=== PATIENT | male | born 1960 | race Hispanic/Latino ===

== ENCOUNTER 2016-09-04 13:17 | Inpatient (IN) | payer MEDICARE ==
--- NOTE | 2016-09-04 14:03 | Emergency Department Report ---
Entered by BHARGAVI CHIU, acting as scribe for KATIE JOY NP. Chief Complaint: Chest Pain Stated Complaint: CHEST PAIN Time Seen by Provider: 09/04/16 13:53 - HPI History of Present Illness: 56 year old male who is non-toxic, non ill appearing, in no acute distress presents with c/o right sided chest pain today. He describes pain aching with radiation to his back. He also reports SOB and swelling to right hand. Patient states he was given heparin by dialysis center. Denies N/V, abdominal pain, denies trauma to right hand. - ROS Review of Systems: Reports right anterior chest pain, radiated pain to back, shortness of breath, swelling to right hand. Denies abdominal pain, N/V, trauma to right hand. - Exam Vital Signs: Vital Signs 09/04/16 13:21 Temperature 98 F Pulse Rate 77 Respiratory 18 Rate Blood Pressure 123/69 O2 Sat by Pulse 100 Oximetry Physical Exam: Constitutional: Non toxic appearing, NAD. Cardiovascular: Normal rate and rhythm. Murmur present. Palpation of sternum and right anterior chest wall reproduces symptoms. 2+ pitting edema to right hand. Respiratory: No respiratory distress. Lung sounds clear to auscultation bilaterally. MSE screening note: Focused history and physical exam performed. Due to findings the following was ordered: CBC, CMP, BNP, CCK, Troponin, EKG, Chest X-ray No ASA ordered due to reported heparin administration by dialysis center prior to arrival. ED Disposition for MSE Condition: Stable This documentation as recorded by the scribe,BHARGAVI CHIU,accurately reflects the service I personally performed and the decisions made by ,KATIE JOY, JOELLEN.
--- NOTE | 2016-09-04 14:29 | XRay Report ---
CHEST 2 VIEWS INDICATION: Right-sided chest pain. Right arm swelling. COMPARISON: 08/15/2016 FINDINGS: PA and lateral chest radiographs demonstrate grossly stable cardiomediastinal silhouette/mild cardiomegaly, though partly obscured due to new right lower lung opacity/effusion with obscured right hemidiaphragm. Mild left basilar opacity/effusion persists, though lesser since the prior exam. No CHF. Mild aortic knob calcifications. Stable left axillary stent and mild spinal degenerative spurring. CONCLUSION: 1. Interval radiographic variation with new right basilar opacity/effusion while improved at the left lung base, as described. 2. Few other stable findings, including mild cardiomegaly. Thank you for the opportunity to participate in this patient's care.
[2016-09-04 16:12] LABS: Basophils % (Auto) 0.9 % (0.0-1.8); Eosinophils % (Auto) 7.8 % (0.0-4.3); Hematocrit 35.9 % (35.5-45.6); Hemoglobin 11.3 gm/dl (11.8-15.2); Mean Corpuscular HGB Conc 31 % (32-34); Mean Corpuscular Hemoglobin 28 pg (28-32); Mean Corpuscular Volume 90 fl (84-94); Platelet Count 252 K/mm3 (140-440); Red Blood Count 3.97 M/mm3 (3.65-5.03); White Blood Count 13.6 K/mm3 (4.5-11.0)
[2016-09-04 16:37] LABS: Creatine Kinase MB 4.1 ng/mL (0.0-4.0)
[2016-09-04 16:38] LABS: Albumin 3.3 g/dL (3.9-5); Albumin/Globulin Ratio 1.2 %; Alkaline Phosphatase 97 units/L (35-129); Anion Gap 16 mmol/L; BUN/Creatinine Ratio 5.22; Blood Urea Nitrogen 23 mg/dL (9-20); Calcium 8.9 mg/dL (8.4-10.2); Carbon Dioxide 28 mmol/L (22-30); Chloride 100.6 mmol/L (98-107); Creatine Kinase 54 units/L (55-170); Glucose 85 mg/dL (75-100); Potassium 3.8 mmol/L (3.6-5.0); Sodium 141 mmol/L (137-145); Total Protein 6.1 g/dL (6.3-8.2)
[2016-09-04 16:41] LABS: Alanine Aminotransferase < 5 units/L (7-56)
[2016-09-04 17:34] LABS: Cholesterol 130 mg/dL (50-199); HDL Cholesterol 32 mg/dL (40-59); LDL Cholesterol,Direct 77 mg/dL (50-130); Triglycerides 105 mg/dL (2-149)
--- NOTE | 2016-09-04 19:25 | Admit Criteria Form ---
Admission Criteria Documentation: TELEMETRY CARE Telemetry Admission Guidelines (Place 'X' for any and all applicable criteria): Admission to telemetry [A] may be indicated for ANY ONE of the following(1)(2)(3 )(4)(5): [ X]I. Cardiac disease, including ANY ONE of the following (9)(10)(11)(12)( 13): [ ]a) Postacute NE [ ]b) Low-risk patients with ST-segment elevation NE who have undergone successful percutaneous coronary intervention [X ]c) Unstable angina [ ]d) Suspected NE (until it is ruled out) [ ]e) Post cardiac surgery (first 48 to 72 hours unless complications occur) [ ]f) Acute arrhythmias (including significant tachycardia or bradycardia) [B] [ ]g) Firing of an implantable cardioverter defibrillator [C] [ ]h) Suspected pacemaker or implantable cardioverter defibrillator malfunction (10) [ ]i) New administration or adjustment of an antiarrhythmic drug [D ] [ ]j) Child admitted for acute congestive heart failure [ ]j) Long QT syndrome [ ]k) Advanced heart block (eg, second-degree Mobitz type II, third- degree heart block) [ ]l) Acute myocarditis or pericarditis [ ]m) Short-term (ambulatory or inpatient) monitoring after a cardiac procedure as indicated by ANY ONE of the following [E]: [ ]i) Electrophysiologic studies [ ]ii) Percutaneous coronary intervention with stent placement [ ]iii) Pacemaker placement with cardiac conduction defect [ ]iv) Implantable cardiac defibrillator placement [ ]II. Drug overdose or poisoning with substance that causes arrhythmias or QT prolongation (eg, phenothiazines, sympathomimetic agents, cyclic antidepressants, digitalis, antiarrhythmic drugs)(15) [ ]III. Short-term (ambulatory or inpatient) monitoring after therapeutic or diagnostic procedure requiring conscious sedation or anesthesia (eg, endoscopy, elective cardioversion) [ ]IV. Acute cerebrovascular even[F](18) [ ]V. Massive blood transfusion (eg, at least 10 units of packed red blood cells in 24 hours) [ ]. Variceal bleeding after endoscopy, sclerotherapy, or IV vasopressin [ ]VII. Uncorrected electrolyte abnormalities associated with an increased risk of dangerous arrhythmia [G]; examples include [ ]a) Hyperkalemia with attributable ECG changes [ ]b) Potassium greater than 6.5 mmol/L (mEq/L) in a patient without history of chronic renal disease [ ]c) Prolonged QT attributed to hypokalemia, hypomagnesemia, or hypocalcemia [ ]VIII.Unexplained syncope or other neurologic event suspected of being due to arrhythmia due to a finding that increases risk; examples include(19)(20)(21): [ ]a) High-risk ECG findings (eg, bifascicular block, bradycardia, abnormal QT interval, ventricular pre- excitation) [ ]b) History of previous syncope due to arrhythmia [ ]c) Abnormal ventricular function (eg, reduced ejection fraction ) [ ]d) Exertional or supine syncope [ ]e) Concerning syncope characteristics (eg, sudden loss of consciousness without prodrome) [ ]f) Family history of sudden [ ]g) Use of arrhythmogenic medication [ ]h) Suspected cardiac ischemia [ ]i) Known channelopathy (eg, long QT syndrome, Brugada syndrome, or catecholaminergic paroxysmal ventricular tachycardia) [ ]j) Known structural heart disease (eg, hypertrophic cardiomyopathy , severe valvular disease) [ ]k) Palpitations preceding syncope The original [employer] content created by [employer] has been revised. The portions of the content which have been revised are identified through the use of italic text or in bold, and [facility] has neither reviewed nor approved the modified material. All other unmodified content is copyright [employer]. Please see references footnoted in the original [employer] edition 2016 Admission Criteria Met: Yes
--- NOTE | 2016-09-04 19:55 | Emergency Department Report ---
HPI - General Chief Complaint: Chest Pain Time Seen by Provider: 09/04/16 18:38 - HPI HPI: This is a 56-year-old location male presents to the emergency department by EMS from hemodialysis with complaint of midsternal and right-sided chest pain, a painful lump/bump to the right nipple and some shortness of breath. Patient did not take anything and was not given anything for symptoms prior to presentation. He gets dialysis on Saturday//Saturday. 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 Symptoms beginning grossly worse over the past 2-3 days. No recent travel or sick contacts at home. He also has a history of hypertension, previous brain tumors , Von Hippel syndrome. The patient was recently admitted to [facility] in late July and had a cardiac catheterization that showed only mild occlusive disease and did not require any cardiac stents. ED Past Medical Hx - Past Medical History Hx Hypertension: Yes Hx CVA: No Hx Congestive Heart Failure: No Hx Diabetes: No Hx Renal Disease: Yes (HD) Hx Seizures: No Hx Asthma: No Hx COPD: No Hx Tuberculosis: No Hx HIV: No Additional medical history: VAN-HIPPEL SYNDROME (AUTOIMMUNE), PANCREATIC CYSTS, BRAIN TUMORS - Surgical History Hx Pacemaker: No Hx Cholecystectomy: Yes Hx Appendectomy: Yes Additional Surgical History: 3 BRAIN SURGERIES, NEPHRECTOMY B/L, SPLENECTOMY, - Social History Smoking Status: Unknown if ever smoked Substance Use Type: None - Medications Home Medications: Home Medications Medication Instructions Recorded Confirmed Last Taken Type Atorvastatin [Lipitor] 40 mg PO QHS 08/24/15 08/15/16 08/14/16 History Folic Acid/Vit B Comp W-C [Renal 1 cap PO QDAY #30 capsule 04/27/16 08/15/16 Rx Caps] Gabapentin [Neurontin] 300 mg PO BID #60 capsule 04/27/16 08/15/16 08/15/16 Rx NIFEdipine XL [Procardia Xl] 60 mg PO Q12HR #60 tablet 04/27/16 08/15/16 Rx Pantoprazole [Protonix TAB] 40 mg PO QDAY #30 tablet 04/27/16 08/15/16 08/15/16 Rx hydrALAZINE [Apresoline TAB] 100 mg PO TID #90 tab 04/27/16 08/15/16 08/15/16 Rx Carvedilol [Coreg] 25 mg PO BID 08/15/16 08/15/16 08/15/16 History Ergocalciferol (Vitamin D2) 1 tab PO 1XW 08/15/16 08/15/16 Unknown History [Vitamin D2] Ferrous Sulfate [Feosol 325 MG tab] 325 mg PO QDAY 08/15/16 08/15/16 08/15/16 History Vit B Cplx #11/FA/C/Biot/Zn Ox 1 each PO DAILY 08/15/16 08/15/16 08/15/16 History [Dialyvite with Zinc Tablet] traMADol [Ultram 50 MG tab] 50 mg PO Q6HR PRN 08/15/16 08/15/16 08/15/16 History Levofloxacin [Levaquin TAB] 500 mg PO Q48H #5 tablet 08/20/16 Unknown Rx ED Review of Systems ROS: Stated complaint: CHEST PAIN Other details as noted in HPI Comment: All other systems reviewed and negative Constitutional: denies: chills, fever Eyes: denies: eye pain, eye discharge, vision change ENT: denies: ear pain, throat pain Respiratory: shortness of breath. denies: cough Cardiovascular: chest pain. denies: palpitations Gastrointestinal: denies: abdominal pain, nausea, diarrhea Genitourinary: denies: urgency, dysuria Musculoskeletal: back pain. denies: arthralgia Skin: denies: rash, lesions Neurological: denies: headache, weakness, paresthesias Physical Exam - Physical Exam Vital Signs: Vital Signs 09/04/16 13:21 Temperature 98 F Pulse Rate 77 Respiratory 18 Rate Blood Pressure 123/69 O2 Sat by Pulse 100 Oximetry Physical Exam: GENERAL: The patient is well-developed well-nourished. HEENT: Normocephalic. Atraumatic. Extraocular motions are intact. Patient has moist mucous membranes. NECK: Supple. Trachea is midline. CHEST/LUNGS: Coarse breath sounds at the chest. There is some rhonchi to the bases. Mild tachypnea but no accessory muscle use. There is no respiratory distress noted. HEART/CARDIOVASCULAR: Regular. There is no tachycardia. There is no gallop rub or murmur. ABDOMEN: Abdomen is soft, nontender. Patient has normal bowel sounds. There is no abdominal distention. SKIN: Skin is warm and dry. There is a tender but mobile small nodule to the lateral side of the right nipple around the 9 o'clock position. NEURO: The patient is awake, alert, and oriented. The patient is cooperative. The patient has no focal neurologic deficits. The patient has normal speech. MUSCULOSKELETAL: There is no tenderness or deformity. There is no limitation range of motion. There is no evidence of acute injury. ED Course Vital Signs 09/04/16 13:21 Temperature 98 F Pulse Rate 77 Respiratory 18 Rate Blood Pressure 123/69 O2 Sat by Pulse 100 Oximetry ED Medical Decision Making - Lab Data Result diagrams: 09/04/16 16:01 09/04/16 16:01 - EKG Data -: EKG Interpreted by Me EKG shows normal: sinus rhythm, axis, intervals, QRS complexes, ST-T waves Rate: normal - EKG Data When compared to previous EKG there are: previous EKG unavailable Interpretation: normal EKG - Radiology Data Radiology results: image reviewed interpreted by me: Chest x-ray shows interval radiograph variation with new right basilar opacity/ effusion while improved at the left lung base. - Medical Decision Making 56-year-old male presents the emergency department with some chest pain, shortness of breath. EKG does not show any signs of a ST elevation CO. Chest x -ray shows concern for a right lower lobe opacity versus effusion. He has a leukocytosis. There is some renal insufficiency with the patient is end-stage renal disease. He has elevated troponin and BNP levels but once again he is end -stage renal disease and therefore this may not be accurate. The cultures were sent and the patient was started on Levaquin for possible right lower lobe pneumonia. He will be admitted to hospital for further evaluation and treatment is been accepted for admission by the hospitalist, Dr. Rodriguez. - Differential Diagnosis pneumonia, CO, CHF, bronchitis Critical Care Time: No Critical care attestation.: If time is entered above; I have spent that time in minutes in the direct care of this critically ill patient, excluding procedure time. ED Disposition Clinical Impression: ESRD (end stage renal disease), Elevated troponin Anemia, chronic renal failure Qualifiers: Chronic kidney disease stage: stage 5 Qualified Code(s): N18.5 - Chronic kidney disease, stage 5; D63.1 - Anemia in chronic kidney disease Pneumonia Qualifiers: Pneumonia type: due to unspecified organism Laterality: right Lung location: lower lobe of lung Qualified Code(s): J18.1 - Lobar pneumonia, unspecified organism Disposition: OP ADMITTED IP TO THIS HOSP Is pt being admited?: Yes Condition: Stable Instructions: Bacterial Pneumonia (ED) Referrals: PRIMARY CARE, [Primary Care Provider] - 3-5 Days Time of Disposition: 23:27
[2016-09-04] MEDS ORDERED: MORPHINE IV ONE (20:54)
[2016-09-04] MEDS ORDERED: LEVAQUIN 750MG/150ML 750 MG/150 ML BAG IV ONE (21:05)
[2016-09-04] MEDS ORDERED: LEVAQUIN IV ONE (21:46)
[2016-09-04] MEDS ORDERED: PERCOCET 5/325 ONE (22:19)
[2016-09-04] MEDS ORDERED: ZOFRAN IV PRN (22:43)
[2016-09-04] MEDS ORDERED: MILK OF MAGNESIA PO PRN (22:43)
[2016-09-04] MEDS ORDERED: D50W (25GM) IV PRN (22:43)
[2016-09-04] MEDS ORDERED: DULCOLAX PR PRN (22:43)
[2016-09-04] MEDS ORDERED: TYLENOL PO PRN (22:43)
[2016-09-04] MEDS ORDERED: PERCOCET 5/325 PO ONE (22:55)
--- NOTE | 2016-09-04 23:03 | History and Physical Report ---
History of Present Illness Date of examination: 09/04/16 History of present illness: 56-year-old man with a history of hypertension, diabetes, hyperlipidemia, coronary artery disease, Von Hippel disease, end-stage renal disease comes emergency room with complaints of chest pain. Pain is in the epigastric area which she describes as sharp pain, intermittent in nature, intensity 6/10, no radiation, worse with breathing. Admits to shortness of breath, no nausea vomiting, diaphoresis or palpitation. He had a stress test 3 months ago which was negative, also had recent cath Patient denies cough, abdominal pain, hematochezia, dysuria, frequency, focal weakness, dysarthria, fever chills, polydipsia polyuria, hot or cold intolerance , easy bruisability, or rash or bleeding from mucosal membrane, rhinorrhea, epistaxis, earache, tinnitus, blurry vision, eye discharge, anxiety, depression. Other review of systems negative PAST SURGICAL HISTORY: Splenectomy, cataract extraction, AV fistula SOCIAL HISTORY: Denies alcohol, tobacco, drug FAMILY HISTORY: hypertension Medications and Allergies Allergies Allergy/AdvReac Type Severity Reaction Status Date / Time clonidine Allergy Swelling Verified 06/11/13 19:33 codeine Allergy Itching Verified 08/25/15 05:22 hydrocodone Allergy Itching Verified 06/11/13 19:33 aspirin AdvReac Severe Brain Verified 08/20/16 08:46 Bleeding Home Medications Medication Instructions Recorded Confirmed Last Taken Type Atorvastatin [Lipitor] 40 mg PO QHS 08/24/15 08/15/16 08/14/16 History Folic Acid/Vit B Comp W-C [Renal 1 cap PO QDAY #30 capsule 04/27/16 08/15/16 Rx Caps] Gabapentin [Neurontin] 300 mg PO BID #60 capsule 04/27/16 08/15/16 08/15/16 Rx NIFEdipine XL [Procardia Xl] 60 mg PO Q12HR #60 tablet 04/27/16 08/15/16 Rx Pantoprazole [Protonix TAB] 40 mg PO QDAY #30 tablet 04/27/16 08/15/16 08/15/16 Rx hydrALAZINE [Apresoline TAB] 100 mg PO TID #90 tab 04/27/16 08/15/16 08/15/16 Rx Carvedilol [Coreg] 25 mg PO BID 08/15/16 08/15/16 08/15/16 History Ergocalciferol (Vitamin D2) 1 tab PO 1XW 08/15/16 08/15/16 Unknown History [Vitamin D2] Ferrous Sulfate [Feosol 325 MG tab] 325 mg PO QDAY 08/15/16 08/15/16 08/15/16 History Vit B Cplx #11/FA/C/Biot/Zn Ox 1 each PO DAILY 08/15/16 08/15/16 08/15/16 History [Dialyvite with Zinc Tablet] traMADol [Ultram 50 MG tab] 50 mg PO Q6HR PRN 08/15/16 08/15/16 08/15/16 History Levofloxacin [Levaquin TAB] 500 mg PO Q48H #5 tablet 08/20/16 Unknown Rx Active Meds: Active Medications Acetaminophen (Tylenol) 650 mg PO Q4H PRN PRN Reason: Pain MILD(1-3)/Fever >100.5/GAXIOLA Bisacodyl (Dulcolax) 10 mg [place] QDAY PRN PRN Reason: Constipation unrelieved by MOM Dextrose (D50w (25gm)) 50 ml IV PRN PRN PRN Reason: Hypoglycemia Enoxaparin Sodium (Lovenox) 30 mg SUB-Q QDAY LOUISE Insulin Aspart (Novolog) 0 units SUB-Q ACHS LOUISE PRN Reason: Protocol Magnesium Hydroxide (Milk Of Magnesia) 30 ml PO Q4H PRN PRN Reason: Constipation Morphine Sulfate (Morphine) 2 mg IV Q4H PRN PRN Reason: Pain, Moderate (4-6) Ondansetron HCl (Zofran) 4 mg IV Q8H PRN PRN Reason: N/V unrelieved by Reglan Exam - Physical Exam Narrative exam: Gen. appearance: Patient lying in bed, no apparent distress HEENT: Normocephalic, atraumatic, pupils equally round and reactive to light, extraocular movement intact, and no sclericterus,. No JVD or thyromegaly or nodule,neck supple, no carotid bruit ,mucous membranes moist, no exudate or erythema Heart: S1, S2, regular rate and rhythm Lungs: Clear to auscultation bilaterally, breathing comfortable Abdomen: Positive bowel sounds, nontender, nondistended, no organomegaly Extremity: No edema, cyanosis, clubbing Skin: No rash, nodules, warm, dry Neuro: Oriented 3, cranial nerves II-12 intact, speech is fluent, motor and sensory intact - Constitutional Vitals: Temp Pulse Resp BP Pulse Ox 98.7 F 84 16 152/74 95 09/04/16 21:06 09/04/16 21:06 09/04/16 21:06 09/04/16 21:06 09/04/16 21:06 Results - Labs CBC & Chem 7: 09/05/16 04:35 09/05/16 04:35 Labs: Abnormal lab results 09/04/16 09/04/16 Range/Units 16:01 16:01 WBC 13.6 H (4.5-11.0) K/mm3 Hgb 11.3 L (11.8-15.2) gm/dl MCHC 31 L (32-34) % RDW 21.0 H (13.2-15.2) % Lymph % (Auto) 7.3 L (13.4-35.0) % [place] % (Auto) 8.2 H (0.0-7.3) % Eos % (Auto) 7.8 H (0.0-4.3) % Lymph # 1.0 L (1.2-5.4) K/mm3 [place] # 1.1 H (0.0-0.8) K/mm3 Eos # 1.1 H (0.0-0.4) K/mm3 Seg Neutrophils % 75.8 H (40.0-70.0) % Seg Neutrophils # 10.3 H (1.8-7.7) K/mm3 BUN 23 H (9-20) mg/dL Creatinine 4.4 H (0.8-1.5) mg/dL ALT < 5 L (7-56) units/L Total Creatine Kinase 54 L (55-170) units/L CK-MB (CK-2) 4.1 H (0.0-4.0) ng/mL CK-MB (CK-2) Rel Index 7.5 H (0-4) Troponin T 0.573 H* (0.00-0.029) ng/mL NT-Pro-B Natriuret Pep 46251 H (0-900) pg/mL Total Protein 6.1 L (6.3-8.2) g/dL Albumin 3.3 L (3.9-5) g/dL HDL Cholesterol 32 L (40-59) mg/dL - Imaging and Cardiology EKG: image reviewed Chest x-ray: image reviewed Assessment and Plan Unstable angina Coronary artery disease Hypertension Diabetes Hyperlipidemia End-stage renal disease Admit to medicine Check cardiac enzymes, consult cardiology Check fingersticks initiate insulin sliding scale Continue outpatient medication, start IV morphine, DVT prophylaxis
[2016-09-05] MEDS: MORPHINE IV PRN ×4 (01:03→22:00)
[2016-09-05 05:02] LABS: Basophils % (Auto) 0.8 % (0.0-1.8); Eosinophils % (Auto) 12.9 % (0.0-4.3); Hematocrit 34.8 % (35.5-45.6); Hemoglobin 10.8 gm/dl (11.8-15.2); Mean Corpuscular HGB Conc 31 % (32-34); Mean Corpuscular Hemoglobin 28 pg (28-32); Mean Corpuscular Volume 91 fl (84-94); Platelet Count 255 K/mm3 (140-440); Red Blood Count 3.85 M/mm3 (3.65-5.03); Red Cell Distribution Width 20.9 % (13.2-15.2); White Blood Count 10.6 K/mm3 (4.5-11.0)
[2016-09-05 05:27] LABS: BUN/Creatinine Ratio 5.57; Calcium 8.9 mg/dL (8.4-10.2); Chloride 95.9 mmol/L (98-107); Potassium 4.1 mmol/L (3.6-5.0)
[2016-09-05 05:28] LABS: Creatine Kinase MB 3.4 ng/mL (0.0-4.0)
[2016-09-05] MEDS ORDERED: APRESOLINE IV ONE (06:31)
[2016-09-05] MEDS: NOVOLOG SUB-Q SCH ×4 (08:28→21:47)
[2016-09-05] MEDS: LOVENOX SUB-Q SCH (10:01)
[2016-09-05 11:06] LABS: Creatine Kinase MB 3.5 ng/mL (0.0-4.0)
--- NOTE | 2016-09-05 11:46 | Consultation ---
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 He also has a history of non-obstructive single vessel coronary artery disease recommended for medical therapy by cardiac cath 2 weeks ago. Ejection fraction 65%. He sent from dialysis with complaints of chest pain. Patient reports he fell a week ago after his legs gave away and since then he has been having right sided chest pain. Chest pain reproducible with palpation and deep breathing. He denies loss of consciousness. His ECG shows a sinus rhythm, no acute ischemic changes. Cardiac consultation requested. Past History Past Medical History: CAD, ESRD, hypertension Medications and Allergies Allergies Allergy/AdvReac Type Severity Reaction Status Date / Time clonidine Allergy Swelling Verified 06/11/13 19:33 codeine Allergy Itching Verified 08/25/15 05:22 hydrocodone Allergy Itching Verified 06/11/13 19:33 aspirin AdvReac Severe Brain Verified 08/20/16 08:46 Bleeding Home Medications Medication Instructions Recorded Confirmed Last Taken Type Folic Acid/Vit B Comp W-C [Renal 1 cap PO QDAY #30 capsule 04/27/16 09/05/1601/13 Rx Caps] Gabapentin [Neurontin] 300 mg PO BID #60 capsule 04/27/16 09/05/16 09/04/16 Rx NIFEdipine XL [Procardia Xl] 60 mg PO Q12HR #60 tablet 04/27/16 09/05/16 Rx Pantoprazole [Protonix TAB] 40 mg PO QDAY #30 tablet 04/27/16 09/05/16 09/04/16 Rx hydrALAZINE [Apresoline TAB] 100 mg PO TID #90 tab 04/27/16 09/05/16 09/04/16 Rx Carvedilol [Coreg] 25 mg PO BID 08/15/16 09/05/16 09/04/16 History Ergocalciferol (Vitamin D2) 1 tab PO 1XW 08/15/16 09/05/16 Unknown History [Vitamin D2] Ferrous Sulfate [Feosol 325 MG tab] 325 mg PO QDAY 08/15/16 09/05/16 09/04/16 History Vit B Cplx #11/FA/C/Biot/Zn Ox 1 each PO DAILY 08/15/16 09/05/16 09/04/16 History [Dialyvite with Zinc Tablet] traMADol [Ultram 50 MG tab] 50 mg PO Q6HR PRN 08/15/16 09/05/16 08/15/16 History Levofloxacin [Levaquin TAB] 500 mg PO Q48H #5 tablet 08/20/16 09/05/16 Unknown Rx Doxazosin Mesylate [Cardura] 2 mg PO HS 09/05/16 09/05/16 Unknown History Lanthanum Carbonate [Fosrenol] 750 mg PO WMHS 09/05/16 09/05/16 Unknown History Active Meds: Active Medications Acetaminophen (Tylenol) 650 mg PO Q4H PRN PRN Reason: Pain MILD(1-3)/Fever >100.5/GAXIOLA Bisacodyl (Dulcolax) 10 mg [place] QDAY PRN PRN Reason: Constipation unrelieved by MOM Carvedilol (Coreg) 25 mg PO BID [facility] Dextrose (D50w (25gm)) 50 ml IV PRN PRN PRN Reason: Hypoglycemia Enoxaparin Sodium (Lovenox) 30 mg SUB-Q QDAY [facility] Last Admin: 09/05/16 10:01 Dose: 30 mg Ergocalciferol (Vitamin D2) unit PO 1XW LOUISE Ferrous Sulfate (Feosol) 325 mg PO QDAY LOUISE Gabapentin (Neurontin) 300 mg PO BID LOUISE Hydralazine HCl (Apresoline) 100 mg PO TID LOUISE Insulin Aspart (Novolog) 0 units SUB-Q ACHS LOUISE PRN Reason: Protocol Last Admin: 09/05/16 08:28 Dose: Not Given Magnesium Hydroxide (Milk Of Magnesia) 30 ml PO Q4H PRN PRN Reason: Constipation Miscellaneous Medication (Doxazosin Mesylate [Cardura]) 2 mg PO HS [facility] Miscellaneous Medication (Lanthanum Carbonate [Fosrenol]) 750 mg PO WMHS [facility] Miscellaneous Medication (Vit B Cplx #11/Fa/C/Biot/Zn Ox [Dialyvite With Zinc Tablet]) 1 each PO DAILY [facility] Morphine Sulfate (Morphine) 2 mg IV Q4H PRN PRN Reason: Pain, Moderate (4-6) Last Admin: 09/05/16 05:48 Dose: 2 mg Multivit/Ca Carb/B Cmplx/FA/Prenat (Renal Caps) 1 cap PO QDAY LOUISE Nifedipine (Procardia Xl) 60 mg PO Q12HR LOUISE Ondansetron HCl (Zofran) 4 mg IV Q8H PRN PRN Reason: N/V unrelieved by Reglan Pantoprazole Sodium (Protonix) 40 mg PO QDAY LOUISE Tramadol HCl (Ultram) 50 mg PO Q6HR PRN PRN Reason: Pain Physical Examination Vital Signs Temp Pulse Resp BP Pulse Ox 98 F 77 18 123/69 100 09/04/16 13:21 09/04/16 13:21 09/04/16 13:21 09/04/16 13:21 09/04/16 13:21 General appearance: no acute distress HEENT: Positive: PERRL Neck: Positive: trachea midline Cardiac: Positive: Reg Rate and Rhythm Lungs: Positive: Decreased Breath Sounds Results 09/05/16 04:35 09/05/16 04:35 Cardiac Enzymes 09/05/16 09/05/16 Range/Units 04:35 07:02 CK-MB (CK-2) 3.4 3.5 (0.0-4.0) ng/mL CBC 09/05/16 Range/Units 04:35 WBC 10.6 (4.5-11.0) K/mm3 RBC 3.85 (3.65-5.03) M/mm3 Hgb 10.8 L (11.8-15.2) gm/dl Hct 34.8 L (35.5-45.6) % Plt Count 255 (140-440) K/mm3 Lymph # 1.0 L (1.2-5.4) K/mm3 [place] # 1.1 H (0.0-0.8) K/mm3 Eos # 1.4 H (0.0-0.4) K/mm3 Baso # 0.1 (0.0-0.1) K/mm3 Comprehensive Metabolic Panel 09/05/16 Range/Units 04:35 Sodium 137 (137-145) mmol/L Potassium 4.1 (3.6-5.0) mmol/L Chloride 95.9 L (98-107) mmol/L Carbon Dioxide 27 (22-30) mmol/L BUN 29 H (9-20) mg/dL Creatinine 5.2 H (0.8-1.5) mg/dL Glucose 78 (75-100) mg/dL Calcium 8.9 (8.4-10.2) mg/dL Assessment and Plan Chest pain, musculskeletal Chronic elevated troponin ESRD on HD Von-Hippel Lindau syndrome Hypertension [facility] 08/20/16 reports non-obstructive single vessel coronary artery disease, ejection fraction 65%. Medical therapy recommended. Recommendations: PE workup in progress by primary team. Continue medical therapy for non-obstructive coronary disease. Otherwise, no further cardiac workup for musculoskeletal chest pain.
[2016-09-05] MEDS ORDERED: LANTHANUM CARBONATE 750 MG PO SCH (12:00)
[2016-09-05] MEDS ORDERED: ULTRAM PO PRN (12:00)
--- NOTE | 2016-09-05 14:11 | Progress Note ---
Assessment and Plan - Patient Problems (1) ACS (acute coronary syndrome) Current Visit: Yes Status: Acute Plan to address problem: Serial cardiac enzymes, ekg, telemetry, supportive care. cardiology consulted (2) ESRD (end stage renal disease) Current Visit: Yes Status: Chronic Plan to address problem: Nephrology consulted: dialysis as per nephrology team. (3) Diabetes Current Visit: Yes Status: Acute Qualifiers: Diabetes mellitus type: D Diabetes mellitus complication status: D Diabetes mellitus complication detail: D Diabetic retinopathy severity: D Proliferative retinopathy type: P Diabetes mellitus macular edema: D Diabetes mellitus longterm insulin use: D Laterality: L Chronic kidney disease stage: C Plan to address problem: ADA diet, insulin, accu check (4) Hyperlipidemia Current Visit: No Status: Chronic Qualifiers: Hyperlipidemia type: H Plan to address problem: continue statin therapy (5) Hypertension Current Visit: No Status: Chronic Qualifiers: Hypertension type: secondary to other renal disorders Qualified Code(s): I15.1 - Hypertension secondary to other renal disorders Plan to address problem: Monitor bp q shift, resume home medications (6) DVT prophylaxis Current Visit: No Status: Acute History Interval history: Pt resting in bed, Pt complains of shortness of breath with deep breathing, and swelling in his neck. Pt denies fever, chills, CP, Palpitations. Hospitalist Physical - Constitutional Vitals: Temp Pulse Resp BP Pulse Ox 99.5 F 91 H 18 168/78 95 09/05/16 14:05 09/05/16 14:05 09/05/16 14:05 09/05/16 14:05 09/05/16 14:05 General appearance: Present: no acute distress - EENT Eyes: Present: PERRL, EOM intact ENT: hearing intact - Neck Neck: Present: supple - Respiratory Respiratory effort: normal Respiratory: bilateral: diminished - Cardiovascular Rhythm: regular Heart Sounds: Present: S1 & S2 - Extremities Extremities: no ischemia Peripheral Pulses: within normal limits - Abdominal General gastrointestinal: soft, non-tender, non-distended - Integumentary Integumentary: Present: clear, dry - Psychiatric Psychiatric: appropriate mood/affect, cooperative - Neurologic Neurologic: CNII-XII intact Results - Labs CBC & Chem 7: 09/05/16 04:35 09/05/16 04:35 Labs: Laboratory Last Values WBC 10.6 K/mm3 (4.5-11.0) 09/05/16 04:35 RBC 3.85 M/mm3 (3.65-5.03) 09/05/16 04:35 Hgb 10.8 gm/dl (11.8-15.2) L 09/05/16 04:35 Hct 34.8 % (35.5-45.6) L 09/05/16 04:35 MCV 91 fl (84-94) 09/05/16 04:35 MCH 28 pg (28-32) 09/05/16 04:35 MCHC 31 % (32-34) L 09/05/16 04:35 RDW 20.9 % (13.2-15.2) H 09/05/16 04:35 Plt Count 255 K/mm3 (140-440) 09/05/16 04:35 Lymph % (Auto) 9.3 % (13.4-35.0) L 09/05/16 04:35 Whitman % (Auto) 10.9 % (0.0-7.3) H 09/05/16 04:35 Eos % (Auto) 12.9 % (0.0-4.3) H 09/05/16 04:35 Baso % (Auto) 0.8 % (0.0-1.8) 09/05/16 04:35 Lymph # 1.0 K/mm3 (1.2-5.4) L 09/05/16 04:35 Whitman # 1.1 K/mm3 (0.0-0.8) H 09/05/16 04:35 Eos # 1.4 K/mm3 (0.0-0.4) H 09/05/16 04:35 Baso # 0.1 K/mm3 (0.0-0.1) 09/05/16 04:35 Seg Neutrophils % 66.1 % (40.0-70.0) 09/05/16 04:35 Seg Neutrophils # 7.0 K/mm3 (1.8-7.7) 09/05/16 04:35 D-Dimer 1675.26 ng/mlDDU (0-234) H 09/05/16 05:35 Sodium 137 mmol/L (137-145) 09/05/16 04:35 Potassium 4.1 mmol/L (3.6-5.0) 09/05/16 04:35 Chloride 95.9 mmol/L (98-107) L 09/05/16 04:35 Carbon Dioxide 27 mmol/L (22-30) 09/05/16 04:35 Anion Gap 18 mmol/L 09/05/16 04:35 BUN 29 mg/dL (9-20) H 09/05/16 04:35 Creatinine 5.2 mg/dL (0.8-1.5) H 09/05/16 04:35 Estimated GFR 11 ml/min 09/05/16 04:35 BUN/Creatinine Ratio 5.57 % 09/05/16 04:35 Glucose 78 mg/dL (75-100) 09/05/16 04:35 Calcium 8.9 mg/dL (8.4-10.2) 09/05/16 04:35 Total Bilirubin 0.40 mg/dL (0.1-1.2) 09/04/16 16:01 AST 15 units/L (5-40) 09/04/16 16:01 ALT < 5 units/L (7-56) L 09/04/16 16:01 Alkaline Phosphatase 97 units/L (35-129) 09/04/16 16:01 Total Creatine Kinase 31 units/L (55-170) L 09/05/16 07:02 CK-MB (CK-2) 3.5 ng/mL (0.0-4.0) 09/05/16 07:02 CK-MB (CK-2) Rel Index 11.2 (0-4) H 09/05/16 07:02 Troponin T 0.640 ng/mL (0.00-0.029) H* 09/05/16 07:02 NT-Pro-B Natriuret Pep 38363 pg/mL (0-900) H 09/04/16 16:01 Total Protein 6.1 g/dL (6.3-8.2) L 09/04/16 16:01 Albumin 3.3 g/dL (3.9-5) L 09/04/16 16:01 Albumin/Globulin Ratio 1.2 % 09/04/16 16:01 Triglycerides 105 mg/dL (2-149) 09/04/16 16:01 Cholesterol 130 mg/dL (50-199) 09/04/16 16:01 LDL Cholesterol Direct 77 mg/dL (50-130) 09/04/16 16:01 HDL Cholesterol 32 mg/dL (40-59) L 09/04/16 16:01 Cholesterol/HDL Ratio 4.06 % 09/04/16 16:01
[2016-09-05] MEDS ORDERED: NACL ONE (14:29)
--- NOTE | 2016-09-05 16:27 | Cat Scan Report ---
CT angiography of the chest with 3-D reconstructed images. History: Dyspnea. Findings: There is no evidence of pulmonary emboli. There is a moderate right pleural effusion and a small left pleural effusion is present. There is subsegmental atelectasis in the right lower and middle lobes. Mild atelectasis is seen in the left lower lobe as well. There is a moderate size pericardial effusion. Images which include a portion of the upper abdomen demonstrate pneumobilia with partial imaging of the liver and upper abdomen. Impression: 1. No evidence of pulmonary emboli. 2. Bilateral pleural effusions with bibasilar atelectasis, greater on the right. 3. Moderate pericardial effusion.
--- NOTE | 2016-09-05 16:33 | Cat Scan Report ---
CT of the neck with IV contrast. History: Neck pain and swelling. Findings: There is a round subcutaneous mass lesion in the left facial area measuring 1.6 cm in diameter. This is superficial to the left masseter muscle but does not involve the muscle. The CT numbers indicate soft tissue density although streak artifact from dental amalgams makes the calculation suboptimal. No additional neck masses are seen. The parotid and submandibular glands appear normal. There is no cervical adenopathy. Small nodes are seen in the posterior triangle bilaterally. There are no glottic or subglottic abnormalities. The thyroid is normal. A small polyp is noted in the anterior right sphenoid sinus. Impression. 1.6 cm in diameter left facial subcutaneous mass. This is a nonspecific finding and could be easily biopsied/aspirated using image guidance if clinically appropriate.
[2016-09-05] MEDS: FOSRENOL PO SCH ×3 (16:59→21:50)
[2016-09-05] MEDS: APRESOLINE PO SCH ×2 (17:32→20:10)
[2016-09-05] MEDS ORDERED: PROCRIT IV PRN (17:37)
[2016-09-05] MEDS ORDERED: NACL 0.9% 100 ML IV PRN (17:37)
[2016-09-05] MEDS ORDERED: HEPARIN 10,000 UNITS/10 ML IV PRN (17:37)
--- NOTE | 2016-09-05 17:39 | Consultation ---
History of Present Illness - Reason for Consult Consult date: 09/05/16 end stage renal disease - History of Present Illness Mr. Hernandes is a 56yo with ESRD on HD TTS who presented to the ED yesterday with chest pain. He reports that 2 hours into his dialysis treatment, he began having sharp, right, anterior chest pain. Dialysis treatment was terminated and he was sent to the ED for evaluation. He reports pain is exacerbated with deep inspiration. He denies cough, SOB, fever, hemoptysis. Past History Past Medical History: CAD, ESRD, hypertension Past Surgical History: Other (nephrectomy, left AVG placement) Social history: no significant social history Family history: no significant family history Medications and Allergies Allergies Allergy/AdvReac Type Severity Reaction Status Date / Time clonidine Allergy Swelling Verified 06/11/13 19:33 codeine Allergy Itching Verified 08/25/15 05:22 hydrocodone Allergy Itching Verified 06/11/13 19:33 aspirin AdvReac Severe Brain Verified 08/20/16 08:46 Bleeding Home Medications Medication Instructions Recorded Confirmed Last Taken Type Folic Acid/Vit B Comp W-C [Renal 1 cap PO QDAY #30 capsule 04/27/16 09/05/1601/13 Rx Caps] Gabapentin [Neurontin] 300 mg PO BID #60 capsule 04/27/16 09/05/16 09/04/16 Rx NIFEdipine XL [Procardia Xl] 60 mg PO Q12HR #60 tablet 04/27/16 09/05/16 Rx Pantoprazole [Protonix TAB] 40 mg PO QDAY #30 tablet 04/27/16 09/05/16 09/04/16 Rx hydrALAZINE [Apresoline TAB] 100 mg PO TID #90 tab 04/27/16 09/05/16 09/04/16 Rx Carvedilol [Coreg] 25 mg PO BID 08/15/16 09/05/16 09/04/16 History Ergocalciferol (Vitamin D2) 1 tab PO 1XW 08/15/16 09/05/16 Unknown History [Vitamin D2] Ferrous Sulfate [Feosol 325 MG tab] 325 mg PO QDAY 08/15/16 09/05/16 09/04/16 History Vit B Cplx #11/FA/C/Biot/Zn Ox 1 each PO DAILY 08/15/16 09/05/1617 History [Dialyvite with Zinc Tablet] traMADol [Ultram 50 MG tab] 50 mg PO Q6HR PRN 08/15/16 09/05/16 08/15/16 History Levofloxacin [Levaquin TAB] 500 mg PO Q48H #5 tablet 08/20/16 09/05/16 Unknown Rx Doxazosin Mesylate [Cardura] 2 mg PO HS 09/05/16 09/05/16 Unknown History Lanthanum Carbonate [Fosrenol] 750 mg PO [facility] 09/05/16 09/05/16 Unknown History Active Meds: Active Medications Acetaminophen (Tylenol) 650 mg PO Q4H PRN PRN Reason: Pain MILD(1-3)/Fever >100.5/[place] Bisacodyl (Dulcolax) 10 mg [place] QDAY PRN PRN Reason: Constipation unrelieved by MOM Carvedilol (Coreg) 25 mg PO BID [facility] Dextrose (D50w (25gm)) 50 ml IV PRN PRN PRN Reason: Hypoglycemia Doxazosin Mesylate (Cardura) 2 mg PO HS [facility] Enoxaparin Sodium (Lovenox) 30 mg SUB-Q QDAY [facility] Last Admin: 09/05/16 10:01 Dose: 30 mg Ergocalciferol (Vitamin D2) 50,000 unit PO We LOUISE Ferrous Sulfate (Feosol) 325 mg PO QDAY [facility] Gabapentin (Neurontin) 300 mg PO BID [place] Hydralazine HCl (Apresoline) 100 mg PO TID [facility] Insulin Aspart (Novolog) 0 units SUB-Q [facility] PRN Reason: Protocol Last Admin: 09/05/16 12:47 Dose: Not Given Lanthanum Carbonate (Fosrenol) 750 mg PO [facility] Last Admin: 09/05/16 16:59 Dose: 750 mg Magnesium Hydroxide (Milk Of Magnesia) 30 ml PO Q4H PRN PRN Reason: Constipation Morphine Sulfate (Morphine) 2 mg IV Q4H PRN PRN Reason: Pain, Moderate (4-6) Last Admin: 09/05/16 17:01 Dose: 2 mg Multivit/Ca Carb/B Cmplx/FA/Prenat (Renal Caps) 1 cap PO QDAY [facility] Nifedipine (Procardia Xl) 60 mg PO Q12HR [place] Ondansetron HCl (Zofran) 4 mg IV Q8H PRN PRN Reason: N/V unrelieved by Reglan Pantoprazole Sodium (Protonix) 40 mg PO QDAY [place] Tramadol HCl (Ultram) 50 mg PO Q6HR PRN PRN Reason: Pain Review of Systems Constitutional: no fever, no chills, no sweats Cardiovascular: chest pain, no rapid/irregular heart beat, no edema, no shortness of breath, no dyspnea on exertion Respiratory: pain on inspiration, no cough, no shortness of breath, no dyspnea on exertion Gastrointestinal: no abdominal pain, no nausea, no vomiting, no diarrhea, no constipation, no BRBPR, no melena Integumentary: no rash Neurological: no weakness Exam - Vital Signs Vital signs: Vital Signs Temp Pulse Resp BP Pulse Ox 98 F 77 18 123/69 100 09/04/16 13:21 09/04/16 13:21 09/04/16 13:21 09/04/16 13:21 09/04/16 13:21 - General Appearance General appearance: well-developed, well-nourished EENT: ATNC Respiratory: Clear to Ascultation Heart: regular, S1S2 Gastrointestinal: Present: normal Integumentary: no rash Neurologic: alert and oriented x3 Psychiatric: mood/affect appropriate Results - Lab Results 09/05/16 04:35 09/05/16 04:35 Most recent lab results Calcium 8.9 mg/dL (8.4-10.2) 09/05/16 04:35 Assessment and Plan Impression: * End stage renal disease on HD TTSs * Chest pain * Hypertension * Anemia secondary to ESRD * Secondary hyperparathyoridism Plan: * Hemodialysis tomorrow; UF as tolerated * Cardiology recommendations noted * Continue antiHTN medications * Epogen with dialysis * Renal diet
[2016-09-05] MEDS: NEURONTIN PO SCH (21:45)
[2016-09-05] MEDS: COREG PO SCH (21:45)
[2016-09-05] MEDS: CARDURA PO SCH (21:46)
[2016-09-05] MEDS: PROCARDIA XL PO SCH (21:46)
[2016-09-05] MEDS ORDERED: NON-FORMULARY (Doxazosin Mesylate [Cardura] 2 MG) PO SCH (22:00)
[2016-09-06] MEDS: MORPHINE IV PRN (03:47)
[2016-09-06] MEDS: APRESOLINE PO SCH ×4 (09:03→22:52)
[2016-09-06] MEDS: NOVOLOG SUB-Q SCH ×4 (09:04→17:09)
[2016-09-06] MEDS: COREG PO SCH ×2 (09:04→22:49)
[2016-09-06] MEDS: PROCARDIA XL PO SCH ×2 (09:05→22:49)
[2016-09-06] MEDS: NEURONTIN PO SCH ×2 (09:27→22:49)
[2016-09-06] MEDS: LOVENOX SUB-Q SCH (09:28)
[2016-09-06] MEDS: FEOSOL PO SCH (09:29)
[2016-09-06] MEDS: FOSRENOL PO SCH ×4 (09:30→23:05)
[2016-09-06] MEDS ORDERED: NON-FORMULARY (Vit B Cplx #11/Fa/C/Biot/Zn Ox [Dialyvite With Zinc Tablet] 1 EACH) PO SCH (10:00)
[2016-09-06] MEDS ORDERED: NACL 0.9 (PRIMING MACHINE ONLY DIALYSIS) MC ONE (10:19)
--- NOTE | 2016-09-06 10:23 | Progress Note ---
Assessment and Plan Assessment and plan: Chest pain, musculskeletal. Pain control and supportive care. Cardiology following. Continue medical therapy for nonobstructive coronary disease. CT of the chest negative for PE Chronic elevated troponin. ESRD on HD. Continue hemodialysis per nephrology. Von-Hippel Lindau syndrome Hypertension Bilateral pleural effusions. Consider Pulmonary consultation. Etiology likely secondary to volume overload from hemodialysis. Moderate Pericardial effusion. Echocardiogram in July 2016 revealed trivial pericardial effusion but thickened pericardium. Discuss with cardiology. History Interval history: This is a 56yr old man with a history of Hypertension, Von-Hippel Lindau syndrome and ESRD on HD who presents with complaints of chest pain. He also has a history of non-obstructive single vessel coronary artery disease recommended for medical therapy by cardiac cath 2 weeks ago. Ejection fraction 65%. Chest pain is reproducible with palpation and deep breathing. Patient denies any chest pain currently. No new issues overnight. Hospitalist Physical - Constitutional Vitals: Temp Pulse Resp BP Pulse Ox 98.2 F 88 18 128/68 92 09/06/16 09:28 09/06/16 09:28 09/06/16 09:28 09/06/16 09:28 09/06/16 09:28 General appearance: Present: no acute distress - EENT Eyes: Present: PERRL, EOM intact ENT: hearing intact, clear oral mucosa, dentition normal - Neck Neck: Present: supple, normal ROM - Respiratory Respiratory effort: normal Respiratory: bilateral: diminished, rales - Cardiovascular Rhythm: regular Heart Sounds: Present: S1 & S2. Absent: gallop, rub - Extremities Extremities: no ischemia, No edema, Full ROM - Abdominal General gastrointestinal: soft, non-tender, non-distended, normal bowel sounds - Integumentary Integumentary: Present: clear, warm, dry - Neurologic Neurologic: CNII-XII intact, moves all extremities Results - Labs CBC & Chem 7: 09/05/16 04:35 09/05/16 04:35 Labs: Laboratory Last Values WBC 10.6 K/mm3 (4.5-11.0) 09/05/16 04:35 RBC 3.85 M/mm3 (3.65-5.03) 09/05/16 04:35 Hgb 10.8 gm/dl (11.8-15.2) L 09/05/16 04:35 Hct 34.8 % (35.5-45.6) L 09/05/16 04:35 MCV 91 fl (84-94) 09/05/16 04:35 MCH 28 pg (28-32) 09/05/16 04:35 MCHC 31 % (32-34) L 09/05/16 04:35 RDW 20.9 % (13.2-15.2) H 09/05/16 04:35 Plt Count 255 K/mm3 (140-440) 09/05/16 04:35 Lymph % (Auto) 9.3 % (13.4-35.0) L 09/05/16 04:35 Story % (Auto) 10.9 % (0.0-7.3) H 09/05/16 04:35 Eos % (Auto) 12.9 % (0.0-4.3) H 09/05/16 04:35 Baso % (Auto) 0.8 % (0.0-1.8) 09/05/16 04:35 Lymph # 1.0 K/mm3 (1.2-5.4) L 09/05/16 04:35 Story # 1.1 K/mm3 (0.0-0.8) H 09/05/16 04:35 Eos # 1.4 K/mm3 (0.0-0.4) H 09/05/16 04:35 Baso # 0.1 K/mm3 (0.0-0.1) 09/05/16 04:35 Seg Neutrophils % 66.1 % (40.0-70.0) 09/05/16 04:35 Seg Neutrophils # 7.0 K/mm3 (1.8-7.7) 09/05/16 04:35 D-Dimer 1675.26 ng/mlDDU (0-234) H 09/05/16 05:35 Sodium 137 mmol/L (137-145) 09/05/16 04:35 Potassium 4.1 mmol/L (3.6-5.0) 09/05/16 04:35 Chloride 95.9 mmol/L (98-107) L 09/05/16 04:35 Carbon Dioxide 27 mmol/L (22-30) 09/05/16 04:35 Anion Gap 18 mmol/L 09/05/16 04:35 BUN 29 mg/dL (9-20) H 09/05/16 04:35 Creatinine 5.2 mg/dL (0.8-1.5) H 09/05/16 04:35 Estimated GFR 11 ml/min 09/05/16 04:35 BUN/Creatinine Ratio 5.57 % 09/05/16 04:35 Glucose 78 mg/dL (75-100) 09/05/16 04:35 POC Glucose 87 (70-105) 09/05/16 20:39 Calcium 8.9 mg/dL (8.4-10.2) 09/05/16 04:35 Total Bilirubin 0.40 mg/dL (0.1-1.2) 09/04/16 16:01 AST 15 units/L (5-40) 09/04/16 16:01 ALT < 5 units/L (7-56) L 09/04/16 16:01 Alkaline Phosphatase 97 units/L (35-129) 09/04/16 16:01 Total Creatine Kinase 31 units/L (55-170) L 09/05/16 07:02 CK-MB (CK-2) 3.5 ng/mL (0.0-4.0) 09/05/16 07:02 CK-MB (CK-2) Rel Index 11.2 (0-4) H 09/05/16 07:02 Troponin T 0.640 ng/mL (0.00-0.029) H* 09/05/16 07:02 NT-Pro-B Natriuret Pep 74121 pg/mL (0-900) H 09/04/16 16:01 Total Protein 6.1 g/dL (6.3-8.2) L 09/04/16 16:01 Albumin 3.3 g/dL (3.9-5) L 09/04/16 16:01 Albumin/Globulin Ratio 1.2 % 09/04/16 16:01 Triglycerides 105 mg/dL (2-149) 09/04/16 16:01 Cholesterol 130 mg/dL (50-199) 09/04/16 16:01 LDL Cholesterol Direct 77 mg/dL (50-130) 09/04/16 16:01 HDL Cholesterol 32 mg/dL (40-59) L 09/04/16 16:01 Cholesterol/HDL Ratio 4.06 % 09/04/16 16:01
--- NOTE | 2016-09-06 11:13 | Progress Note ---
Assessment and Plan Chest pain, musculskeletal no evidence of PE on chest CTA Chronic elevated troponin ESRD on HD Von-Hippel Lindau syndrome Hypertension [facility] 08/20/16 reports non-obstructive single vessel coronary artery disease, ejection fraction 65%. Medical therapy recommended. Recommendations: Medical therapy for non-obstructive coronary disease. Otherwise, no further cardiac workup for musculoskeletal chest pain. Subjective Date of service: 09/06/16 Interval history: Patient seen in dialysis. No new issues. Objective Vital Signs Temp Pulse Pulse Resp Resp BP BP 09/06/16 11:00 75 151/64 09/06/16 10:45 75 163/72 09/06/16 10:30 75 149/66 09/06/16 10:15 77 165/71 09/06/16 10:00 77 164/70 09/06/16 09:45 98.2 F 76 18 161/69 09/06/16 09:28 98.2 F 88 18 128/68 09/06/16 04:17 20 09/06/16 03:47 20 09/06/16 00:00 98.9 F 80 20 154/85 09/05/16 22:47 09/05/16 22:30 20 09/05/16 22:00 85 20 09/05/16 21:46 87 172/88 09/05/16 21:45 87 172/88 09/05/16 20:56 20 09/05/16 20:05 90 09/05/16 20:00 99.2 F 87 20 172/88 09/05/16 18:16 97.6 F 92 H 18 194/106 09/05/16 17:01 18 09/05/16 14:38 09/05/16 14:05 99.5 F 91 H 18 168/78 09/05/16 12:00 93 H Pulse Ox 09/06/16 11:00 09/06/16 10:45 09/06/16 10:30 09/06/16 10:15 09/06/16 10:00 09/06/16 09:45 09/06/16 09:28 92 09/06/16 04:17 09/06/16 03:47 09/06/16 00:00 97 09/05/16 22:47 97 09/05/16 22:30 09/05/16 22:00 97 09/05/16 21:46 09/05/16 21:45 09/05/16 20:56 09/05/16 20:05 09/05/16 20:00 98 09/05/16 18:16 97 09/05/16 17:01 09/05/16 14:38 97 09/05/16 14:05 95 09/05/16 12:00 - Physical Examination General: No Apparent Distress HEENT: Positive: PERRL Neck: Positive: trachea midline Cardiac: Positive: Reg Rate and Rhythm - Imaging and Cardiology EKG: image reviewed
[2016-09-06] MEDS: Renal Caps PO SCH (14:46)
[2016-09-06] MEDS: PROTONIX PO SCH (14:46)
--- NOTE | 2016-09-06 21:46 | Progress Note ---
Assessment and Plan Impression: * End stage renal disease on HD TTSs * Chest pain, atypical * Hypertension * Anemia secondary to ESRD * Secondary hyperparathyoridism Plan: * Hemodialysis TTS; UF as tolerated * Continue antiHTN medications * Epogen with dialysis * Renal diet Subjective Date of service: 09/06/16 Interval history: Patient continues to c/o chest pain - reproducible with palpation Objective - Vital Signs Vital signs: Vital Signs - 12hr 09/06/16 09/06/16 09/06/16 10:00 10:15 10:30 Temperature Pulse Rate 77 77 75 Pulse Rate [ Left] Respiratory Rate Blood Pressure 164/70 165/71 149/66 Blood Pressure [Left Arm] O2 Sat by Pulse Oximetry 09/06/16 09/06/16 09/06/16 10:45 11:00 11:15 Temperature Pulse Rate 75 75 75 Pulse Rate [ Left] Respiratory Rate Blood Pressure 163/72 151/64 137/62 Blood Pressure [Left Arm] O2 Sat by Pulse Oximetry 09/06/16 09/06/16 09/06/16 11:30 11:45 12:00 Temperature Pulse Rate 76 74 72 Pulse Rate [ Left] Respiratory Rate Blood Pressure 144/63 133/63 141/61 Blood Pressure [Left Arm] O2 Sat by Pulse Oximetry 09/06/16 09/06/16 09/06/16 12:15 12:30 12:45 Temperature Pulse Rate 73 74 80 Pulse Rate [ Left] Respiratory Rate Blood Pressure 134/63 116/55 135/63 Blood Pressure [Left Arm] O2 Sat by Pulse Oximetry 09/06/16 09/06/16 09/06/16 13:00 13:15 13:30 Temperature 98.2 F Pulse Rate 74 76 75 Pulse Rate [ Left] Respiratory 20 Rate Blood Pressure 143/62 117/64 140/64 Blood Pressure [Left Arm] O2 Sat by Pulse Oximetry 09/06/16 09/06/16 09/06/16 14:06 17:59 20:00 Temperature 97.6 F 99.8 F H Pulse Rate Pulse Rate [ 80 84 Left] Respiratory 18 18 Rate Blood Pressure Blood Pressure 132/65 134/67 [Left Arm] O2 Sat by Pulse 95 91 97 Oximetry - General Appearance General appearance: well-developed, well-nourished EENT: ATNC Respiratory: Present: Clear to Ascultation Cardiology: regular, S1S2 Gastrointestinal: normal, no tenderness, no distended Integumentary: no rash Musculoskeletal: other (trace edema) Psychiatric: cooperative - Lab 09/05/16 04:35 09/05/16 04:35 Most recent lab results Calcium 8.9 mg/dL (8.4-10.2) 09/05/16 04:35
[2016-09-06] MEDS: CARDURA PO SCH (22:48)
[2016-09-07] MEDS: NOVOLOG SUB-Q SCH ×2 (01:33→08:55)
--- NOTE | 2016-09-07 08:49 | Progress Note ---
Assessment and Plan Impression: * End stage renal disease on HD TTSs * Chest pain, atypical * Hypertension * Anemia secondary to ESRD * Secondary hyperparathyoridism Plan: * Hemodialysis TTS; UF as tolerated * Continue antiHTN medications * Epogen with dialysis * Renal diet Subjective Date of service: 09/07/16 Interval history: Patient continues to c/o chest pain - behind right breast. Objective - Vital Signs Vital signs: Vital Signs - 12hr 09/06/16 09/06/16 09/06/16 22:00 22:48 22:49 Temperature Pulse Rate 84 84 Pulse Rate [ 85 Left] Respiratory 20 Rate Respiratory 20 Rate [chest pain] Blood Pressure 134/67 134/67 Blood Pressure [Left Arm] O2 Sat by Pulse 98 Oximetry 09/07/16 09/07/16 09/07/16 00:00 03:29 04:00 Temperature 99.1 F 98.7 F Pulse Rate 80 Pulse Rate [ 88 82 Left] Respiratory 18 18 Rate Respiratory Rate [chest pain] Blood Pressure Blood Pressure 152/75 149/76 [Left Arm] O2 Sat by Pulse 97 97 Oximetry - General Appearance General appearance: well-developed, well-nourished EENT: ATNC Respiratory: Present: Clear to Ascultation Cardiology: regular, S1S2 Gastrointestinal: normal, no tenderness, no distended Integumentary: no rash Musculoskeletal: other (no edema) Psychiatric: cooperative - Lab 09/05/16 04:35 09/05/16 04:35 Most recent lab results Calcium 8.9 mg/dL (8.4-10.2) 09/05/16 04:35
[2016-09-07] MEDS: APRESOLINE PO SCH (08:56)
[2016-09-07] MEDS: FOSRENOL PO SCH (08:56)
[2016-09-07] MEDS: LOVENOX SUB-Q SCH (09:05)
[2016-09-07] MEDS: PROTONIX PO SCH (09:05)
[2016-09-07] MEDS: Renal Caps PO SCH (09:05)
[2016-09-07] MEDS: FEOSOL PO SCH (09:05)
[2016-09-07] MEDS: NEURONTIN PO SCH (09:06)
--- NOTE | 2016-09-07 09:35 | Progress Note ---
Assessment and Plan Chest pain, musculskeletal no evidence of PE on chest CTA Chronic elevated troponin ESRD on HD Von-Hippel Lindau syndrome Hypertension [facility] 08/20/16 reports non-obstructive single vessel coronary artery disease, ejection fraction 65%. Medical therapy recommended. Recommendations: Medical therapy for non-obstructive coronary disease. Primary team for management of his noncardiac chest pain. Subjective Date of service: 09/07/16 Interval history: Patient still has complaints of musculoskeletal chest pain. Objective Vital Signs Temp Pulse Pulse Resp Resp BP BP 09/07/16 04:00 98.7 F 82 18 149/76 09/07/16 03:29 80 09/07/16 00:00 99.1 F 88 18 152/75 09/06/16 22:49 84 134/67 09/06/16 22:48 84 134/67 09/06/16 22:00 85 20 20 09/06/16 20:00 99.8 F H 84 18 134/67 09/06/16 17:59 97.6 F 80 18 132/65 09/06/16 14:06 09/06/16 13:30 98.2 F 75 20 140/64 09/06/16 13:15 76 117/64 09/06/16 13:00 74 143/62 09/06/16 12:45 80 135/63 09/06/16 12:30 74 116/55 09/06/16 12:15 73 134/63 09/06/16 12:00 72 141/61 09/06/16 11:45 74 133/63 09/06/16 11:30 76 144/63 09/06/16 11:15 75 137/62 09/06/16 11:00 75 151/64 09/06/16 10:45 75 163/72 09/06/16 10:30 75 149/66 09/06/16 10:15 77 165/71 09/06/16 10:00 77 164/70 09/06/16 09:45 98.2 F 76 18 161/69 Pulse Ox 09/07/16 04:00 97 09/07/16 03:29 09/07/16 00:00 97 09/06/16 22:49 09/06/16 22:48 09/06/16 22:00 98 09/06/16 20:00 97 05/11/17 17:59 91 09/06/16 14:06 95 09/06/16 13:30 09/06/16 13:15 09/06/16 13:00 09/06/16 12:45 09/06/16 12:30 09/06/16 12:15 09/06/16 12:00 09/06/16 11:45 09/06/16 11:30 09/06/16 11:15 09/06/16 11:00 09/06/16 10:45 09/06/16 10:30 09/06/16 10:15 09/06/16 10:00 09/06/16 09:45 - Physical Examination General: No Apparent Distress HEENT: Positive: PERRL Neck: Positive: trachea midline Cardiac: Positive: Reg Rate and Rhythm Lungs: Positive: Decreased Breath Sounds - Imaging and Cardiology EKG: image reviewed
--- NOTE | 2016-09-07 09:43 | Discharge Summary ---
Providers - Providers Date of Admission: 09/04/16 23:11 Date of discharge: 09/07/16 Attending physician: JOHNATHON VELA 09/05/16 13:52 Consult to Physician [CONS] Routine Consulting Provider: LIAM GAXIOLA Reason For Exam: esrd Place consult to:: Dr. 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 He also has a history of non-obstructive single vessel coronary artery disease recommended for medical therapy by cardiac cath 2 weeks ago. Ejection fraction 65%. He was sent from dialysis with complaints of chest pain. Patient reports he fell a week ago after his legs gave away and since then he has been having right sided chest pain. Chest pain reproducible with palpation and deep breathing. He denies loss of consciousness. His ECG shows a sinus rhythm, no acute ischemic changes. Cardiology saw the patient in consultation. Recommendations were for medical therapy for nonobstructive coronary disease and etiology of the pain was felt to be musculoskeletal. Patient had no evidence of PE on chest CTA. Dedicated discharge time 31 minutes. Disposition: DISCHARGED TO HOME OR SELFCARE Time spent for discharge: 31 - Discharge Diagnoses (1) Costochondritis, acute Status: Acute (2) Diabetes Status: Acute Qualifiers: Diabetes mellitus type: D Diabetes mellitus complication status: D Diabetes mellitus complication detail: D Diabetic retinopathy severity: D Proliferative retinopathy type: P Diabetes mellitus macular edema: D Diabetes mellitus [facility] insulin use: D Laterality: L Chronic kidney disease stage: C (3) Anemia, chronic renal failure Status: Chronic Qualifiers: Chronic kidney disease stage: stage 5 Qualified Code(s): N18.5 - Chronic kidney disease, stage 5; D63.1 - Anemia in chronic kidney disease (4) ESRD (end stage renal disease) Status: Chronic Core Measure Documentation - Palliative Care Palliative Care/ Comfort Measures: Not Applicable - Core Measures Any of the following diagnoses?: none Exam - Constitutional Vitals: Temp Pulse Resp BP Pulse Ox 98.7 F 82 18 149/76 97 09/07/16 04:00 09/07/16 04:00 09/07/16 04:00 09/07/16 04:00 09/07/16 04:00 General appearance: Present: no acute distress, well-nourished - EENT Eyes: Present: PERRL ENT: hearing intact, clear oral mucosa - Neck Neck: Present: supple, normal ROM - Respiratory Respiratory effort: normal Respiratory: bilateral: CTA - Cardiovascular Heart Sounds: Present: S1 & S2. Absent: rub, click - Extremities Extremities: pulses symmetrical, No edema Peripheral Pulses: within normal limits - Abdominal General gastrointestinal: Present: soft, non-tender, non-distended, normal bowel sounds Male genitourinary: Present: normal - Integumentary Integumentary: Present: clear, warm, dry - Musculoskeletal Musculoskeletal: gait normal, strength equal bilaterally - Psychiatric Psychiatric: appropriate mood/affect, intact judgment & insight - Neurologic Neurologic: CNII-XII intact, moves all extremities Plan Activity: no restrictions Weight Bearing Status: Full Weight Bearing Diet: renal Follow up with: PRIMARY MD HOMA [Primary Care Provider] - 3-5 Days CARROLL DE LA TORRE MD [Staff Physician] - 7 Days Prescriptions: Carvedilol [Coreg] 25 mg PO BID #60 tablet Doxazosin Mesylate [Cardura] 2 mg PO HS #30 tablet Ferrous Sulfate [Feosol 325 MG tab] 325 mg PO QDAY #30 tablet Folic Acid/Vit B Comp W-C [Renal Caps] 1 cap PO QDAY #30 capsule Gabapentin [Neurontin] 300 mg PO BID #60 capsule hydrALAZINE [Apresoline TAB] 100 mg PO TID #90 tab NIFEdipine XL [Procardia Xl] 60 mg PO Q12HR #60 tablet Pantoprazole [Protonix TAB] 40 mg PO QDAY #30 tablet traMADol [Ultram 50 MG tab] 50 mg PO Q6HR PRN #20 tablet PRN Reason: Pain
[2016-09-07] MEDS: PROCARDIA XL PO SCH (10:45)
[2016-09-07] MEDS: COREG PO SCH (10:45)
[2016-09-07 10:46] VITALS: BP 137/72
[2016-09-12] MEDS ORDERED: VITAMIN D2 PO SCH (10:00)
== END 2016-09-07 12:00 | disposition home or self-care (01) | DRG 205 ==
LOC: ED 13:17 → 4A 23:11
PROVIDERS: ADMIT Internal Medicine; ATTEND Hospitalist
PROC: 5A1D60Z (ICD-10-PCS; principal; 2016-09-06)
DX: M94.0 Chondrocostal junction syndrome [Tietze] (principal); N18.6 End stage renal disease; J18.9 Pneumonia, unspecified organism; J90 Pleural effusion, not elsewhere classified; I12.0 Hypertensive chronic kidney disease with stage 5 chronic kidney disease or end stage renal disease; Q85.8 Other phakomatoses, not elsewhere classified; D63.1 Anemia in chronic kidney disease; I25.10 Atherosclerotic heart disease of native coronary artery without angina pectoris; E78.5 Hyperlipidemia, unspecified; E11.22 Type 2 diabetes mellitus with diabetic chronic kidney disease; Z99.2 Dependence on renal dialysis; Z90.49 Acquired absence of other specified parts of digestive tract; Z98.49 Cataract extraction status, unspecified eye; Z82.49 Family history of ischemic heart disease and other diseases of the circulatory system; Z88.5 Allergy status to narcotic agent; Z88.6 Allergy status to analgesic agent; Z88.8 Allergy status to other drugs, medicaments and biological substances
CPT/HCPCS: 36415; 70491; 71020; 71275; 80048; 80053; 80061; 82550; 82553; 82962; 83880; 84484; 85025; 85379; 87040; 93005; 93010; 94760; 96374; 96375; J0360; J0885; J1644; J1650; J1956; J2270; J7030; Q9967

== ENCOUNTER 2018-05-08 15:15 | Emergency (ER) | payer MEDICARE | END 2018-05-08 16:06 | disposition left against medical advice (07) | LOC: ED 15:15 ==

== ENCOUNTER 2021-01-18 21:38 | Inpatient (IN) | payer OTHER ==
[2021-01-18] MEDS ORDERED: methylPREDNISolone Sod Succinate 125 MG/2 ML INJ IV ONE (22:07)
--- NOTE | 2021-01-18 22:23 | Emergency Department Report ---
ED Allergic Reaction HPI - General Chief complaint: Allergic Reaction Stated complaint: allergic reaction Time Seen by Provider: 01/18/21 22:02 Source: patient Mode of arrival: Wheelchair Limitations: Other - History of Present Illness Initial Comments: Patient is a 60-year-old male who presents emergency with difficulty breathing, tongue swelling and lip swelling and facial swelling after being stung by a yellow jacket in his mouth. Patient states he is not allergic to bees. Patient states the bee came out of his mouth and it was yellow and black and after, his mouth he felt instant pain and swelling in his oropharynx. Patient denies fever and chills. Patient denies chest pain. Patient denies nausea vomiting. Patient states his symptoms are worsening. Patient states he took Benadryl and amoxicillin. Patient states he took amoxicillin because he was trying anything to make the swelling go away. Patient states he took 25 mg of Benadryl. Patient states he is vaccinated against COVID-19. Patient denies recent travel. Patient denies recent international travel. Patient denies exposure to the novel coronavirus. Patient denies sick contacts. Patient denies fever and chills. Patient denies cough. Patient denies diarrhea. Patient denies coming in contact with anybody with symptoms of the novel coronavirus. MD Complaint: allergic reaction, facial swelling -: Sudden Symptoms: itching, difficulty swallowing, difficulty breathing, orolingual swell ing, hoarseness Severity: severe Treatment Prior to Arrival: benadryl Previous Allergy History: none - Related Data Home Medications Medication Instructions Recorded Confirmed Last Taken B Complex 11/Folic/C/Biot/Zinc 1 each PO DAILY 08/15/16 09/05/16 09/04/16 [Dialyvite with Zinc Tablet] Ergocalciferol (Vitamin D2) 1 tab PO 1XW 08/15/16 09/05/16 Unknown [Vitamin D2] Lanthanum Carbonate [Fosrenol] 750 mg PO WMHS 09/05/16 09/05/16 Unknown Previous Rx's Medication Instructions Recorded Last Taken Type levoFLOXacin [Levaquin TAB] 500 mg PO Q48H #5 tablet 08/20/16 Unknown Rx Doxazosin Mesylate [Cardura] 2 mg PO HS #30 tablet 09/07/16 Unknown Rx Ferrous Sulfate [Feosol 325 MG tab] 325 mg PO QDAY #30 tablet 05/12/17 Unknown Rx Folic Acid/Vit B Comp W-C [Renal 1 cap PO QDAY #30 capsule 09/07/16 Unknown Rx Caps] Gabapentin 300 mg PO BID #60 capsule 09/07/16 Unknown Rx NIFEdipine XL [Procardia Xl] 60 mg PO Q12HR #60 tablet 09/07/16 Unknown Rx Pantoprazole [Protonix TAB] 40 mg PO QDAY #30 tablet 09/07/16 Unknown Rx carvediloL [Coreg] 25 mg PO BID #60 tablet 09/07/16 Unknown Rx hydrALAZINE [Apresoline TAB] 100 mg PO TID #90 tab 09/07/16 Unknown Rx traMADoL [Ultram 50 MG tab] 50 mg PO Q6HR PRN #20 tablet 09/07/16 Unknown Rx Allergies Allergy/AdvReac Type Severity Reaction Status Date / Time clonidine Allergy Swelling Verified 01/18/21 22:04 codeine Allergy Itching Verified 01/18/21 22:04 hydrocodone Allergy Itching Verified 01/18/21 22:04 aspirin AdvReac Severe Brain Verified 01/18/21 22:04 Bleeding ED Review of Systems ROS: Stated complaint: allergic reaction Other details as noted in HPI Constitutional: see HPI. denies: chills, fever Eyes: denies: eye pain, eye discharge, vision change ENT: as per HPI. denies: ear pain, throat pain Respiratory: see HPI, shortness of breath. denies: cough, wheezing Cardiovascular: denies: chest pain, palpitations Endocrine: no symptoms reported Gastrointestinal: denies: abdominal pain, nausea, diarrhea Genitourinary: denies: urgency, dysuria Musculoskeletal: denies: back pain, joint swelling, arthralgia Skin: denies: rash, lesions Neurological: denies: headache, weakness, paresthesias Psychiatric: denies: anxiety, depression Hematological/Lymphatic: denies: easy bleeding, easy bruising ED Past Medical Hx - Past Medical History Previous Medical History?: Yes Hx Hypertension: Yes Hx CVA: No Hx Congestive Heart Failure: No Hx Diabetes: No Hx Renal Disease: Yes (HD) Hx Seizures: No Hx Asthma: No Hx COPD: No Hx Tuberculosis: No Hx HIV: No Additional medical history: VAN-HIPPEL SYNDROME (AUTOIMMUNE), PANCREATIC CYSTS, BRAIN TUMORS - Surgical History Past Surgical History?: Yes Hx Pacemaker: No Hx Cholecystectomy: Yes Hx Appendectomy: Yes Additional Surgical History: 3 BRAIN SURGERIES, NEPHRECTOMY B/L, SPLENECTOMY, - Family History Family history: no significant - Social History Smoking Status: Never Smoker Substance Use Type: None - Medications Home Medications: Home Medications Medication Instructions Recorded Confirmed Last Taken Type B Complex 11/Folic/C/Biot/Zinc 1 each PO DAILY 08/15/16 09/05/16 09/04/16 History [Dialyvite with Zinc Tablet] Ergocalciferol (Vitamin D2) 1 tab PO 1XW 08/15/16 09/05/16 Unknown History [Vitamin D2] levoFLOXacin [Levaquin TAB] 500 mg PO Q48H #5 tablet 08/20/16 09/05/16 Unknown Rx Lanthanum Carbonate [Fosrenol] 750 mg PO WMHS 09/05/16 09/05/16 Unknown History Doxazosin Mesylate [Cardura] 2 mg PO HS #30 tablet 09/07/16 Unknown Rx Ferrous Sulfate [Feosol 325 MG tab] 325 mg PO QDAY #30 tablet 09/07/16 Unknown Rx Folic Acid/Vit B Comp W-C [Renal 1 cap PO QDAY #30 capsule 09/07/16 Unknown Rx Caps] Gabapentin 300 mg PO BID #60 capsule 09/07/16 Unknown Rx NIFEdipine XL [Procardia Xl] 60 mg PO Q12HR #60 tablet 09/07/16 Unknown Rx Pantoprazole [Protonix TAB] 40 mg PO QDAY #30 tablet 09/07/16 Unknown Rx carvediloL [Coreg] 25 mg PO BID #60 tablet 09/07/16 Unknown Rx hydrALAZINE [Apresoline TAB] 100 mg PO TID #90 tab 09/07/16 Unknown Rx traMADoL [Ultram 50 MG tab] 50 mg PO Q6HR PRN #20 tablet 09/07/16 Unknown Rx ED Physical Exam - General Limitations: No Limitations, Other General appearance: alert, in no apparent distress - Head Head exam: Present: atraumatic, normocephalic - Eye Eye exam: Present: normal appearance - ENT ENT exam: Present: mucous membranes moist, other (Uvula swelling. Tongue swelling noted. Lip swelling noted.) - Neck Neck exam: Present: normal inspection - Respiratory Respiratory exam: Present: normal lung sounds bilaterally. Absent: respiratory distress, wheezes, rales - Cardiovascular Cardiovascular Exam: Present: regular rate, normal rhythm. Absent: systolic murmur, diastolic murmur, rubs, gallop - GI/Abdominal GI/Abdominal exam: Present: soft, normal bowel sounds - Rectal Rectal exam: Present: deferred - Extremities Exam Extremities exam: Present: normal inspection - Back Exam Back exam: Present: normal inspection - Neurological Exam Neurological exam: Present: alert, oriented X3 - Psychiatric Psychiatric exam: Present: normal affect, normal mood - Skin Skin exam: Present: warm, dry, intact, normal color. Absent: rash ED Course Vital Signs 01/18/21 01/18/21 01/18/21 22:03 22:15 22:30 Pulse Rate 68 68 Respiratory 12 11 L 11 L Rate Blood Pressure 190/89 190/89 O2 Sat by Pulse 95 95 Oximetry 01/18/21 01/18/21 01/18/21 22:45 22:57 23:01 Pulse Rate 67 70 69 Respiratory 15 13 12 Rate Blood Pressure 189/89 190/89 190/89 O2 Sat by Pulse 95 96 97 Oximetry 01/18/21 01/18/21 01/18/21 23:15 23:31 23:45 Pulse Rate 69 70 70 Respiratory 14 11 L 14 Rate Blood Pressure 207/96 210/97 205/93 O2 Sat by Pulse 93 97 99 Oximetry 01/19/21 01/19/21 00:01 00:15 Pulse Rate 70 71 Respiratory 13 10 L Rate Blood Pressure 205/93 205/93 O2 Sat by Pulse 97 96 Oximetry - Reevaluation(s) Reevaluation #1: Patient has received steroids. Patient states he feels like his throat is con tinued to swell. 01/18/21 22:43 Reevaluation #2: Patient states he feels little better but still feels like it is swollen. Patient states that shortness of breath and difficulty breathing have improved. Patient still having significant swelling of the oropharynx. 01/18/21 23:53 Reevaluation #3: Patient states he still feels a swelling in his throat. Patient denies pain. Patient denies nausea vomiting. Patient is uvula and oropharynx is still swollen but has shown some improvement. I discussed all results with patient. I discussed plan of care with patient. Patient agrees with plan of care and admission. Patient to be admitted to the hospitalist service. 01/19/21 00:39 - Consultations Consultation #1: Hospitalist consulted for admission. Hospitalist to admit patient. 01/19/21 00:40 ED Medical Decision Making - Lab Data Result diagrams: 01/18/21 23:48 01/18/21 23:48 - Medical Decision Making Patient is a 60-year-old male who presents emergency room with plaints of allergic reaction after being stung in his mouth by a yellow jacket. Patient complained of shortness of breath and oropharynx swelling. Patient given Solu- Medrol his swelling continued. Patient given Pepcid and Benadryl and epinephrine. Patient swelling has started to improve but is still significantly notable. Patient had labs done which were essentially unremarkable but consistent with end-stage renal disease. Patient is currently on dialysis. Patient is due for dialysis tomorrow. Patient admitted to the hospital service for further evaluation treatment. Patient was admitted for observation since the patient still has significant oropharynx swelling. Critical care time documented due to the multiple reassessments, prolonged time at the bedside, interpretation of diagnostics and labs. - Differential Diagnosis Anaphylaxis, allergic reaction, oropharynx swelling, throat swelling Critical Care Time: Yes Critical care time in (mins) excluding proc time.: 35 Critical care attestation.: If time is entered above; I have spent that time in minutes in the direct care of this critically ill patient, excluding procedure time. Critical Care Time: 35 minutes ED Disposition Clinical Impression: ESRD on dialysis, Shortness of breath Anaphylaxis Qualifiers: Encounter type: initial encounter Qualified Code(s): T78.2XXA - Anaphylactic shock, unspecified, initial encounter Allergic reaction Qualifiers: Encounter type: initial encounter Qualified Code(s): T78.40XA - Allergy, unspecified, initial encounter Disposition: ADMITTED INPATIENT Is pt being admited?: Yes Does the pt Need Aspirin: No Condition: Critical Time of Disposition: 00:42
[2021-01-18] MEDS ORDERED: EPINEPHrine/PF 1 MG/1 ML INJ SUB-Q ONE (22:44)
[2021-01-18] MEDS: FAMOTIDINE 20 MG/2 ML INJ IV ONE ×2 (22:51→22:52)
[2021-01-18] MEDS ORDERED: diphenhydrAMINE 50 MG/ML VIAL IV ONE (23:38)
[2021-01-19 00:18] LABS: Hemoglobin 11.7 gm/dl (11.8-15.2); Mean Corpuscular HGB Conc 33 % (32-34); Mean Corpuscular Volume 99 fl (84-94); Platelet Count 175 K/mm3 (140-440); Red Blood Count 3.54 M/mm3 (3.65-5.03); Red Cell Distribution Width 16.7 % (13.2-15.2)
[2021-01-19 00:23] LABS: Albumin 4.1 g/dL (3.9-5); Calcium 9.4 mg/dL (8.4-10.2)
--- NOTE | 2021-01-19 04:13 | History and Physical Report ---
History of Present Illness Date of examination: 01/19/21 Date of admission: 01/19/21 00:42 Chief complaint: Allergic reaction History of present illness: 60-year-old male with history of end-stage renal disease on hemodialysis was brought to the emergency room because of difficulty breathing, tongue swelling and lip swelling and facial swelling after being stung by a yellow jacket in his mouth. Patient states he is not allergic to bees. Patient states the bee came out of his mouth and it was yellow and black and after, his mouth he felt instant pain and swelling in his oropharynx. Patient denies fever and chills. Patient denies chest pain. Patient denies nausea vomiting. patient states he took Benadryl and amoxicillin. Patient states he took amoxicillin because he was trying anything to make the swelling go away. Patient states he took 25 mg of Benadryl. Patient states he is vaccinated against COVID-19. In the emergency room patient is found to have allergic reaction to the bees . Right now patient does not complain of shortness of breath. In the emergency room patient already get Pepcid Benadryl and epinephrine. We are going to admit the patient to telemetry. We put the patient on Pepcid, Solu-Medrol 80 mg IV every 8 hours and Benadryl 25 mg IV every 6 hours as needed. And neb treatment We will continue the home medication Past History Past Medical History: ESRD Medications and Allergies Allergies Allergy/AdvReac Type Severity Reaction Status Date / Time clonidine Allergy Swelling Verified 01/18/21 22:04 codeine Allergy Itching Verified 01/18/21 22:04 hydrocodone Allergy Itching Verified 01/18/21 22:04 aspirin AdvReac Severe Brain Verified 01/18/21 22:04 Bleeding Home Medications Medication Instructions Recorded Confirmed Last Taken Type B Complex 11/Folic/C/Biot/Zinc 1 each PO DAILY 08/15/16 09/05/16 09/04/16 History [Dialyvite with Zinc Tablet] Ergocalciferol (Vitamin D2) 1 tab PO 1XW 08/15/16 09/05/16 Unknown History [Vitamin D2] levoFLOXacin [Levaquin TAB] 500 mg PO Q48H #5 tablet 08/20/16 09/05/16 Unknown Rx Lanthanum Carbonate [Fosrenol] 750 mg PO WMHS 09/05/16 09/05/16 Unknown History Doxazosin Mesylate [Cardura] 2 mg PO HS #30 tablet 09/07/16 Unknown Rx Ferrous Sulfate [Feosol 325 MG tab] 325 mg PO QDAY #30 tablet 09/07/16 Unknown Rx Folic Acid/Vit B Comp W-C [Renal 1 cap PO QDAY #30 capsule 09/07/16 Unknown Rx Caps] Gabapentin 300 mg PO BID #60 capsule 09/07/16 Unknown Rx NIFEdipine XL [Procardia Xl] 60 mg PO Q12HR #60 tablet 09/07/16 Unknown Rx Pantoprazole [Protonix TAB] 40 mg PO QDAY #30 tablet 09/07/16 Unknown Rx carvediloL [Coreg] 25 mg PO BID #60 tablet 09/07/16 Unknown Rx hydrALAZINE [Apresoline TAB] 100 mg PO TID #90 tab 09/07/16 Unknown Rx traMADoL [Ultram 50 MG tab] 50 mg PO Q6HR PRN #20 tablet 09/07/16 Unknown Rx Active Meds: Active Medications Acetaminophen (Acetaminophen 325 Mg Tab) 650 mg PO Q4H PRN PRN Reason: Pain MILD(1-3)/Fever >100.5/GAXIOLA Albuterol (Albuterol 2.5 Mg/3 Ml Nebu) 2.5 mg IH Q4HRT PRN PRN Reason: Shortness Of Breath Albuterol/Ipratropium (Ipratropium/Albuterol Sulfate 3 Ml Ampul.Neb) 1 ampul IH Q6HRT LOUISE Famotidine (Famotidine 20 Mg/2 Ml Inj) 20 mg IV BID LOUISE Ondansetron HCl (Ondansetron 4 Mg/2 Ml Inj) 4 mg IV Q8H PRN PRN Reason: Nausea And Vomiting Oxycodone/Acetaminophen (Oxycodone /Acetaminophen 5-325mg Tab) 1 tab PO Q6H PRN PRN Reason: Pain, Moderate (4-6) Sodium Chloride (Sodium Chloride 0.9% 10 Ml Flush Syringe) 10 ml IV BID LOUISE Sodium Chloride (Sodium Chloride 0.9% 10 Ml Flush Syringe) 10 ml IV PRN PRN PRN Reason: LINE FLUSH Review of Systems All systems: negative Constitutional: other (Allergic reaction facial swelling, lip swelling tongue swelling swelling of the oropharynx) Cardiovascular: shortness of breath, dyspnea on exertion Respiratory: shortness of breath, dyspnea on exertion Exam - Constitutional Vitals: Temp Pulse Resp BP Pulse Ox 69 10 L 192/88 98 01/19/21 03:01 01/19/21 03:01 01/19/21 03:01 01/19/21 03:01 General appearance: Present: no acute distress, well-nourished - EENT Eyes: Present: PERRL ENT: hearing intact, clear oral mucosa, other (Swelling of the lips and oropharynx and tongue) - Neck Neck: Present: supple, normal ROM - Respiratory Respiratory effort: normal Respiratory: bilateral: diminished - Cardiovascular Heart Sounds: Present: S1 & S2. Absent: rub, click - Extremities Extremities: pulses symmetrical, No edema Peripheral Pulses: within normal limits - Abdominal General gastrointestinal: Present: soft, non-tender, non-distended, normal bowel sounds Male genitourinary: Present: normal - Integumentary Integumentary: Present: clear, warm, dry - Musculoskeletal Musculoskeletal: gait normal, strength equal bilaterally - Psychiatric Psychiatric: appropriate mood/affect, intact judgment & insight - Neurologic Neurologic: CNII-XII intact, moves all extremities Results - Labs CBC & Chem 7: 01/18/21 23:48 01/18/21 23:48 Labs: Laboratory Last Values WBC 9.4 K/mm3 (4.5-11.0) 01/18/21 23:48 RBC 3.54 M/mm3 (3.65-5.03) L 01/18/21 23:48 Hgb 11.7 gm/dl (11.8-15.2) L 01/18/21 23:48 Hct 35.0 % (35.5-45.6) L 01/18/21 23:48 MCV 99 fl (84-94) H 01/18/21 23:48 MCH 33 pg (28-32) H 01/18/21 23:48 MCHC 33 % (32-34) 01/18/21 23:48 RDW 16.7 % (13.2-15.2) H 01/18/21 23:48 Plt Count 175 K/mm3 (140-440) 01/18/21 23:48 Sodium 140 mmol/L (137-145) 01/18/21 23:48 Potassium 4.8 mmol/L (3.6-5.0) 01/18/21 23:48 Chloride 100.3 mmol/L (98-107) 01/18/21 23:48 Carbon Dioxide 27 mmol/L (22-30) 01/18/21 23:48 Anion Gap 18 mmol/L 01/18/21 23:48 BUN 33 mg/dL (9-20) H 01/18/21 23:48 Creatinine 6.6 mg/dL (0.8-1.3) H 01/18/21 23:48 Estimated GFR 9 ml/min 01/18/21 23:48 BUN/Creatinine Ratio 5 % 01/18/21 23:48 Glucose 111 mg/dL (75-100) H 01/18/21 23:48 Calcium 9.4 mg/dL (8.4-10.2) 01/18/21 23:48 Total Bilirubin 0.30 mg/dL (0.1-1.2) 01/18/21 23:48 AST 19 units/L (5-40) 01/18/21 23:48 ALT 8 units/L (7-56) 01/18/21 23:48 Alkaline Phosphatase 192 units/L (35-129) H 01/18/21 23:48 Total Protein 7.1 g/dL (6.3-8.2) 01/18/21 23:48 Albumin 4.1 g/dL (3.9-5) 01/18/21 23:48 Albumin/Globulin Ratio 1.4 % 01/18/21 23:48 Assessment and Plan VTE prophylaxis?: Chemical Plan of care discussed with patient/family: Yes - Patient Problems (1) Allergic reaction Current Visit: Yes Status: Acute Qualifiers: Encounter type: initial encounter Qualified Code(s): T78.40XA - Allergy, unspecified, initial encounter Plan to address problem: Admit the patient to the medical telemetry. Oxygen via nasal cannula 3 to per minute. DuoNeb by nebulizer every 4 hours. Albuterol via nebulizer every 4 hours as needed. Pepcid 20 mg IV every 12 hours. Benadryl 25 mg IV every 6 hours as needed. Solu-Medrol 80 mg IV every 8 hours. Patient already get Pepcid epinephrine and Benadryl in the emergency room as well as Solu-Medrol. We will monitor the patient closely. We will put the patient on continuous pulse oximetry (2) Anaphylaxis Current Visit: Yes Status: Acute Qualifiers: Encounter type: initial encounter Qualified Code(s): T78.2XXA - Anap hylactic shock, unspecified, initial encounter Plan to address problem: Oxygen via nasal cannula 3 to per minute. DuoNeb by nebulizer every 4 hours. Albuterol via nebulizer every 4 hours as needed. Pepcid 20 mg IV every 12 hours. Benadryl 25 mg IV every 6 hours as needed. Solu-Medrol 80 mg IV every 8 hours. Patient already get Pepcid epinephrine and Benadryl in the emergency room as well as Solu-Medrol. We will monitor the patient closely. We will put the patient on continuous pulse oximetry (3) Shortness of breath Current Visit: Yes Status: Acute Plan to address problem: Oxygen via nasal cannula 3 to per minute. DuoNeb by nebulizer every 4 hours. Albuterol via nebulizer every 4 hours as needed. (4) ESRD on dialysis Current Visit: Yes Status: Chronic Plan to address problem: Avoid nephrotoxic drug. Will consult nephrology for hemodialysis in the morning. We will continue home medication. Recheck BMP in the morning (5) DVT prophylaxis Current Visit: No Status: Acute Plan to address problem: Heparin 5000 units subcu every 8 hours for DVT prophylaxis. Pepcid 20 mg IV every 12 hours for GI prophylaxis. Patient is a full code
[2021-01-19] MEDS ORDERED: diphenhydrAMINE 50 MG/ML VIAL IV PRN (05:00)
[2021-01-19] MEDS ORDERED: HYDROmorphone 1 MG/1 ML INJ IV PRN (05:00)
[2021-01-19] MEDS ORDERED: levoFLOXacin 500 MG TAB PO SCH (05:00)
[2021-01-19] MEDS ORDERED: ALBUTEROL 2.5 MG/3 ML NEBU IH PRN (05:00)
[2021-01-19] MEDS ORDERED: ACETAMINOPHEN 325 MG TAB PO PRN (05:00)
[2021-01-19] MEDS ORDERED: ONDANSETRON 4 MG/2 ML INJ IV PRN (05:00)
[2021-01-19] MEDS ORDERED: oxyCODONE /ACETAMINOPHEN 5-325MG TAB PO PRN (06:00)
[2021-01-19] MEDS: methylPREDNISolone Sod Succinate 125 MG/2 ML INJ IV SCH ×3 (06:11→21:32)
[2021-01-19] MEDS: LANTHANUM CARBONATE 500 MG TAB PO SCH ×4 (07:10→21:31)
[2021-01-19] MEDS ORDERED: LANTHANUM CARBONATE 750 MG PO SCH (08:00)
[2021-01-19] MEDS: IPRATROPIUM/ALBUTEROL SULFATE 3 ML AMPUL.NEB IH SCH ×3 (09:22→22:36)
[2021-01-19] MEDS ORDERED: FAMOTIDINE 20 MG/2 ML INJ IV SCH (10:00)
--- NOTE | 2021-01-19 10:37 | Progress Note ---
Assessment and Plan Assessment and plan: -- Allergic reaction/bee sting Current Visit: Yes Status: Acute Symptoms significantly improved per patient Denies shortness of breath, no allergic rash No stridor, saturating well on room air oxygen Mild difficulty swallowing regular food, able to tolerate liquid diet Continue nebulizers as needed, IV Solu-Medrol, IV Benadryl, IV Pepcid -- Anaphylaxis Current Visit: Yes Status: Acute Oxygen via nasal cannula as needed to titrate O2 sats to more than 90% Neb treatments as needed, steroid, antihistamine, Pepcid, supportive care --Shortness of breath Current Visit: Yes Status: Acute Resolved, oxygen as needed and the above treatment --Hypertension; moderate control Current Visit: Yes Status: Chronic Continue current antihypertensives As needed hydralazine, closely monitor --ESRD on dialysis Current Visit: Yes Status: Chronic Nephrology consulted, patient is due for HD today Hemodialysis per schedule --DVT prophylaxis Current Visit: No Status: Acute Heparin renal dose Is closely monitor the patient and adjust management as needed Plan of care reviewed with the patient and her nurse History Interval history: I seen and examined the patient at the bedside Patient's chart and medications reviewed Patient was admitted with allergic reaction to bee sting on the soft palate of his oral cavity Patient has mild difficulty swallowing swelling significantly improved according to him Tolerating liquid diet, on Solu-Medrol and Benadryl This morning patient feels slightly better Not in acute distress Denies shortness of breath Hospitalist Physical - Constitutional Vitals: Temp Pulse Resp BP Pulse Ox 97.5 F L 65 18 181/87 93 01/19/21 08:52 01/19/21 08:52 01/19/21 08:52 01/19/21 08:52 01/19/21 08:52 General appearance: Present: no acute distress, well-nourished - EENT Eyes: Present: PERRL, EOM intact - Neck Neck: Present: supple, normal ROM - Respiratory Respiratory effort: normal Respiratory: bilateral: diminished, negative: rales, rhonchi, wheezing - Cardiovascular Rhythm: regular Heart Sounds: Present: S1 & S2 - Extremities Extremities: no ischemia, No edema - Abdominal General gastrointestinal: soft, non-tender, non-distended, normal bowel sounds - Integumentary Integumentary: Present: clear, warm - Psychiatric Psychiatric: appropriate mood/affect, cooperative - Neurologic Neurologic: CNII-XII intact, moves all extremities Results - Labs CBC & Chem 7: 01/18/21 23:48 01/18/21 23:48 Labs: Laboratory Last Values WBC 9.4 K/mm3 (4.5-11.0) 01/18/21 23:48 RBC 3.54 M/mm3 (3.65-5.03) L 01/18/21 23:48 Hgb 11.7 gm/dl (11.8-15.2) L 01/18/21 23:48 Hct 35.0 % (35.5-45.6) L 01/18/21 23:48 MCV 99 fl (84-94) H 01/18/21 23:48 MCH 33 pg (28-32) H 01/18/21 23:48 MCHC 33 % (32-34) 01/18/21 23:48 RDW 16.7 % (13.2-15.2) H 01/18/21 23:48 Plt Count 175 K/mm3 (140-440) 01/18/21 23:48 Sodium 140 mmol/L (137-145) 01/18/21 23:48 Potassium 4.8 mmol/L (3.6-5.0) 01/18/21 23:48 Chloride 100.3 mmol/L (98-107) 01/18/21 23:48 Carbon Dioxide 27 mmol/L (22-30) 01/18/21 23:48 Anion Gap 18 mmol/L 01/18/21 23:48 BUN 33 mg/dL (9-20) H 01/18/21 23:48 Creatinine 6.6 mg/dL (0.8-1.3) H 01/18/21 23:48 Estimated GFR 9 ml/min 01/18/21 23:48 BUN/Creatinine Ratio 5 % 01/18/21 23:48 Glucose 111 mg/dL (75-100) H 01/18/21 23:48 Calcium 9.4 mg/dL (8.4-10.2) 01/18/21 23:48 Total Bilirubin 0.30 mg/dL (0.1-1.2) 01/18/21 23:48 AST 19 units/L (5-40) 01/18/21 23:48 ALT 8 units/L (7-56) 01/18/21 23:48 Alkaline Phosphatase 192 units/L (35-129) H 01/18/21 23:48 Total Protein 7.1 g/dL (6.3-8.2) 01/18/21 23:48 Albumin 4.1 g/dL (3.9-5) 01/18/21 23:48 Albumin/Globulin Ratio 1.4 % 01/18/21 23:48 Active Medications - Current Medications Current Medications: Generic Name Dose Route Start Last Admin Trade Name Freq PRN Reason Stop Dose Admin Acetaminophen 650 mg 01/19/21 05:00 Acetaminophen 325 Mg Tab PO Q4H PRN Pain MILD(1-3)/Fever >100.5/GAXIOLA Albuterol 2.5 mg 01/19/21 05:00 Albuterol 2.5 Mg/3 Ml Nebu IH Q4HRT PRN Shortness Of Breath Albuterol/Ipratropium 1 ampul 01/19/21 08:00 01/19/21 09:22 Ipratropium/Albuterol Sulfate 3 Ml Ampul.Neb IH 1 ampul Q6HRT LOU[facility] Administration Carvedilol 25 mg 01/19/21 10:00 Carvedilol 25 Mg Tab PO BID L[facility] Diphenhydramine HCl 25 mg 01/19/21 05:00 Diphenhydramine 50 Mg/Ml Vial IV Q6H PRN Itching/SWELLING/ALLERGIC RXN Doxazosin Mesylate 2 mg 01/19/21 22:00 Doxazosin 4 Mg Tab PO HS LOUISE Ergocalciferol 50,000 unit 01/22/21 10:00 Ergocalciferol (Vit D2) 50,000 Unit Cap PO Maldonado LOUISE Famotidine 10 mg 01/19/21 10:00 Famotidine 20 Mg/2 Ml Inj IV BID LOUISE Ferrous Sulfate 325 mg 01/19/21 10:00 Ferrous Sulfate 325 Mg Tab PO QDAY L[facility] Heparin Sodium (Porcine) 5,000 unit 01/19/21 10:00 Heparin 5,000 Unit/1 Ml Vial SUB-Q Q12HR L[facility] Hydralazine HCl 100 mg 01/19/21 08:00 Hydralazine 100 Mg Tab PO TID LOUISE Hydromorphone HCl 0.5 mg 01/19/21 05:00 Hydromorphone 1 Mg/1 Ml Inj IV Q3H PRN Pain , Severe (7-10) Lanthanum Carbonate 750 mg 01/19/21 08:00 Lanthanum Carbonate 500 Mg Tab PO [facility] Methylprednisolone Sodium Succinate 80 mg 01/19/21 06:00 01/19/21 06:11 Methylprednisolone Sod Succinate 125 Mg/2 Ml Inj IV 80 mg Q8HR [facility] Administration Multivit/Ca Carb/B Cmplx/FA/Prenat 1 cap 01/19/21 10:00 Folic Acid/Vit B Comp W-C 1 Mg (Renal Caps) PO QDAY [facility] Nifedipine 60 mg 01/19/21 10:00 Nifedipine Xl 60 Mg Tab PO Q12HR [facility] Ondansetron HCl 4 mg 01/19/21 05:00 Ondansetron 4 Mg/2 Ml Inj IV Q8H PRN Nausea And Vomiting Oxycodone/Acetaminophen 1 tab 01/19/21 06:00 Oxycodone /Acetaminophen 5-325mg Tab PO Q6H PRN Pain, Moderate (4-6) Sodium Chloride 10 ml 01/19/21 10:00 Sodium Chloride 0.9% 10 Ml Flush Syringe IV BID [facility] Sodium Chloride 10 ml 01/19/21 05:00 Sodium Chloride 0.9% 10 Ml Flush Syringe IV PRN PRN LINE FLUSH
[2021-01-19] MEDS: carvediloL 25 MG TAB PO SCH ×2 (11:40→21:31)
[2021-01-19] MEDS: NIFEdipine XL 60 MG TAB PO SCH ×2 (11:59→21:32)
[2021-01-19] MEDS: FERROUS SULFATE 325 MG TAB PO SCH (11:59)
[2021-01-19] MEDS: FAMOTIDINE 20 MG/2 ML INJ IV SCH ×2 (12:00→21:33)
[2021-01-19] MEDS: FOLIC ACID/VIT B COMP W-C 1 MG (RENAL CAPS) PO SCH (12:01)
[2021-01-19] MEDS: HEPARIN 5,000 UNIT/1 ML VIAL SUB-Q SCH ×3 (12:01→21:47)
--- NOTE | 2021-01-19 12:01 | Consultation ---
History of Present Illness - Reason for Consult Consult date: 01/19/21 end stage renal disease - History of Present Illness 60-year-old male with history of end-stage renal disease on hemodialysis was brought to the emergency room because of difficulty breathing, tongue swelling and lip swelling and facial swelling after being stung by a yellow jacket in his mouth. renal consult was requested for HD management while inpatient Past History Past Medical History: ESRD Medications and Allergies Allergies Allergy/AdvReac Type Severity Reaction Status Date / Time clonidine Allergy Swelling Verified 01/18/21 22:04 codeine Allergy Itching Verified 01/18/21 22:04 hydrocodone Allergy Itching Verified 01/18/21 22:04 aspirin AdvReac Severe Brain Verified 01/18/21 22:04 Bleeding Home Medications Medication Instructions Recorded Confirmed Last Taken Type B Complex 11/Folic/C/Biot/Zinc 1 each PO DAILY 08/15/16 09/05/16 09/04/16 History [Dialyvite with Zinc Tablet] Ergocalciferol (Vitamin D2) 1 tab PO 1XW 08/15/16 01/19/21 Unknown History [Vitamin D2] levoFLOXacin [Levaquin TAB] 500 mg PO Q48H #5 tablet 08/20/16 09/05/16 Unknown Rx Lanthanum Carbonate [Fosrenol] 750 mg PO [facility] 09/05/16 01/19/21 Unknown History Doxazosin Mesylate [Cardura] 2 mg PO HS #30 tablet 09/07/16 Unknown Rx Ferrous Sulfate [Feosol 325 MG tab] 325 mg PO QDAY #30 tablet 09/07/16 Unknown Rx Folic Acid/Vit B Comp W-C [Renal 1 cap PO QDAY #30 capsule 09/07/16 Unknown Rx Caps] Gabapentin 300 mg PO BID #60 capsule 09/07/16 01/19/21 Unknown Rx NIFEdipine XL [Procardia Xl] 60 mg PO Q12HR #60 tablet 09/07/16 01/19/21 Unknown Rx Pantoprazole [Protonix TAB] 40 mg PO QDAY #30 tablet 09/07/16 01/19/21 Unknown Rx carvediloL [Coreg] 25 mg PO BID #60 tablet 09/07/16 01/19/21 Unknown Rx hydrALAZINE [Apresoline TAB] 100 mg PO TID #90 tab 09/07/16 01/19/21 Unknown Rx traMADoL [Ultram 50 MG tab] 50 mg PO Q6HR PRN #20 tablet 09/07/16 01/19/21 Unknown Rx Active Meds: Active Medications Acetaminophen (Acetaminophen 325 Mg Tab) 650 mg PO Q4H PRN PRN Reason: Pain MILD(1-3)/Fever >100.5/[place]XIOL[place] Albuterol (Albuterol 2.5 Mg/3 Ml Nebu) 2.5 mg IH Q4HRT PRN PRN Reason: Shortness Of Breath Albuterol/Ipratropium (Ipratropium/Albuterol Sulfate 3 Ml Ampul.Neb) 1 ampul IH Q6HRT [facility] Last Admin: 01/19/21 09:22 Dose: 1 ampul Documented by: Carvedilol (Carvedilol 25 Mg Tab) 25 mg PO BID L[facility] Diphenhydramine HCl (Diphenhydramine 50 Mg/Ml Vial) 25 mg IV Q6H PRN PRN Reason: Itching/SWELLING/ALLERGIC RXN Doxazosin Mesylate (Doxazosin 4 Mg Tab) 2 mg PO HS LOUISE Ergocalciferol (Ergocalciferol (Vit D2) 50,000 Unit Cap) 50,000 unit PO Maldonado LOUISE Famotidine (Famotidine 20 Mg/2 Ml Inj) 10 mg IV BID LOU[facility] Ferrous Sulfate (Ferrous Sulfate 325 Mg Tab) 325 mg PO QDAY [facility] Heparin Sodium (Porcine) (Heparin 5,000 Unit/1 Ml Vial) 5,000 unit SUB-Q Q12HR [facility] Hydralazine HCl (Hydralazine 100 Mg Tab) 100 mg PO TID LOU[facility] Hydromorphone HCl (Hydromorphone 1 Mg/1 Ml Inj) 0.5 mg IV Q3H PRN PRN Reason: Pain , Severe (7-10) Lanthanum Carbonate (Lanthanum Carbonate 500 Mg Tab) 750 mg PO [facility] Methylprednisolone Sodium Succinate (Methylprednisolone Sod Succinate 125 Mg/2 Ml Inj) 80 mg IV Q8HR [facility] Last Admin: 01/19/21 06:11 Dose: 80 mg Documented by: Multivit/Ca Carb/B Cmplx/FA/Prenat (Folic Acid/Vit B Comp W-C 1 Mg (Renal Caps)) 1 cap PO QDAY [facility] Nifedipine (Nifedipine Xl 60 Mg Tab) 60 mg PO Q12HR [facility] Ondansetron HCl (Ondansetron 4 Mg/2 Ml Inj) 4 mg IV Q8H PRN PRN Reason: Nausea And Vomiting Oxycodone/Acetaminophen (Oxycodone /Acetaminophen 5-325mg Tab) 1 tab PO Q6H PRN PRN Reason: Pain, Moderate (4-6) Sodium Chloride (Sodium Chloride 0.9% 10 Ml Flush Syringe) 10 ml IV BID L[facility] Sodium Chloride (Sodium Chloride 0.9% 10 Ml Flush Syringe) 10 ml IV PRN PRN PRN Reason: LINE FLUSH Review of Systems All systems: negative (facial swelling) Exam - Vital Signs Vital signs: Vital Signs Resp 12 01/18/21 22:03 - General Appearance General appearance: well-developed, well-nourished, appears stated age EENT: ATNC, PERRL, mucous membranes moist Neck: Present: neck supple Respiratory: Clear to Ascultation Heart: regular, S1S2 Gastrointestinal: Present: normoactive bowel sounds. Absent: tenderness, distended, masses Integumentary: no rash, warm and dry Neurologic: no focal deficit, no asterixis, alert and oriented x3 Musculoskeletal: Present: other (trace pitting edema in BLE) Psychiatric: mood/affect appropriate, cooperative Results - Lab Results 01/18/21 23:48 01/18/21 23:48 Most recent lab results Calcium 9.4 mg/dL (8.4-10.2) 01/18/21 23:48 Assessment and Plan (1) Allergic reaction (2) Anaphylaxis (3) Shortness of breath (4) ESRD on dialysis Patient was consented to do HD while inpatient HD today for clearance and volume removal will assess HD needs daily Strict I&O daily weight
[2021-01-19] MEDS: hydrALAZINE 100 MG TAB PO SCH ×3 (14:00→19:35)
[2021-01-19 15:13] LABS: Hepatitis C Virus Antibody Non-Reactive (NonReactive)
[2021-01-19 15:52] LABS: Hepatitis B Surface Antigen Nonreactive (Negative)
[2021-01-19] MEDS ORDERED: DOXAZOSIN 4 MG TAB PO SCH (22:00)
[2021-01-19] MEDS ORDERED: NON-FORMULARY EACH (Doxazosin Mesylate [Cardura] 2 MG Tablet) PO SCH (22:00)
[2021-01-20 06:30] LABS: Hematocrit 35.4 % (35.5-45.6); Hemoglobin 11.6 gm/dl (11.8-15.2); Mean Corpuscular HGB Conc 33 % (32-34); Mean Corpuscular Volume 99 fl (84-94); Platelet Count 176 K/mm3 (140-440); Red Blood Count 3.57 M/mm3 (3.65-5.03); Red Cell Distribution Width 16.2 % (13.2-15.2)
[2021-01-20] MEDS: methylPREDNISolone Sod Succinate 125 MG/2 ML INJ IV SCH ×2 (06:31→15:29)
[2021-01-20 06:39] LABS: Calcium 9.1 mg/dL (8.4-10.2)
[2021-01-20] MEDS: hydrALAZINE 100 MG TAB PO SCH ×2 (09:59→15:29)
[2021-01-20] MEDS: LANTHANUM CARBONATE 500 MG TAB PO SCH ×2 (09:59→12:21)
[2021-01-20] MEDS: FERROUS SULFATE 325 MG TAB PO SCH (09:59)
[2021-01-20] MEDS: FOLIC ACID/VIT B COMP W-C 1 MG (RENAL CAPS) PO SCH (09:59)
[2021-01-20] MEDS: NIFEdipine XL 60 MG TAB PO SCH (10:03)
[2021-01-20] MEDS: FAMOTIDINE 20 MG/2 ML INJ IV SCH (10:03)
[2021-01-20] MEDS: carvediloL 25 MG TAB PO SCH (10:03)
[2021-01-20] MEDS: HEPARIN 5,000 UNIT/1 ML VIAL SUB-Q SCH (10:04)
--- NOTE | 2021-01-20 11:13 | Progress Note ---
Assessment and Plan (1) Allergic reaction (2) Anaphylaxis (3) Shortness of breath (4) ESRD on dialysis Patient was consented to do HD while inpatient No indication for HD today can be discharged from renal standpoint will assess HD needs daily Strict I&O daily weight Subjective Date of service: 01/20/21 Principal diagnosis: ESRD Interval history: Tolerated HD yesterday Objective - Vital Signs Vital signs: Vital Signs - 12hr 01/20/21 01/20/21 01/20/21 03:03 07:00 07:49 Temperature 97.5 F L 97.2 F L Pulse Rate 62 Respiratory 18 18 Rate Respiratory 16 Rate [Upper Medial Back] Respiratory 18 Rate [chest pain] Blood Pressure 169/74 133/66 O2 Sat by Pulse 97 Oximetry 01/20/21 01/20/21 09:57 10:03 Temperature Pulse Rate Respiratory Rate Respiratory Rate [Upper Medial Back] Respiratory Rate [chest pain] Blood Pressure 133/66 O2 Sat by Pulse 91 Oximetry - Lab 01/20/21 04:35 01/20/21 04:35 Most recent lab results Calcium 9.1 mg/dL (8.4-10.2) 01/20/21 04:35 Medications & Allergies - Medications Allergies/Adverse Reactions: Allergies clonidine Allergy (Verified 01/18/21 22:04) Swelling codeine Allergy (Verified 01/18/21 22:04) Itching hydrocodone Allergy (Verified 01/18/21 22:04) Itching aspirin Adverse Reaction (Severe, Verified 01/18/21 22:04) Brain Bleeding Home Medications: Home Medications Medication Instructions Recorded Confirmed Last Taken Type B Complex 11/Folic/C/Biot/Zinc 1 each PO DAILY 08/15/16 09/05/16 09/04/16 History [Dialyvite with Zinc Tablet] Ergocalciferol (Vitamin D2) 1 tab PO 1XW 08/15/16 01/19/21 Unknown History [Vitamin D2] levoFLOXacin [Levaquin TAB] 500 mg PO Q48H #5 tablet 08/20/16 09/05/16 Unknown Rx Lanthanum Carbonate [Fosrenol] 750 mg PO [facility] 09/05/16 01/19/21 Unknown History Doxazosin Mesylate [Cardura] 2 mg PO HS #30 tablet 09/07/16 Unknown Rx Ferrous Sulfate [Feosol 325 MG tab] 325 mg PO QDAY #30 tablet 09/07/16 Unknown Rx Folic Acid/Vit B Comp W-C [Renal 1 cap PO QDAY #30 capsule 09/07/16 Unknown Rx Caps] Gabapentin 300 mg PO BID #60 capsule 09/07/16 01/19/21 Unknown Rx NIFEdipine XL [Procardia Xl] 60 mg PO Q12HR #60 tablet 09/07/16 01/19/21 Unknown Rx Pantoprazole [Protonix TAB] 40 mg PO QDAY #30 tablet 09/07/16 01/19/21 Unknown Rx carvediloL [Coreg] 25 mg PO BID #60 tablet 09/07/16 01/19/21 Unknown Rx hydrALAZINE [Apresoline TAB] 100 mg PO TID #90 tab 09/07/16 01/19/21 Unknown Rx traMADoL [Ultram 50 MG tab] 50 mg PO Q6HR PRN #20 tablet 09/07/16 01/19/21 Unknown Rx Active Medications: Generic Name Dose Route Start Last Admin Trade Name Freq PRN Reason Stop Dose Admin Acetaminophen 650 mg 01/19/21 05:00 Acetaminophen 325 Mg Tab PO Q4H PRN Pain MILD(1-3)/Fever >100.5/GAXIOLA Albuterol 2.5 mg 01/19/21 05:00 Albuterol 2.5 Mg/3 Ml Nebu IH Q4HRT PRN Shortness Of Breath Carvedilol 25 mg 01/19/21 10:00 01/20/21 10:03 Carvedilol 25 Mg Tab PO 25 mg BID LOUISE Administration Diphenhydramine HCl 25 mg 01/19/21 05:00 01/19/21 21:32 Diphenhydramine 50 Mg/Ml Vial IV 25 mg Q6H PRN Administration Itching/SWELLING/ALLERGIC RXN Doxazosin Mesylate 2 mg 01/19/21 22:00 01/19/21 21:32 Doxazosin 4 Mg Tab PO 2 mg HS LOUISE Administration Ergocalciferol 50,000 unit 01/22/21 10:00 Ergocalciferol (Vit D2) 50,000 Unit Cap PO Maldonado LOUISE Famotidine 10 mg 01/19/21 10:00 01/20/21 10:03 Famotidine 20 Mg/2 Ml Inj IV 10 mg BID LOUISE Administration Ferrous Sulfate 325 mg 01/19/21 10:00 01/20/21 09:59 Ferrous Sulfate 325 Mg Tab PO 325 mg QDAY LOUISE Administration Heparin Sodium (Porcine) 5,000 unit 01/19/21 10:00 01/20/21 10:04 Heparin 5,000 Unit/1 Ml Vial SUB-Q 5,000 unit Q12HR LOUISE Administration Hydralazine HCl 100 mg 01/19/21 08:00 01/20/21 09:59 Hydralazine 100 Mg Tab PO 100 mg TID LOUISE Administration Hydromorphone HCl 0.5 mg 01/19/21 05:00 Hydromorphone 1 Mg/1 Ml Inj IV Q3H PRN Pain , Severe (7-10) Lanthanum Carbonate 750 mg 01/19/21 08:00 01/20/21 09:59 Lanthanum Carbonate 500 Mg Tab PO 750 mg [facility] Administration Methylprednisolone Sodium Succinate 80 mg 01/19/21 06:00 01/20/21 06:31 Methylprednisolone Sod Succinate 125 Mg/2 Ml Inj IV 80 mg Q8HR L[facility] Administration Multivit/Ca Carb/B Cmplx/FA/Prenat 1 cap 01/19/21 10:00 01/20/21 09:59 Folic Acid/Vit B Comp W-C 1 Mg (Renal Caps) PO 1 cap QDAY LOU[facility] Administration Nifedipine 60 mg 01/19/21 10:00 01/20/21 10:03 Nifedipine Xl 60 Mg Tab PO 60 mg Q12HR [facility] Administration Ondansetron HCl 4 mg 01/19/21 05:00 Ondansetron 4 Mg/2 Ml Inj IV Q8H PRN Nausea And Vomiting Oxycodone/Acetaminophen 1 tab 01/19/21 06:00 Oxycodone /Acetaminophen 5-325mg Tab PO Q6H PRN Pain, Moderate (4-6) Sodium Chloride 10 ml 01/19/21 10:00 01/20/21 10:02 Sodium Chloride 0.9% 10 Ml Flush Syringe IV 10 ml BID LOUISE Administration Sodium Chloride 10 ml 01/19/21 05:00 Sodium Chloride 0.9% 10 Ml Flush Syringe IV PRN PRN LINE FLUSH
--- NOTE | 2021-01-20 11:55 | Discharge Summary ---
Providers - Providers Date of Admission: 01/19/21 16:10 Date of discharge: 01/20/21 Attending physician: DEBRA MIXON 01/19/21 04:00 Consult to Physician [CONS] Routine Comment: Consulting Provider: CARLITA MCGEE Physician Instructions: Reason For Exam: End-stage renal disease Primary care physician: [employer] Hospitalization Condition: Stable Hospital course: -- Allergic reaction/bee sting Current Visit: Yes Status: Acute Symptoms significantly improved per patient Denies shortness of breath, no allergic rash No stridor, saturating well on room air oxygen Mild difficulty swallowing regular food, able to tolerate liquid diet Continue nebulizers as needed, IV Solu-Medrol, IV Benadryl, IV Pepcid -- Anaphylaxis Current Visit: Yes Status: Acute Oxygen via nasal cannula as needed to titrate O2 sats to more than 90% Neb treatments as needed, steroid, antihistamine, Pepcid, supportive care --Shortness of breath Current Visit: Yes Status: Acute Resolved, oxygen as needed and the above treatment --Hypertension; moderate control Current Visit: Yes Status: Chronic Continue current antihypertensives As needed hydralazine, closely monitor --ESRD on dialysis Current Visit: Yes Status: Chronic Nephrology consulted, patient is due for HD today Hemodialysis per schedule Disposition: 01 HOME / SELF CARE / HOMELESS Final Discharge Diagnosis (Prints w/discharge instructions): Bee sting/allergic reaction. Anaphylaxis/resolved. Respiratory distress resolved/. Hypertension. Shortness of breath resolved. ESRD on hemodialysis Time spent for discharge: 35 min Core Measure Documentation - Palliative Care Palliative Care/ Comfort Measures: Not Applicable - Core Measures Any of the following diagnoses?: none Exam - Constitutional Vitals: Temp Pulse Resp BP Pulse Ox 97.2 F L 62 18 133/66 91 01/20/21 07:49 01/20/21 07:49 01/20/21 07:49 01/20/21 10:03 01/20/21 09:57 Plan Activity: no restrictions Diet: other (cardiac diet) Additional Instructions: Diet as tolerated. If you have worsening symptoms contact MD or go to the nearest emergency room. Follow renal/hemodialysis per schedule Follow up with: GENARO LUTHER MD [Primary Care Provider] - 3-5 Days ZENY WAGNER MD [Staff Physician] - 7 Days Prescriptions: diphenhydrAMINE [Benadryl CAP] 25 mg PO Q8HR PRN #15 capsule PRN Reason: Allergy Symptoms Prednisone [predniSONE 10 mg (6-Day Pack, 21 Tabs)] 10 mg PO .TAPER #1 tab.ds.pk
[2021-01-20 17:06] VITALS: BP 162/73
[2021-01-20 20:46] LABS: Band Neutrophils # (Manual) 0.1 K/mm3; Platelet Estimate Consistent w Auto; Total Cells Counted 100
[2021-01-22] MEDS ORDERED: ERGOCALCIFEROL (VIT D2) 50,000 UNIT CAP PO SCH (10:00)
== END 2021-01-20 18:00 | disposition home or self-care (01) | DRG 917 ==
LOC: ED 21:38 → 4A 01-19 00:42 → OBSVTOIN 01-19 16:10
PROVIDERS: ADMIT Hospitalist; ATTEND Internal Medicine
PROC: 5A1D70Z Performance of Urinary Filtration, Intermittent, Less than 6 Hours Per Day (ICD-10-PCS; principal; 2021-01-19)
DX: T63.441A Toxic effect of venom of bees, accidental (unintentional), initial encounter (principal); N18.6 End stage renal disease; T78.2XXA Anaphylactic shock, unspecified, initial encounter; I12.0 Hypertensive chronic kidney disease with stage 5 chronic kidney disease or end stage renal disease; Z88.6 Allergy status to analgesic agent; Z88.8 Allergy status to other drugs, medicaments and biological substances; Z90.49 Acquired absence of other specified parts of digestive tract; Z90.5 Acquired absence of kidney; Y92.89 Other specified places as the place of occurrence of the external cause
CPT/HCPCS: 36415; 80048; 80053; 80074; 85007; 85025; 85027; 94640; 94760; G0378; J0171; J1200; J1644; J2930

== ENCOUNTER 2021-11-03 13:56 | Inpatient (IN) | payer OTHER ==
--- NOTE | 2021-11-03 15:56 | XRay Report ---
CHEST 1 VIEW 11/03/2021 3:40 PM INDICATION / CLINICAL INFORMATION: Syncope. COMPARISON: 09/04/2016. FINDINGS: SUPPORT DEVICES: None. HEART / MEDIASTINUM: Moderate cardiomegaly. LUNGS / PLEURA: Mild opacity right mid/lower zone and at the left chest laterally. No pneumothorax. ADDITIONAL FINDINGS: No significant additional findings. IMPRESSION: Suspected bilateral pneumonia. Signer Name: Brendan Izaguirre MD Signed: 11/03/2021 3:52 PM Workstation Name: [id number]
[2021-11-03] MEDS ORDERED: cefTRIAXone/NS 1 GM/50 ML 1 GM/50 ML BAG IV ONE (16:08)
[2021-11-03 16:41] LABS: Basophils # (Auto) 0.2 K/mm3 (0.0-0.1); Basophils % (Auto) 1.5 % (0.0-1.8); Eosinophils # (Auto) 1.4 K/mm3 (0.0-0.4); Eosinophils % (Auto) 12.8 % (0.0-4.3); Hematocrit 36.4 % (35.5-45.6); Hemoglobin 11.5 gm/dl (11.8-15.2); Lymphocytes # (Auto) 0.7 K/mm3 (1.2-5.4); Lymphocytes % (Auto) 6.5 % (13.4-35.0); Mean Corpuscular HGB Conc 32 % (32-34); Mean Corpuscular Volume 101 fl (84-94); Monocytes # (Auto) 1.4 K/mm3 (0.0-0.8); Monocytes % (Auto) 12.1 % (0.0-7.3); Platelet Count 155 K/mm3 (140-440); Red Cell Distribution Width 15.5 % (13.2-15.2)
[2021-11-03 16:45] LABS: INR 1.02 (0.87-1.13)
[2021-11-03 16:47] LABS: Creatine Kinase MB 6.4 ng/mL (0.0-4.0)
[2021-11-03 16:50] LABS: Albumin 3.9 g/dL (3.9-5); Calcium 8.8 mg/dL (8.4-10.2)
--- NOTE | 2021-11-03 17:12 | Cat Scan Report ---
CT head/brain wo con INDICATION / CLINICAL INFORMATION: 61 years Male; Syncope. TECHNIQUE: Routine CT head without contrast. All CT scans at this location are performed using CT dos e reduction for ALARA by means of automated exposure control. COMPARISON: None. FINDINGS: BRAIN / INTRACRANIAL CONTENTS: The patient is status post suboccipital craniotomy with encephalomalac ia involving posterior cerebellar hemispheres bilaterally. There appears to be prominent decreased at tenuation within the right cerebellar hemisphere extending medially and superiorly and component of m ild edema may give this appearance. Additionally, there is suggestion of cystic lesion along the infe rior midline cerebellum with mass effect upon the cervical medullary junction. Correlation with any p revious imaging would be beneficial. There is no clear CT evidence of acute intracranial hemorrhage. There is mild prominence of the lateral and third ventricles relative to the fourth ventricle and cor relation be needed regarding concern for mild hydrocephalus on this single exam given the findings wi thin the posterior fossa. There is also moderate cerebral white matter disease which may reflect micr ovascular angiopathy. There is no clear CT evidence of acute intracranial hemorrhage. ORBITS: No significant abnormality of visualized orbits. SINUSES / MASTOIDS: No significant abnormality in the visualized paranasal sinuses or mastoid air crow ls. CRANIOCERVICAL JUNCTION: No significant abnormality. ADDITIONAL FINDINGS: None. IMPRESSION: 1. There are extensive a postsurgical changes involving the cerebellum as detailed above with finding s indicative of cystic lesion along the inferior cerebellum with mass effect upon the cervicomedullar y junction. Additionally, there is mild relative prominence of the lateral and third ventricles on th is single exam and correlation be needed regarding any previous outside imaging and concerning for de veloping mild hydrocephalus. 2. There is otherwise moderate microvascular angiopathy without clear CT evidence of acute intracrani al hemorrhage. Signer Name: Matteo Conteh MD Signed: 11/03/2021 5:07 PM Workstation Name: [id number]
[2021-11-03 17:16] LABS: Chol/HDL Ratio 4.16 %
--- NOTE | 2021-11-03 17:52 | Emergency Department Report ---
ED Syncope HPI - General Chief Complaint: Syncope Stated Complaint: SYNCOPE Time Seen by Provider: 11/03/21 15:15 Source: patient, family Exam Limitations: no limitations - History of Present Illness Initial Comments: passed out during dialysis , has been feeling weak , no fever some SOB but no chest pain pt was recently diagnosed with oespahgeal leak . Timing/Prior Episodes: no prior history, single episode today Precipitating Factors: Positive: nausea Loss of Consciousness: no loss of consciousness Current Symptoms: back to normal - Related Data Allergies/Adverse Reactions: Allergies clonidine Allergy (Verified 11/03/21 14:04) Swelling codeine Allergy (Verified 11/03/21 14:04) Itching hydrocodone Allergy (Verified 11/03/21 14:04) Itching aspirin Adverse Reaction (Severe, Verified 11/03/21 14:04) Brain Bleeding Home Medications: Ambulatory Orders B Complex 11/Folic/C/Biot/Zinc [Dialyvite with Zinc Tablet] 1 each PO DAILY 08/15/16 Ergocalciferol (Vitamin D2) [Vitamin D2] 1 tab PO 1XW 08/15/16 levoFLOXacin [Levaquin TAB] 500 mg PO Q48H #5 tablet 08/20/16 Lanthanum Carbonate [Fosrenol] 750 mg PO [facility] 09/05/16 Doxazosin Mesylate [Cardura] 2 mg PO HS #30 tablet 09/07/16 Ferrous Sulfate [Feosol 325 MG tab] 325 mg PO QDAY #30 tablet 09/07/16 Folic Acid/Vit B Comp W-C [Renal Caps] 1 cap PO QDAY #30 capsule 09/07/16 Gabapentin 300 mg PO BID #60 capsule 09/07/16 NIFEdipine XL [Procardia Xl] 60 mg PO Q12HR #60 tablet 09/07/16 Pantoprazole [Protonix TAB] 40 mg PO QDAY #30 tablet 09/07/16 carvediloL [Coreg] 25 mg PO BID #60 tablet 09/07/16 hydrALAZINE [Apresoline TAB] 100 mg PO TID #90 tab 09/07/16 traMADoL [Ultram 50 MG tab] 50 mg PO Q6HR PRN #20 tablet 09/07/16 Prednisone [predniSONE 10 mg (6-Day Pack, 21 Tabs)] 10 mg PO .TAPER #1 tab.ds.pk 01/20/21 diphenhydrAMINE [Benadryl CAP] 25 mg PO Q8HR PRN #15 capsule 01/20/21 ED Review of Systems ROS: Stated complaint: SYNCOPE Other details as noted in HPI Constitutional: denies: chills, fever Eyes: denies: eye pain, eye discharge, vision change ENT: denies: ear pain, throat pain Respiratory: denies: cough, shortness of breath, wheezing Cardiovascular: denies: chest pain, palpitations Endocrine: no symptoms reported Gastrointestinal: denies: abdominal pain, nausea, diarrhea Genitourinary: denies: urgency, dysuria Musculoskeletal: denies: back pain, joint swelling, arthralgia Skin: denies: rash, lesions Neurological: denies: headache, weakness, paresthesias Psychiatric: denies: anxiety, depression Hematological/Lymphatic: denies: easy bleeding, easy bruising ED Past Medical Hx - Past Medical History Hx Hypertension: Yes Hx CVA: No Hx Congestive Heart Failure: No Hx Diabetes: No Hx Renal Disease: Yes (HD) Hx Seizures: No Hx Asthma: No Hx COPD: No Hx Tuberculosis: No Hx HIV: No Additional medical history: VAN-HIPPEL SYNDROME (AUTOIMMUNE), PANCREATIC CYSTS, BRAIN TUMORS - Surgical History Hx Pacemaker: No Hx Cholecystectomy: Yes Hx Appendectomy: Yes Additional Surgical History: 3 BRAIN SURGERIES, NEPHRECTOMY B/L, SPLENECTOMY, - Social History Smoking Status: Never Smoker - Medications Home Medications: Home Medications Medication Instructions Recorded Confirmed Last Taken Type B Complex 11/Folic/C/Biot/Zinc 1 each PO DAILY 08/15/16 01/20/21 09/04/16 History [Dialyvite with Zinc Tablet] Ergocalciferol (Vitamin D2) 1 tab PO 1XW 08/15/16 01/19/21 Unknown History [Vitamin D2] levoFLOXacin [Levaquin TAB] 500 mg PO Q48H #5 tablet 08/20/16 01/20/21 Unknown Rx Lanthanum Carbonate [Fosrenol] 750 mg PO [facility] 09/05/16 01/19/21 Unknown History Doxazosin Mesylate [Cardura] 2 mg PO HS #30 tablet 09/07/16 01/20/21 Unknown Rx Ferrous Sulfate [Feosol 325 MG tab] 325 mg PO QDAY #30 tablet 09/07/16 01/20/21 Unknown Rx Folic Acid/Vit B Comp W-C [Renal 1 cap PO QDAY #30 capsule 09/07/16 01/20/21 Unknown Rx Caps] Gabapentin 300 mg PO BID #60 capsule 09/07/16 01/19/21 Unknown Rx NIFEdipine XL [Procardia Xl] 60 mg PO Q12HR #60 tablet 09/07/16 01/19/21 Unknown Rx Pantoprazole [Protonix TAB] 40 mg PO QDAY #30 tablet 09/07/16 01/19/21 Unknown Rx carvediloL [Coreg] 25 mg PO BID #60 tablet 09/07/16 01/19/21 Unknown Rx hydrALAZINE [Apresoline TAB] 100 mg PO TID #90 tab 09/07/16 01/19/21 Unknown Rx traMADoL [Ultram 50 MG tab] 50 mg PO Q6HR PRN #20 tablet 09/07/16 01/19/21 Unknown Rx Prednisone [predniSONE 10 mg 10 mg PO .TAPER #1 tab.ds.pk 01/20/21 Unknown Rx (6-Day Pack, 21 Tabs)] diphenhydrAMINE [Benadryl CAP] 25 mg PO Q8HR PRN #15 capsule 01/20/21 Unknown Rx ED Physical Exam - General Limitations: No Limitations General appearance: alert, other (weak) - Head Head exam: Present: atraumatic, normocephalic - Eye Eye exam: Present: normal appearance - ENT ENT exam: Present: mucous membranes moist - Neck Neck exam: Present: normal inspection - Respiratory Respiratory exam: Present: normal lung sounds bilaterally, rales. Absent: respiratory distress - Cardiovascular Cardiovascular Exam: Present: regular rate, normal rhythm. Absent: systolic murmur, diastolic murmur, rubs, gallop - GI/Abdominal GI/Abdominal exam: Present: soft, normal bowel sounds - Rectal Rectal exam: Present: deferred - Extremities Exam Extremities exam: Present: normal inspection - Back Exam Back exam: Present: normal inspection - Neurological Exam Neurological exam: Present: alert, oriented X3 - Psychiatric Psychiatric exam: Present: normal affect, normal mood - Skin Skin exam: Present: warm, dry, intact, normal color. Absent: rash ED Course Vital Signs 11/03/21 11/03/21 14:02 16:52 Temperature 98.4 F Pulse Rate 78 69 Respiratory 16 15 Rate Blood Pressure 207/93 Blood Pressure 209/113 [Right] O2 Sat by Pulse 97 100 Oximetry ED Medical Decision Making - Lab Data Result diagrams: 11/03/21 15:33 11/03/21 15:33 - Radiology Data Radiology results: report reviewed, image reviewed - Medical Decision Making work up shwoed elevated trop , and elevated wbc , x ray showed pneumonia abx started after cultures, BP was managed by labetalol Critical care attestation.: If time is entered above; I have spent that time in minutes in the direct care of this critically ill patient, excluding procedure time. ED Disposition Clinical Impression: Syncope, ESRD on dialysis, Leukocytosis, Hypertension, Shortness of breath, Pneumonia, Elevated troponin Disposition: ADMITTED INPATIENT Is pt being admited?: Yes Does the pt Need Aspirin: No Condition: Stable Instructions: Syncope (ED), Hypertension (ED), Bacterial Pneumonia (ED)
--- NOTE | 2021-11-03 18:33 | History and Physical Report ---
History of Present Illness Chief complaint: I felt weak and then I passed out History of present illness: 61 YO Male with ESRD on HD, HTN, GERD, VHL Syndrome, Peripheral Neuropathy, Chronic Respiratory Failure on 2L Home oxygen presents to ED for evaluation. Patient reports "I get weak and then I passed out". Patient reports feeling weak over the past 1 day. Patient presented to his dialysis center for routine scheduled dialysis. Patient experienced loss of consciousness during dialysis. EMS notified and on arrival the patient was found to be in distress and subsequent transported to [facility] for further care and evaluation of the aforementioned symptoms. The patient was seen and evaluated in the emergency de partment. All lab imaging studies reviewed. Patient found to have a pulse oximetry of 88% on supplemental oxygen which is consistent with Acute on chronic hypoxemic respiratory failure. The patient was found to have a blood pressure of 229/100 mmHg which is consistent with hypertensive emergency, end-stage renal disease, pneumonia. Patient admitted to IMCU and initiated on IV antihypertensive therapy. Patient also initiated on pneumonia protocol. Nephrology team consulted in ED. No reports of fever, chills, chest pain, palpitation, productive cough, skin rash or recent contact, known exposure to COVID-19. Prior admission on 12/30/2020 reviewed. All medication listed at time of admission as reconciled. Advanced care planning conducted in ED. Past History Past Medical History: diabetes, ESRD, GERD, hypertension, other (see hpi) Past Surgical History: appendectomy, cholecystectomy, Other (3 BRAIN SURGERIES, NEPHRECTOMY B/L, SPLENECTOMY,) Social history: Family history: diabetes, hypertension Medications and Allergies Allergies Allergy/AdvReac Type Severity Reaction Status Date / Time clonidine Allergy Swelling Verified 11/03/21 14:04 codeine Allergy Itching Verified 11/03/21 14:04 hydrocodone Allergy Itching Verified 11/03/21 14:04 aspirin AdvReac Severe Brain Verified 11/03/21 14:04 Bleeding Home Medications Medication Instructions Recorded Confirmed Last Taken Type B Complex 11/Folic/C/Biot/Zinc 1 each PO DAILY 08/15/16 01/20/21 09/04/16 Hist ory [Dialyvite with Zinc Tablet] Ergocalciferol (Vitamin D2) 1 tab PO 1XW 08/15/16 01/19/21 Unknown History [Vitamin D2] levoFLOXacin [Levaquin TAB] 500 mg PO Q48H #5 tablet 08/20/16 01/20/21 Unknown Rx Lanthanum Carbonate [Fosrenol] 750 mg PO [facility] 09/05/16 01/19/21 Unknown History Doxazosin Mesylate [Cardura] 2 mg PO HS #30 tablet 09/07/16 01/20/21 Unknown Rx Ferrous Sulfate [Feosol 325 MG tab] 325 mg PO QDAY #30 tablet 09/07/16 01/20/21 Unknown Rx Folic Acid/Vit B Comp W-C [Renal 1 cap PO QDAY #30 capsule 09/07/16 01/20/21 Unknown Rx Caps] Gabapentin 300 mg PO BID #60 capsule 09/07/16 01/19/21 Unknown Rx NIFEdipine XL [Procardia Xl] 60 mg PO Q12HR #60 tablet 09/07/16 01/19/21 Unknown Rx Pantoprazole [Protonix TAB] 40 mg PO QDAY #30 tablet 09/07/16 01/19/21 Unknown Rx carvediloL [Coreg] 25 mg PO BID #60 tablet 09/07/16 01/19/21 Unknown Rx hydrALAZINE [Apresoline TAB] 100 mg PO TID #90 tab 09/07/16 01/19/21 Unknown Rx traMADoL [Ultram 50 MG tab] 50 mg PO Q6HR PRN #20 tablet 09/07/16 01/19/21 Unknown Rx Prednisone [predniSONE 10 mg 10 mg PO .TAPER #1 tab.ds.pk 01/20/21 Unknown Rx (6-Day Pack, 21 Tabs)] diphenhydrAMINE [Benadryl CAP] 25 mg PO Q8HR PRN #15 capsule 01/20/21 Unknown Rx Review of Systems Constitutional: no weight loss, no weight gain, no fever, no chills Ears, nose, mouth and throat: no ear pain, no tinnitis, no nose pain, no nasal congestion Cardiovascular: no chest pain, no rapid/irregular heart beat, no syncope, no lightheadedness Respiratory: no cough, no excessive sputum, no shortness of breath Gastrointestinal: no abdominal pain, no constipation, no change in bowel habits Genitourinary Male: no hematuria, no flank pain, no discharge, no urinary frequency, no urinary hesitancy Rectal: no pain, no incontinence, no bleeding Musculoskeletal: no neck stiffness, no neck pain, no shooting leg pain Integumentary: no rash, no pruritis, no sores, no jaundice Neurological: no paralysis, no weakness, no seizures, no ataxia Psychiatric: no anxiety, no change in sleep habits, no change in appetite, no disorientation Endocrine: no cold intolerance, no polyphagia, no polyuria Hematologic/Lymphatic: no easy bruising, no easy bleeding Allergic/Immunologic: no urticaria, no allergic rhinitis, no wheezing Exam - Constitutional Vitals: Temp Pulse Resp BP Pulse Ox 98.4 F 67 9 L 229/100 100 11/03/21 14:02 11/03/21 18:13 11/03/21 18:13 11/03/21 18:13 11/03/21 18:13 General appearance: Present: mild distress - EENT Eyes: Present: PERRL ENT: hearing intact, clear oral mucosa - Neck Neck: Present: supple, normal ROM - Respiratory Respiratory effort: normal Respiratory: bilateral: CTA - Cardiovascular Heart Sounds: Present: S1 & S2. Absent: rub, click - Extremities Extremities: pulses symmetrical, No edema Peripheral Pulses: within normal limits - Abdominal General gastrointestinal: Present: soft, non-tender, non-distended, normal bowel sounds Male genitourinary: Present: normal - Integumentary Integumentary: Present: clear, warm, dry - Musculoskeletal Musculoskeletal: gait normal, strength equal bilaterally - Psychiatric Psychiatric: appropriate mood/affect, intact judgment & insight - Neurologic Neurologic: CNII-XII intact, moves all extremities HEART Score - HEART Score Troponin: Troponin T 0.271 ng/mL (0.00-0.029) H* 11/03/21 15:33 Results - Labs CBC & Chem 7: 11/03/21 15:33 11/03/21 15:33 Labs: Abnormal lab results 11/03/21 11/03/21 Range/Units 15:33 15:33 WBC 11.3 H (4.5-11.0) K/mm3 RBC 3.60 L (3.65-5.03) M/mm3 Hgb 11.5 L (11.8-15.2) gm/dl MCV 101 H (84-94) fl RDW 15.5 H (13.2-15.2) % Lymph % (Auto) 6.5 L (13.4-35.0) % [place] % (Auto) 12.1 H (0.0-7.3) % Eos % (Auto) 12.8 H (0.0-4.3) % Lymph # (Auto) 0.7 L (1.2-5.4) K/mm3 [place] # (Auto) 1.4 H (0.0-0.8) K/mm3 Eos # (Auto) 1.4 H (0.0-0.4) K/mm3 Baso # (Auto) 0.2 H (0.0-0.1) K/mm3 Chloride 95.8 L (98-107) mmol/L BUN 26 H (9-20) mg/dL Creatinine 5.5 H (0.8-1.3) mg/dL Glucose 148 H (75-100) mg/dL CK-MB (CK-2) 6.4 H (0.0-4.0) ng/mL CK-MB (CK-2) Rel Index 4.9 H (0-4) Troponin T 0.271 H* (0.00-0.029) ng/mL Triglycerides 206 H (2-149) mg/dL HDL Cholesterol 37 L (40-59) mg/dL Assessment and Plan - Patient Problems (1) Hypertensive emergency Current Visit: Yes Status: Acute Plan to address problem: Patient mated to ICU and initiated on Cardene drip, monitor blood pressure every shift, monitor blood pressure per nursing care protocol, supportive care. (2) Pneumonia Current Visit: Yes Status: Acute Plan to address problem: Pneumonia protocol: Chest x-ray, CBC, CMP, supplemental oxygen, pulse oximetry, nebulizer therapy, pulmonary toilet. (3) ESRD (end stage renal disease) Current Visit: Yes Status: Acute Plan to address problem: Nephrology team consulted in ED, dialysis as per renal team, strict I's/O, elias tor fluid balance, avoid nephrotoxic agents. (4) Respiratory failure Current Visit: Yes Status: Acute Qualifiers: Chronicity: acute on chronic Plan to address problem: Supplemental oxygen increased requirement from 2 L nasal cannula to 4 L nasal cannula, supportive care, chest x-ray, nebulized therapy. (5) GERD (gastroesophageal reflux disease) Current Visit: Yes Status: Acute Qualifiers: Esophagitis presence: without esophagitis Qualified Code(s): K21.9 - Gastro-esophageal reflux disease without esophagitis Plan to address problem: PPI therapy, supportive care. (6) Von Hippel-Lindau syndrome Current Visit: Yes Status: Acute Plan to address problem: Chronic, supportive care. Outpatient neurology follow-up. (7) DVT prophylaxis Current Visit: Yes Status: Acute Plan to address problem: SCD to bilateral lower extremities while in bed (8) Advance care planning Current Visit: Yes Status: Acute Plan to address problem: Disease education done, care plan discussed, diagnosis discussed, prognosis discussed, patient is full code. +30 minutes. (9) Preventative health care Current Visit: Yes Status: Acute Plan to address problem: Patient counseled regarding home safety, fall precautions, outpatient follow-up with primary care physician for age and risk factor appropriate screening test. +30 minutes.
[2021-11-03] MEDS ORDERED: ALBUTEROL 2.5 MG/3 ML NEBU IH PRN (18:39)
[2021-11-03] MEDS ORDERED: ACETAMINOPHEN 325 MG TAB PO PRN (18:39)
[2021-11-03] MEDS ORDERED: oxyCODONE /ACETAMINOPHEN 5-325MG TAB PO PRN (18:39)
[2021-11-03] MEDS ORDERED: HYDROmorphone 0.5 MG/0.5 ML INJ IV PRN (18:39)
[2021-11-03] MEDS ORDERED: hydrALAZINE 20 MG/1 ML INJ IV ONE (19:06)
[2021-11-03] MEDS: niCARdipine 50 MG in SODIUM CHLORIDE 0.9% 250ML 230 ML IV SCH (20:14)
[2021-11-04] MEDS: niCARdipine 50 MG in SODIUM CHLORIDE 0.9% 250ML 230 ML IV SCH ×2 (03:51→08:30)
[2021-11-04 05:00] LABS: Calcium 9.1 mg/dL (8.4-10.2)
[2021-11-04 05:01] LABS: Hematocrit 35.3 % (35.5-45.6); Hemoglobin 11.4 gm/dl (11.8-15.2); Mean Corpuscular HGB Conc 32 % (32-34); Mean Corpuscular Volume 100 fl (84-94); Platelet Count 167 K/mm3 (140-440); Red Blood Count 3.54 M/mm3 (3.65-5.03); Red Cell Distribution Width 15.8 % (13.2-15.2)
[2021-11-04 08:30] LABS: Basophils % (Manual) 0 % (0.0-1.8); Myelocytes # (Manual) 0.1 K/mm3; Total Cells Counted 100
[2021-11-04 08:31] LABS: Large Platelets Few; Macrocytosis Few; Platelet Estimate Consistent w Auto
[2021-11-04] MEDS ORDERED: cefTRIAXone/NS 2 GM/100 ML 2 GM/100 ML BAG IV SCH (09:00)
[2021-11-04] MEDS: NIFEdipine XL 60 MG TAB PO SCH ×2 (10:25→21:07)
[2021-11-04] MEDS: GABAPENTIN 300 MG CAP PO SCH ×2 (10:25→21:12)
[2021-11-04] MEDS: PANTOPRAZOLE 40 MG TAB PO SCH (10:25)
[2021-11-04] MEDS: carvediloL 6.25 MG TAB PO SCH ×2 (10:26→21:07)
[2021-11-04] MEDS: cefTRIAXone/NS 2 GM/100 ML 2 GM/100 ML BAG IV SCH (10:27)
[2021-11-04] MEDS: AZITHROMYCIN/NS 500 MG/250 ML 500 MG/250 ML BAG IV SCH (10:28)
--- NOTE | 2021-11-04 10:52 | Consultation ---
History of Present Illness - Reason for Consult Consult date: 11/04/21 end stage renal disease - History of Present Illness RFC: ESRD on HD HPI: 61 year old M admitted with syncope during HD. Hd No reports of fever, chills, chest pain, palpitation, productive cough, skin rash or recent contact, known exposure to COVID-19. He is HD outpatient. ROS: As in HPI otherwise 12 point review of systems -ve Past History Past Medical History: diabetes, ESRD, GERD, hypertension, other (see hpi) Past Surgical History: appendectomy, cholecystectomy, Other (3 BRAIN SURGERIES, NEPHRECTOMY B/L, SPLENECTOMY,) Social history: Family history: diabetes, hypertension Medications and Allergies Allergies Allergy/AdvReac Type Severity Reaction Status Date / Time clonidine Allergy Swelling Verified 11/03/21 14:04 codeine Allergy Itching Verified 11/03/21 14:04 hydrocodone Allergy Itching Verified 11/03/21 14:04 aspirin AdvReac Severe Brain Verified 11/03/21 14:04 Bleeding Home Medications Medication Instructions Recorded Confirmed Last Taken Type B Complex 11/Folic/C/Biot/Zinc 1 each PO DAILY 08/15/16 11/04/21 11/03/21 History [Dialyvite with Zinc Tablet] Ergocalciferol (Vitamin D2) 1 tab PO 1XW 08/15/16 11/04/21 11/03/21 History [Vitamin D2] Lanthanum Carbonate [Fosrenol] 750 mg PO QDAC 09/05/16 11/04/21 11/03/21 History Doxazosin Mesylate [Cardura] 2 mg PO HS #30 tablet 09/07/16 11/04/21 11/03/21 Rx Folic Acid/Vit B Comp W-C [Renal 1 cap PO QDAY #30 capsule 09/07/16 11/04/21 11/03/21 Rx Caps] Gabapentin 300 mg PO BID #60 capsule 09/07/16 11/04/21 11/03/21 Rx NIFEdipine XL [Procardia Xl] 60 mg PO Q12HR #60 tablet 09/07/16 11/04/2112/18 Rx Pantoprazole [Protonix TAB] 40 mg PO QDAY #30 tablet 09/07/16 11/04/21 11/03/21 Rx carvediloL [Coreg] 25 mg PO BID #60 tablet 09/07/16 11/04/21 11/03/21 Rx hydrALAZINE [Apresoline TAB] 100 mg PO TID #90 tab 09/07/16 11/04/21 11/03/21 Rx traMADoL [Ultram 50 MG tab] 50 mg PO Q6HR PRN #20 tablet 09/07/16 11/04/21 11/04/21 Rx Active Meds: Active Medications Acetaminophen (Acetaminophen 325 Mg Tab) 650 mg PO Q6H PRN PRN Reason: Pain MILD(1-3)/Fever >100.5/GAXIOLA Albuterol (Albuterol 2.5 Mg/3 Ml Nebu) 2.5 mg IH Q3HRT PRN PRN Reason: Shortness Of Breath Carvedilol (Carvedilol 6.25 Mg Tab) 6.25 mg PO BID [facility] Last Admin: 11/04/21 10:26 Dose: 6.25 mg Gabapentin (Gabapentin 300 Mg Cap) 300 mg PO BID [facility] Last Admin: 11/04/21 10:25 Dose: 300 mg Hydralazine HCl (Hydralazine 100 Mg Tab) 50 mg PO TID [facility] Hydromorphone HCl (Hydromorphone 0.5 Mg/0.5 Ml Inj) 0.5 mg IV Q23H PRN PRN Reason: Pain , Severe (7-10) Nicardipine HCl 50 mg/ Sodium (Chloride) 250 mls @ 25 mls/hr IV TITR [facility]; Protocol Last Admin: 11/04/21 08:30 Dose: 10 mg/hr, 50 mls/hr Azithromycin (Zithromax/Ns) 500 mg in 250 mls @ 250 mls/hr IV Q24H [facility] Last Admin: 11/04/21 10:28 Dose: 250 mls/hr Ceftriaxone Sodium (Rocephin/Ns 2 Gm/100 Ml) 2 gm in 100 mls @ 200 mls/hr IV Q24H [facility]; Protocol Last Admin: 11/04/21 10:27 Dose: 200 mls/hr Nifedipine (Nifedipine Xl 60 Mg Tab) 60 mg PO Q12HR [facility] Last Admin: 11/04/21 10:25 Dose: 60 mg Oxycodone/Acetaminophen (Oxycodone /Acetaminophen 5-325mg Tab) 1 tab PO Q6H PRN PRN Reason: Pain, Moderate (4-6) Pantoprazole Sodium (Pantoprazole 40 Mg Tab) 40 mg PO QDAY [facility] Last Admin: 11/04/21 10:25 Dose: 40 mg Sodium Chloride (Sodium Chloride 0.9% 10 Ml Flush Syringe) 10 ml IV BID [facility] Last Admin: 11/04/21 10:28 Dose: 10 ml Sodium Chloride (Sodium Chloride 0.9% 10 Ml Flush Syringe) 10 ml IV PRN PRN PRN Reason: LINE FLUSH Exam - Vital Signs Vital signs: Vital Signs Temp Pulse Resp BP Pulse Ox 98.4 F 78 16 209/113 97 11/03/21 14:02 11/03/21 14:02 11/03/21 14:02 11/03/21 14:02 11/03/21 14:02 - Physical Exam Narrative exam: General appearance: Present: mild distress - EENT Eyes: Present: PERRL ENT: hearing intact, clear oral mucosa - Neck Neck: Present: supple, normal ROM - Respiratory Respiratory effort: normal Respiratory: bilateral: CTA - Cardiovascular Heart Sounds: Present: S1 & S2. Absent: rub, click - Extremities Extremities: pulses symmetrical, No edema Peripheral Pulses: within normal limits - Abdominal General gastrointestinal: Present: soft, non-tender, non-distended, normal bowel sounds Male genitourinary: Present: normal - Integumentary Integumentary: Present: clear, warm, dry - Musculoskeletal Musculoskeletal: gait normal, strength equal bilaterally - Psychiatric Psychiatric: appropriate mood/affect, intact judgment & insight - Neurologic Neurologic: CNII-XII intact, moves all extremities Results - Lab Results 11/04/21 04:25 11/04/21 04:25 Most recent lab results Calcium 9.1 mg/dL (8.4-10.2) 11/04/21 04:25 Magnesium 2.00 mg/dL (1.7-2.3) 11/03/21 15:33 Assessment and Plan (1) Hypertensive emergency (2) Pneumonia (3) ESRD (end stage renal disease) (4) Respiratory failure (5) GERD (gastroesophageal reflux disease) (6) Von Hippel-Lindau syndrome -HD today -CXR congested -Pt consents to and agrees for dialysis inpatient -Eval for HD need daily -Renally dose all meds Pedrito Qureshi MD [phone]
[2021-11-04] MEDS ORDERED: SODIUM CHLORIDE 0.9% 100 ML IV PRN (10:54)
--- NOTE | 2021-11-04 12:13 | Progress Note ---
Assessment and Plan Assessment and plan: This is a 61-year-old male with known past medical history of craniotomy, ESRD on HD, HTN, GERD, VHL Syndrome, Peripheral Neuropathy, ADDY and Chronic Respiratory Failure on Cpap and 3L oxygen dependent at home admitted s/p syncopal episode in dialysis. Found to in emergency emergency and bilateral PNA. Hospital Course to Date: 11/04: Remains hypertensive in cardene gtt this am. Home meds resumed, plan to wean off cardene gtt for SBP less than 160. COVID PCR came back positive, patient is stable on home O2 at 3L. IV Abx swithed to Azithro and Rocephin, IV decadron, and ID consulted. Cardiology is also following, appreciate recommendations. CT scan noted, result discussed with patient at the bedside. Per patient, mild hydrocephalus noted on CT scan is not new. It was noted since after his last craniotomy 4years ago and [facility] PCP [facility] has been monitoring it. Record requested from [facility] and the [facility]. Assessment and Plan #Hypertensive Emergency #Syncopal Episode - Presented to the Ed s/p syncopal episode during HD - Initial BP was 229/100 - Cardene gtt initiated - Remains hypertensive this am. Home meds resumed - Continue blood pressure monitor per protocol - Plan to wean cardene gtt for SBP less than 160 - Orthi BP Qshift - Cardiology consulted #Acute on Chronic Respiratory Failure #Bilateral Pneumonia #COVID 19 Pneumonia - O2 dependent at home, on 3L NC - CXR with suspected bilateral pneumonia - COVID PCR positive - patient is stable on home O2 at 3L NC - Empiric IV Abx and IV decadron initiated - Continue O2 supplementation and Nebs treatment as needed - Continue SPO2 monitoring for SPO2 goal above 92% - Aspiration precaution HOB above 30 - CCM is following #End Stage Renal Disease(ESRD) on HD - Nephrology on consult, appreciated recommendation - Continue HD per Nephro - Strict intake and output - Avoid nephrotoxic medications; Renally dose medications - Monitor and replace electrolytes as needed #GERD (Gastroesophageal Reflux Disease) - Supportive care - Home Protonix resumed #Mild Hydrocephalus #H/o Von Hippel-Lindau Syndrome #S/p Multiple Craniotomy - Chronic. Continue supportive measures - CT scan result revealed mild hydrocephalus - Per patient, mild hydrocephalus noted on CT scan is not new. It was noted since after his last craniotomy 4years ago - his PCP [facility] the [facility] has been monitoring it. - Record [facility] #Anemia of Chronic Disease - most likely due to ESRD - H&H stable - Continue epogen with HD per Nephro - Trenc CBC #GI/DVT prophylaxis - PPI- Protonix - Heparin SubQ - SCD to bilateral lower extremities while in bed #Advance Care Planning - Disease education data, care plan, diagnoses, and prognosis were discussed with patient at the bedise. All questions and concerns were addressed at this tome. Patient is a FULL code. Patient acknowledged understanding and agreement with current care plan. The high probability of a clinically significant, sudden or life threatening deterioration of the [multiple] system(s) required my full and direct attention, intervention and personal management. The aggregate critical care time was [60] minutes. This time is in addition to time spent performing reported procedures but includes the following: [x] Data Review and interpretation [x] Patient assessment and monitoring of vital signs [x] Documentation [x] Medication orders and management Disposition Plan: ICU Total Time Spent with Patient (Minutes): 60 History Interval history: Patient seen and examined at the bedside. Fully AAO, on home O2 at 3L NC, denied any pain nor any discomfort at this time. Remains on cardene gtt, BP still elevated this morning. SR to SB noted on the monitor Hospitalist Physical - Constitutional Vitals: Temp Pulse Resp BP Pulse Ox 98.2 F 61 17 153/65 98 11/04/21 08:00 11/04/21 11:11 11/04/21 11:11 11/04/21 11:11 11/04/21 11:11 General appearance: Present: no acute distress, well-nourished, obese - EENT Eyes: Present: PERRL, EOM intact ENT: hearing intact - Neck Neck: Present: normal ROM - Respiratory Respiratory effort: normal Respiratory: bilateral: rhonchi, wheezing - Cardiovascular Rhythm: regular Heart Sounds: Present: S1 & S2 - Extremities Extremities: no ischemia, pulses intact, pulses symmetrical Extremity abnormal: edema - Peripheral Assessment Generalized Edema Type: Non-pitting Edema Degree: 1+ Capillary Refill: < 3 seconds Skin Temperature: Warm Peripheral Pulses: within normal limits - Abdominal General gastrointestinal: soft, non-distended, normal bowel sounds - Integumentary Integumentary: Present: warm, dry - Psychiatric Psychiatric: appropriate mood/affect, cooperative - Neurologic Neurologic: CNII-XII intact, moves all extremities - Allied Health Allied health notes reviewed: nursing, case management HEART Score - HEART Score Troponin: Troponin T 0.271 ng/mL (0.00-0.029) H* 11/03/21 15:33 Results - Labs CBC & Chem 7: 11/04/21 04:25 11/04/21 04:25 Labs: Laboratory Last Values WBC 10.8 K/mm3 (4.5-11.0) 11/04/21 04:25 RBC 3.54 M/mm3 (3.65-5.03) L 11/04/21 04:25 Hgb 11.4 gm/dl (11.8-15.2) L 11/04/21 04:25 Hct 35.3 % (35.5-45.6) L 11/04/21 04:25 MCV 100 fl (84-94) H 11/04/21 04:25 MCH 32 pg (28-32) 11/04/21 04:25 MCHC 32 % (32-34) 11/04/21 04:25 RDW 15.8 % (13.2-15.2) H 11/04/21 04:25 Plt Count 167 K/mm3 (140-440) 11/04/21 04:25 Lymph % (Auto) 6.5 % (13.4-35.0) L 11/03/21 15:33 Cavalier % (Auto) 12.1 % (0.0-7.3) H 11/03/21 15:33 Eos % (Auto) Captain/Check Airman 11/04/21 04:25 Baso % (Auto) 1.5 % (0.0-1.8) 11/03/21 15:33 Lymph # (Auto) 0.7 K/mm3 (1.2-5.4) L 11/03/21 15:33 Cavalier # (Auto) 1.4 K/mm3 (0.0-0.8) H 11/03/21 15:33 Eos # (Auto) 1.4 K/mm3 (0.0-0.4) H 11/03/21 15:33 Baso # (Auto) 0.2 K/mm3 (0.0-0.1) H 11/03/21 15:33 Add Manual Diff Complete 11/04/21 04:25 Total Counted 100 11/04/21 04:25 Seg Neutrophils % 67.1 % (40.0-70.0) 11/03/21 15:33 Seg Neuts % (Manual) 71.0 % (40.0-70.0) H 11/04/21 04:25 Band Neutrophils % 0 % 11/04/21 04:25 Lymphocytes % (Manual) 7.0 % (13.4-35.0) L 11/04/21 04:25 Reactive Lymphs % (Man) 0 % 11/04/21 04:25 Monocytes % (Manual) 3.0 % (0.0-7.3) 11/04/21 04:25 Eosinophils % (Manual) 16.0 % (0.0-4.3) H 11/04/21 04:25 Basophils % (Manual) 0 % (0.0-1.8) 11/04/21 04:25 Metamyelocytes % 2.0 % 11/04/21 04:25 Myelocytes % 1.0 % 11/04/21 04:25 Promyelocytes % 0 % 11/04/21 04:25 Blast Cells % 0 % 11/04/21 04:25 Nucleated RBC % 1.0 % (0.0-0.9) H 11/04/21 04:25 Seg Neutrophils # 7.6 K/mm3 (1.8-7.7) 11/03/21 15:33 Seg Neutrophils # Man 7.7 K/mm3 (1.8-7.7) 11/04/21 04:25 Band Neutrophils # 0.0 K/mm3 11/04/21 04:25 Lymphocytes # (Manual) 0.8 K/mm3 (1.2-5.4) L 11/04/21 04:25 Abs React Lymphs (Man) 0.0 K/mm3 11/04/21 04:25 Monocytes # (Manual) 0.3 K/mm3 (0.0-0.8) 11/04/21 04:25 Eosinophils # (Manual) 1.7 K/mm3 (0.0-0.4) H 11/04/21 04:25 Basophils # (Manual) 0.0 K/mm3 (0.0-0.1) 11/04/21 04:25 Metamyelocytes # 0.2 K/mm3 11/04/21 04:25 Myelocytes # 0.1 K/mm3 11/04/21 04:25 Promyelocytes # 0.0 K/mm3 11/04/21 04:25 Blast Cells # 0.0 K/mm3 11/04/21 04:25 WBC Morphology Not Reportable 11/04/21 04:25 Hypersegmented Neuts Not Reportable 11/04/21 04:25 Hyposegmented Neuts Not Reportable 11/04/21 04:25 Hypogranular Neuts Not Reportable 11/04/21 04:25 Smudge Cells Not Reportable 11/04/21 04:25 Toxic Granulation Not Reportable 11/04/21 04:25 Toxic Vacuolation Not Reportable 11/04/21 04:25 Dohle Bodies Not Reportable 11/04/21 04:25 Pelger-Huet Anomaly Not Reportable 11/04/21 04:25 Marialuisa Rods Not Reportable 11/04/21 04:25 Platelet Estimate Consistent w auto 11/04/21 04:25 Clumped Platelets Not Reportable 11/04/21 04:25 Plt Clumps, EDTA Not Reportable 11/04/21 04:25 Large Platelets Few 11/04/21 04:25 Giant Platelets Not Reportable 11/04/21 04:25 Platelet Satelliting Not Reportable 11/04/21 04:25 Plt Morphology Comment Not Reportable 11/04/21 04:25 RBC Morphology Not Reportable 11/04/21 04:25 Dimorphic RBCs Not Reportable 11/04/21 04:25 Polychromasia Not Reportable 11/04/21 04:25 Hypochromasia Not Reportable 11/04/21 04:25 Poikilocytosis Not Reportable 11/04/21 04:25 Anisocytosis Not Reportable 11/04/21 04:25 Microcytosis Not Reportable 11/04/21 04:25 Macrocytosis Few 11/04/21 04:25 Spherocytes Not Reportable 11/04/21 04:25 Pappenheimer Bodies Not Reportable 11/04/21 04:25 Sickle Cells Not Reportable 11/04/21 04:25 Target Cells Not Reportable 11/04/21 04:25 Tear Drop Cells Not Reportable 11/04/21 04:25 Ovalocytes Not Reportable 11/04/21 04:25 Helmet Cells Not Reportable 11/04/21 04:25 Wong-Roots Bodies Not Reportable 11/04/21 04:25 Aldrich Rings Not Reportable 11/04/21 04:25 [place] Cells Not Reportable 11/04/21 04:25 Bite Cells Not Reportable 11/04/21 04:25 Crenated Cell Not Reportable 11/04/21 04:25 Elliptocytes Not Reportable 11/04/21 04:25 Acanthocytes (Spur) Not Reportable 11/04/21 04:25 Rouleaux Not Reportable 11/04/21 04:25 Hemoglobin C Crystals Not Reportable 11/04/21 04:25 Schistocytes Not Reportable 11/04/21 04:25 Malaria parasites Not Reportable 11/04/21 04:25 Damir Bodies Not Reportable 11/04/21 04:25 Hem Pathologist Commnt No 11/04/21 04:25 PT 14.5 Sec. (12.2-14.9) 11/03/21 15:33 INR 1.02 (0.87-1.13) 11/03/21 15:33 Sodium 142 mmol/L (137-145) 11/04/21 04:25 Potassium 4.2 mmol/L (3.6-5.0) 11/04/21 04:25 Chloride 97.7 mmol/L (98-107) L 11/04/21 04:25 Carbon Dioxide 33 mmol/L (22-30) H 11/04/21 04:25 Anion Gap 16 mmol/L 11/04/21 04:25 BUN 30 mg/dL (9-20) H 11/04/21 04:25 Creatinine 6.5 mg/dL (0.8-1.3) H 11/04/21 04:25 Estimated GFR 9 ml/min 11/04/21 04:25 BUN/Creatinine Ratio 5 % 11/04/21 04:25 Glucose 105 mg/dL (75-100) H 11/04/21 04:25 Calcium 9.1 mg/dL (8.4-10.2) 11/04/21 04:25 Magnesium 2.00 mg/dL (1.7-2.3) 11/03/21 15:33 Total Bilirubin 0.40 mg/dL (0.1-1.2) 11/03/21 15:33 AST 24 units/L (5-40) 11/03/21 15:33 ALT 10 units/L (7-56) 11/03/21 15:33 Alkaline Phosphatase 121 units/L (35-129) 11/03/21 15:33 Total Creatine Kinase 129 units/L (55-170) 11/03/21 15:33 CK-MB (CK-2) 6.4 ng/mL (0.0-4.0) H 11/03/21 15:33 CK-MB (CK-2) Rel Index 4.9 (0-4) H 11/03/21 15:33 Troponin T 0.271 ng/mL (0.00-0.029) H* 11/03/21 15:33 Total Protein 7.3 g/dL (6.3-8.2) 11/03/21 15:33 Albumin 3.9 g/dL (3.9-5) 11/03/21 15:33 Albumin/Globulin Ratio 1.1 % 11/03/21 15:33 Triglycerides 206 mg/dL (2-149) H 11/03/21 15:33 Cholesterol 154 mg/dL (50-199) 11/03/21 15:33 LDL Cholesterol Direct 90 mg/dL (50-130) 11/03/21 15:33 HDL Cholesterol 37 mg/dL (40-59) L 11/03/21 15:33 Cholesterol/HDL Ratio 4.16 % 11/03/21 15:33 Coronavirus (PCR) Positive (Negative) A 11/04/21 10:15 Microbiology: Microbiology 11/03/21 16:11 Peripheral/Venous Blood Culture - Preliminary Culture in Progress 11/03/21 16:11 Peripheral/Venous Blood Culture - Preliminary Culture in Progress Active Medications - Current Medications Current Medications: Generic Name Dose Route Start Last Admin Trade Name Freq PRN Reason Stop Dose Admin Acetaminophen 650 mg 11/03/21 18:39 Acetaminophen 325 Mg Tab PO Q6H PRN Pain MILD(1-3)/Fever >100.5/GAXIOLA Albuterol 2.5 mg 11/03/21 18:39 Albuterol 2.5 Mg/3 Ml Nebu IH Q3HRT PRN Shortness Of Breath Carvedilol 6.25 mg 11/04/21 10:00 11/04/21 10:26 Carvedilol 6.25 Mg Tab PO 6.25 mg BID LOUISE Administration Dexamethasone 10 mg 11/04/21 13:00 Dexamethasone 4 Mg/Ml Vial IV 11/04/21 13:01 QDAY LOUISE Gabapentin 300 mg 11/04/21 10:00 11/04/21 10:25 Gabapentin 300 Mg Cap PO 300 mg BID LOUISE Administration Hydralazine HCl 50 mg 11/04/21 14:00 Hydralazine 100 Mg Tab PO TID LOUISE Hydromorphone HCl 0.5 mg 11/03/21 18:39 Hydromorphone 0.5 Mg/0.5 Ml Inj IV Q23H PRN Pain , Severe (7-10) Nicardipine HCl 50 mg/ Sodium 250 mls @ 25 mls/hr 11/03/21 19:00 11/04/21 08:30 Chloride IV 10 mg/hr TITR LOUISE 50 mls/hr Administration Protocol 5 MG/HR Azithromycin 500 mg in 250 mls @ 250 mls/hr 11/04/21 09:00 11/04/21 10:28 Zithromax/Ns IV 250 mls/hr Q24H LOUISE Administration Ceftriaxone Sodium 2 gm in 100 mls @ 200 mls/hr 11/04/21 11:00 11/04/21 10:27 Rocephin/Ns 2 Gm/100 Ml IV 200 mls/hr Q24H LOUISE Administration Protocol Sodium Chloride 100 mls @ 999 mls/hr 11/04/21 10:54 Nacl 0.9% IV MILIND PRN Hypotension Nifedipine 60 mg 11/04/21 10:00 11/04/21 10:25 Nifedipine Xl 60 Mg Tab PO 60 mg Q12HR LOUISE Administration Oxycodone/Acetaminophen 1 tab 11/03/21 18:39 Oxycodone /Acetaminophen 5-325mg Tab PO Q6H PRN Pain, Moderate (4-6) Pantoprazole Sodium 40 mg 11/04/21 10:00 11/04/21 10:25 Pantoprazole 40 Mg Tab PO 40 mg QDAY LOUISE Administration Sodium Chloride 10 ml 11/03/21 22:00 11/04/21 10:28 Sodium Chloride 0.9% 10 Ml Flush Syringe IV 10 ml BID LOUISE Administration Sodium Chloride 10 ml 11/03/21 18:39 Sodium Chloride 0.9% 10 Ml Flush Syringe IV PRN PRN LINE FLUSH
[2021-11-04] MEDS ORDERED: dexAMETHasone 4 MG/ML VIAL IV SCH (13:00)
--- NOTE | 2021-11-04 13:22 | Consultation ---
History of Present Illness Consult date: 11/04/21 Consult reason: hypertension, syncope History of present illness: 61-year-old male with past medical history of ESRD on HD, hypertension, von Hip pel-Lindau syndrome, and chronic respiratory failure on 2 L home oxygen is admitted from dialysis center with reported weakness and episode of fainting. Patient was noted by EMS to be in respiratory distress with oxygen saturation of 88%. COVID-19 is positive. Patient also noted to be markedly hypertensive on presentation and has been started on Cardene infusion. BP control is currently improved. He denies any prior chest pain, shortness of breath or palpitations. He does report multiple prior brain surgeries due to history of von Hippel- Lindau's. No complaints of headache although he reports feeling of "euphoria" over the last month. Work-up notable for flat troponin elevation 0.271, 0.292; EKG is unavailable. Otherwise, labs notable for elevated creatinine consistent with ESRD, elevated ferritin, elevated D-dimer, and positive COVID-19 PCR. He has previously had echocardiogram in July 2016 showing normal LVEF with evidence of diastolic dysfunction and severe LA enlargement. He also underwent cardiac catheterization 07/2016 which showed nonobstructive CAD with 50% mid LAD stenosis. Past History Past Medical History: diabetes, ESRD, GERD, hypertension, other (see hpi) Past Surgical History: appendectomy, cholecystectomy, Other (3 BRAIN SURGERIES, NEPHRECTOMY B/L, SPLENECTOMY,) Social history: Family history: diabetes, hypertension Medications and Allergies Allergies Allergy/AdvReac Type Severity Reaction Status Date / Time clonidine Allergy Swelling Verified 11/03/21 14:04 codeine Allergy Itching Verified 11/03/21 14:04 hydrocodone Allergy Itching Verified 11/03/21 14:04 aspirin AdvReac Severe Brain Verified 11/03/21 14:04 Bleeding Home Medications Medication Instructions Recorded Confirmed Last Taken Type B Complex 11/Folic/C/Biot/Zinc 1 each PO DAILY 08/15/16 11/04/21 11/03/21 History [Dialyvite with Zinc Tablet] Ergocalciferol (Vitamin D2) 1 tab PO 1XW 08/15/16 11/04/21 11/03/21 History [Vitamin D2] Lanthanum Carbonate [Fosrenol] 750 mg PO QDAC 09/05/16 11/04/21 11/03/21 History Doxazosin Mesylate [Cardura] 2 mg PO HS #30 tablet 09/07/16 11/04/21 11/03/21 Rx Folic Acid/Vit B Comp W-C [Renal 1 cap PO QDAY #30 capsule 09/07/16 11/04/21 11/03/21 Rx Caps] Gabapentin 300 mg PO BID #60 capsule 09/07/16 11/04/21 11/03/21 Rx NIFEdipine XL [Procardia Xl] 60 mg PO Q12HR #60 tablet 09/07/16 11/04/21 0 11/03/21 Rx Pantoprazole [Protonix TAB] 40 mg PO QDAY #30 tablet 09/07/16 11/04/21 11/03/21 Rx carvediloL [Coreg] 25 mg PO BID #60 tablet 09/07/16 11/04/21 11/03/21 Rx hydrALAZINE [Apresoline TAB] 100 mg PO TID #90 tab 09/07/16 11/04/21 11/03/21 Rx traMADoL [Ultram 50 MG tab] 50 mg PO Q6HR PRN #20 tablet 09/07/16 11/04/21 11/04/21 Rx Active Meds: Active Medications Acetaminophen (Acetaminophen 325 Mg Tab) 650 mg PO Q6H PRN PRN Reason: Pain MILD(1-3)/Fever >100.5/GAXIOLA Albuterol (Albuterol 2.5 Mg/3 Ml Nebu) 2.5 mg IH Q3HRT PRN PRN Reason: Shortness Of Breath Carvedilol (Carvedilol 6.25 Mg Tab) 6.25 mg PO BID [facility] Last Admin: 11/04/21 10:26 Dose: 6.25 mg Gabapentin (Gabapentin 300 Mg Cap) 300 mg PO BID [facility] Last Admin: 11/04/21 10:25 Dose: 300 mg Hydralazine HCl (Hydralazine 100 Mg Tab) 50 mg PO TID [facility] Hydromorphone HCl (Hydromorphone 0.5 Mg/0.5 Ml Inj) 0.5 mg IV Q23H PRN PRN Reason: Pain , Severe (7-10) Nicardipine HCl 50 mg/ Sodium (Chloride) 250 mls @ 25 mls/hr IV TITR [facility]; Protocol Last Titration: 11/04/21 12:00 Dose: 7.5 mg/hr, 37.5 mls/hr Azithromycin (Zithromax/Ns) 500 mg in 250 mls @ 250 mls/hr IV Q24H [facility] Last Admin: 11/04/21 10:28 Dose: 250 mls/hr Ceftriaxone Sodium (Rocephin/Ns 2 Gm/100 Ml) 2 gm in 100 mls @ 200 mls/hr IV Q24H [facility]; Protocol Last Admin: 11/04/21 10:27 Dose: 200 mls/hr Sodium Chloride (Nacl 0.9%) 100 mls @ 999 mls/hr IV MILIND PRN PRN Reason: Hypotension Nifedipine (Nifedipine Xl 60 Mg Tab) 60 mg PO Q12HR [facility] Last Admin: 11/04/21 10:25 Dose: 60 mg Oxycodone/Acetaminophen (Oxycodone /Acetaminophen 5-325mg Tab) 1 tab PO Q6H PRN PRN Reason: Pain, Moderate (4-6) Pantoprazole Sodium (Pantoprazole 40 Mg Tab) 40 mg PO QDAY [facility] Last Admin: 11/04/21 10:25 Dose: 40 mg Sodium Chloride (Sodium Chloride 0.9% 10 Ml Flush Syringe) 10 ml IV BID [facility] Last Admin: 11/04/21 10:28 Dose: 10 ml Sodium Chloride (Sodium Chloride 0.9% 10 Ml Flush Syringe) 10 ml IV PRN PRN PRN Reason: LINE FLUSH Physical Examination Vital Signs Temp Pulse Resp BP Pulse Ox 98.4 F 78 16 209/113 97 11/03/21 14:02 11/03/21 14:02 11/03/21 14:02 11/03/21 14:02 11/03/21 14:02 General appearance: no acute distress HEENT: Positive: PERRL Cardiac: Positive: Reg Rate and Rhythm Lungs: Positive: Normal Exam, clear to auscultation Neuro: Positive: Grossly Intact Abdomen: Positive: Soft Male genitourinary: Positive: deferred Skin: Positive: Clear Results 11/04/21 04:25 11/04/21 04:25 Cardiac Enzymes 11/03/21 Range/Units 15:33 AST 24 (5-40) units/L CK-MB (CK-2) 6.4 H (0.0-4.0) ng/mL Coagulation 11/03/21 Range/Units 15:33 PT 14.5 (12.2-14.9) Sec. INR 1.02 (0.87-1.13) Lipids 11/03/21 Range/Units 15:33 Triglycerides 206 H (2-149) mg/dL Cholesterol 154 (50-199) mg/dL HDL Cholesterol 37 L (40-59) mg/dL Cholesterol/HDL Ratio 4.16 % CBC 11/03/21 11/04/21 Range/Units 15:33 04:25 WBC 11.3 H 10.8 (4.5-11.0) K/mm3 RBC 3.60 L 3.54 L (3.65-5.03) M/mm3 Hgb 11.5 L 11.4 L (11.8-15.2) gm/dl Hct 36.4 35.3 L (35.5-45.6) % Plt Count 155 167 (140-440) K/mm3 Lymph # (Auto) 0.7 L (1.2-5.4) K/mm3 Mccreary # (Auto) 1.4 H (0.0-0.8) K/mm3 Eos # (Auto) 1.4 H (0.0-0.4) K/mm3 Baso # (Auto) 0.2 H (0.0-0.1) K/mm3 Comprehensive Metabolic Panel 11/03/21 11/04/21 Range/Units 15:33 04:25 Sodium 140 142 (137-145) mmol/L Potassium 3.8 4.2 (3.6-5.0) mmol/L Chloride 95.8 L 97.7 L (98-107) mmol/L Carbon Dioxide 29 33 H (22-30) mmol/L BUN 26 H 30 H (9-20) mg/dL Creatinine 5.5 H 6.5 H (0.8-1.3) mg/dL Glucose 148 H 105 H (75-100) mg/dL Calcium 8.8 9.1 (8.4-10.2) mg/dL AST 24 (5-40) units/L ALT 10 (7-56) units/L Alkaline Phosphatase 121 (35-129) units/L Total Protein 7.3 (6.3-8.2) g/dL Albumin 3.9 (3.9-5) g/dL Tele - SR Assessment and Plan #Hypertensive emergency #Syncope, in setting of respiratory distress and COVID-19 #COVID-19 pneumonia #Elevated D dimer - possibly secondary to COVID-19 #ESRD on HD #Von Hippel-Lindau syndrome #Non-obstructive CAD per [facility] 07/2016 Check EKG. Wean Cardene drip and uptitrate oral regimen of carvedilol, hydralazine, and nifedipine as able. Will check echocardiogram. D dimer elevated, possibly due to COVID-19. Consider CTA to evaluate for PE; will defer to primary team. Continue inpatient telemetry monitoring. We will consider possible ischemic evaluation with stress test as clinical status improves. He may also benefit from outpatient event monitor for further evaluation of syncope. Continue supportive care.
[2021-11-04] MEDS ORDERED: hydrALAZINE 100 MG TAB PO SCH (14:00)
[2021-11-04 15:31] LABS: Hepatitis B Surface Antigen Non-Reactive (Negative); Hepatitis C Virus Antibody Non-Reactive (NonReactive)
--- NOTE | 2021-11-04 16:59 | Consultation ---
History of Present Illness Consult date: 11/04/21 Requesting physician: ALFONSO WELCH Reason for consult: other (Acute on chornic resp failure; Sleep apnea on CPAP; h/o COPD, Pneumonia) History of present illness: 61 YO Male with ESRD on HD, HTN, GERD, VHL Syndrome, Peripheral Neuropathy, Chronic Respiratory Failure on 2L Home oxygen presents to ED for evaluation. P sophia reports "I get weak and then I passed out". Patient reports feeling weak over the past 1 day. Patient presented to his dialysis center for routine scheduled dialysis. Patient experienced loss of consciousness during dialysis. EMS notified and on arrival the patient was found to be in distress and subsequent transported to [facility] for further care and evaluation of the aforementioned symptoms. The patient was seen and evaluated in the emergency department. All lab imaging studies reviewed. Patient found to have a pulse oximetry of 88% on supplemental oxygen which is consistent with Acute on chronic hypoxemic respiratory failure. The patient was found to have a blood pressure of 229/100 mmHg which is consistent with hypertensive emergency, end-stage renal disease, pneumonia. Patient admitted to [facility] and initiated on IV antihypertensive therapy. A critical care consult was placed. COVID PCR came back positive Patient is on home oxygen at 3L/min, states it was started a few years ago after hospitalization and has remained on it ever since. Patient seen and examined. Remains on Cardene infusion, awaiting HD Discussed with respiratory and nursing care staff. Patient does complain of some shortness of breath. Currently on CPAP. Past History Past Medical History: diabetes, ESRD, GERD, hypertension, other (see hpi) Past Surgical History: appendectomy, cholecystectomy, Other (3 BRAIN SURGERIES, NEPHRECTOMY B/L, SPLENECTOMY,) Social history: Family history: diabetes, hypertension Medications and Allergies Allergies Allergy/AdvReac Type Severity Reaction Status Date / Time clonidine Allergy Swelling Verified 11/03/21 14:04 codeine Allergy Itching Verified 11/03/21 14:04 hydrocodone Allergy Itching Verified 11/03/21 14:04 aspirin AdvReac Severe Brain Verified 11/03/21 14:04 Bleeding Home Medications Medication Instructions Recorded Confirmed Last Taken Type B Complex 11/Folic/C/Biot/Zinc 1 each PO DAILY 08/15/16 11/04/21 11/03/21 History [Dialyvite with Zinc Tablet] Ergocalciferol (Vitamin D2) 1 tab PO 1XW 08/15/16 11/04/21 11/03/21 History [Vitamin D2] Lanthanum Carbonate [Fosrenol] 750 mg PO QDAC 09/05/16 11/04/21 11/03/21 History Doxazosin Mesylate [Cardura] 2 mg PO HS #30 tablet 09/07/16 11/04/21 11/03/21 Rx Folic Acid/Vit B Comp W-C [Renal 1 cap PO QDAY #30 capsule 09/07/16 11/04/21 11/03/21 Rx Caps] Gabapentin 300 mg PO BID #60 capsule 09/07/16 11/04/21 11/03/21 Rx NIFEdipine XL [Procardia Xl] 60 mg PO Q12HR #60 tablet 09/07/16 11/04/21 11/03/21 Rx Pantoprazole [Protonix TAB] 40 mg PO QDAY #30 tablet 09/07/16 11/04/21 11/03/21 Rx carvediloL [Coreg] 25 mg PO BID #60 tablet 09/07/16 11/04/21 11/03/21 Rx hydrALAZINE [Apresoline TAB] 100 mg PO TID #90 tab 09/07/16 11/04/21 11/03/21 Rx traMADoL [Ultram 50 MG tab] 50 mg PO Q6HR PRN #20 tablet 09/07/16 11/04/21 11/04/21 Rx Active Meds: Active Medications Acetaminophen (Acetaminophen 325 Mg Tab) 650 mg PO Q6H PRN PRN Reason: Pain MILD(1-3)/Fever >100.5/GAXIOLA Albuterol (Albuterol 2.5 Mg/3 Ml Nebu) 2.5 mg IH Q3HRT PRN PRN Reason: Shortness Of Breath Carvedilol (Carvedilol 6.25 Mg Tab) 6.25 mg PO BID REPLACED BY [facility] Last Admin: 11/04/21 10:26 Dose: 6.25 mg Gabapentin (Gabapentin 300 Mg Cap) 300 mg PO BID REPLACED BY [facility] Last Admin: 11/04/21 10:25 Dose: 300 mg Hydralazine HCl (Hydralazine 100 Mg Tab) 50 mg PO TID REPLACED BY [facility] Last Admin: 11/04/21 13:57 Dose: 50 mg Hydromorphone HCl (Hydromorphone 0.5 Mg/0.5 Ml Inj) 0.5 mg IV Q23H PRN PRN Reason: Pain , Severe (7-10) Nicardipine HCl 50 mg/ Sodium (Chloride) 250 mls @ 25 mls/hr IV TITR REPLACED BY [facility]; Protocol Last Titration: 11/04/21 12:00 Dose: 7.5 mg/hr, 37.5 mls/hr Azithromycin (Zithromax/Ns) 500 mg in 250 mls @ 250 mls/hr IV Q24H REPLACED BY [facility] Last Admin: 11/04/21 10:28 Dose: 250 mls/hr Ceftriaxone Sodium (Rocephin/Ns 2 Gm/100 Ml) 2 gm in 100 mls @ 200 mls/hr IV Q24H REPLACED BY [facility]; Protocol Last Admin: 11/04/21 10:27 Dose: 200 mls/hr Sodium Chloride (Nacl 0.9%) 100 mls @ 999 mls/hr IV MILIND PRN PRN Reason: Hypotension Miscellaneous Medication (Lanthanum Carbonate [Fosrenol]) 750 mg PO WMHS REPLACED BY [facility] Nifedipine (Nifedipine Xl 60 Mg Tab) 60 mg PO Q12HR REPLACED BY [facility] Last Admin: 11/04/21 10:25 Dose: 60 mg Oxycodone/Acetaminophen (Oxycodone /Acetaminophen 5-325mg Tab) 1 tab PO Q6H PRN PRN Reason: Pain, Moderate (4-6) Pantoprazole Sodium (Pantoprazole 40 Mg Tab) 40 mg PO QDAY REPLACED BY [facility] Last Admin: 11/04/21 10:25 Dose: 40 mg Sodium Chloride (Sodium Chloride 0.9% 10 Ml Flush Syringe) 10 ml IV BID REPLACED BY [facility] Last Admin: 11/04/21 10:28 Dose: 10 ml Sodium Chloride (Sodium Chloride 0.9% 10 Ml Flush Syringe) 10 ml IV PRN PRN PRN Reason: LINE FLUSH Physical Examination Vital signs: Vital Signs Temp Pulse Resp BP Pulse Ox 98.4 F 78 16 209/113 97 11/03/21 14:02 11/03/21 14:02 11/03/21 14:02 11/03/21 14:02 11/03/21 14:02 Vitals reviewed. General appearance: Present: mild distress, on CPAP via nasal mask - EENT Eyes: Present: PERRL ENT: hearing intact - Neck Neck: Present: supple, normal ROM - Respiratory Respiratory effort: normal Respiratory: bilateral: CTA - Cardiovascular Heart Sounds: Present: S1 & S2. Absent: rub, click - Extremities Extremities: pulses symmetrical, No edema Peripheral Pulses: within normal limits - Abdominal General gastrointestinal: Present: soft, non-tender, non-distended, normal bowel sounds Male genitourinary: Present: normal - Integumentary Integumentary: Present: clear, warm, dry - Musculoskeletal Musculoskeletal: gait normal, strength equal bilaterally - Psychiatric Psychiatric: appropriate mood/affect, intact judgment & insight - Neurologic Neurologic: CNII-XII intact, moves all extremities Results - Laboratory Findings CBC and BMP: 11/05/21 09:43 11/05/21 09:43 PT/INR, D-dimer PT 14.5 Sec. (12.2-14.9) 11/03/21 15:33 INR 1.02 (0.87-1.13) 11/03/21 15:33 D-Dimer 360.67 ng/mlDDU (0-234) H 11/04/21 11:05 Abnormal lab findings: Abnormal Labs 11/03/21 11/03/21 11/04/21 15:33 15:33 04:25 WBC 11.3 H RBC 3.60 L 3.54 L Hgb 11.5 L 11.4 L Hct 35.3 L MCV 101 H 100 H RDW 15.5 H 15.8 H Lymph % (Auto) 6.5 L Steele % (Auto) 12.1 H Eos % (Auto) 12.8 H Lymph # (Auto) 0.7 L Steele # (Auto) 1.4 H Eos # (Auto) 1.4 H Baso # (Auto) 0.2 H Seg Neuts % (Manual) 71.0 H Lymphocytes % (Manual) 7.0 L Eosinophils % (Manual) 16.0 H Nucleated RBC % 1.0 H Lymphocytes # (Manual) 0.8 L Eosinophils # (Manual) 1.7 H D-Dimer Chloride 95.8 L Carbon Dioxide BUN 26 H Creatinine 5.5 H Glucose 148 H Ferritin CK-MB (CK-2) 6.4 H CK-MB (CK-2) Rel Index 4.9 H Troponin T 0.271 H* Triglycerides 206 H HDL Cholesterol 37 L Coronavirus (PCR) 11/04/21 11/04/21 11/04/21 04:25 10:15 11:05 WBC RBC Hgb Hct MCV RDW Lymph % (Auto) Steele % (Auto) Eos % (Auto) Lymph # (Auto) Steele # (Auto) Eos # (Auto) Baso # (Auto) Seg Neuts % (Manual) Lymphocytes % (Manual) Eosinophils % (Manual) Nucleated RBC % Lymphocytes # (Manual) Eosinophils # (Manual) D-Dimer Chloride 97.7 L Carbon Dioxide 33 H BUN 30 H Creatinine 6.5 H Glucose 105 H Ferritin CK-MB (CK-2) CK-MB (CK-2) Rel Index Troponin T 0.292 H* Triglycerides HDL Cholesterol Coronavirus (PCR) Positive A 11/04/21 11/04/21 11:05 11:05 WBC RBC Hgb Hct MCV RDW Lymph % (Auto) Steele % (Auto) Eos % (Auto) Lymph # (Auto) Steele # (Auto) Eos # (Auto) Baso # (Auto) Seg Neuts % (Manual) Lymphocytes % (Manual) Eosinophils % (Manual) Nucleated RBC % Lymphocytes # (Manual) Eosinophils # (Manual) D-Dimer 360.67 H Chloride Carbon Dioxide BUN Creatinine Glucose Ferritin 1721.0 H CK-MB (CK-2) CK-MB (CK-2) Rel Index Troponin T Triglycerides HDL Cholesterol Coronavirus (PCR) - Diagnostic Findings Chest x-ray: image reviewed Assessment and Plan Acute on Chronic Respiratory Failure Hypertensive Emergency Syncopal Episode Bilateral Pneumonia-COVID 19 Pneumonia End Stage Renal Disease(ESRD) on HD GERD (Gastroesophageal Reflux Disease) Mild Hydrocephalus H/o Von Hippel-Lindau Syndrome S/p Multiple Craniotomy Anemia of Chronic Disease -Titrate supplemental oxygen to keep SpO2 89-92% -continue with Cardene infusion titrate to keep SBP<150, resume home oral anti- hypertensives - HD today to optimize UF - CXR with suspected bilateral pneumonia- oral antibiotics - COVID PCR positive- IV decadron initiated - Aspiration precautions - Continue with CPAP qhs and prn - Avoid nephrotoxins, adjust all medications for GFR and CrCL - VTE prophylaxis - [facility] - Supportive transfusions to keep HgB >7g/dL, continue Epogen - On going evaluation re syncope -Get transthoracic echocardiogram to evaluate for structural cardiac abnormalities -Continue with telemetry monitoring to evaluate for any arrhythmias -Isolation precautions for COVID per facility protocol -CXR, ABG as clinically indicated -Continue with chronic home medications as clinically indicated -PT/OT to evaluate and treat -Maintain sleep-wake cycle, avoid delirium Discussed care plan with respiratory and nursing care staff Discussed with primary service The high probability of a clinically significant, sudden or life threatening deterioration of the [multiple] system(s) required my full and direct attention, intervention and personal management. The aggregate critical care time was [35] minutes. This time is in addition to time spent performing reported procedures but includes the following: [x] Data Review and interpretation [x] Patient assessment and monitoring of vital signs [x] Documentation [x] Medication orders and management
[2021-11-04 19:53] LABS: C-Reactive Protein 0.5 mg/dL (0.00-1.30)
[2021-11-04] MEDS: LANTHANUM CARBONATE 750 MG PO SCH (21:08)
[2021-11-04] MEDS: hydrALAZINE 100 MG TAB PO SCH (21:09)
[2021-11-04] MEDS ORDERED: LANTHANUM CARBONATE 750 MG PO SCH (22:00)
[2021-11-04] MEDS: LANTHANUM CARBONATE 500 MG TAB PO SCH (23:34)
[2021-11-05] MEDS: hydrALAZINE 20 MG/1 ML INJ IV PRN ×3 (00:17→18:15)
--- NOTE | 2021-11-05 04:32 | XRay Report ---
CHEST 1 VIEW 11/05/2021 2:15 AM INDICATION / CLINICAL INFORMATION: Follow up Acute Resp. failure. COMPARISON: 11/03/2021. FINDINGS: SUPPORT DEVICES: None. HEART / MEDIASTINUM: Stable. Hilar prominence remains. LUNGS / PLEURA: Overall mild improvement in previously seen opacity right chest. Left lung is now trixie ar. No new infiltrate. No pneumothorax. ADDITIONAL FINDINGS: No significant additional findings. IMPRESSION: Interval improvement. Signer Name: Brendan Izaguirre MD Signed: 11/05/2021 4:27 AM Workstation Name: [id number]
[2021-11-05] MEDS: niCARdipine 50 MG in SODIUM CHLORIDE 0.9% 250ML 230 ML IV SCH (06:13)
[2021-11-05] MEDS: hydrALAZINE 100 MG TAB PO SCH ×3 (08:45→20:33)
[2021-11-05] MEDS: LANTHANUM CARBONATE 500 MG TAB PO SCH ×4 (08:46→21:52)
[2021-11-05] MEDS: LANTHANUM CARBONATE 750 MG PO SCH ×4 (08:46→21:55)
[2021-11-05] MEDS: NIFEdipine XL 90 MG TAB PO SCH ×2 (09:30→21:52)
[2021-11-05] MEDS: carvediloL 25 MG TAB PO SCH ×2 (09:30→21:52)
[2021-11-05 10:23] LABS: Hematocrit 37.9 % (35.5-45.6); Hemoglobin 11.8 gm/dl (11.8-15.2); Mean Corpuscular HGB Conc 31 % (32-34); Mean Corpuscular Volume 102 fl (84-94); Platelet Count 198 K/mm3 (140-440); Red Blood Count 3.72 M/mm3 (3.65-5.03); Red Cell Distribution Width 15.7 % (13.2-15.2)
[2021-11-05 10:35] LABS: Calcium 10.2 mg/dL (8.4-10.2)
[2021-11-05] MEDS: AZITHROMYCIN/NS 500 MG/250 ML 500 MG/250 ML BAG IV SCH (10:41)
[2021-11-05] MEDS: HEPARIN 5,000 UNIT/1 ML VIAL SUB-Q SCH ×2 (10:43→21:55)
[2021-11-05] MEDS: GABAPENTIN 300 MG CAP PO SCH ×3 (10:43→22:05)
[2021-11-05] MEDS: PANTOPRAZOLE 40 MG TAB PO SCH (10:45)
--- NOTE | 2021-11-05 11:16 | Progress Note ---
Assessment and Plan #Hypertensive emergency - improved #Syncope, in setting of respiratory distress and COVID-19 #COVID-19 pneumonia #Elevated D dimer - possibly secondary to COVID-19 #ESRD on HD #Von Hippel-Lindau syndrome #Non-obstructive CAD per [facility] 07/2016 BP improved, now s/p nicardipine infusion. Continue to maximize regimen of carvedilol, hydralazine, and nifedipine as able. Await echocardiogram. Continue inpatient telemetry monitoring. EKG this admission without acute ischemic changes and prior [facility] 07/2016 with non- obstructive CAD. Suspect troponin elevation secondary to elevated BP and respiratory distress from COVID-19. Will consider stress test once recovered from COVID-19 and clinical status improves. He may also benefit from outpatient event monitor for further evaluation of syncope. Continue supportive care. Subjective Date of service: 11/05/21 Interval history: No complaints. BP improving; Nicardipine infusion weaned this AM. Tele - SR Objective Vital Signs Temp Pulse Resp BP Pulse Ox Pulse Ox 11/05/21 10:31 71 174/77 97 11/05/21 10:00 72 10 L 174/77 94 11/05/21 09:31 73 12 97 11/05/21 09:30 185/79 11/05/21 09:00 74 16 167/78 96 11/05/21 08:56 96 11/05/21 08:30 67 8 L 173/78 96 11/05/21 08:00 67 10 L 164/69 94 11/05/21 07:30 65 10 L 164/77 95 11/05/21 07:15 98.3 F 11/05/21 07:00 66 10 L 165/80 95 11/05/21 06:30 70 9 L 184/81 93 11/05/21 06:00 66 15 181/80 96 11/05/21 05:30 69 13 181/88 96 11/05/21 05:27 69 182/78 11/05/21 05:00 67 9 L 182/78 96 11/05/21 04:30 64 9 L 176/80 97 11/05/21 04:13 66 11/05/21 04:00 97 F L 65 9 L 178/81 96 11/05/21 03:30 63 10 L 163/77 97 11/05/21 03:00 65 11 L 148/64 95 11/05/21 02:30 65 10 L 155/71 97 11/05/21 02:00 64 12 153/66 97 11/05/21 01:30 66 11 L 154/72 96 11/05/21 01:00 66 11 L 167/75 97 11/05/21 00:31 66 14 160/72 96 11/05/21 00:17 66 172/80 11/05/21 00:00 68 15 183/82 98 11/04/21 23:33 69 13 169/79 98 11/04/21 23:31 98.3 F 71 15 169/79 95 11/04/21 23:00 70 12 178/80 97 11/04/21 22:30 72 12 178/85 96 11/04/21 22:16 99 11/04/21 22:00 70 12 174/79 95 11/04/21 21:07 68 176/87 11/04/21 21:04 97.8 F 11/04/21 21:00 71 17 176/87 95 11/04/21 20:50 69 18 174/83 94 11/04/21 20:41 74 12 165/71 97 11/04/21 20:30 72 16 178/92 94 11/04/21 20:20 71 13 182/80 91 11/04/21 20:10 70 14 177/76 98 11/04/21 20:00 75 15 172/69 98 11/04/21 19:50 72 12 184/84 97 11/04/21 19:40 72 11 L 161/71 96 11/04/21 19:30 68 18 164/71 97 11/04/21 19:20 67 19 161/69 96 11/04/21 19:10 66 13 155/68 97 11/04/21 19:00 68 13 161/62 95 11/04/21 18:50 65 12 157/62 96 11/04/21 18:40 69 15 149/66 93 11/04/21 18:30 64 11 L 153/62 96 11/04/21 18:20 65 14 150/65 96 11/04/21 18:10 98.4 F 64 12 140/65 96 99 11/04/21 18:00 63 17 125/60 100 11/04/21 17:50 61 12 134/63 98 11/04/21 17:45 61 131/57 07/09/22 17:40 62 15 131/57 96 11/04/21 17:30 62 14 129/60 97 11/04/21 17:20 60 13 130/59 95 11/04/21 17:15 61 130/59 11/04/21 17:10 61 13 132/59 95 11/04/21 17:00 61 12 137/61 96 11/04/21 16:50 62 12 133/62 96 11/04/21 16:45 63 140/63 11/04/21 16:40 62 11 L 140/63 95 11/04/21 16:30 62 12 141/63 95 11/04/21 16:20 60 13 133/58 96 11/04/21 16:15 61 16 134/59 96 11/04/21 16:10 60 10 L 139/58 94 11/04/21 16:00 98.2 F 62 12 130/63 95 11/04/21 15:51 60 11 L 130/63 92 11/04/21 15:45 61 126/60 11/04/21 15:40 59 L 11 L 126/60 92 11/04/21 15:30 63 10 L 143/71 95 11/04/21 15:20 60 11 L 154/72 97 11/04/21 15:15 60 154/72 11/04/21 15:11 63 15 164/75 92 11/04/21 15:00 61 10 L 164/75 97 11/04/21 14:51 60 10 L 158/72 96 11/04/21 14:50 98.4 F 59 L 12 158/72 98 11/04/21 14:41 61 13 151/71 97 11/04/21 14:30 58 L 8 L 151/71 95 11/04/21 14:21 61 8 L 169/77 97 11/04/21 14:11 66 15 167/76 97 11/04/21 14:00 59 L 9 L 167/76 94 11/04/21 13:51 60 10 L 173/75 98 11/04/21 13:41 60 11 L 160/68 97 11/04/21 13:30 62 12 160/68 94 11/04/21 13:21 61 10 L 173/79 98 11/04/21 13:11 61 11 L 169/74 97 11/04/21 13:00 61 10 L 169/74 95 11/04/21 12:51 65 9 L 161/76 94 11/04/21 12:41 67 10 L 152/78 95 11/04/21 12:30 66 15 152/78 94 11/04/21 12:21 65 11 L 152/76 95 11/04/21 12:11 66 12 152/76 94 11/04/21 12:05 12 100 11/04/21 12:00 98 F 65 152/76 96 11/04/21 11:51 68 15 150/80 96 11/04/21 11:41 66 13 151/70 97 11/04/21 11:30 59 L 12 151/70 97 11/04/21 11:21 59 L 12 153/65 96 - Physical Examination HEENT: Positive: PERRL Cardiac: Positive: Reg Rate and Rhythm Lungs: Positive: clear to auscultation Neuro: Positive: Grossly Intact Abdomen: Positive: Soft Skin: Positive: Clear Extremities: Absent: edema - Labs and Meds Cardiac Enzymes 11/04/21 Range/Units 11:05 Lactate Dehydrogenase 230 H (91-180) units/L CBC 11/05/21 Range/Units 09:43 WBC 8.6 (4.5-11.0) K/mm3 RBC 3.72 (3.65-5.03) M/mm3 Hgb 11.8 (11.8-15.2) gm/dl Hct 37.9 (35.5-45.6) % Plt Count 198 (140-440) K/mm3 Comprehensive Metabolic Panel 11/05/21 Range/Units 09:43 Sodium 136 L (137-145) mmol/L Potassium 4.6 (3.6-5.0) mmol/L Chloride 96.0 L (98-107) mmol/L Carbon Dioxide 28 (22-30) mmol/L BUN 25 H (9-20) mg/dL Creatinine 5.5 H (0.8-1.3) mg/dL Glucose 114 H (75-100) mg/dL Calcium 10.2 (8.4-10.2) mg/dL 11/04/21 EKG - SR with LVH.
[2021-11-05] MEDS: cefTRIAXone/NS 2 GM/100 ML 2 GM/100 ML BAG IV SCH (11:17)
--- NOTE | 2021-11-05 12:59 | Progress Note ---
Assessment and Plan (1) Hypertensive emergency (2) Covid Pneumonia (3) ESRD (end stage renal disease) (4) Respiratory failure (5) GERD (gastroesophageal reflux disease) (6) Von Hippel-Lindau syndrome -s/p HD yesterday, no HD today -CXR shows Covid changes -Pt consents to and agrees for dialysis inpatient -Eval for HD need daily -Renally dose all meds Pedrito Qureshi MD [phone] Subjective Date of service: 11/05/21 Interval history: In IMCU. s/p HD yesterday, has covid. Objective - Exam Narrative Exam: General appearance: Present: mild distress - EENT Eyes: Present: PERRL ENT: hearing intact, clear oral mucosa - Neck Neck: Present: supple, normal ROM - Respiratory Respiratory effort: normal Respiratory: bilateral: CTA - Cardiovascular Heart Sounds: Present: S1 & S2. Absent: rub, click - Extremities Extremities: pulses symmetrical, No edema Peripheral Pulses: within normal limits - Abdominal General gastrointestinal: Present: soft, non-tender, non-distended, normal bowel sounds Male genitourinary: Present: normal - Integumentary Integumentary: Present: clear, warm, dry - Musculoskeletal Musculoskeletal: gait normal, strength equal bilaterally - Psychiatric Psychiatric: appropriate mood/affect, intact judgment & insight - Neurologic Neurologic: CNII-XII intact, moves all extremities - Vital Signs Vital signs: Vital Signs - 12hr 11/05/21 11/05/21 11/05/21 01:00 01:30 02:00 Temperature Pulse Rate 66 66 64 Respiratory 11 L 11 L 12 Rate Blood Pressure 167/75 154/72 153/66 O2 Sat by Pulse 97 96 97 Oximetry 11/05/21 11/05/21 11/05/21 02:30 03:00 03:30 Temperature Pulse Rate 65 65 63 Respiratory 10 L 11 L 10 L Rate Blood Pressure 155/71 148/64 163/77 O2 Sat by Pulse 97 95 97 Oximetry 11/05/21 11/05/21 11/05/21 04:00 04:13 04:30 Temperature 97 F L Pulse Rate 65 66 64 Respiratory 9 L 9 L Rate Blood Pressure 178/81 176/80 O2 Sat by Pulse 96 97 Oximetry 11/05/21 11/05/21 11/05/21 05:00 05:27 05:30 Temperature Pulse Rate 67 69 69 Respiratory 9 L 13 Rate Blood Pressure 182/78 182/78 181/88 O2 Sat by Pulse 96 96 Oximetry 11/05/21 11/05/21 11/05/21 06:00 06:30 07:00 Temperature Pulse Rate 66 70 66 Respiratory 15 9 L 10 L Rate Blood Pressure 181/80 184/81 165/80 O2 Sat by Pulse 96 93 95 Oximetry 11/05/21 11/05/21 11/05/21 07:15 07:30 08:00 Temperature 98.3 F Pulse Rate 65 67 Respiratory 10 L 10 L Rate Blood Pressure 164/77 164/69 O2 Sat by Pulse 95 94 Oximetry 11/05/21 11/05/21 11/05/21 08:30 08:56 09:00 Temperature Pulse Rate 67 74 Respiratory 8 L 16 Rate Blood Pressure 173/78 167/78 O2 Sat by Pulse 96 96 96 Oximetry 11/05/21 11/05/21 11/05/21 09:30 09:31 10:00 Temperature Pulse Rate 73 72 Respiratory 12 10 L Rate Blood Pressure 185/79 174/77 O2 Sat by Pulse 97 94 Oximetry 11/05/21 11/05/21 10:31 12:28 Temperature 97.9 F Pulse Rate 71 Respiratory Rate Blood Pressure 174/77 O2 Sat by Pulse 97 Oximetry - Lab 11/05/21 09:43 11/05/21 09:43 Most recent lab results Calcium 10.2 mg/dL (8.4-10.2) 11/05/21 09:43 Magnesium 2.00 mg/dL (1.7-2.3) 11/03/21 15:33 Medications & Allergies - Medications Allergies/Adverse Reactions: Allergies clonidine Allergy (Verified 11/03/21 14:04) Swelling codeine Allergy (Verified 11/03/21 14:04) Itching hydrocodone Allergy (Verified 11/03/21 14:04) Itching aspirin Adverse Reaction (Severe, Verified 11/03/21 14:04) Brain Bleeding Home Medications: Home Medications Medication Instructions Recorded Confirmed Last Taken Type B Complex 11/Folic/C/Biot/Zinc 1 each PO DAILY 08/15/16 11/04/21 11/03/21 History [Dialyvite with Zinc Tablet] Ergocalciferol (Vitamin D2) 1 tab PO 1XW 08/15/16 11/04/2122 History [Vitamin D2] Lanthanum Carbonate [Fosrenol] 750 mg PO QDAC 09/05/16 11/04/21 11/03/21 History Doxazosin Mesylate [Cardura] 2 mg PO HS #30 tablet 09/07/16 11/04/21 11/03/21 Rx Folic Acid/Vit B Comp W-C [Renal 1 cap PO QDAY #30 capsule 09/07/16 11/04/21 11/03/21 Rx Caps] Gabapentin 300 mg PO BID #60 capsule 09/07/16 11/04/21 11/03/21 Rx NIFEdipine XL [Procardia Xl] 60 mg PO Q12HR #60 tablet 09/07/16 11/04/21 11/03/21 Rx Pantoprazole [Protonix TAB] 40 mg PO QDAY #30 tablet 09/07/16 11/04/21 11/03/21 Rx carvediloL [Coreg] 25 mg PO BID #60 tablet 09/07/16 11/04/21 11/03/21 Rx hydrALAZINE [Apresoline TAB] 100 mg PO TID #90 tab 09/07/16 11/04/21 11/03/21 Rx traMADoL [Ultram 50 MG tab] 50 mg PO Q6HR PRN #20 tablet 09/07/16 11/04/21 11/04/21 Rx Active Medications: Generic Name Dose Route Start Last Admin Trade Name Freq PRN Reason Stop Dose Admin Acetaminophen 650 mg 11/03/21 18:39 Acetaminophen 325 Mg Tab PO Q6H PRN Pain MILD(1-3)/Fever >100.5/GAXIOLA Albuterol 2.5 mg 11/03/21 18:39 Albuterol 2.5 Mg/3 Ml Nebu IH Q3HRT PRN Shortness Of Breath Carvedilol 25 mg 11/05/21 10:00 11/05/21 09:30 Carvedilol 25 Mg Tab PO 25 mg BID LOUISE Administration Gabapentin 300 mg 11/04/21 10:00 11/05/21 10:43 Gabapentin 300 Mg Cap PO Not Given BID LOUISE Heparin Sodium (Porcine) 5,000 unit 11/05/21 10:00 11/05/21 10:43 Heparin 5,000 Unit/1 Ml Vial SUB-Q 5,000 unit Q12HR LOUISE Administration Hydralazine HCl 10 mg 11/04/21 19:07 11/05/21 05:27 Hydralazine 20 Mg/1 Ml Inj IV 10 mg Q4HR PRN Administration Hypertension Hydralazine HCl 100 mg 11/04/21 19:09 11/05/21 08:45 Hydralazine 100 Mg Tab PO 100 mg TID LOUISE Administration Hydromorphone HCl 0.5 mg 11/03/21 18:39 Hydromorphone 0.5 Mg/0.5 Ml Inj IV Q23H PRN Pain , Severe (7-10) Nicardipine HCl 50 mg/ Sodium 250 mls @ 25 mls/hr 11/03/21 19:00 11/05/21 09:31 Chloride IV 0 mg/hr TITR LOUISE 0 mls/hr Titration Protocol 5 MG/HR Azithromycin 500 mg in 250 mls @ 250 mls/hr 11/04/21 09:00 11/05/21 10:41 Zithromax/Ns IV 250 mls/hr Q24H LOUISE Administration Ceftriaxone Sodium 2 gm in 100 mls @ 200 mls/hr 11/04/21 11:00 11/05/21 11:17 Rocephin/Ns 2 Gm/100 Ml IV 200 mls/hr Q24H LOUISE Administration Protocol Sodium Chloride 100 mls @ 999 mls/hr 11/04/21 10:54 Nacl 0.9% IV MILIND PRN Hypotension Lanthanum Carbonate 750 mg 11/04/21 22:00 11/05/21 08:46 Lanthanum Carbonate 500 Mg Tab PO 750 mg WMHS LOUISE Administration Miscellaneous Medication 750 mg 11/04/21 22:00 11/05/21 08:46 Lanthanum Carbonate Chew 750mg PO Not Given WMHS LOUISE Nifedipine 90 mg 11/05/21 08:57 11/05/21 09:30 Nifedipine Xl 90 Mg Tab PO 90 mg Q12HR LOUISE Administration Oxycodone/Acetaminophen 1 tab 11/03/21 18:39 11/05/21 04:09 Oxycodone /Acetaminophen 5-325mg Tab PO 1 tab Q6H PRN Administration Pain, Moderate (4-6) Pantoprazole Sodium 40 mg 11/04/21 10:00 11/05/21 10:45 Pantoprazole 40 Mg Tab PO 40 mg QDAY LOUISE Administration Sodium Chloride 10 ml 11/03/21 22:00 11/05/21 10:45 Sodium Chloride 0.9% 10 Ml Flush Syringe IV 10 ml BID LOUISE Administration Sodium Chloride 10 ml 11/03/21 18:39 Sodium Chloride 0.9% 10 Ml Flush Syringe IV PRN PRN LINE FLUSH
--- NOTE | 2021-11-05 13:23 | Progress Note ---
Assessment and Plan Assessment and Plan #Hypertensive Emergency --Off Cardene drip #Syncopal Episode - Presented to the Ed s/p syncopal episode during HD - Initial BP was 229/100 - Cardene gtt initiated - Remains hypertensive this am. Home meds resumed - Continue blood pressure monitor per protocol - Plan to wean cardene gtt for SBP less than 160 - Orthi BP Qshift - Cardiology consulted #Acute on Chronic Respiratory Failure #Bilateral Pneumonia #COVID 19 Pneumonia - O2 dependent at home, on 3L NC - CXR with suspected bilateral pneumonia - COVID PCR positive - patient is stable on home O2 at 3L NC - Empiric IV Abx and IV decadron initiated - Continue O2 supplementation and Nebs treatment as needed - Continue SPO2 monitoring for SPO2 goal above 92% - Aspiration precaution HOB above 30 - CCM is following #End Stage Renal Disease(ESRD) on HD - Nephrology on consult, appreciated recommendation - Continue HD per Nephro - Strict intake and output - Avoid nephrotoxic medications; Renally dose medications - Monitor and replace electrolytes as needed #GERD (Gastroesophageal Reflux Disease) - Supportive care - Home Protonix resumed #Mild Hydrocephalus #H/o Von Hippel-Lindau Syndrome #S/p Multiple Craniotomy - Chronic. Continue supportive measures - CT scan result revealed mild hydrocephalus - Per patient, mild hydrocephalus noted on CT scan is not new. It was noted since after his last craniotomy 4years ago - [facility] has been monitoring it. - [facility] #Anemia of Chronic Disease - most likely due to ESRD - H&H stable - Continue epogen with HD per Nephro - Trenc CBC #GI/DVT prophylaxis - PPI- Protonix - Heparin SubQ - SCD to bilateral lower extremities while in bed #Advance Care Planning - Disease education data, care plan, diagnoses, and prognosis were discussed with patient at the bedise. All questions and concerns were addressed at this tome. Patient is a FULL code. Patient acknowledged understanding and agreement with current care plan. The high probability of a clinically significant, sudden or life threatening deterioration of the [multiple] system(s) required my full and direct attention, intervention and personal management. The aggregate critical care time was [60] minutes. This time is in addition to time spent performing reported procedures but includes the following: [x] Data Review and interpretation [x] Patient assessment and monitoring of vital signs [x] Documentation [x] Medication orders and management Disposition Plan: ICU Total Time Spent with Patient (Minutes): 35 Subjective Date of service: 11/05/21 Interval history: This is a 61-year-old male with known past medical history of craniotomy, ESRD on HD, HTN, GERD, VHL Syndrome, Peripheral Neuropathy, ADDY and Chronic Respiratory Failure on Cpap and 3L oxygen dependent at home admitted s/p syn copal episode in dialysis. Found to in emergency emergency and bilateral PNA. Hospital Course to Date: 11/04: Remains hypertensive in cardene gtt this am. Home meds resumed, plan to wean off cardene gtt for SBP less than 160. COVID PCR came back positive, patient is stable on home O2 at 3L. IV Abx swithed to Azithro and Rocephin, IV decadron, and ID consulted. Cardiology is also following, appreciate recommendations. CT scan noted, result discussed with patient at the bedside. Per patient, mild hydrocephalus noted on CT scan is not new. It was noted since after his last craniotomy 4years ago and his PCP [facility] the [facility] has been monitoring it. [facility] History Interval history: Patient seen and examined at the bedside. Fully AAO, on home O2 at 3L NC, denied any pain nor any discomfort at this time. Remains on cardene gtt, BP still elevated this morning. SR to SB noted on the monitor Objective - Constitutional Vitals: Vital Signs - 12hr 11/05/21 11/05/21 11/05/21 01:30 02:00 02:30 Temperature Pulse Rate 66 64 65 Respiratory 11 L 12 10 L Rate Blood Pressure 154/72 153/66 155/71 O2 Sat by Pulse 96 97 97 Oximetry 11/05/21 11/05/21 11/05/21 03:00 03:30 04:00 Temperature 97 F L Pulse Rate 65 63 65 Respiratory 11 L 10 L 9 L Rate Blood Pressure 148/64 163/77 178/81 O2 Sat by Pulse 95 97 96 Oximetry 11/05/21 11/05/21 11/05/21 04:13 04:30 05:00 Temperature Pulse Rate 66 64 67 Respiratory 9 L 9 L Rate Blood Pressure 176/80 182/78 O2 Sat by Pulse 97 96 Oximetry 11/05/21 11/05/21 11/05/21 05:27 05:30 06:00 Temperature Pulse Rate 69 69 66 Respiratory 13 15 Rate Blood Pressure 182/78 181/88 181/80 O2 Sat by Pulse 96 96 Oximetry 11/05/21 11/05/21 11/05/21 06:30 07:00 07:15 Temperature 98.3 F Pulse Rate 70 66 Respiratory 9 L 10 L Rate Blood Pressure 184/81 165/80 O2 Sat by Pulse 93 95 Oximetry 11/05/21 11/05/21 11/05/21 07:30 08:00 08:30 Temperature Pulse Rate 65 67 67 Respiratory 10 L 10 L 8 L Rate Blood Pressure 164/77 164/69 173/78 O2 Sat by Pulse 95 94 96 Oximetry 11/05/21 11/05/21 11/05/21 08:56 09:00 09:30 Temperature Pulse Rate 74 Respiratory 16 Rate Blood Pressure 167/78 185/79 O2 Sat by Pulse 96 96 Oximetry 11/05/21 11/05/21 11/05/21 09:31 10:00 10:31 Temperature Pulse Rate 73 72 71 Respiratory 12 10 L Rate Blood Pressure 174/77 174/77 O2 Sat by Pulse 97 94 97 Oximetry 11/05/21 11/05/21 11/05/21 11:00 11:31 12:00 Temperature Pulse Rate 69 65 62 Respiratory 10 L 9 L 8 L Rate Blood Pressure 125/65 126/62 131/56 O2 Sat by Pulse 95 91 95 Oximetry 11/05/21 11/05/21 11/05/21 12:28 12:31 13:00 Temperature 97.9 F Pulse Rate 65 61 Respiratory 11 L 16 Rate Blood Pressure 131/56 134/62 O2 Sat by Pulse 96 94 Oximetry - Labs CBC & Chem 7: 11/05/21 09:43 11/05/21 09:43 Labs: Abnormal lab results 11/04/21 11/04/21 11/05/21 Range/Units 10:15 11:05 09:43 MCV 102 H (84-94) fl MCHC 31 L (32-34) % RDW 15.7 H (13.2-15.2) % Sodium (137-145) mmol/L Chloride (98-107) mmol/L BUN (9-20) mg/dL Creatinine (0.8-1.3) mg/dL Glucose (75-100) mg/dL Lactate Dehydrogenase 230 H (91-180) units/L SARS-CoV-2 (PCR) Positive A (Negative) 11/05/21 Range/Units 09:43 MCV (84-94) fl MCHC (32-34) % RDW (13.2-15.2) % Sodium 136 L (137-145) mmol/L Chloride 96.0 L (98-107) mmol/L BUN 25 H (9-20) mg/dL Creatinine 5.5 H (0.8-1.3) mg/dL Glucose 114 H (75-100) mg/dL Lactate Dehydrogenase (91-180) units/L SARS-CoV-2 (PCR) (Negative) HEART Score - HEART Score Troponin: Troponin T 0.292 ng/mL (0.00-0.029) H* 11/04/21 11:05
--- NOTE | 2021-11-05 15:13 | Progress Note ---
Assessment and Plan 61 YO Male with ESRD on HD, HTN, GERD, VHL Syndrome ( VAN HIPPLE, LANDU Syndrome), Peripheral Neuropathy, Chronic Respiratory Failure on 2L Home oxygen presents to ED for evaluation. Patient reported "I got weak and then I passed out". Patient reports feeling weak over the past 1 day. Patient presented to his dialysis center for routine scheduled dialysis. Patient experienced loss of consciousness during dialysis. EMS notified and on arrival the patient was found to be in distress and subsequent transported to [facility] for further care and evaluation of the aforementioned symptoms. The patient was seen and evaluated in the emergency department. Patient found to have a pulse oximetry of 88% on supplemental oxygen which is consistent with Acute on chronic hypoxemic respiratory failure. The patient was found to have a blood pressure of 229/100 mmHg which is consistent with hypertensive emergency, end-stage renal disease, pneumonia. Patient admitted to [facility] and initiated on IV antihypertensive therapy. Patient also initiated on pneumonia protocol. Nephrology team consulted in ED. No reports of fever, chills, chest pain, palpitation, productive cough, skin rash or recent contact, known exposure to COVID-19. Patient SARS [place] virus 2 PCR positive here. Patients surgical histories 3 Brain surgeries, Bilateral Nephrectomy on dialysis., Splenectomy. Cholecystectomy and appendectomy. Patient has no history of smoking, alcohol or drug abuse. 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 Allergic to multiple medications Conidine, Codeine, Hydrocodone,Aspirin. Patient awake and resting on CPAP. Patient says uses CPAP at home. Patient using Own CPAP as he is using at home. Patients O2 saturation running 95% on CPAP. Patients sleep apnea history not known at this time Patient afebrile. No leukocytosis. Blood pressure 166/75, Pulse 59, Respirations 18. Patients chest xray done 11/05/21 reported Overall mild improvement in previously seen opacity right chest. Left lung is now clear. No new infiltrate. No pneumothorax. Patient is on Zithromax, Ceftraxone, Albuterol inhaler, S/C Heparin, Protonix. I spent critical care time of 48 minutes, obtaining history, review the chart, examine the patient , review chest xray, lab work, talking to the respiratory therapist and nursing staff and work out plan of treatment in this critically ill patient. - Patient Problems (1) Pneumonia Current Visit: Yes Status: Acute (2) ESRD (end stage renal disease) Current Visit: Yes Status: Acute Plan to address problem: Patient is on Zithromax and Ceftriaxone. (3) GERD (gastroesophageal reflux disease) Current Visit: Yes Status: Acute Qualifiers: Esophagitis presence: without esophagitis Qualified Code(s): K21.9 - Gastro-esophageal reflux disease without esophagitis Plan to address problem: Patient is on Protonix. (4) Hypertensive emergency Current Visit: Yes Status: Acute Plan to address problem: Patients blood sugur 166/75. Patient is on Nicarpedine, Nifedipine, Hydralagine, Coreg. (5) Respiratory failure Current Visit: Yes Status: Acute Qualifiers: Chronicity: acute on chronic Plan to address problem: Patient is On CPAP as he is using at home. (6) Von Hippel-Lindau syndrome Current Visit: Yes Status: Acute Plan to address problem: Recommend to consult oncology to follow. Management as per primary care and Oncology. Subjective Date of service: 11/05/21 Interval history: 61 YO Male with ESRD on HD, HTN, GERD, VHL Syndrome ( VAN HIPPLE, LANDU Syn drome), Peripheral Neuropathy, Chronic Respiratory Failure on 2L Home oxygen presents to ED for evaluation. Patient reported "I got weak and then I passed out". Patient reports feeling weak over the past 1 day. Patient presented to his dialysis center for routine scheduled dialysis. Patient experienced loss of consciousness during dialysis. EMS notified and on arrival the patient was found to be in distress and subsequent transported to [facility] for further care and evaluation of the aforementioned symptoms. The patient was seen and evaluated in the emergency department. Patient found to have a pulse oximetry of 88% on supplemental oxygen which is consistent with Acute on chronic hypoxemic respiratory failure. The patient was found to have a blood pressure of 229/100 mmHg which is consistent with hypertensive emergency, end-stage renal disease, pneumonia. Patient admitted to IMCU and initiated on IV antihypertensive therapy. Patient also initiated on pneumonia protocol. Nephrology team consulted in ED. No reports of fever, chills, chest pain, palpitation, productive cough, skin rash or recent contact, known exposure to COVID-19. Patient SARS [place] virus 2 PCR positive here. Patients surgical histories 3 Brain surgeries, Bilateral Nephrectomy on dialysis., Splenectomy. Ch olecystectomy and appendectomy. Patient has no history of smoking, alcohol or drug abuse. 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 Allergic to multiple medications Conidine, Codeine, Hydrocodone,Aspirin. Patient awake and resting on CPAP. Patient says uses CPAP at home. Patient using Own CPAP as he is using at home. Patients O2 saturation running 95% on CPAP. Patients sleep apnea history not known at this time Patient afebrile. No leukocytosis. Blood pressure 166/75, Pulse 59, Respirations 18. Patients chest xray done 11/05/21 reported Overall mild improvement in previously seen opacity right chest. Left lung is now clear. No new infiltrate. No pneumothorax. Patient is on Zithromax, Ceftraxone, Albuterol inhaler, S/C Heparin, Protonix. Objective Vital Signs - 12hr 11/05/21 11/05/21 11/05/21 03:30 04:00 04:13 Temperature 97 F L Pulse Rate 63 65 66 Respiratory 10 L 9 L Rate Blood Pressure 163/77 178/81 O2 Sat by Pulse 97 96 Oximetry 11/05/21 11/05/21 11/05/21 04:30 05:00 05:27 Temperature Pulse Rate 64 67 69 Respiratory 9 L 9 L Rate Blood Pressure 176/80 182/78 182/78 O2 Sat by Pulse 97 96 Oximetry 11/05/21 11/05/21 11/05/21 05:30 06:00 06:30 Temperature Pulse Rate 69 66 70 Respiratory 13 15 9 L Rate Blood Pressure 181/88 181/80 184/81 O2 Sat by Pulse 96 96 93 Oximetry 11/05/21 11/05/21 11/05/21 07:00 07:15 07:30 Temperature 98.3 F Pulse Rate 66 65 Respiratory 10 L 10 L Rate Blood Pressure 165/80 164/77 O2 Sat by Pulse 95 95 Oximetry 11/05/21 11/05/21 11/05/21 08:00 08:30 08:56 Temperature Pulse Rate 67 67 Respiratory 10 L 8 L Rate Blood Pressure 164/69 173/78 O2 Sat by Pulse 94 96 96 Oximetry 11/05/21 11/05/21 11/05/21 09:00 09:30 09:31 Temperature Pulse Rate 74 73 Respiratory 16 12 Rate Blood Pressure 167/78 185/79 O2 Sat by Pulse 96 97 Oximetry 11/05/21 11/05/21 11/05/21 10:00 10:31 11:00 Temperature Pulse Rate 72 71 69 Respiratory 10 L 10 L Rate Blood Pressure 174/77 174/77 125/65 O2 Sat by Pulse 94 97 95 Oximetry 11/05/21 11/05/21 11/05/21 11:31 12:00 12:28 Temperature 97.9 F Pulse Rate 65 62 Respiratory 9 L 8 L Rate Blood Pressure 126/62 131/56 O2 Sat by Pulse 91 95 Oximetry 11/05/21 11/05/21 12:31 13:00 Temperature Pulse Rate 65 61 Respiratory 11 L 16 Rate Blood Pressure 131/56 134/62 O2 Sat by Pulse 96 94 Oximetry Constitutional: no acute distress, alert, other (Resting on CPAP) Eyes: non-icteric ENT: oropharynx moist Neck: supple, no lymphadenopathy Effort: mildly labored Ascultation: Bilateral: rhonchi (Few rhonchi) Cardiovascular: regular rate and rhythm Gastrointestinal: normoactive bowel sounds Integumentary: normal, rash Extremities: no cyanosis, no edema Neurologic: normal mental status, non-focal exam, pupils equal and round Psychiatric: mood appropriate, affect normal CBC and BMP: 11/05/21 09:43 11/05/21 09:43 ABG, PT/INR, D-dimer: PT/INR, D-dimer PT 14.5 Sec. (12.2-14.9) 11/03/21 15:33 INR 1.02 (0.87-1.13) 11/03/21 15:33 D-Dimer 360.67 ng/mlDDU (0-234) H 11/04/21 11:05 Abnormal lab findings: Abnormal Labs 11/03/21 11/03/21 11/04/21 15:33 15:33 04:25 WBC 11.3 H RBC 3.60 L 3.54 L Hgb 11.5 L 11.4 L Hct 35.3 L MCV 101 H 100 H MCHC RDW 15.5 H 15.8 H Lymph % (Auto) 6.5 L [place] % (Auto) 12.1 H Eos % (Auto) 12.8 H Lymph # (Auto) 0.7 L [place] # (Auto) 1.4 H Eos # (Auto) 1.4 H Baso # (Auto) 0.2 H Seg Neuts % (Manual) 71.0 H Lymphocytes % (Manual) 7.0 L Eosinophils % (Manual) 16.0 H Nucleated RBC % 1.0 H Lymphocytes # (Manual) 0.8 L Eosinophils # (Manual) 1.7 H D-Dimer Sodium Chloride 95.8 L Carbon Dioxide BUN 26 H Creatinine 5.5 H Glucose 148 H Ferritin Lactate Dehydrogenase CK-MB (CK-2) 6.4 H CK-MB (CK-2) Rel Index 4.9 H Troponin T 0.271 H* Triglycerides 206 H HDL Cholesterol 37 L SARS-CoV-2 (PCR) 11/04/21 11/04/21 11/04/21 04:25 10:15 11:05 WBC RBC Hgb Hct MCV MCHC RDW Lymph % (Auto) [place] % (Auto) Eos % (Auto) Lymph # (Auto) [place] # (Auto) Eos # (Auto) Baso # (Auto) Seg Neuts % (Manual) Lymphocytes % (Manual) Eosinophils % (Manual) Nucleated RBC % Lymphocytes # (Manual) Eosinophils # (Manual) D-Dimer Sodium Chloride 97.7 L Carbon Dioxide 33 H BUN 30 H Creatinine 6.5 H Glucose 105 H Ferritin Lactate Dehydrogenase CK-MB (CK-2) CK-MB (CK-2) Rel Index Troponin T 0.292 H* Triglycerides HDL Cholesterol SARS-CoV-2 (PCR) Positive A 11/04/21 11/04/21 11/04/21 11:05 11:05 11:05 WBC RBC Hgb Hct MCV MCHC RDW Lymph % (Auto) [place] % (Auto) Eos % (Auto) Lymph # (Auto) [place] # (Auto) Eos # (Auto) Baso # (Auto) Seg Neuts % (Manual) Lymphocytes % (Manual) Eosinophils % (Manual) Nucleated RBC % Lymphocytes # (Manual) Eosinophils # (Manual) D-Dimer 360.67 H Sodium Chloride Carbon Dioxide BUN Creatinine Glucose Ferritin 1721.0 H Lactate Dehydrogenase 230 H CK-MB (CK-2) CK-MB (CK-2) Rel Index Troponin T Triglycerides HDL Cholesterol SARS-CoV-2 (PCR) 11/05/21 11/05/21 09:43 09:43 WBC RBC Hgb Hct MCV 102 H MCHC 31 L RDW 15.7 H Lymph % (Auto) [place] % (Auto) Eos % (Auto) Lymph # (Auto) [place] # (Auto) Eos # (Auto) Baso # (Auto) Seg Neuts % (Manual) Lymphocytes % (Manual) Eosinophils % (Manual) Nucleated RBC % Lymphocytes # (Manual) Eosinophils # (Manual) D-Dimer Sodium 136 L Chloride 96.0 L Carbon Dioxide BUN 25 H Creatinine 5.5 H Glucose 114 H Ferritin Lactate Dehydrogenase CK-MB (CK-2) CK-MB (CK-2) Rel Index Troponin T Triglycerides HDL Cholesterol SARS-CoV-2 (PCR) Chest x-ray: report reviewed, image reviewed Additional Studies: CHEST 1 VIEW 11/05/2021 2:15 AM INDICATION / CLINICAL INFORMATION: Follow up Acute Resp. failure. COMPARISON: 11/03/2021. FINDINGS: SUPPORT DEVICES: None. HEART / MEDIASTINUM: Stable. Hilar prominence remains. LUNGS / PLEURA: Overall mild improvement in previously seen opacity right chest. Left lung is now clear. No new infiltrate. No pneumothorax. ADDITIONAL FINDINGS: No significant additional findings. IMPRESSION: Interval improvement.
--- NOTE | 2021-11-05 19:48 | Electrocardiograph Report ---
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
[2021-11-05] MEDS ORDERED: ONDANSETRON 4 MG/2 ML INJ IV PRN (20:15)
[2021-11-06 04:23] LABS: Hematocrit 35.4 % (35.5-45.6); Hemoglobin 11.4 gm/dl (11.8-15.2); Mean Corpuscular HGB Conc 32 % (32-34); Mean Corpuscular Volume 101 fl (84-94); Platelet Count 193 K/mm3 (140-440); Red Cell Distribution Width 15.8 % (13.2-15.2)
[2021-11-06 04:46] LABS: Calcium 9.7 mg/dL (8.4-10.2)
--- NOTE | 2021-11-06 08:39 | Progress Note ---
Assessment and Plan Assessment: Hypertensive emergency Covid Pneumonia ESRD (end stage renal disease) Respiratory failure GERD (gastroesophageal reflux disease) Von Hippel-Lindau syndrome Plan: -Hemodialysis today for UF and clearance -Fluid restriction of 1 liter per day -Renally dose medications -Assess dialysis needs daily -Obtain daily weights -Monitor I/O's daily -Plan of care reviewed by Dr. Nelson Subjective Date of service: 11/06/21 Principal diagnosis: ESRD Interval history: Patient with active covid-19 infection, labs reviewed, chart reviewed Objective - Vital Signs Vital signs: Vital Signs - 12hr 11/05/21 11/05/21 11/05/21 21:00 21:31 21:52 Temperature Pulse Rate 66 65 66 Pulse Rate [ From Monitor] Respiratory 8 L 16 Rate Respiratory Rate [Head] Respiratory Rate [Upper Medial Back] Respiratory Rate [chest pain] Blood Pressure 171/67 171/67 162/71 O2 Sat by Pulse 95 96 Oximetry 11/05/21 11/05/21 11/05/21 22:00 22:31 23:00 Temperature Pulse Rate 66 66 63 Pulse Rate [ From Monitor] Respiratory 12 16 12 Rate Respiratory 20 Rate [Head] Respiratory 20 Rate [Upper Medial Back] Respiratory 20 Rate [chest pain] Blood Pressure 161/70 162/71 157/70 O2 Sat by Pulse 94 92 96 Oximetry 11/05/21 11/05/21 11/05/21 23:01 23:31 23:50 Temperature Pulse Rate 63 61 61 Pulse Rate [ From Monitor] Respiratory 10 L 9 L Rate Respiratory Rate [Head] Respiratory Rate [Upper Medial Back] Respiratory Rate [chest pain] Blood Pressure 157/70 157/70 O2 Sat by Pulse 97 98 Oximetry 11/06/21 11/06/21 11/06/21 00:00 00:31 01:01 Temperature 98.8 F Pulse Rate 64 62 66 Pulse Rate [ 64 From Monitor] Respiratory 12 9 L 17 Rate Respiratory Rate [Head] Respiratory Rate [Upper Medial Back] Respiratory Rate [chest pain] Blood Pressure 174/78 174/78 156/62 O2 Sat by Pulse 99 98 95 Oximetry 11/06/21 11/06/21 11/06/21 01:31 02:00 02:31 Temperature Pulse Rate 60 Pulse Rate [ From Monitor] Respiratory 13 10 L Rate Respiratory Rate [Head] Respiratory Rate [Upper Medial Back] Respiratory Rate [chest pain] Blood Pressure 156/62 157/62 156/62 O2 Sat by Pulse 97 97 98 Oximetry 11/06/21 11/06/21 11/06/21 03:00 03:31 04:00 Temperature Pulse Rate 57 L 57 L 55 L Pulse Rate [ 55 L From Monitor] Respiratory 11 L 14 17 Rate Respiratory Rate [Head] Respiratory Rate [Upper Medial Back] Respiratory Rate [chest pain] Blood Pressure 136/64 136/64 141/65 O2 Sat by Pulse 99 98 97 Oximetry 11/06/21 11/06/21 11/06/21 04:31 05:00 05:30 Temperature Pulse Rate 55 L 55 L 54 L Pulse Rate [ From Monitor] Respiratory 14 12 11 L Rate Respiratory Rate [Head] Respiratory Rate [Upper Medial Back] Respiratory Rate [chest pain] Blood Pressure 141/65 158/74 158/74 O2 Sat by Pulse 97 98 99 Oximetry 11/06/21 11/06/21 11/06/21 06:00 06:31 07:00 Temperature 97.7 F Pulse Rate 55 L 60 58 L Pulse Rate [ From Monitor] Respiratory 12 13 13 Rate Respiratory Rate [Head] Respiratory Rate [Upper Medial Back] Respiratory Rate [chest pain] Blood Pressure 161/68 151/71 143/62 O2 Sat by Pulse 96 98 97 Oximetry 11/06/21 11/06/21 11/06/21 07:20 07:31 08:00 Temperature 97.6 F Pulse Rate 59 L 60 Pulse Rate [ 57 L From Monitor] Respiratory 15 10 L 11 L Rate Respiratory Rate [Head] Respiratory Rate [Upper Medial Back] Respiratory Rate [chest pain] Blood Pressure 143/62 145/73 O2 Sat by Pulse 97 99 93 Oximetry 11/06/21 08:16 Temperature Pulse Rate Pulse Rate [ From Monitor] Respiratory Rate Respiratory Rate [Head] Respiratory Rate [Upper Medial Back] Respiratory Rate [chest pain] Blood Pressure O2 Sat by Pulse 96 Oximetry - Lab 11/06/21 03:59 11/06/21 03:59 Most recent lab results Calcium 9.7 mg/dL (8.4-10.2) 11/06/21 03:59 Magnesium 2.00 mg/dL (1.7-2.3) 11/03/21 15:33 Medications & Allergies - Medications Allergies/Adverse Reactions: Allergies clonidine Allergy (Verified 11/03/21 14:04) Swelling codeine Allergy (Verified 11/03/21 14:04) Itching hydrocodone Allergy (Verified 11/03/21 14:04) Itching aspirin Adverse Reaction (Severe, Verified 11/03/21 14:04) Brain Bleeding Home Medications: Home Medications Medication Instructions Recorded Confirmed Last Taken Type B Complex 11/Folic/C/Biot/Zinc 1 each PO DAILY 08/15/16 11/04/21 11/03/21 History [Dialyvite with Zinc Tablet] Ergocalciferol (Vitamin D2) 1 tab PO 1XW 08/15/16 11/04/21 11/03/21 History [Vitamin D2] Lanthanum Carbonate [Fosrenol] 750 mg PO QDAC 09/05/16 11/04/21 11/03/21 History Doxazosin Mesylate [Cardura] 2 mg PO HS #30 tablet 09/07/16 11/04/21 11/03/21 Rx Folic Acid/Vit B Comp W-C [Renal 1 cap PO QDAY #30 capsule 09/07/16 11/04/21 11/03/21 Rx Caps] NIFEdipine XL [Procardia Xl] 60 mg PO Q12HR #60 tablet 09/07/16 11/04/21 11/03/21 Rx Pantoprazole [Protonix TAB] 40 mg PO QDAY #30 tablet 09/07/16 11/04/21 11/03/21 Rx carvediloL [Coreg] 25 mg PO BID #60 tablet 09/07/16 11/04/21 11/03/21 Rx hydrALAZINE [Apresoline TAB] 100 mg PO TID #90 tab 09/07/16 11/04/21 11/03/21 Rx traMADoL [Ultram 50 MG tab] 50 mg PO Q6HR PRN #20 tablet 09/07/16 11/04/21 11/04/21 Rx Gabapentin 300 mg PO 3XW 11/05/21 11/05/21 Unknown History Active Medications: Generic Name Dose Route Start Last Admin Trade Name Freq PRN Reason Stop Dose Admin Acetaminophen 650 mg 11/03/21 18:39 Acetaminophen 325 Mg Tab PO Q6H PRN Pain MILD(1-3)/Fever >100.5/GAXIOLA Albuterol 2.5 mg 11/03/21 18:39 Albuterol 2.5 Mg/3 Ml Nebu IH Q3HRT PRN Shortness Of Breath Carvedilol 25 mg 11/05/21 10:00 11/05/21 21:52 Carvedilol 25 Mg Tab PO 25 mg BID LOUISE Administration Gabapentin 300 mg 11/04/21 10:00 11/05/21 22:05 Gabapentin 300 Mg Cap PO Not Given BID LOUISE Heparin Sodium (Porcine) 5,000 unit 11/05/21 10:00 11/05/21 21:55 Heparin 5,000 Unit/1 Ml Vial SUB-Q 5,000 unit Q12HR LOUISE Administration Hydralazine HCl 10 mg 11/04/21 19:07 11/05/21 18:15 Hydralazine 20 Mg/1 Ml Inj IV 10 mg Q4HR PRN Administration Hypertension Hydralazine HCl 100 mg 11/04/21 19:09 11/05/21 20:33 Hydralazine 100 Mg Tab PO 100 mg TID LOUISE Administration Hydromorphone HCl 0.5 mg 11/03/21 18:39 Hydromorphone 0.5 Mg/0.5 Ml Inj IV Q23H PRN Pain , Severe (7-10) Nicardipine HCl 50 mg/ Sodium 250 mls @ 25 mls/hr 11/03/21 19:00 11/05/21 09:31 Chloride IV 0 mg/hr TITR LOUISE 0 mls/hr Titration Protocol 5 MG/HR Azithromycin 500 mg in 250 mls @ 250 mls/hr 11/04/21 09:00 11/05/21 10:41 Zithromax/Ns IV 250 mls/hr Q24H LOUISE Administration Ceftriaxone Sodium 2 gm in 100 mls @ 200 mls/hr 11/04/21 11:00 11/05/21 11:17 Rocephin/Ns 2 Gm/100 Ml IV 200 mls/hr Q24H LOUISE Administration Protocol Sodium Chloride 100 mls @ 999 mls/hr 11/04/21 10:54 Nacl 0.9% IV MILIND PRN Hypotension Lanthanum Carbonate 750 mg 11/04/21 22:00 11/05/21 21:52 Lanthanum Carbonate 500 Mg Tab PO 750 mg WMHS LOUISE Administration Miscellaneous Medication 750 mg 11/04/21 22:00 11/05/21 21:55 Lanthanum Carbonate Chew 750mg PO Not Given WMHS LOUISE Nifedipine 90 mg 11/05/21 08:57 11/05/21 21:52 Nifedipine Xl 90 Mg Tab PO 90 mg Q12HR LOUISE Administration Ondansetron HCl 4 mg 11/05/21 20:15 11/05/21 20:32 Ondansetron 4 Mg/2 Ml Inj IV 4 mg Q8H PRN Administration Nausea And Vomiting Oxycodone/Acetaminophen 1 tab 11/03/21 18:39 11/05/21 04:09 Oxycodone /Acetaminophen 5-325mg Tab PO 1 tab Q6H PRN Administration Pain, Moderate (4-6) Pantoprazole Sodium 40 mg 11/04/21 10:00 11/05/21 10:45 Pantoprazole 40 Mg Tab PO 40 mg QDAY LOUISE Administration Sodium Chloride 10 ml 11/03/21 22:00 11/05/21 21:53 Sodium Chloride 0.9% 10 Ml Flush Syringe IV 10 ml BID LOUISE Administration Sodium Chloride 10 ml 11/03/21 18:39 Sodium Chloride 0.9% 10 Ml Flush Syringe IV PRN PRN LINE FLUSH
[2021-11-06] MEDS: AZITHROMYCIN/NS 500 MG/250 ML 500 MG/250 ML BAG IV SCH (08:47)
[2021-11-06] MEDS: hydrALAZINE 100 MG TAB PO SCH ×3 (08:47→20:14)
[2021-11-06] MEDS: LANTHANUM CARBONATE 500 MG TAB PO SCH ×4 (08:49→21:07)
[2021-11-06] MEDS: NIFEdipine XL 90 MG TAB PO SCH ×3 (09:55→21:08)
[2021-11-06] MEDS: PANTOPRAZOLE 40 MG TAB PO SCH (09:56)
[2021-11-06] MEDS: GABAPENTIN 300 MG CAP PO SCH ×2 (09:56→21:08)
[2021-11-06] MEDS: HEPARIN 5,000 UNIT/1 ML VIAL SUB-Q SCH ×2 (09:56→21:08)
[2021-11-06] MEDS: carvediloL 25 MG TAB PO SCH ×3 (09:56→21:08)
[2021-11-06] MEDS: cefTRIAXone/NS 2 GM/100 ML 2 GM/100 ML BAG IV SCH (11:38)
--- NOTE | 2021-11-06 12:51 | Progress Note ---
Assessment and Plan - Patient Problems (1) Mitral stenosis Current Visit: Yes Status: Acute Plan to address problem: Mild to moderate mitral stenosis, currently asymptomatic, recommend outpatient cardiology follow-up. Otherwise, no cardiac interventions are indicated at the current time, defer to internal medicine and pulmonary for management of presenting acute COVID infection. We will follow intermittently. Subjective Date of service: 11/06/21 Principal diagnosis: ESRD Interval history: 61-year-old man with end-stage renal disease on hemodialysis, admitted with acute COVID infection. No cardiac complaints. Extensive cardiac history in the past including a cardiac catheterization in 2017 demonstrated mild nonobstructive disease of the LAD. Normal left ventricular systolic function with ejection fraction 55 to 65% on serial assessments over the years. His major cardiac pathology is thickening and calcification of the mitral valve with mild to moderate mitral stenosis. On the current echocardiogram his mean mitral valve gradient is 4.1. As a result of the mitral valve pathology, he has a severely dilated left atrium, but remains in stable sinus rhythm is at the current time. Objective Vital Signs Temp Pulse Pulse Resp Resp Resp Resp 11/06/21 12:07 98.5 F 11/06/21 12:01 57 L 11 L 11/06/21 12:00 53 L 18 11/06/21 11:31 58 L 11 L 11/06/21 11:00 58 L 12 11/06/21 10:30 60 10 L 11/06/21 10:03 60 11/06/21 10:01 61 11 L 11/06/21 09:31 61 13 11/06/21 09:00 58 L 12 11/06/21 08:31 58 L 10 L 11/06/21 08:16 11/06/21 08:00 60 11 L 11/06/21 07:31 59 L 10 L 11/06/21 07:20 97.6 F 57 L 15 11/06/21 07:00 58 L 13 11/06/21 06:31 60 13 11/06/21 06:00 97.7 F 55 L 12 11/06/21 05:30 54 L 11 L 11/06/21 05:00 55 L 12 11/06/21 04:31 55 L 14 11/06/21 04:00 55 L 55 L 17 11/06/21 03:31 57 L 14 11/06/21 03:00 57 L 11 L 11/06/21 02:31 60 10 L 11/06/21 02:00 11/06/21 01:31 13 11/06/21 01:01 66 17 11/06/21 00:31 62 9 L 11/06/21 00:00 98.8 F 64 64 12 11/05/21 23:50 61 11/05/21 23:31 61 9 L 11/05/21 23:01 63 10 L 11/05/21 23:00 63 12 20 20 20 11/05/21 22:31 66 16 11/05/21 22:00 66 12 11/05/21 21:52 66 11/05/21 21:31 65 16 11/05/21 21:00 66 8 L 11/05/21 20:31 65 15 11/05/21 20:30 66 11/05/21 20:00 98.8 F 66 66 14 11/05/21 19:31 66 11 L 11/05/21 19:00 66 12 11/05/21 18:31 65 12 11/05/21 18:15 11/05/21 18:00 63 12 11/05/21 17:31 63 11 L 11/05/21 17:00 61 26 H 11/05/21 16:31 59 L 18 11/05/21 16:00 62 18 11/05/21 15:31 62 15 11/05/21 15:00 61 14 11/05/21 14:31 59 L 25 H 11/05/21 14:00 59 L 14 11/05/21 13:31 59 L 10 L 11/05/21 13:00 61 16 BP Pulse Ox 11/06/21 12:07 11/06/21 12:01 149/63 95 11/06/21 12:00 97 11/06/21 11:31 123/66 95 11/06/21 11:00 114/57 93 11/06/21 10:30 120/63 94 11/06/21 10:03 124/54 11/06/21 10:01 124/54 96 11/06/21 09:31 139/64 95 11/06/21 09:00 139/64 93 11/06/21 08:31 145/73 96 11/06/21 08:16 96 11/06/21 08:00 145/73 93 11/06/21 07:31 143/62 99 11/06/21 07:20 97 11/06/21 07:00 143/62 97 11/06/21 06:31 151/71 98 11/06/21 06:00 161/68 96 11/06/21 05:30 158/74 99 11/06/21 05:00 158/74 98 11/06/21 04:31 141/65 97 11/06/21 04:00 141/65 97 11/06/21 03:31 136/64 98 11/06/21 03:00 136/64 99 11/06/21 02:31 156/62 98 11/06/21 02:00 157/62 97 11/06/21 01:31 156/62 97 11/06/21 01:01 156/62 95 11/06/21 00:31 174/78 98 11/06/21 00:00 174/78 99 11/05/21 23:50 11/05/21 23:31 157/70 98 11/05/21 23:01 157/70 97 11/05/21 23:00 157/70 96 11/05/21 22:31 162/71 92 11/05/21 22:00 161/70 94 11/05/21 21:52 162/71 11/05/21 21:31 171/67 96 11/05/21 21:00 171/67 95 11/05/21 20:31 165/69 95 11/05/21 20:30 11/05/21 20:00 165/69 95 11/05/21 19:31 173/73 95 11/05/21 19:00 173/73 94 11/05/21 18:31 189/80 97 11/05/21 18:15 189/80 11/05/21 18:00 189/80 89 11/05/21 17:31 168/91 95 11/05/21 17:00 168/91 94 11/05/21 16:31 166/75 96 11/05/21 16:00 166/75 98 11/05/21 15:31 153/64 96 11/05/21 15:00 153/64 96 11/05/21 14:31 152/65 96 11/05/21 14:00 152/65 95 11/05/21 13:31 134/62 98 11/05/21 13:00 134/62 94 - Physical Examination General: No Apparent Distress HEENT: Positive: PERRL Neck: Positive: neck supple Cardiac: Positive: Reg Rate and Rhythm, Diastolic Murmur Lungs: Positive: Decreased Breath Sounds Neuro: Positive: Grossly Intact Abdomen: Positive: Soft Skin: Positive: Clear Extremities: Absent: edema - Labs and Meds CBC 11/06/21 Range/Units 03:59 WBC 9.7 (4.5-11.0) K/mm3 RBC 3.50 L (3.65-5.03) M/mm3 Hgb 11.4 L (11.8-15.2) gm/dl Hct 35.4 L (35.5-45.6) % Plt Count 193 (140-440) K/mm3 Comprehensive Metabolic Panel 11/06/21 Range/Units 03:59 Sodium 137 (137-145) mmol/L Potassium 4.2 (3.6-5.0) mmol/L Chloride 97.4 L (98-107) mmol/L Carbon Dioxide 27 (22-30) mmol/L BUN 36 H (9-20) mg/dL Creatinine 6.6 H (0.8-1.3) mg/dL Glucose 80 (75-100) mg/dL Calcium 9.7 (8.4-10.2) mg/dL
--- NOTE | 2021-11-06 13:03 | Consultation ---
History of Present Illness - Reason for Consult Consult date: 11/06/21 COVID PNA Requesting physician: TAZ KAY - History of Present Illness The patient is a 61-year-old male with ESRD on HD, diabetes, hypertension, prior cholecystectomy, appendectomy, nephrectomy, splenectomy, chronic respiratory failure on home oxygen was admitted with weakness, then passed out. Was found to be hypoxic, sent to the hospital, noted to have hypertensive emergency. A febrile. Tested positive for COVID-19. Infectious diseases was consulted for additional evaluation. Review of Systems: reviewed in the chart, unable to obtain, minimize risk of transmission Past History Past Medical History: diabetes, ESRD, GERD, hypertension, other (see hpi) Past Surgical History: appendectomy, cholecystectomy, Other (3 BRAIN SURGERIES, NEPHRECTOMY B/L, SPLENECTOMY,) Social history: Family history: diabetes, hypertension Medications and Allergies Allergies Allergy/AdvReac Type Severity Reaction Status Date / Time clonidine Allergy Swelling Verified 11/03/21 14:04 codeine Allergy Itching Verified 11/03/21 14:04 hydrocodone Allergy Itching Verified 11/03/21 14:04 aspirin AdvReac Severe Brain Verified 11/03/21 14:04 Bleeding Home Medications Medication Instructions Recorded Confirmed Last Taken Type B Complex 11/Folic/C/Biot/Zinc 1 each PO DAILY 08/15/16 11/04/21 11/03/21 History [Dialyvite with Zinc Tablet] Ergocalciferol (Vitamin D2) 1 tab PO 1XW 08/15/16 11/04/21 11/03/21 History [Vitamin D2] Lanthanum Carbonate [Fosrenol] 750 mg PO QDAC 09/05/16 11/04/21 11/03/21 History Doxazosin Mesylate [Cardura] 2 mg PO HS #30 tablet 09/07/16 11/04/21 11/03/21 Rx Folic Acid/Vit B Comp W-C [Renal 1 cap PO QDAY #30 capsule 09/07/16 11/04/21 11/03/21 Rx Caps] NIFEdipine XL [Procardia Xl] 60 mg PO Q12HR #60 tablet 09/07/16 11/04/21 11/03/21 Rx Pantoprazole [Protonix TAB] 40 mg PO QDAY #30 tablet 09/07/16 11/04/21 11/03/21 Rx carvediloL [Coreg] 25 mg PO BID #60 tablet 09/07/16 11/04/21 11/03/21 Rx hydrALAZINE [Apresoline TAB] 100 mg PO TID #90 tab 09/07/16 11/04/21 11/03/21 Rx traMADoL [Ultram 50 MG tab] 50 mg PO Q6HR PRN #20 tablet 09/07/16 11/04/21 11/04/21 Rx Gabapentin 300 mg PO 3XW 11/05/21 11/05/21 Unknown History Active Meds: Active Medications Acetaminophen (Acetaminophen 325 Mg Tab) 650 mg PO Q6H PRN PRN Reason: Pain MILD(1-3)/Fever >100.5/GAXIOLA Albuterol (Albuterol 2.5 Mg/3 Ml Nebu) 2.5 mg IH Q3HRT PRN PRN Reason: Shortness Of Breath Azithromycin (Azithromycin 250 Mg Tab) 500 mg PO QDAY [facility]; Protocol Carvedilol (Carvedilol 25 Mg Tab) 25 mg PO BID [facility] Last Admin: 11/06/21 10:03 Dose: Not Given Gabapentin (Gabapentin 300 Mg Cap) 300 mg PO BID [facility] Last Admin: 11/06/21 09:56 Dose: 300 mg Heparin Sodium (Porcine) (Heparin 5,000 Unit/1 Ml Vial) 5,000 unit SUB-Q Q12HR [facility] Last Admin: 11/06/21 09:56 Dose: 5,000 unit Hydralazine HCl (Hydralazine 20 Mg/1 Ml Inj) 10 mg IV Q4HR PRN PRN Reason: Hypertension Last Admin: 11/05/21 18:15 Dose: 10 mg Hydralazine HCl (Hydralazine 100 Mg Tab) 100 mg PO TID [facility] Last Admin: 11/06/21 08:47 Dose: 100 mg Hydromorphone HCl (Hydromorphone 0.5 Mg/0.5 Ml Inj) 0.5 mg IV Q23H PRN PRN Reason: Pain , Severe (7-10) Ceftriaxone Sodium (Rocephin/Ns 2 Gm/100 Ml) 2 gm in 100 mls @ 200 mls/hr IV Q24H [facility]; Protocol Last Infusion: 11/06/21 12:08 Dose: Infused Sodium Chloride (Nacl 0.9%) 100 mls @ 999 mls/hr IV MILIND PRN PRN Reason: Hypotension Lanthanum Carbonate (Lanthanum Carbonate 500 Mg Tab) 750 mg PO WMHS [facility] Last Admin: 11/06/21 12:25 Dose: 750 mg Nifedipine (Nifedipine Xl 90 Mg Tab) 90 mg PO Q12HR [facility] Last Admin: 11/06/21 10:08 Dose: Not Given Ondansetron HCl (Ondansetron 4 Mg/2 Ml Inj) 4 mg IV Q8H PRN PRN Reason: Nausea And Vomiting Last Admin: 11/05/21 20:32 Dose: 4 mg Oxycodone/Acetaminophen (Oxycodone /Acetaminophen 5-325mg Tab) 1 tab PO Q6H PRN PRN Reason: Pain, Moderate (4-6) Last Admin: 11/05/21 04:09 Dose: 1 tab Pantoprazole Sodium (Pantoprazole 40 Mg Tab) 40 mg PO QDAY [facility] Last Admin: 11/06/21 09:56 Dose: 40 mg Sodium Chloride (Sodium Chloride 0.9% 10 Ml Flush Syringe) 10 ml IV BID [facility] Last Admin: 11/06/21 09:56 Dose: 10 ml Sodium Chloride (Sodium Chloride 0.9% 10 Ml Flush Syringe) 10 ml IV PRN PRN PRN Reason: LINE FLUSH Physical Examination - Physical Exam Narrative exam: Physical Exam (reviewed in chart to minimize risk of transmission) Constitutional: deferred Head, Ears, Nose: deferred Eyes: deferred Neck: deferred Oral: deferred Cardiovascular: deferred Respiratory: deferred GI: deferred Musculoskeletal: deferred Skin: deferred Hem/Lymphatic: deferred Psych: deferred Neurological: deferred - Constitutional Vitals: Vital Signs Temp Pulse Resp BP Pulse Ox 98.5 F 57 L 11 L 149/63 95 11/06/21 12:07 11/06/21 12:01 11/06/21 12:01 11/06/21 12:01 11/06/21 12:01 Temperature -Last 24 Hours Temperature 98.5 F Temperature 97.6 F Temperature 97.7 F Temperature 98.8 F Temperature 98.8 F Results - Labs CBC & Chem 7: 11/06/21 03:59 11/06/21 03:59 Labs: Abnormal lab results 11/06/21 11/06/21 Range/Units 03:59 03:59 RBC 3.50 L (3.65-5.03) M/mm3 Hgb 11.4 L (11.8-15.2) gm/dl Hct 35.4 L (35.5-45.6) % MCV 101 H (84-94) fl MCH 33 H (28-32) pg RDW 15.8 H (13.2-15.2) % Chloride 97.4 L (98-107) mmol/L BUN 36 H (9-20) mg/dL Creatinine 6.6 H (0.8-1.3) mg/dL - Imaging and Cardiology Chest x-ray: report reviewed, image reviewed (improved opacities) Assessment and Plan Cultures: SARS CoV2 PCR: Positive 11/03/2021 blood culture: No growth A/P: 61-year-old male with ESRD on HD, diabetes, hypertension, prior cholecystectomy, appendectomy, nephrectomy, splenectomy, chronic respiratory failure on home oxygen was admitted with weakness, then passed out. Was found to be hypoxic, sent to the hospital, noted to have hypertensive emergency, elevated troponin: #COVID-19: Initial chest x-ray showed bilateral pneumonia, repeat chest x-ray showed improvement. D-dimer 360, CRP 0.5. #Chronic hypoxic respiratory failure: On oxygen by nasal cannula. #Elevated troponin: Cardiology following #Hypertensive emergency #ESRD on HD Recs: -Respiratory status seems to be at baseline, CRP 0.5, hold off on additional steroids at this time, d/w pharmacy -Not a candidate for remdesivir due to renal failure -antibiotics discontinued Cortney Malik MD, FACP, [facility] O: [phone] F: [phone] C: [phone]
[2021-11-06] MEDS: hydrALAZINE 20 MG/1 ML INJ IV PRN (16:36)
--- NOTE | 2021-11-06 16:52 | Progress Note ---
Assessment and Plan Assessment and Plan #Acute on Chronic Respiratory Failure On 3 L nasal cannula oxygen Patient undergoing dialysis #Hypertensive Emergency --Off Cardene drip Blood pressure still high 173/70 #Syncopal Episode Syncope work-up completed Hypertensive emergency may be the cause Patient to follow-up with cardiology as outpatient for event monitor #Bilateral Pneumonia DC IV antibiotics #COVID 19 Pneumonia - O2 dependent at home, on 3L NC - CXR with suspected bilateral pneumonia - COVID PCR positive - patient is stable on home O2 at 3L NC - Empiric IV Abx discontinued -Patient has home oxygen and concentrator - Continue O2 supplementation and Nebs treatment as needed - Continue SPO2 monitoring for SPO2 goal above 92% - Aspiration precaution HOB above 30 - [facility] is following -Patient to be discharged tomorrow with home health -Patient is debilitated and needs improvement in his lower body muscle strength so that he can walk longer distances. At present he can walk only up to the- restroom with help #End Stage Renal Disease(ESRD) on HD - Nephrology on consult, appreciated recommendation - Continue HD per Nephro - Strict intake and output - Avoid nephrotoxic medications; Renally dose medications - Monitor and replace electrolytes as needed #GERD (Gastroesophageal Reflux Disease) - Supportive care - Home Protonix resumed #Mild Hydrocephalus #H/o Von Hippel-Lindau Syndrome #S/p Multiple Craniotomy - Chronic. Continue supportive measures - CT scan result revealed mild hydrocephalus - Per patient, mild hydrocephalus noted on CT scan is not new. It was noted since after his last craniotomy 4years ago - [facility] - Record [facility] #Anemia of Chronic Disease - most likely due to ESRD - H&H stable - Continue epogen with HD per Nephro - Trenc CBC #GI/DVT prophylaxis - PPI- Protonix - Heparin SubQ - SCD to bilateral lower extremities while in bed #Advance Care Planning - Disease education data, care plan, diagnoses, and prognosis were discussed with patient at the bedise. All questions and concerns were addressed at this tome. Patient is a FULL code. Patient acknowledged understanding and agreement with current care plan. The high probability of a clinically significant, sudden or life threatening deterioration of the [multiple] system(s) required my full and direct attention, intervention and personal management. The aggregate critical care time was [40] minutes. This time is in addition to time spent performing reported procedures but includes the following: [x] Data Review and interpretation [x] Patient assessment and monitoring of vital signs [x] Documentation [x] Medication orders and management Disposition Plan: ICU Total Time Spent with Patient (Minutes): 40 Discharge in a.m. with home health Subjective Date of service: 11/06/21 Principal diagnosis: ESRD Interval history: This is a 61-year-old male with known past medical history of craniotomy, ESRD on HD, HTN, GERD, VHL Syndrome, Peripheral Neuropathy, ADDY and Chronic Respiratory Failure on Cpap and 3L oxygen dependent at home admitted s/p syncopal episode in dialysis. Found to in emergency emergency and bilateral PNA. Hospital Course to Date: 11/04: Remains hypertensive in cardene gtt this am. Home meds resumed, plan to wean off cardene gtt for SBP less than 160. COVID PCR came back positive, patient is stable on home O2 at 3L. IV Abx swithed to Azithro and Rocephin, IV decadron, and ID consulted. Cardiology is also following, appreciate recommendations. CT scan noted, result discussed with patient at the bedside. Per patient, mild hydrocephalus noted on CT scan is not new. It was noted since after his last craniotomy 4years ago and his PCP at the [place] has been monitoring it. Record [facility] History Interval history: Patient seen and examined at the bedside. Fully AAO, on home O2 at 3L NC, denied any pain nor any discomfort at this time. Remains on cardene gtt, BP still elevated this morning. SR to SB noted on the monitor Objective - Constitutional Vitals: Vital Signs - 12hr 11/06/21 11/06/21 11/06/21 05:00 05:30 06:00 Temperature 97.7 F Pulse Rate 55 L 54 L 55 L Pulse Rate [ From Monitor] Respiratory 12 11 L 12 Rate Blood Pressure 158/74 158/74 161/68 O2 Sat by Pulse 98 99 96 Oximetry O2 Sat by Pulse Oximetry [ Anterior Bilateral] 11/06/21 11/06/21 11/06/21 06:31 07:00 07:20 Temperature 97.6 F Pulse Rate 60 58 L Pulse Rate [ 57 L From Monitor] Respiratory 13 13 15 Rate Blood Pressure 151/71 143/62 O2 Sat by Pulse 98 97 97 Oximetry O2 Sat by Pulse Oximetry [ Anterior Bilateral] 11/06/21 11/06/21 11/06/21 07:31 08:00 08:16 Temperature Pulse Rate 59 L 60 Pulse Rate [ From Monitor] Respiratory 10 L 11 L Rate Blood Pressure 143/62 145/73 O2 Sat by Pulse 99 93 96 Oximetry O2 Sat by Pulse Oximetry [ Anterior Bilateral] 11/06/21 11/06/21 11/06/21 08:31 09:00 09:31 Temperature Pulse Rate 58 L 58 L 61 Pulse Rate [ From Monitor] Respiratory 10 L 12 13 Rate Blood Pressure 145/73 139/64 139/64 O2 Sat by Pulse 96 93 95 Oximetry O2 Sat by Pulse Oximetry [ Anterior Bilateral] 11/06/21 11/06/21 11/06/21 10:01 10:03 10:30 Temperature Pulse Rate 61 60 60 Pulse Rate [ From Monitor] Respiratory 11 L 10 L Rate Blood Pressure 124/54 124/54 120/63 O2 Sat by Pulse 96 94 Oximetry O2 Sat by Pulse Oximetry [ Anterior Bilateral] 11/06/21 11/06/21 11/06/21 11:00 11:31 12:00 Temperature Pulse Rate 58 L 58 L Pulse Rate [ 53 L From Monitor] Respiratory 12 11 L 18 Rate Blood Pressure 114/57 123/66 O2 Sat by Pulse 93 95 97 Oximetry O2 Sat by Pulse Oximetry [ Anterior Bilateral] 11/06/21 11/06/21 11/06/21 12:01 12:07 12:30 Temperature 98.5 F Pulse Rate 57 L 61 Pulse Rate [ From Monitor] Respiratory 11 L 13 Rate Blood Pressure 149/63 173/80 O2 Sat by Pulse 95 95 Oximetry O2 Sat by Pulse Oximetry [ Anterior Bilateral] 11/06/21 11/06/21 11/06/21 12:45 13:00 13:15 Temperature 98.8 F Pulse Rate 61 61 59 L Pulse Rate [ From Monitor] Respiratory 18 11 L Rate Blood Pressure 145/86 145/86 163/73 O2 Sat by Pulse 96 Oximetry O2 Sat by Pulse 99 Oximetry [ Anterior Bilateral] 11/06/21 11/06/21 11/06/21 13:30 13:45 14:00 Temperature Pulse Rate 59 L 59 L 58 L Pulse Rate [ From Monitor] Respiratory 9 L 8 L Rate Blood Pressure 150/65 136/67 157/73 O2 Sat by Pulse 96 96 Oximetry O2 Sat by Pulse Oximetry [ Anterior Bilateral] 11/06/21 11/06/21 11/06/21 14:15 14:30 14:45 Temperature Pulse Rate 60 58 L 62 Pulse Rate [ From Monitor] Respiratory 9 L Rate Blood Pressure 140/62 127/70 145/66 O2 Sat by Pulse 97 Oximetry O2 Sat by Pulse Oximetry [ Anterior Bilateral] 11/06/21 11/06/21 11/06/21 15:00 15:01 15:15 Temperature Pulse Rate 56 L 59 L 59 L Pulse Rate [ From Monitor] Respiratory 10 L Rate Blood Pressure 142/66 142/66 144/62 O2 Sat by Pulse 96 Oximetry O2 Sat by Pulse Oximetry [ Anterior Bilateral] 11/06/21 11/06/21 11/06/21 15:30 15:45 16:00 Temperature 98.5 F Pulse Rate 58 L 61 60 Pulse Rate [ From Monitor] Respiratory 10 L 9 L Rate Blood Pressure 157/70 157/74 163/66 O2 Sat by Pulse 96 96 Oximetry O2 Sat by Pulse Oximetry [ Anterior Bilateral] 11/06/21 11/06/21 11/06/21 16:23 16:36 16:40 Temperature 98.0 F Pulse Rate 65 63 Pulse Rate [ 65 From Monitor] Respiratory 14 15 Rate Blood Pressure 178/73 169/74 O2 Sat by Pulse 97 Oximetry O2 Sat by Pulse 99 Oximetry [ Anterior Bilateral] General appearance: Present: no acute distress, well-nourished - EENT Eyes: PERRL, EOM intact ENT: hearing intact, clear oral mucosa Ears: bilateral: normal - Neck Neck: supple, normal ROM - Respiratory Respiratory effort: normal Respiratory: bilateral: CTA - Breasts Breasts: normal - Cardiovascular Heart rate: 78 Rhythm: regular Heart Sounds: Present: S1 & S2. Absent: gallop, rub Extremities: no ischemia, pulses intact, No edema, normal color, Full ROM - Gastrointestinal General gastrointestinal: Present: soft, non-tender, non-distended, normal bowel sounds - Genitourinary Male genitourinary: normal - Integumentary Integumentary: clear, warm, dry - Musculoskeletal Musculoskeletal: 1, strength equal bilaterally - Neurologic Neurologic: moves all extremities - Psychiatric Psychiatric: memory intact, appropriate mood/affect, intact judgment & insight - Allied health notes Allied health notes reviewed: nursing, case management - Labs CBC & Chem 7: 07/11/22 03:59 11/06/21 03:59 Labs: Abnormal lab results 11/06/21 11/06/21 Range/Units 03:59 03:59 RBC 3.50 L (3.65-5.03) M/mm3 Hgb 11.4 L (11.8-15.2) gm/dl Hct 35.4 L (35.5-45.6) % MCV 101 H (84-94) fl MCH 33 H (28-32) pg RDW 15.8 H (13.2-15.2) % Chloride 97.4 L (98-107) mmol/L BUN 36 H (9-20) mg/dL Creatinine 6.6 H (0.8-1.3) mg/dL HEART Score - HEART Score Troponin: Troponin T 0.292 ng/mL (0.00-0.029) H* 11/04/21 11:05
--- NOTE | 2021-11-06 20:13 | Progress Note ---
Assessment and Plan 61 YO Male with ESRD on HD, HTN, GERD, VHL Syndrome ( VAN HIPPLE, LANDU Syndrome), Peripheral Neuropathy, Chronic Respiratory Failure on 2L Home oxygen presents to ED for evaluation. Patient reported "I got weak and then I passed out". Patient reports feeling weak over the past 1 day. Patient presented to his dialysis center for routine scheduled dialysis. Patient experienced loss of consciousness during dialysis. EMS notified and on arrival the patient was found to be in distress and subsequent transported to [facility] for further care and evaluation of the aforementioned symptoms. The patient was seen and evaluated in the emergency department. Patient found to have a pulse oximetry of 88% on supplemental oxygen which is consistent with Acute on chronic hypoxemic respiratory failure. The patient was found to have a blood pressure of 229/100 mmHg which is consistent with hypertensive emergency, end-stage renal disease, pneumonia. Patient admitted to [facility] and initiated on IV antihypertensive therapy. Patient also initiated on pneumonia protocol. Nephrology team consulted in ED. No reports of fever, chills, chest pain, palpitation, productive cough, skin rash or recent contact, known exposure to COVID-19. Patient SARS [place] virus 2 PCR positive here. Patients surgical histories 3 Brain surgeries, Bilateral Nephrectomy on dialysis., Splenectomy. Cholecystectomy and appendectomy. Patient has no history of smoking, alcohol or drug abuse. 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 Allergic to multiple medications Conidine, Codeine, Hydrocodone,Aspirin. Patient awake . Patient resting on 3 litres O2. Patients O2 saturation running 99% . Patient says he has history of sleep apnea. He uses CPAP at home. His Home CPAP stand by in the room. Patient afebrile. No leukocytosis. Blood pressure 184/92, Pulse 69, Respirations 17. Patients chest xray done 11/05/21 reported Overall mild improvement in previously seen opacity right chest. Left lung is now clear. No new infiltrate. No pneumothorax. Patient is on Zithromax, Ceftraxone, Albuterol inhaler, S/C Heparin, Protonix. I spent critical care time of 35 minutes, obtaining history, review the chart, examine the patient , review chest xray, lab work, talking to the respiratory therapist and nursing staff and work out plan of treatment in this critically ill patient. - Patient Problems (1) Pneumonia Current Visit: Yes Status: Acute Plan to address problem: Patient is on Zithromax and ceftraxone. (2) ESRD (end stage renal disease) Current Visit: Yes Status: Acute Plan to address problem: Management as per nephrology.. (3) GERD (gastroesophageal reflux disease) Current Visit: Yes Status: Acute Qualifiers: Esophagitis presence: without esophagitis Qualified Code(s): K21.9 - Gastro-esophageal reflux disease without esophagitis Plan to address problem: Patient is on Protonix. (4) Hypertensive emergency Current Visit: Yes Status: Acute Plan to address problem: Patients blood pressure 184/92. Patient is on Nicarpedine, Nifedipine, Hydralagine, Coreg. Management as primary care. (5) Respiratory failure Current Visit: Yes Status: Acute Qualifiers: Chronicity: acute on chronic Plan to address problem: Patient is On CPAP as he is using at home. (6) Von Hippel-Lindau syndrome Current Visit: Yes Status: Acute Plan to address problem: Recommend to consult oncology to follow. Management as per primary care and Oncology. (7) Sleep apnea Current Visit: Yes Status: Acute Plan to address problem: Patient says has history of sleep apnea. Uses CPAP at home. Recommend CPAP as he is using at home. Subjective Date of service: 11/06/21 Principal diagnosis: ESRD Interval history: 61 YO Male with ESRD on HD, HTN, GERD, VHL Syndrome ( VAN HIPPLE, LANDU Syndrome), Peripheral Neuropathy, Chronic Respiratory Failure on 2L Home oxygen presents to ED for evaluation. Patient reported "I got weak and then I passed out". Patient reports feeling weak over the past 1 day. Patient presented to his dialysis center for routine scheduled dialysis. Patient experienced loss of consciousness during dialysis. EMS notified and on arrival the patient was found to be in distress and subsequent transported to [facility] for further care and evaluation of the aforementioned symptoms. The patient was seen and evaluated in the emergency department. Patient found to have a pulse oximetry of 88% on supplemental oxygen which is consistent with Acute on chronic hypoxemic respiratory failure. The patient was found to have a blood pressure of 229/100 mmHg which is consistent with hypertensive emergency, end-stage renal disease, pneumonia. Patient admitted to [facility] and initiated on IV antihypertensive therapy. Patient also initiated on pneumonia protocol. Nephrology team consulted in ED. No reports of fever, chills, chest pain, palpitation, productive cough, skin rash or recent contact, known exposure to COVID-19. Patient SARS [place] virus 2 PCR positive here. Patients surgical histories 3 Brain surgeries, Bilateral Nephrectomy on dialysis., Splenectomy. Cholecystectomy and appendectomy. Patient has no history of smoking, alcohol or drug abuse. 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 Allergic to multiple medicat ions Conidine, Codeine, Hydrocodone,Aspirin. Patient awake . Patient resting on 3 litres O2. Patients O2 saturation running 99% . Patient says he has history of sleep apnea. He uses CPAP at home. His Home CPAP stand by in the room. Patient afebrile. No leukocytosis. Blood pressure 184/92, Pulse 69, Respirations 17. Patients chest xray done 11/05/21 reported Overall mild improvement in previo usly seen opacity right chest. Left lung is now clear. No new infiltrate. No pneumothorax. Patient is on Zithromax, Ceftraxone, Albuterol inhaler, S/C Heparin, Protonix. Objective Vital Signs - 12hr 11/06/21 11/06/21 11/06/21 08:16 08:31 09:00 Temperature Pulse Rate 58 L 58 L Pulse Rate [ From Monitor] Respiratory 10 L 12 Rate Blood Pressure 145/73 139/64 O2 Sat by Pulse 96 96 93 Oximetry O2 Sat by Pulse Oximetry [ Anterior Bilateral] 11/06/21 11/06/21 11/06/21 09:31 10:01 10:03 Temperature Pulse Rate 61 61 60 Pulse Rate [ From Monitor] Respiratory 13 11 L Rate Blood Pressure 139/64 124/54 124/54 O2 Sat by Pulse 95 96 Oximetry O2 Sat by Pulse Oximetry [ Anterior Bilateral] 11/06/21 11/06/21 11/06/21 10:30 11:00 11:31 Temperature Pulse Rate 60 58 L 58 L Pulse Rate [ From Monitor] Respiratory 10 L 12 11 L Rate Blood Pressure 120/63 114/57 123/66 O2 Sat by Pulse 94 93 95 Oximetry O2 Sat by Pulse Oximetry [ Anterior Bilateral] 11/06/21 11/06/21 11/06/21 12:00 12:01 12:07 Temperature 98.5 F Pulse Rate 57 L Pulse Rate [ 53 L From Monitor] Respiratory 18 11 L Rate Blood Pressure 149/63 O2 Sat by Pulse 97 95 Oximetry O2 Sat by Pulse Oximetry [ Anterior Bilateral] 11/06/21 11/06/21 11/06/21 12:30 12:45 13:00 Temperature 98.8 F Pulse Rate 61 61 61 Pulse Rate [ From Monitor] Respiratory 13 18 11 L Rate Blood Pressure 173/80 145/86 145/86 O2 Sat by Pulse 95 96 Oximetry O2 Sat by Pulse 99 Oximetry [ Anterior Bilateral] 11/06/21 11/06/21 11/06/21 13:15 13:30 13:45 Temperature Pulse Rate 59 L 59 L 59 L Pulse Rate [ From Monitor] Respiratory 9 L Rate Blood Pressure 163/73 150/65 136/67 O2 Sat by Pulse 96 Oximetry O2 Sat by Pulse Oximetry [ Anterior Bilateral] 11/06/21 11/06/21 11/06/21 14:00 14:15 14:30 Temperature Pulse Rate 58 L 60 58 L Pulse Rate [ From Monitor] Respiratory 8 L 9 L Rate Blood Pressure 157/73 140/62 127/70 O2 Sat by Pulse 96 97 Oximetry O2 Sat by Pulse Oximetry [ Anterior Bilateral] 11/06/21 11/06/21 11/06/21 14:45 15:00 15:01 Temperature Pulse Rate 62 56 L 59 L Pulse Rate [ From Monitor] Respiratory 10 L Rate Blood Pressure 145/66 142/66 142/66 O2 Sat by Pulse 96 Oximetry O2 Sat by Pulse Oximetry [ Anterior Bilateral] 11/06/21 11/06/21 11/06/21 15:15 15:30 15:45 Temperature Pulse Rate 59 L 58 L 61 Pulse Rate [ From Monitor] Respiratory 10 L Rate Blood Pressure 144/62 157/70 157/74 O2 Sat by Pulse 96 Oximetry O2 Sat by Pulse Oximetry [ Anterior Bilateral] 11/06/21 11/06/21 11/06/21 16:00 16:23 16:30 Temperature 98.5 F 98.0 F Pulse Rate 60 65 63 Pulse Rate [ From Monitor] Respiratory 9 L 14 14 Rate Blood Pressure 163/66 178/73 169/74 O2 Sat by Pulse 96 97 Oximetry O2 Sat by Pulse 99 Oximetry [ Anterior Bilateral] 11/06/21 11/06/21 11/06/21 16:36 16:40 17:00 Temperature Pulse Rate 63 66 Pulse Rate [ 65 From Monitor] Respiratory 15 14 Rate Blood Pressure 169/74 173/86 O2 Sat by Pulse 97 93 Oximetry O2 Sat by Pulse Oximetry [ Anterior Bilateral] 11/06/21 11/06/21 11/06/21 17:30 18:00 18:21 Temperature Pulse Rate 76 63 62 Pulse Rate [ From Monitor] Respiratory 11 L 8 L 10 L Rate Blood Pressure 176/72 183/77 174/78 O2 Sat by Pulse 94 97 100 Oximetry O2 Sat by Pulse Oximetry [ Anterior Bilateral] 11/06/21 11/06/21 11/06/21 18:30 18:41 19:00 Temperature Pulse Rate 63 63 65 Pulse Rate [ From Monitor] Respiratory 8 L 9 L 11 L Rate Blood Pressure 184/72 184/72 186/64 O2 Sat by Pulse 96 99 95 Oximetry O2 Sat by Pulse Oximetry [ Anterior Bilateral] 11/06/21 19:30 Temperature Pulse Rate 67 Pulse Rate [ From Monitor] Respiratory 11 L Rate Blood Pressure 188/80 O2 Sat by Pulse 96 Oximetry O2 Sat by Pulse Oximetry [ Anterior Bilateral] Constitutional: no acute distress, alert, other (Resting on CPAP) Eyes: non-icteric ENT: oropharynx moist Neck: supple, no lymphadenopathy Effort: mildly labored Ascultation: Bilateral: rhonchi (Few rhonchi) Cardiovascular: regular rate and rhythm Gastrointestinal: normoactive bowel sounds Integumentary: normal, rash Extremities: no cyanosis, no edema Neurologic: normal mental status, non-focal exam, pupils equal and round Psychiatric: mood appropriate, affect normal CBC and BMP: 11/06/21 03:59 11/07/21 06:04 ABG, PT/INR, D-dimer: PT/INR, D-dimer PT 14.5 Sec. (12.2-14.9) 11/03/21 15:33 INR 1.02 (0.87-1.13) 11/03/21 15:33 D-Dimer 360.67 ng/mlDDU (0-234) H 11/04/21 11:05 Abnormal lab findings: Abnormal Labs 11/03/21 11/03/21 11/04/21 15:33 15:33 04:25 WBC 11.3 H RBC 3.60 L 3.54 L Hgb 11.5 L 11.4 L Hct 35.3 L MCV 101 H 100 H MCH MCHC RDW 15.5 H 15.8 H Lymph % (Auto) 6.5 L [place] % (Auto) 12.1 H Eos % (Auto) 12.8 H Lymph # (Auto) 0.7 L [place] # (Auto) 1.4 H Eos # (Auto) 1.4 H Baso # (Auto) 0.2 H Seg Neuts % (Manual) 71.0 H Lymphocytes % (Manual) 7.0 L Eosinophils % (Manual) 16.0 H Nucleated RBC % 1.0 H Lymphocytes # (Manual) 0.8 L Eosinophils # (Manual) 1.7 H D-Dimer Sodium Chloride 95.8 L Carbon Dioxide BUN 26 H Creatinine 5.5 H Glucose 148 H Ferritin Lactate Dehydrogenase CK-MB (CK-2) 6.4 H CK-MB (CK-2) Rel Index 4.9 H Troponin T 0.271 H* Triglycerides 206 H HDL Cholesterol 37 L SARS-CoV-2 (PCR) 11/04/21 11/04/21 11/04/21 04:25 10:15 11:05 WBC RBC Hgb Hct MCV MCH MCHC RDW Lymph % (Auto) [place] % (Auto) Eos % (Auto) Lymph # (Auto) Marin # (Auto) Eos # (Auto) Baso # (Auto) Seg Neuts % (Manual) Lymphocytes % (Manual) Eosinophils % (Manual) Nucleated RBC % Lymphocytes # (Manual) Eosinophils # (Manual) D-Dimer Sodium Chloride 97.7 L Carbon Dioxide 33 H BUN 30 H Creatinine 6.5 H Glucose 105 H Ferritin Lactate Dehydrogenase CK-MB (CK-2) CK-MB (CK-2) Rel Index Troponin T 0.292 H* Triglycerides HDL Cholesterol SARS-CoV-2 (PCR) Positive A 11/04/21 11/04/21 11/04/21 11:05 11:05 11:05 WBC RBC Hgb Hct MCV MCH MCHC RDW Lymph % (Auto) [place] % (Auto) Eos % (Auto) Lymph # (Auto) [place] # (Auto) Eos # (Auto) Baso # (Auto) Seg Neuts % (Manual) Lymphocytes % (Manual) Eosinophils % (Manual) Nucleated RBC % Lymphocytes # (Manual) Eosinophils # (Manual) D-Dimer 360.67 H Sodium Chloride Carbon Dioxide BUN Creatinine Glucose Ferritin 1721.0 H Lactate Dehydrogenase 230 H CK-MB (CK-2) CK-MB (CK-2) Rel Index Troponin T Triglycerides HDL Cholesterol SARS-CoV-2 (PCR) 11/05/21 11/05/21 11/06/21 09:43 09:43 03:59 WBC RBC 3.50 L Hgb 11.4 L Hct 35.4 L MCV 102 H 101 H MCH 33 H MCHC 31 L RDW 15.7 H 15.8 H Lymph % (Auto) [place] % (Auto) Eos % (Auto) Lymph # (Auto) [place] # (Auto) Eos # (Auto) Baso # (Auto) Seg Neuts % (Manual) Lymphocytes % (Manual) Eosinophils % (Manual) Nucleated RBC % Lymphocytes # (Manual) Eosinophils # (Manual) D-Dimer Sodium 136 L Chloride 96.0 L Carbon Dioxide BUN 25 H Creatinine 5.5 H Glucose 114 H Ferritin Lactate Dehydrogenase CK-MB (CK-2) CK-MB (CK-2) Rel Index Troponin T Triglycerides HDL Cholesterol SARS-CoV-2 (PCR) 11/06/21 03:59 WBC RBC Hgb Hct MCV MCH MCHC RDW Lymph % (Auto) [place] % (Auto) Eos % (Auto) Lymph # (Auto) [place] # (Auto) Eos # (Auto) Baso # (Auto) Seg Neuts % (Manual) Lymphocytes % (Manual) Eosinophils % (Manual) Nucleated RBC % Lymphocytes # (Manual) Eosinophils # (Manual) D-Dimer Sodium Chloride 97.4 L Carbon Dioxide BUN 36 H Creatinine 6.6 H Glucose Ferritin Lactate Dehydrogenase CK-MB (CK-2) CK-MB (CK-2) Rel Index Troponin T Triglycerides HDL Cholesterol SARS-CoV-2 (PCR) Chest x-ray: report reviewed, image reviewed Additional Studies: CHEST 1 VIEW 11/05/2021 2:15 AM INDICATION / CLINICAL INFORMATION: Follow up Acute Resp. failure. COMPARISON: 11/03/2021. FINDINGS: SUPPORT DEVICES: None. HEART / MEDIASTINUM: Stable. Hilar prominence remains. LUNGS / PLEURA: Overall mild improvement in previously seen opacity right chest. Left lung is now clear. No new infiltrate. No pneumothorax. ADDITIONAL FINDINGS: No significant additional findings. IMPRESSION: Interval improvement.
[2021-11-07] MEDS: hydrALAZINE 20 MG/1 ML INJ IV PRN (02:05)
[2021-11-07 06:26] LABS: Calcium 9.5 mg/dL (8.4-10.2)
[2021-11-07] MEDS ORDERED: AZITHROMYCIN 250 MG TAB PO SCH (10:00)
[2021-11-07] MEDS: GABAPENTIN 300 MG CAP PO SCH (11:55)
[2021-11-07] MEDS: HEPARIN 5,000 UNIT/1 ML VIAL SUB-Q SCH (11:55)
[2021-11-07] MEDS: carvediloL 25 MG TAB PO SCH (11:55)
[2021-11-07] MEDS: PANTOPRAZOLE 40 MG TAB PO SCH (11:55)
[2021-11-07] MEDS: NIFEdipine XL 90 MG TAB PO SCH (11:55)
[2021-11-07] MEDS: LANTHANUM CARBONATE 500 MG TAB PO SCH ×2 (11:56→12:10)
[2021-11-07] MEDS: hydrALAZINE 100 MG TAB PO SCH (11:57)
--- NOTE | 2021-11-07 12:23 | Progress Note ---
Assessment and Plan Cultures: SARS CoV2 PCR: Positive 11/03/2021 blood culture: No growth A/P: 61-year-old male with ESRD on HD, diabetes, hypertension, prior cholecystectomy, appendectomy, nephrectomy, splenectomy, chronic respiratory failure on home oxygen was admitted with weakness, then passed out. Was found to be hypoxic, sent to the hospital, noted to have hypertensive emergency, elevated troponin: #COVID-19: Initial chest x-ray showed bilateral pneumonia, repeat chest x-ray showed improvement. D-dimer 360, CRP 0.5. #Chronic hypoxic respiratory failure: On oxygen by nasal cannula. #Elevated troponin: Cardiology following #Hypertensive emergency #ESRD on HD Recs: -resp status at baseline -Not a candidate for remdesivir due to renal failure -off abx Cortney Malik MD, FACP, [facility] ([facility] O: [phone] F: [phone] C: [phone] Subjective Date of service: 11/07/21 Principal diagnosis: ESRD Interval history: No fever. Stable on NC at 2 L/min. Objective - Exam Narrative Exam: Physical Exam (reviewed in chart to minimize risk of transmission) Constitutional: deferred Head, Ears, Nose: deferred Eyes: deferred Neck: deferred Oral: deferred Cardiovascular: deferred Respiratory: deferred GI: deferred Musculoskeletal: deferred Skin: deferred Hem/Lymphatic: deferred Psych: deferred Neurological: deferred - Constitutional Vitals: Vital Signs Temp Pulse Resp BP Pulse Ox 98.7 F 66 34 H 155/69 99 11/07/21 11:36 11/07/21 12:00 11/07/21 08:31 11/07/21 12:01 11/07/21 12:01 Temperature -Last 24 Hours Temperature 98.7 F Temperature 98.2 F Temperature 97.9 F Temperature 97.6 F Temperature 98.0 F Temperature 98.5 F Temperature 98.8 F - Labs CBC & Chem 7: 11/06/21 03:59 11/07/21 06:04 Labs: Abnormal lab results 11/07/21 Range/Units 06:04 BUN 22 H (9-20) mg/dL Creatinine 4.7 H (0.8-1.3) mg/dL
--- NOTE | 2021-11-07 12:59 | Progress Note ---
Assessment and Plan - Patient Problems (1) Mitral stenosis Current Visit: Yes Status: Acute Plan to address problem: Mild to moderate mitral stenosis, currently asymptomatic, recommend outpatient cardiology follow-up. Otherwise, no cardiac interventions are indicated at the current time, defer to internal medicine and pulmonary for management of presenting acute COVID infection. We will follow intermittently. Subjective Date of service: 11/07/21 Principal diagnosis: ESRD Interval history: Patient is comfortable in no acute distress, no new cardiac events reported. Objective Vital Signs Temp Pulse Pulse Resp BP Pulse Ox Pulse Ox 11/07/21 12:01 155/69 99 11/07/21 12:00 66 66 16 97 11/07/21 11:55 74 155/69 11/07/21 11:36 98.7 F 11/07/21 11:30 155/69 97 11/07/21 11:00 152/71 92 11/07/21 10:30 161/72 97 11/07/21 10:00 166/72 96 11/07/21 09:30 164/73 96 11/07/21 09:00 161/74 94 11/07/21 08:59 96 11/07/21 08:31 65 34 H 151/75 93 11/07/21 08:00 63 64 9 L 144/67 94 11/07/21 07:30 66 11 L 162/72 94 11/07/21 07:19 98.2 F 11/07/21 07:00 86 14 156/67 94 11/07/21 06:30 70 25 H 172/78 96 11/07/21 06:01 65 9 L 151/131 96 11/07/21 05:30 65 12 154/68 95 11/07/21 05:00 65 10 L 162/67 93 11/07/21 04:30 172/88 89 11/07/21 04:00 65 9 L 162/71 94 11/07/21 03:44 62 16 97 11/07/21 03:41 63 11/07/21 03:30 69 9 L 167/79 96 11/07/21 03:00 64 8 L 161/74 93 11/07/21 02:30 65 11 L 163/75 94 11/07/21 02:00 66 10 L 182/81 95 11/07/21 01:30 69 24 183/81 94 11/07/21 01:00 66 17 179/80 96 11/07/21 00:30 63 18 168/72 93 11/07/21 00:00 97.9 F 61 61 10 L 166/77 95 11/06/21 23:35 62 9 L 172/80 98 11/06/21 23:30 63 9 L 172/80 95 11/06/21 23:00 65 12 159/85 94 11/06/21 22:30 68 8 L 171/73 94 11/06/21 22:00 73 17 160/69 95 11/06/21 21:30 172/79 92 11/06/21 21:11 96 11/06/21 21:00 69 11 L 169/75 95 11/06/21 20:30 68 12 194/82 96 11/06/21 20:00 97.6 F 67 67 15 180/78 97 11/06/21 19:30 67 11 L 188/80 96 11/06/21 19:00 65 11 L 186/64 95 11/06/21 18:41 63 9 L 184/72 99 11/06/21 18:30 63 8 L 184/72 96 11/06/21 18:21 62 10 L 174/78 100 11/06/21 18:00 63 8 L 183/77 97 11/06/21 17:30 76 11 L 176/72 94 11/06/21 17:00 66 14 173/86 93 11/06/21 16:40 65 15 97 11/06/21 16:36 63 169/74 11/06/21 16:30 63 14 169/74 97 11/06/21 16:23 98.0 F 65 14 178/73 99 11/06/21 16:00 98.5 F 60 9 L 163/66 96 11/06/21 15:45 61 157/74 11/06/21 15:30 58 L 10 L 157/70 96 11/06/21 15:15 59 L 144/62 11/06/21 15:01 59 L 10 L 142/66 96 11/06/21 15:00 56 L 142/66 11/06/21 14:45 62 145/66 11/06/21 14:30 58 L 9 L 127/70 97 11/06/21 14:15 60 140/62 11/06/21 14:00 58 L 8 L 157/73 96 11/06/21 13:45 59 L 136/67 11/06/21 13:30 59 L 9 L 150/65 96 11/06/21 13:15 59 L 163/73 11/06/21 13:00 61 11 L 145/86 96 - Physical Examination General: No Apparent Distress HEENT: Positive: PERRL Neck: Positive: neck supple Cardiac: Positive: Reg Rate and Rhythm, Diastolic Murmur Lungs: Positive: Decreased Breath Sounds Neuro: Positive: Grossly Intact Abdomen: Positive: Soft Skin: Positive: Clear Extremities: Absent: edema - Labs and Meds Comprehensive Metabolic Panel 11/07/21 Range/Units 06:04 Sodium 137 (137-145) mmol/L Potassium 4.2 (3.6-5.0) mmol/L Chloride 98.4 (98-107) mmol/L Carbon Dioxide 28 (22-30) mmol/L BUN 22 H (9-20) mg/dL Creatinine 4.7 H (0.8-1.3) mg/dL Glucose 82 (75-100) mg/dL Calcium 9.5 (8.4-10.2) mg/dL
--- NOTE | 2021-11-07 14:20 | Progress Note ---
Assessment and Plan Assessment: Hypertensive emergency Covid Pneumonia ESRD (end stage renal disease) Respiratory failure GERD (gastroesophageal reflux disease) Von Hippel-Lindau syndrome Plan: -S/P hemodialysis yesterday for UF and clearance -Fluid restriction of 1 liter per day -Renally dose medications -Obtain daily weights -Monitor I/O's daily -Assess dialysis needs daily -Plan of care reviewed by Dr. Nelson Subjective Date of service: 11/07/21 Principal diagnosis: ESRD Interval history: Patient with active covid-19 infection, labs reviewed, chart reviewed Objective - Vital Signs Vital signs: Vital Signs - 12hr 11/07/21 11/07/21 11/07/21 02:30 03:00 03:30 Temperature Pulse Rate 65 64 69 Pulse Rate [ From Monitor] Respiratory 11 L 8 L 9 L Rate Blood Pressure 163/75 161/74 167/79 O2 Sat by Pulse 94 93 96 Oximetry 11/07/21 11/07/21 11/07/21 03:41 03:44 04:00 Temperature Pulse Rate 63 65 Pulse Rate [ 62 From Monitor] Respiratory 16 9 L Rate Blood Pressure 162/71 O2 Sat by Pulse 97 94 Oximetry 11/07/21 11/07/21 11/07/21 04:30 05:00 05:30 Temperature Pulse Rate 65 65 Pulse Rate [ From Monitor] Respiratory 10 L 12 Rate Blood Pressure 172/88 162/67 154/68 O2 Sat by Pulse 89 93 95 Oximetry 11/07/21 11/07/21 11/07/21 06:01 06:30 07:00 Temperature Pulse Rate 65 70 86 Pulse Rate [ From Monitor] Respiratory 9 L 25 H 14 Rate Blood Pressure 151/131 172/78 156/67 O2 Sat by Pulse 96 96 94 Oximetry 11/07/21 11/07/21 11/07/21 07:19 07:30 08:00 Temperature 98.2 F Pulse Rate 66 63 Pulse Rate [ 64 From Monitor] Respiratory 11 L 9 L Rate Blood Pressure 162/72 144/67 O2 Sat by Pulse 94 94 Oximetry 11/07/21 11/07/21 11/07/21 08:31 08:59 09:00 Temperature Pulse Rate 65 Pulse Rate [ From Monitor] Respiratory 34 H Rate Blood Pressure 151/75 161/74 O2 Sat by Pulse 93 96 94 Oximetry 11/07/21 11/07/21 11/07/21 09:30 10:00 10:30 Temperature Pulse Rate Pulse Rate [ From Monitor] Respiratory Rate Blood Pressure 164/73 166/72 161/72 O2 Sat by Pulse 96 96 97 Oximetry 11/07/21 11/07/21 11/07/21 11:00 11:30 11:36 Temperature 98.7 F Pulse Rate Pulse Rate [ From Monitor] Respiratory Rate Blood Pressure 152/71 155/69 O2 Sat by Pulse 92 97 Oximetry 11/07/21 11/07/21 11/07/21 11:55 12:00 12:01 Temperature Pulse Rate 74 66 Pulse Rate [ 66 From Monitor] Respiratory 16 Rate Blood Pressure 155/69 155/69 O2 Sat by Pulse 97 99 Oximetry - Lab 11/06/21 03:59 11/07/21 06:04 Most recent lab results Calcium 9.5 mg/dL (8.4-10.2) 11/07/21 06:04 Magnesium 2.00 mg/dL (1.7-2.3) 11/03/21 15:33 Medications & Allergies - Medications Allergies/Adverse Reactions: Allergies clonidine Allergy (Verified 11/03/21 14:04) Swelling codeine Allergy (Verified 11/03/21 14:04) Itching hydrocodone Allergy (Verified 11/03/21 14:04) Itching aspirin Adverse Reaction (Severe, Verified 11/03/21 14:04) Brain Bleeding Home Medications: Home Medications Medication Instructions Recorded Confirmed Last Taken Type B Complex 11/Folic/C/Biot/Zinc 1 each PO DAILY 08/15/16 11/04/21 11/03/21 History [Dialyvite with Zinc Tablet] Ergocalciferol (Vitamin D2) 1 tab PO 1XW 08/15/16 11/04/21 11/03/21 History [Vitamin D2] Lanthanum Carbonate [Fosrenol] 750 mg PO QDAC 09/05/16 11/04/21 11/03/21 History Doxazosin Mesylate [Cardura] 2 mg PO HS #30 tablet 09/07/16 11/04/21 11/03/21 Rx Folic Acid/Vit B Comp W-C [Renal 1 cap PO QDAY #30 capsule 09/07/16 11/04/21 11/03/21 Rx Caps] NIFEdipine XL [Procardia Xl] 60 mg PO Q12HR #60 tablet 09/07/16 11/04/2122 Rx Pantoprazole [Protonix TAB] 40 mg PO QDAY #30 tablet 09/07/16 11/04/21 11/03/21 Rx carvediloL [Coreg] 25 mg PO BID #60 tablet 09/07/16 11/04/21 11/03/21 Rx hydrALAZINE [Apresoline TAB] 100 mg PO TID #90 tab 09/07/16 11/04/21 11/03/21 Rx traMADoL [Ultram 50 MG tab] 50 mg PO Q6HR PRN #20 tablet 09/07/16 11/04/21 11/04/21 Rx Gabapentin 300 mg PO 3XW 11/05/21 11/05/21 Unknown History Active Medications: Generic Name Dose Route Start Last Admin Trade Name Freq PRN Reason Stop Dose Admin Acetaminophen 650 mg 11/03/21 18:39 Acetaminophen 325 Mg Tab PO Q6H PRN Pain MILD(1-3)/Fever >100.5/GAXIOLA Albuterol 2.5 mg 11/03/21 18:39 Albuterol 2.5 Mg/3 Ml Nebu IH Q3HRT PRN Shortness Of Breath Carvedilol 25 mg 11/05/21 10:00 11/07/21 11:55 Carvedilol 25 Mg Tab PO 25 mg BID LOUISE Administration Gabapentin 300 mg 11/04/21 10:00 11/07/21 11:55 Gabapentin 300 Mg Cap PO 300 mg BID LOUISE Administration Heparin Sodium (Porcine) 5,000 unit 11/05/21 10:00 11/07/21 11:55 Heparin 5,000 Unit/1 Ml Vial SUB-Q 5,000 unit Q12HR LOUISE Administration Hydralazine HCl 10 mg 11/04/21 19:07 11/07/21 02:05 Hydralazine 20 Mg/1 Ml Inj IV 10 mg Q4HR PRN Administration Hypertension Hydralazine HCl 100 mg 11/04/21 19:09 11/07/21 11:57 Hydralazine 100 Mg Tab PO Not Given TID LOUISE Hydromorphone HCl 0.5 mg 11/03/21 18:39 Hydromorphone 0.5 Mg/0.5 Ml Inj IV Q23H PRN Pain , Severe (7-10) Sodium Chloride 100 mls @ 999 mls/hr 11/04/21 10:54 Nacl 0.9% IV MILIND PRN Hypotension Lanthanum Carbonate 750 mg 11/04/21 22:00 11/07/21 12:10 Lanthanum Carbonate 500 Mg Tab PO Not Given [facility]HS LOUISE Nifedipine 90 mg 11/05/21 08:57 11/07/21 11:55 Nifedipine Xl 90 Mg Tab PO 90 mg Q12HR LOUISE Administration Ondansetron HCl 4 mg 11/05/21 20:15 11/05/21 20:32 Ondansetron 4 Mg/2 Ml Inj IV 4 mg Q8H PRN Administration Nausea And Vomiting Oxycodone/Acetaminophen 1 tab 11/03/21 18:39 11/05/21 04:09 Oxycodone /Acetaminophen 5-325mg Tab PO 1 tab Q6H PRN Administration Pain, Moderate (4-6) Pantoprazole Sodium 40 mg 11/04/21 10:00 11/07/21 11:55 Pantoprazole 40 Mg Tab PO 40 mg QDAY LOUISE Administration Sodium Chloride 10 ml 11/03/21 22:00 11/07/21 11:56 Sodium Chloride 0.9% 10 Ml Flush Syringe IV 10 ml BID LOUISE Administration Sodium Chloride 10 ml 11/03/21 18:39 Sodium Chloride 0.9% 10 Ml Flush Syringe IV PRN PRN LINE FLUSH
--- NOTE | 2021-11-07 14:32 | Discharge Summary ---
Providers - Providers Date of Admission: 11/03/21 18:39 Date of discharge: 11/07/21 Attending physician: JUNIOR CALLAHAN MD 11/03/21 19:55 Consult to Physician [CONS] Routine Comment: Consulting Provider: ZENY WAGNER Physician Instructions: Reason For Exam: esrd 11/04/21 08:47 Consult to Physician [CONS] Routine Comment: Consulting Provider: HENRIETTA FRIED Physician Instructions: Reason For Exam: HTN emergency, Syncope, elevated Troponin 11/04/21 08:49 Consult to Physician [CONS] Routine Comment: Consulting Provider: SHAKEEL DEL ANGEL Physician Instructions: Reason For Exam: CCM 11/04/21 12:10 Consult to Physician [CONS] Routine Comment: Consulting Provider: GEETA SHARMA Physician Instructions: Reason For Exam: COVID PNA 11/04/21 20:57 Speech Therapy Evaluation and Treat [CONS] Routine Reason For Exam: ? esophageal stricture Primary care physician: SIRENA ROOT Hospitalization Reason for admission: syncope Condition: Stable Hospital course: This is a 61-year-old male with known past medical history of craniotomy, ESRD on HD, HTN, GERD, VHL Syndrome, Peripheral Neuropathy, ADDY and Chronic Respiratory Failure on Cpap and 3L oxygen dependent at home admitted s/p syncopal episode in dialysis. Found to in emergency emergency and bilateral PNA. Hospital Course to Date: 11/04: Remains hypertensive in cardene gtt this am. Home meds resumed, plan to wean off cardene gtt for SBP less than 160. COVID PCR came back positive, patient is stable on home O2 at 3L. IV Abx swithed to Azithro and Rocephin, IV decadron, and ID consulted. Cardiology is also following, appreciate recommendations. CT scan noted, result discussed with patient at the bedside. Per patient, mild hydrocephalus noted on CT scan is not new. It was noted since after his last craniotomy 4years ago and [facility]. [facility] 11/07: VSS. On home oxygen requirement. Blood pressure more controlled. Advised to follow up with OP dialysis and remain complaint. Advised to follow up OP with OP nephrology doctor. Patient to be discharged home with home health care. #Acute on Chronic Respiratory Failure On 3 L nasal cannula oxygen Patient undergoing dialysis #Hypertensive Emergency --Off Cardene drip Blood pressure still high 173/70 #Syncopal Episode Syncope work-up completed Hypertensive emergency may be the cause Patient to follow-up with cardiology as outpatient for event monitor #Bilateral Pneumonia DC IV antibiotics #COVID 19 Pneumonia - O2 dependent at home, on 3L NC - CXR with suspected bilateral pneumonia - COVID PCR positive - patient is stable on home O2 at 3L NC - Empiric IV Abx discontinued -Patient has home oxygen and concentrator - Continue O2 supplementation and Nebs treatment as needed - Continue SPO2 monitoring for SPO2 goal above 92% - Aspiration precaution HOB above 30 - [facility] [place] is following -Patient to be discharged tomorrow with home health -Patient is debilitated and needs improvement in his lower body muscle strength so that he can walk longer distances. At present he can walk only up to the- restroom with help #End Stage Renal Disease(ESRD) on HD - Nephrology on consult, appreciated recommendation - Continue HD per Nephro - Strict intake and output - Avoid nephrotoxic medications; Renally dose medications - Monitor and replace electrolytes as needed #GERD (Gastroesophageal Reflux Disease) - Supportive care - Home Protonix resumed #Mild Hydrocephalus #H/o Von Hippel-Lindau Syndrome #S/p Multiple Craniotomy - Chronic. Continue supportive measures - CT scan result revealed mild hydrocephalus - Per patient, mild hydrocephalus noted on CT scan is not new. It was noted since after his last craniotomy 4years ago - [facility] PCP [facility] has been monitoring it. - Record [facility] #Anemia of Chronic Disease - most likely due to ESRD - H&H stable - Continue epogen with HD per Nephro - Trenc CBC #GI/DVT prophylaxis - PPI- Protonix - Heparin SubQ - SCD to bilateral lower extremities while in bed #Advance Care Planning - Disease education data, care plan, diagnoses, and prognosis were discussed with patient at the bedise. All questions and concerns were addressed at this tome. Patient is a FULL code. Patient acknowledged understanding and agreement with current care plan. Disposition: HOME / SELF CARE / HOMELESS Final Discharge Diagnosis (Prints w/discharge instructions): Acute on Chronic Respiratory Failure, Hypertensive Emergency Time spent for discharge: 35 Core Measure Documentation - Palliative Care Palliative Care/ Comfort Measures: Not Applicable - Core Measures Any of the following diagnoses?: none Exam - Physical Exam Narrative exam: General appearance: Present: no acute distress, well-nourished - EENT Eyes: PERRL, EOM intact ENT: hearing intact, clear oral mucosa Ears: bilateral: normal - Neck Neck: supple, normal ROM - Respiratory Respiratory effort: normal Respiratory: bilateral: CTA - Breasts Breasts: normal - Cardiovascular Heart rate: 78 Rhythm: regular Heart Sounds: Present: S1 & S2. Absent: gallop, rub Extremities: no ischemia, pulses intact, No edema, normal color, Full ROM - Gastrointestinal General gastrointestinal: Present: soft, non-tender, non-distended, normal bowel sounds - Genitourinary Male genitourinary: normal - Integumentary Integumentary: clear, warm, dry - Musculoskeletal Musculoskeletal: 1, strength equal bilaterally - Neurologic Neurologic: moves all extremities - Psychiatric Psychiatric: memory intact, appropriate mood/affect, intact judgment & insight - Allied health notes Allied health notes reviewed: nursing, case management - Constitutional Vitals: Temp Pulse Resp BP Pulse Ox 98.7 F 66 16 155/69 99 11/07/21 11:36 11/07/21 12:00 11/07/21 12:00 11/07/21 12:01 11/07/21 12:01 Plan Follow up with: SIRENA ROOT MD [Primary Care Provider] - 7 Days SHAKEEL DEL ANGEL MD [Staff Physician] - 7 Days
[2021-11-07 15:29] VITALS: BP 182/76
== END 2021-11-07 14:57 | disposition home or self-care (01) | DRG 177 ==
LOC: ED 13:56 → IMCU 18:39 → CC1 23:16 → IMCU 11-05 08:58
PROVIDERS: ADMIT Internal Medicine; ATTEND Internal Medicine
PROC: 5A1D70Z Performance of Urinary Filtration, Intermittent, Less than 6 Hours Per Day (ICD-10-PCS; principal; 2021-11-04)
PROC: 5A09357 Assistance with Respiratory Ventilation, Less than 24 Consecutive Hours, Continuous Positive Airway Pressure (ICD-10-PCS; 2021-11-04)
PROC: 5A1D70Z Performance of Urinary Filtration, Intermittent, Less than 6 Hours Per Day (ICD-10-PCS; 2021-11-06)
PROC: 5A09357 Assistance with Respiratory Ventilation, Less than 24 Consecutive Hours, Continuous Positive Airway Pressure (ICD-10-PCS; 2021-11-06)
DX: U07.1 COVID-19 (principal); J12.82 Pneumonia due to coronavirus disease 2019; N18.6 End stage renal disease; J96.21 Acute and chronic respiratory failure with hypoxia; I16.1 Hypertensive emergency; G91.9 Hydrocephalus, unspecified; Q85.8 Other phakomatoses, not elsewhere classified; I12.0 Hypertensive chronic kidney disease with stage 5 chronic kidney disease or end stage renal disease; K21.9 Gastro-esophageal reflux disease without esophagitis; R77.8 Other specified abnormalities of plasma proteins; R55 Syncope and collapse; E11.42 Type 2 diabetes mellitus with diabetic polyneuropathy; E11.22 Type 2 diabetes mellitus with diabetic chronic kidney disease; Z90.81 Acquired absence of spleen; D63.1 Anemia in chronic kidney disease; I25.10 Atherosclerotic heart disease of native coronary artery without angina pectoris; I05.0 Rheumatic mitral stenosis; Z88.6 Allergy status to analgesic agent; Z88.8 Allergy status to other drugs, medicaments and biological substances; Z83.3 Family history of diabetes mellitus; Z82.49 Family history of ischemic heart disease and other diseases of the circulatory system; Z90.5 Acquired absence of kidney; Z90.49 Acquired absence of other specified parts of digestive tract; Z99.2 Dependence on renal dialysis
CPT/HCPCS: 36415; 70450; 71045; 80048; 80053; 80061; 80074; 82550; 82553; 82728; 83615; 83735; 84484; 85007; 85025; 85027; 85379; 85610; 86140; 87040; 93005; 93306; 94760; G0378; J3490; C8929; J0360; J0456; J0696; J1100; J1644; J1956; J2405; J7050; U0003

== ENCOUNTER 2021-11-11 11:24 | Inpatient (IN) | payer OTHER ==
[2021-11-11 13:10] LABS: Albumin 3.8 g/dL (3.9-5); Blood Urea Nitrogen 81 mg/dL (9-20); Calcium 9.6 mg/dL (8.4-10.2); Hemolysis Index 2
[2021-11-11 13:11] LABS: Alanine Aminotransferase < 5 units/L (7-56); BUN/Creatinine Ratio 7
[2021-11-11] MEDS ORDERED: INSULIN REGULAR, HUMAN 100 UNITS/1 ML IV ONE (13:16)
[2021-11-11] MEDS ORDERED: SODIUM BICARB 8.4% 50 MEQ/50 ML SYRINGE IV ONE (13:16)
[2021-11-11 13:17] LABS: Basophils # (Auto) 0.1 K/mm3 (0.0-0.1); Basophils % (Auto) 0.8 % (0.0-1.8); Eosinophils # (Auto) 0.2 K/mm3 (0.0-0.4); Eosinophils % (Auto) 1.8 % (0.0-4.3); Hemoglobin 10.5 gm/dl (11.8-15.2); Lymphocytes # (Auto) 0.5 K/mm3 (1.2-5.4); Lymphocytes % (Auto) 3.8 % (13.4-35.0); Mean Corpuscular HGB Conc 32 % (32-34); Mean Corpuscular Volume 101 fl (84-94); Monocytes # (Auto) 1.5 K/mm3 (0.0-0.8); Monocytes % (Auto) 11.4 % (0.0-7.3); Platelet Count 173 K/mm3 (140-440); Red Blood Count 3.26 M/mm3 (3.65-5.03); Red Cell Distribution Width 15.3 % (13.2-15.2)
[2021-11-11] MEDS ORDERED: SODIUM POLYSTYRENE 15 GM/60 ML ORAL LIQD PR ONE (13:17)
[2021-11-11] MEDS ORDERED: CALCIUM GLUCONATE 1,000 MG in SODIUM CHLORIDE 0.9% 100 ML IV ONE (14:00)
[2021-11-11] MEDS ORDERED: DEXTROSE 50% IN WATER (25GM) 50 ML SYRINGE IV ONE (14:00)
--- NOTE | 2021-11-11 14:12 | Emergency Department Report ---
ED General Adult HPI - General Chief complaint: Dyspnea/Respdistress Stated complaint: sob, weakness Time Seen by Provider: 11/11/21 11:31 Source: EMS Mode of arrival: Stretcher Limitations: Physical Limitation - History of Present Illness Initial comments: Patient is a 61-year-old male with history of chronic kidney disease on dialysis presenting to emergency department with who reports severe lethargy over the past several days. He dialyzes Saturday and Saturday and missed his last dialysis appointment on due to severe weakness. - Related Data Home Medications Medication Instructions Recorded Confirmed Last Taken B Complex 11/Folic/C/Biot/Zinc 1 each PO DAILY 08/15/16 11/04/21 11/03/21 [Dialyvite with Zinc Tablet] Ergocalciferol (Vitamin D2) 1 tab PO 1XW 08/15/16 11/04/21 11/03/21 [Vitamin D2] Lanthanum Carbonate [Fosrenol] 750 mg PO QDAC 09/05/16 11/04/21 11/03/21 Gabapentin 300 mg PO 3XW 11/05/21 11/05/21 Unknown Previous Rx's Medication Instructions Recorded Last Taken Type Doxazosin Mesylate [Cardura] 2 mg PO HS #30 tablet 09/07/16 11/03/21 Rx Folic Acid/Vit B Comp W-C [Renal 1 cap PO QDAY #30 capsule 09/07/16 11/03/21 Rx Caps] NIFEdipine XL [Procardia Xl] 60 mg PO Q12HR #60 tablet 09/07/16 11/03/21 Rx Pantoprazole [Protonix TAB] 40 mg PO QDAY #30 tablet 09/07/16 11/03/21 Rx carvediloL [Coreg] 25 mg PO BID #60 tablet 09/07/16 11/03/21 Rx hydrALAZINE [Apresoline TAB] 100 mg PO TID #90 tab 09/07/16 11/03/21 Rx traMADoL [Ultram 50 MG tab] 50 mg PO Q6HR PRN #20 tablet 09/07/16 11/04/21 Rx Allergies Allergy/AdvReac Type Severity Reaction Status Date / Time clonidine Allergy Swelling Verified 11/03/21 14:04 codeine Allergy Itching Verified 11/03/21 14:04 hydrocodone Allergy Itching Verified 11/03/21 14:04 aspirin AdvReac Severe Brain Verified 11/03/21 14:04 Bleeding ED Review of Systems ROS: Stated complaint: sob, weakness Other details as noted in HPI Constitutional: malaise, weakness Respiratory: denies: cough, shortness of breath, wheezing Cardiovascular: denies: chest pain, palpitations Gastrointestinal: denies: abdominal pain, nausea, diarrhea Genitourinary: denies: urgency, dysuria Skin: denies: rash, lesions Neurological: denies: headache, weakness, paresthesias Psychiatric: denies: anxiety, depression ED Past Medical Hx - Past Medical History Hx Hypertension: Yes Hx CVA: No Hx Congestive Heart Failure: No Hx Diabetes: No Hx Renal Disease: Yes (HD) Hx Seizures: No Hx Asthma: No Hx COPD: No Hx Tuberculosis: No Hx HIV: No Additional medical history: VAN-HIPPEL SYNDROME (AUTOIMMUNE), PANCREATIC CYSTS, BRAIN TUMORS - Surgical History Hx Pacemaker: No Hx Cholecystectomy: Yes Hx Appendectomy: Yes Additional Surgical History: 3 BRAIN SURGERIES, NEPHRECTOMY B/L, SPLENECTOMY, - Social History Smoking Status: Former Smoker - Medications Home Medications: Home Medications Medication Instructions Recorded Confirmed Last Taken Type B Complex 11/Folic/C/Biot/Zinc 1 each PO DAILY 08/15/16 11/04/21 11/03/21 History [Dialyvite with Zinc Tablet] Ergocalciferol (Vitamin D2) 1 tab PO 1XW 08/15/16 11/04/21 11/03/21 History [Vitamin D2] Lanthanum Carbonate [Fosrenol] 750 mg PO QDAC 09/05/16 11/04/21 11/03/21 History Doxazosin Mesylate [Cardura] 2 mg PO HS #30 tablet 09/07/16 11/04/21 11/03/21 Rx Folic Acid/Vit B Comp W-C [Renal 1 cap PO QDAY #30 capsule 09/07/16 11/04/21 11/03/21 Rx Caps] NIFEdipine XL [Procardia Xl] 60 mg PO Q12HR #60 tablet 09/07/16 11/04/21 11/03/21 Rx Pantoprazole [Protonix TAB] 40 mg PO QDAY #30 tablet 09/07/16 11/04/21 11/03/21 Rx carvediloL [Coreg] 25 mg PO BID #60 tablet 09/07/16 11/04/2111/03/22 Rx hydrALAZINE [Apresoline TAB] 100 mg PO TID #90 tab 09/07/16 11/04/21 11/03/21 Rx traMADoL [Ultram 50 MG tab] 50 mg PO Q6HR PRN #20 tablet 09/07/16 11/04/21 11/04/21 Rx Gabapentin 300 mg PO 3XW 11/05/21 11/05/21 Unknown History ED Physical Exam - General Limitations: Physical Limitation General appearance: other (Severely somnolent) - Head Head exam: Present: atraumatic, normocephalic - Respiratory Respiratory exam: Present: normal lung sounds bilaterally. Absent: respiratory distress - Cardiovascular Cardiovascular Exam: Present: regular rate, normal rhythm, normal heart sounds - GI/Abdominal GI/Abdominal exam: Present: soft. Absent: distended, tenderness - Neurological Exam Neurological exam: Present: other (Patient is extremely somnolent however arousable to voice) - Skin Skin exam: Present: warm, dry, intact, normal color ED Medical Decision Making - Lab Data Result diagrams: 11/11/21 12:28 11/11/21 12:28 - Medical Decision Making Serum potassium 6.4. Patient given rectal Kayexalate, insulin, dextrose, calcium gluconate. Discussed case with on-call nephrology who will perform emergent dialysis. Will admit to hospitalist. Critical Care Time: Yes Critical care time in (mins) excluding proc time.: 35 Critical care attestation.: If time is entered above; I have spent that time in minutes in the direct care of this critically ill patient, excluding procedure time. ED Disposition Clinical Impression: Lethargy, Hyperkalemia Disposition: ADMITTED INPATIENT Is pt being admited?: Yes Condition: Stable
--- NOTE | 2021-11-11 17:34 | History and Physical Report ---
History of Present Illness Date of examination: 11/11/21 Date of admission: 11/11/21 Chief complaint: Decreased responsiveness for 1 day History of present illness: 61-year-old male with history of hypertension, end-stage renal disease and GERD brought into the emergency department because of decreased responsiveness. Patient has been lethargic and decreased responsiveness for the last 24 hours. Missed 1 hemodialysis session on . The last hemodialysis session was on Saturday today to Saturday. No fever or chills. No cough. - Past Medical History --Hypertension: Yes --Hx Renal Disease: Yes (HD) --Additional medical history: VAN-HIPPEL SYNDROME (AUTOIMMUNE), PANCREATIC CYSTS, BRAIN TUMORS - Surgical History --Cholecystectomy: Yes --Appendectomy: Yes --Additional Surgical History: 3 BRAIN SURGERIES, NEPHRECTOMY B/L, SPLENECTOMY, - Social History --Smoking Status: Former Smoker - Medications --Home Medications: Home Medications Medication Instructions Recorded Confirmed Last Taken Type B Complex 11/Folic/C/Biot/Zinc 1 each PO DAILY 08/15/16 11/04/21 11/03/21 History [Dialyvite with Zinc Tablet] Ergocalciferol (Vitamin D2) 1 tab PO 1XW 08/15/16 11/04/21 11/03/21 History [Vitamin D2] Lanthanum Carbonate [Fosrenol] 750 mg PO QDAC 09/05/16 11/04/21 11/03/21 History Doxazosin Mesylate [Cardura] 2 mg PO HS #30 tablet 09/07/16 11/04/21 11/03/21 Rx Folic Acid/Vit B Comp W-C [Renal 1 cap PO QDAY #30 capsule 09/07/16 11/04/21 11/03/21 Rx Caps] NIFEdipine XL [Procardia Xl] 60 mg PO Q12HR #60 tablet 09/07/16 11/04/2111/03 Rx Pantoprazole [Protonix TAB] 40 mg PO QDAY #30 tablet 09/07/16 11/04/21 11/03/21 Rx carvediloL [Coreg] 25 mg PO BID #60 tablet 09/07/16 11/04/21 11/03/21 Rx hydrALAZINE [Apresoline TAB] 100 mg PO TID #90 tab 09/07/16 11/04/21 11/03/21 Rx traMADoL [Ultram 50 MG tab] 50 mg PO Q6HR PRN #20 tablet 09/07/16 11/04/21 11/04/21 Rx Gabapentin 300 mg PO 3XW 11/05/21 11/05/21 Unknown History Review of Systems ROS: Stated complaint: sob, weakness Other details as noted in HPI Constitutional: malaise, weakness Respiratory: denies: cough, shortness of breath, wheezing Cardiovascular: denies: chest pain, palpitations Gastrointestinal: denies: abdominal pain, nausea, diarrhea Genitourinary: denies: urgency, dysuria Skin: denies: rash, lesions Neurological: denies: headache, weakness, paresthesias Psychiatric: denies: anxiety, depression Medications and Allergies Allergies Allergy/AdvReac Type Severity Reaction Status Date / Time clonidine Allergy Swelling Verified 11/03/21 14:04 codeine Allergy Itching Verified 11/03/21 14:04 hydrocodone Allergy Itching Verified 11/03/21 14:04 aspirin AdvReac Severe Brain Verified 11/03/21 14:04 Bleeding Home Medications Medication Instructions Recorded Confirmed Last Taken Type B Complex 11/Folic/C/Biot/Zinc 1 each PO DAILY 08/15/16 11/12/21 11/03/21 History [Dialyvite with Zinc Tablet] Ergocalciferol (Vitamin D2) 1 tab PO 1XW 08/15/16 11/12/21 11/03/21 History [Vitamin D2] Lanthanum Carbonate [Fosrenol] 750 mg PO QDAC 09/05/16 11/12/21 11/03/21 History Doxazosin Mesylate [Cardura] 2 mg PO HS #30 tablet 09/07/16 11/12/21 11/03/21 Rx Folic Acid/Vit B Comp W-C [Renal 1 cap PO QDAY #30 capsule 09/07/16 11/12/21 11/03/21 Rx Caps] NIFEdipine XL [Procardia Xl] 60 mg PO Q12HR #60 tablet 09/07/16 11/12/21 11/03/21 Rx Pantoprazole [Protonix TAB] 40 mg PO QDAY #30 tablet 09/07/16 11/12/21 11/03/21 Rx carvediloL [Coreg] 25 mg PO BID #60 tablet 09/07/16 11/12/21 11/03/21 Rx hydrALAZINE [Apresoline TAB] 100 mg PO TID #90 tab 09/07/16 11/12/21 11/03/21 Rx traMADoL [Ultram 50 MG tab] 50 mg PO Q6HR PRN #20 tablet 09/07/16 11/12/21 11/04/21 Rx Gabapentin 300 mg PO 3XW 11/05/21 11/12/21 Unknown History Exam - Constitutional Vitals: Temp Pulse Resp BP Pulse Ox 98.9 F 64 13 117/53 98 11/11/21 15:54 11/11/21 15:01 11/11/21 15:01 11/11/21 15:01 11/11/21 15:01 General appearance: Present: no acute distress, well-nourished - EENT Eyes: Present: PERRL ENT: hearing intact, clear oral mucosa - Neck Neck: Present: supple, normal ROM - Respiratory Respiratory effort: normal Respiratory: bilateral: CTA - Cardiovascular Heart rate: 78 Rhythm: regular Heart Sounds: Present: S1 & S2. Absent: rub, click - Extremities Extremities: pulses symmetrical, No edema Peripheral Pulses: within normal limits - Abdominal General gastrointestinal: Present: soft, non-tender, non-distended, normal bowel sounds Male genitourinary: Present: normal - Integumentary Integumentary: Present: clear, warm, dry - Musculoskeletal Musculoskeletal: strength equal bilaterally, generalized weakness - Psychiatric Psychiatric: other (Lethargic) - Neurologic Neurologic: CNII-XII intact, moves all extremities - Allied Health Allied health notes reviewed: nursing, case management Results - Labs CBC & Chem 7: 11/12/21 04:45 11/12/21 04:45 Labs: Laboratory Last Values WBC 13.3 K/mm3 (4.5-11.0) H 11/11/21 12:28 RBC 3.26 M/mm3 (3.65-5.03) L 11/11/21 12:28 Hgb 10.5 gm/dl (11.8-15.2) L 11/11/21 12:28 Hct 33.0 % (35.5-45.6) L 11/11/21 12:28 MCV 101 fl (84-94) H 11/11/21 12:28 MCH 32 pg (28-32) 11/11/21 12:28 MCHC 32 % (32-34) 11/11/21 12:28 RDW 15.3 % (13.2-15.2) H 11/11/21 12:28 Plt Count 173 K/mm3 (140-440) 11/11/21 12:28 Lymph % (Auto) 3.8 % (13.4-35.0) L 11/11/21 12:28 [place] % (Auto) 11.4 % (0.0-7.3) H 11/11/21 12:28 Eos % (Auto) 1.8 % (0.0-4.3) 11/11/21 12:28 Baso % (Auto) 0.8 % (0.0-1.8) 11/11/21 12: Lymph # (Auto) 0.5 K/mm3 (1.2-5.4) L 11/11/21 12:28 [place] # (Auto) 1.5 K/mm3 (0.0-0.8) H 11/11/21 12:28 Eos # (Auto) 0.2 K/mm3 (0.0-0.4) 11/11/21 12:28 Baso # (Auto) 0.1 K/mm3 (0.0-0.1) 11/11/21 12:28 Seg Neutrophils % 82.2 % (40.0-70.0) H 11/11/21 12:28 Seg Neutrophils # 11.0 K/mm3 (1.8-7.7) H 11/11/21 12:28 Sodium 134 mmol/L (137-145) L 11/11/21 12:28 Potassium 6.4 mmol/L (3.6-5.0) H* D 11/11/21 12:28 Chloride 93.6 mmol/L (98-107) L 11/11/21 12:28 Carbon Dioxide 20 mmol/L (22-30) L D 11/11/21 12:28 Anion Gap 27 mmol/L 11/11/21 12:28 BUN 81 mg/dL (9-20) H 11/11/21 12:28 Creatinine 12.0 mg/dL (0.8-1.3) H D 11/11/21 12:28 Estimated GFR 4 ml/min 11/11/21 12:28 BUN/Creatinine Ratio 7 % 11/11/21 12:28 Glucose 104 mg/dL (75-100) H 11/11/21 12:28 Calcium 9.6 mg/dL (8.4-10.2) 11/11/21 12:28 Total Bilirubin 0.40 mg/dL (0.1-1.2) 11/11/21 12:28 AST 15 units/L (5-40) 11/11/21 12:28 ALT < 5 units/L (7-56) L 11/11/21 12:28 Alkaline Phosphatase 103 units/L (35-129) 11/11/21 12:28 Total Protein 6.8 g/dL (6.3-8.2) 11/11/21 12:28 Albumin 3.8 g/dL (3.9-5) L 11/11/21 12:28 Albumin/Globulin Ratio 1.3 % 11/11/21 12:28 Short CBC 11/11/21 11/12/21 Range/Units 12:28 04:45 WBC 13.3 H 9.9 (4.5-11.0) K/mm3 Hgb 10.5 L 11.0 L (11.8-15.2) gm/dl Hct 33.0 L 34.3 L (35.5-45.6) % Plt Count 173 179 (140-440) K/mm3 BMP 11/11/21 11/12/21 11/12/21 12:28 00:50 04:45 Sodium 134 L 140 Potassium 6.4 H* D 3.6 D 4.4 D Chloride 93.6 L 98.0 Carbon Dioxide 20 L D 23 BUN 81 H 56 H Creatinine 12.0 H D 8.8 H Glucose 104 H 56 L Calcium 9.6 9.7 Liver Function 11/11/21 11/12/21 Range/Units 12:28 04:45 Total Bilirubin 0.40 0.40 (0.1-1.2) mg/dL AST 15 17 (5-40) units/L ALT < 5 L 5 L (7-56) units/L Alkaline Phosphatase 103 98 (35-129) units/L Albumin 3.8 L 3.4 L (3.9-5) g/dL - Imaging and Cardiology EKG: image reviewed (Sinus rhythm no acute ST-T wave changes) Assessment and Plan Advance Directives: Yes (Full code) VTE prophylaxis?: Chemical Plan of care discussed with patient/family: Yes - Patient Problems (1) Acute metabolic encephalopathy Current Visit: Yes Status: Acute Plan to address problem: Differential diagnosis of leukemia versus CVA MRI brain Emergent hemodialysis (2) Hyperkalemia Current Visit: Yes Status: Acute Plan to address problem: Treated in the emergency room with Kayexalate insulin and calcium gluconate Emergent hemodialysis Nephrology consulted (3) ESRD (end stage renal disease) Current Visit: No Status: Chronic Plan to address problem: Emergent hemodialysis And nephrology consulted (4) Hypertension Current Visit: Yes Status: Chronic Qualifiers: Hypertension type: primary hypertension Qualified Code(s): I10 - Essential (primary) hypertension Plan to address problem: Continue antihypertensives and adjust medications as necessary (5) Peripheral neuropathy Current Visit: Yes Status: Chronic Qualifiers: Peripheral neuropathy type: polyneuropathy, unspecified Qualified Code(s): G62.9 - Polyneuropathy, unspecified Plan to address problem: On gabapentin (6) GERD (gastroesophageal reflux disease) Current Visit: Yes Status: Chronic Qualifiers: Esophagitis presence: without esophagitis Qualified Code(s): K21.9 - Gastro-esophageal reflux disease without esophagitis Plan to address problem: On PPI (7) Anemia Current Visit: Yes Status: Chronic Qualifiers: Anemia type: unspecified type Qualified Code(s): D64.9 - Anemia, unspecified Plan to address problem: Epogen as per nephrology (8) Vitamin D deficiency Current Visit: Yes Status: Chronic Plan to address problem: Continue vitamin D (9) DVT prophylaxis Current Visit: No Status: Acute (10) Advance care planning Current Visit: No Status: Acute Plan to address problem: Disease education conducted, care plan discussed, diagnosis discussed, prognosis discussed, patient acknowledged understanding and agrees with care plan. +30 minutes.
[2021-11-11] MEDS ORDERED: LANTHANUM CARBONATE 750 MG PO SCH (17:45)
[2021-11-11] MEDS ORDERED: ONDANSETRON 4 MG/2 ML INJ IV PRN (17:49)
[2021-11-11] MEDS ORDERED: ACETAMINOPHEN 325 MG TAB PO PRN (17:49)
[2021-11-11] MEDS: FOLIC ACID/VIT B COMP W-C 1 MG (RENAL CAPS) PO SCH (18:01)
[2021-11-11] MEDS ORDERED: MORPHINE 2 MG/1 ML INJ IV PRN (18:02)
[2021-11-11] MEDS ORDERED: NON-FORMULARY EACH (Doxazosin Mesylate [Cardura] 2 MG Tablet) PO SCH (22:00)
[2021-11-11] MEDS: DOXAZOSIN 1 MG TAB PO SCH (22:54)
[2021-11-11] MEDS: hydrALAZINE 100 MG TAB PO SCH (22:54)
[2021-11-11] MEDS: carvediloL 25 MG TAB PO SCH (22:54)
[2021-11-11] MEDS: HEPARIN 5,000 UNIT/1 ML VIAL SUB-Q SCH (22:55)
[2021-11-11] MEDS: NIFEdipine XL 60 MG TAB PO SCH (22:55)
[2021-11-12 05:24] LABS: Basophils # (Auto) 0.1 K/mm3 (0.0-0.1); Basophils % (Auto) 1.4 % (0.0-1.8); Eosinophils # (Auto) 1.1 K/mm3 (0.0-0.4); Eosinophils % (Auto) 11.3 % (0.0-4.3); Hematocrit 34.3 % (35.5-45.6); Lymphocytes # (Auto) 0.7 K/mm3 (1.2-5.4); Lymphocytes % (Auto) 7.4 % (13.4-35.0); Mean Corpuscular HGB Conc 32 % (32-34); Mean Corpuscular Volume 101 fl (84-94); Monocytes # (Auto) 1.4 K/mm3 (0.0-0.8); Platelet Count 179 K/mm3 (140-440); Red Cell Distribution Width 14.9 % (13.2-15.2)
[2021-11-12 05:38] LABS: Albumin 3.4 g/dL (3.9-5); Calcium 9.7 mg/dL (8.4-10.2)
[2021-11-12] MEDS: LANTHANUM CARBONATE 500 MG TAB PO SCH (08:06)
[2021-11-12] MEDS: hydrALAZINE 100 MG TAB PO SCH ×3 (08:10→20:31)
--- NOTE | 2021-11-12 09:50 | Consultation ---
History of Present Illness - Reason for Consult Consult date: 11/12/21 end stage renal disease - History of Present Illness This is a 61 year old male who presented to the hospital with a chief complaint of having AMS. Patient has ESRD and on hemodialysis on ,, schedule. Last HD treatment was on Saturday. He missed his HD session on due to weakness. He is due for hemodialysis today. On evaluation, patient's potassium level was noted to be elevated at 6.4. STAT hemodialysis was ordered yesterday. Potassium level today is 4.4. We are being consulted for management of this patient's ESRD. Past History Past Medical History: ESRD, hypertension Past Surgical History: Other (HD Access placement) Social history: no significant social history Family history: no significant family history Medications and Allergies Allergies Allergy/AdvReac Type Severity Reaction Status Date / Time clonidine Allergy Swelling Verified 11/03/21 14:04 codeine Allergy Itching Verified 11/03/21 14:04 hydrocodone Allergy Itching Verified 11/03/21 14:04 aspirin AdvReac Severe Brain Verified 11/03/21 14:04 Bleeding Home Medications Medication Instructions Recorded Confirmed Last Taken Type B Complex 11/Folic/C/Biot/Zinc 1 each PO DAILY 08/15/16 11/12/21 11/03/21 History [Dialyvite with Zinc Tablet] Ergocalciferol (Vitamin D2) 1 tab PO 1XW 08/15/16 11/12/21 11/03/21 History [Vitamin D2] Lanthanum Carbonate [Fosrenol] 750 mg PO QDAC 09/05/16 11/12/21 11/03/21 History Doxazosin Mesylate [Cardura] 2 mg PO HS #30 tablet 09/07/16 11/12/21 11/03/21 Rx Folic Acid/Vit B Comp W-C [Renal 1 cap PO QDAY #30 capsule 09/07/16 11/12/21 11/03/21 Rx Caps] NIFEdipine XL [Procardia Xl] 60 mg PO Q12HR #60 tablet 09/07/16 11/12/21 11/03/21 Rx Pantoprazole [Protonix TAB] 40 mg PO QDAY #30 tablet 09/07/16 11/12/21 11/03/21 Rx carvediloL [Coreg] 25 mg PO BID #60 tablet 05/04/1411/12/21 11/03/21 Rx hydrALAZINE [Apresoline TAB] 100 mg PO TID #90 tab 09/07/16 11/12/21 11/03/21 Rx traMADoL [Ultram 50 MG tab] 50 mg PO Q6HR PRN #20 tablet 09/07/16 11/12/21 11/04/21 Rx Gabapentin 300 mg PO 3XW 11/05/21 11/12/21 Unknown History Active Meds: Active Medications Acetaminophen (Acetaminophen 325 Mg Tab) 650 mg PO Q4H PRN PRN Reason: Pain MILD(1-3)/Fever >100.5/GAXIOLA Carvedilol (Carvedilol 25 Mg Tab) 25 mg PO BID [facility] Last Admin: 11/11/21 22:54 Dose: Not Given Doxazosin Mesylate (Doxazosin 1 Mg Tab) 2 mg PO QHS [facility] Last Admin: 11/11/21 22:54 Dose: Not Given Gabapentin (Gabapentin 300 Mg Cap) 300 mg PO 3XW [facility] Heparin Sodium (Porcine) (Heparin 5,000 Unit/1 Ml Vial) 5,000 unit SUB-Q Q12HR [facility] Last Admin: 11/11/21 22:55 Dose: Not Given Hydralazine HCl (Hydralazine 100 Mg Tab) 100 mg PO TID [facility] Last Admin: 11/11/21 22:54 Dose: Not Given Lanthanum Carbonate (Lanthanum Carbonate 500 Mg Tab) 750 mg PO QDAC [facility] Morphine Sulfate (Morphine 2 Mg/1 Ml Inj) 2 mg IV Q4H PRN PRN Reason: Pain, Moderate (4-6) Multivit/Ca Carb/B Cmplx/FA/Prenat (Folic Acid/Vit B Comp W-C 1 Mg (Renal Caps)) 1 cap PO QDAY [facility] Last Admin: 11/11/21 18:01 Dose: Not Given Nifedipine (Nifedipine Xl 60 Mg Tab) 60 mg PO Q12HR [facility] Last Admin: 11/11/21 22:55 Dose: Not Given Ondansetron HCl (Ondansetron 4 Mg/2 Ml Inj) 4 mg IV Q8H PRN PRN Reason: Nausea And Vomiting Pantoprazole Sodium (Pantoprazole 40 Mg Tab) 40 mg PO QDAY [facility] Sodium Chloride (Sodium Chloride 0.9% 10 Ml Flush Syringe) 10 ml IV BID [facility] Last Admin: 11/11/21 22:55 Dose: Not Given Sodium Chloride (Sodium Chloride 0.9% 10 Ml Flush Syringe) 10 ml IV PRN PRN PRN Reason: LINE FLUSH Tramadol HCl (Tramadol 50 Mg Tab) 50 mg PO Q6HR PRN PRN Reason: PAIN Review of Systems ROS unobtainable: due to mental status Exam - Vital Signs Vital signs: Vital Signs Pulse Resp Pulse Ox 63 14 99 11/11/21 11:45 11/11/21 11:45 11/11/21 11:45 - General Appearance General appearance: well-developed, appears stated age EENT: ATNC, PERRL Neck: Present: neck supple, trachea midline Respiratory: Decreased Breath Sounds Heart: S1S2 Gastrointestinal: Present: normoactive bowel sounds Integumentary: warm and dry Neurologic: other (Awake but not oriented) Musculoskeletal: Present: other (No edema) Results - Lab Results 11/12/21 04:45 11/12/21 04:45 Most recent lab results Calcium 9.7 mg/dL (8.4-10.2) 11/12/21 04:45 Assessment and Plan Assessment: End Stage Renal Disease Hypertension S/P Hyperkalemia Anemia Plan: STAT hemodialysis was done last night due to Hyperkalemia Potassium levels are better today at 4.4 Will order hemodialysis for tomorrow for UF and clearance Fluid restriction of 1 liter per day No need for Epogen as HGB is 11.0 Renally dose medications Obtain daily weights Assess dialysis needs daily Plan of care reviewed by Dr. Nelson
[2021-11-12] MEDS ORDERED: GABAPENTIN 300 MG CAP PO SCH (10:00)
--- NOTE | 2021-11-12 10:54 | Progress Note ---
Assessment and Plan Assessment and plan: Advance Directives: Yes (Full code) VTE prophylaxis?: Chemical Plan of care discussed with patient/family: Yes --Acute metabolic encephalopathy Differential diagnosis of uremia versus CVA MRI brain, Emergent hemodialysis --History of fall; Fall precautions PT OT prior to discharge --left knee swelling and effusion X-ray left knee, Consider MRI of the knee, consider aspiration of knee joint, If needed - Hyperkalemia/resolved Emergent hemodialysis Nephrology following --ESRD (end stage renal disease) Emergent hemodialysis And nephrology consulted -- Hypertension Continue antihypertensives and adjust medications as necessary --Peripheral neuropathy On gabapentin, supportive care --GERD (gastroesophageal reflux disease) Proton pump inhibitors -- Anemia of chronic disease Epogen as per nephrology --Vitamin D deficiency Continue vitamin D -- DVT prophylaxis Subcu heparin renal dose -- Advance care planning Disease education conducted, care plan discussed, diagnosis discussed, And discussed in detail patient's condition tests and reports treatment and discharge plan With the patient and the spouse at the bedside prognosis discussed, patient acknowledged understanding and agrees with care plan. +32 minutes. We will closely monitor the patient and adjust the management as needed Plan of care reviewed with the patient and his nurse Follow PT OT evaluation recommendation Follow x-ray left knee findings Follow clinically Discharge when medically stable ; History Interval history: I have seen and examined the patient at the bedside Patient chart and medications reviewed Patient complains of left knee pain, gives history of fall 2 days ago With irritated and angry on his spouse Vital signs noted Hospitalist Physical - Constitutional Vitals: Temp Pulse Resp BP Pulse Ox 98.8 F 65 16 156/91 98 11/12/21 04:22 11/12/21 04:22 11/12/21 04:22 11/12/21 04:22 11/12/21 04:22 General appearance: Present: no acute distress, well-nourished - EENT Eyes: Present: PERRL, EOM intact - Neck Neck: Present: supple, normal ROM - Respiratory Respiratory effort: normal Respiratory: bilateral: diminished, negative: rales, rhonchi, wheezing - Cardiovascular Rhythm: regular Heart Sounds: Present: S1 & S2 - Extremities Extremities: no ischemia, No edema Extremity abnormal: edema - Abdominal General gastrointestinal: soft, non-tender, non-distended - Integumentary Integumentary: Present: clear, warm - Psychiatric Psychiatric: appropriate mood/affect, cooperative - Neurologic Neurologic: moves all extremities Results - Labs CBC & Chem 7: 11/12/21 04:45 11/12/21 04:45 Labs: Laboratory Last Values WBC 9.9 K/mm3 (4.5-11.0) 11/12/21 04:45 RBC 3.40 M/mm3 (3.65-5.03) L 11/12/21 04:45 Hgb 11.0 gm/dl (11.8-15.2) L 11/12/21 04:45 Hct 34.3 % (35.5-45.6) L 11/12/21 04:45 MCV 101 fl (84-94) H 11/12/21 04:45 MCH 32 pg (28-32) 11/12/21 04:45 MCHC 32 % (32-34) 11/12/21 04:45 RDW 14.9 % (13.2-15.2) 11/12/21 04:45 Plt Count 179 K/mm3 (140-440) 11/12/21 04:45 Lymph % (Auto) 7.4 % (13.4-35.0) L 11/12/21 04:45 [place] % (Auto) 14.0 % (0.0-7.3) H 11/12/21 04:45 Eos % (Auto) 11.3 % (0.0-4.3) H 11/12/21 04:45 Baso % (Auto) 1.4 % (0.0-1.8) 11/12/21 04:45 Lymph # (Auto) 0.7 K/mm3 (1.2-5.4) L 11/12/21 04:45 [place] # (Auto) 1.4 K/mm3 (0.0-0.8) H 11/12/21 04:45 Eos # (Auto) 1.1 K/mm3 (0.0-0.4) H 11/12/21 04:45 Baso # (Auto) 0.1 K/mm3 (0.0-0.1) 11/12/21 04:45 Seg Neutrophils % 65.9 % (40.0-70.0) 11/12/21 04:45 Seg Neutrophils # 6.5 K/mm3 (1.8-7.7) 11/12/21 04:45 Sodium 140 mmol/L (137-145) 11/12/21 04:45 Potassium 4.4 mmol/L (3.6-5.0) D 11/12/21 04:45 Chloride 98.0 mmol/L (98-107) 11/12/21 04:45 Carbon Dioxide 23 mmol/L (22-30) 11/12/21 04:45 Anion Gap 23 mmol/L 11/12/21 04:45 BUN 56 mg/dL (9-20) H 11/12/21 04:45 Creatinine 8.8 mg/dL (0.8-1.3) H 11/12/21 04:45 Estimated GFR 6 ml/min 11/12/21 04:45 BUN/Creatinine Ratio 6 % 11/12/21 04:45 Glucose 56 mg/dL (75-100) L 11/12/21 04:45 Calcium 9.7 mg/dL (8.4-10.2) 11/12/21 04:45 Total Bilirubin 0.40 mg/dL (0.1-1.2) 11/12/21 04:45 AST 17 units/L (5-40) 11/12/21 04:45 ALT 5 units/L (7-56) L 11/12/21 04:45 Alkaline Phosphatase 98 units/L (35-129) 11/12/21 04:45 Total Protein 7.1 g/dL (6.3-8.2) 11/12/21 04:45 Albumin 3.4 g/dL (3.9-5) L 11/12/21 04:45 Albumin/Globulin Ratio 0.9 % 11/12/21 04:45 Ferro/IV: Voiding Method Toilet Active Medications - Current Medications Current Medications: Generic Name Dose Route Start Last Admin Trade Name Freq PRN Reason Stop Dose Admin Acetaminophen 650 mg 11/11/21 17:49 Acetaminophen 325 Mg Tab PO Q4H PRN Pain MILD(1-3)/Fever >100.5/GAXIOLA Carvedilol 25 mg 11/11/21 22:00 11/11/21 22:54 Carvedilol 25 Mg Tab PO Not Given BID [facility] Doxazosin Mesylate 2 mg 11/11/21 22:00 11/11/21 22:54 Doxazosin 1 Mg Tab PO Not Given QHS [facility] Gabapentin 300 mg 11/12/21 10:00 Gabapentin 300 Mg Cap PO 3XW [facility] Heparin Sodium (Porcine) 5,000 unit 11/11/21 22:00 11/11/21 22:55 Heparin 5,000 Unit/1 Ml Vial SUB-Q Not Given Q12HR [facility] Hydralazine HCl 100 mg 11/11/21 20:00 11/11/21 22:54 Hydralazine 100 Mg Tab PO Not Given TID [facility] Lanthanum Carbonate 750 mg 11/12/21 07:30 Lanthanum Carbonate 500 Mg Tab PO QDAC [facility] Morphine Sulfate 2 mg 11/11/21 18:02 Morphine 2 Mg/1 Ml Inj IV Q4H PRN Pain, Moderate (4-6) Multivit/Ca Carb/B Cmplx/FA/Prenat 1 cap 11/11/21 18:00 11/11/21 18:01 Folic Acid/Vit B Comp W-C 1 Mg (Renal Caps) PO Not Given QDAY [facility] Nifedipine 60 mg 11/11/21 22:00 11/11/21 22:55 Nifedipine Xl 60 Mg Tab PO Not Given Q12HR [facility] Ondansetron HCl 4 mg 11/11/21 17:49 Ondansetron 4 Mg/2 Ml Inj IV Q8H PRN Nausea And Vomiting Pantoprazole Sodium 40 mg 11/12/21 10:00 Pantoprazole 40 Mg Tab PO QDAY [facility] Sodium Chloride 10 ml 11/11/21 22:00 11/11/21 22:55 Sodium Chloride 0.9% 10 Ml Flush Syringe IV Not Given BID [facility] Sodium Chloride 10 ml 11/11/21 17:49 Sodium Chloride 0.9% 10 Ml Flush Syringe IV PRN PRN LINE FLUSH Tramadol HCl 50 mg 11/11/21 17:48 Tramadol 50 Mg Tab PO Q6HR PRN PAIN
[2021-11-12] MEDS: FOLIC ACID/VIT B COMP W-C 1 MG (RENAL CAPS) PO SCH (11:10)
[2021-11-12] MEDS: PANTOPRAZOLE 40 MG TAB PO SCH (11:11)
[2021-11-12] MEDS: NIFEdipine XL 60 MG TAB PO SCH ×2 (11:11→21:31)
[2021-11-12] MEDS: carvediloL 25 MG TAB PO SCH ×2 (11:11→21:30)
[2021-11-12] MEDS: HEPARIN 5,000 UNIT/1 ML VIAL SUB-Q SCH ×2 (11:13→21:30)
--- NOTE | 2021-11-12 15:18 | Electrocardiograph Report ---
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
--- NOTE | 2021-11-12 18:18 | XRay Report ---
LEFT KNEE 4 VIEW(S) INDICATION / CLINICAL INFORMATION: History of fall/knee joint swelling/effusion COMPARISON: None available. FINDINGS: BONES / JOINT(S): No acute fracture or subluxation. There is mild tricompartment degenerative change. This is most prominent in the medial compartment. SOFT TISSUES: Vascular calcifications are noted in the superficial femoral and popliteal artery as we ll as proximal runoff vessels. There is calcification also noted in the smaller vessels around the kn ee. This is commonly seen with diabetes or chronic renal disease. There is mild soft tissue swelling around the knee. There may be a small effusion in the suprapatella bursa. ADDITIONAL FINDINGS: None. IMPRESSION: 1. No acute findings. There is mild degenerative change. There is vascular disease. Signer Name: Martinez Camejo MD Signed: 11/12/2021 6:13 PM Workstation Name: [id number]
[2021-11-12] MEDS: DOXAZOSIN 1 MG TAB PO SCH (21:31)
[2021-11-13 06:26] LABS: Calcium 9.3 mg/dL (8.4-10.2)
[2021-11-13] MEDS: hydrALAZINE 100 MG TAB PO SCH ×3 (09:25→21:03)
--- NOTE | 2021-11-13 10:14 | Progress Note ---
Assessment and Plan Assessment: End Stage Renal Disease Hypertension S/P Hyperkalemia Anemia Plan: Hemodialysis today for UF and clearance Fluid restriction of 1 liter per day No need for Epogen as recent HGB was 11.0 Renally dose medications Obtain daily weights Monitor I/O's daily Assess dialysis needs daily Goes to [facility] under Dr. uQispe Plan of care reviewed by Dr. Nelson Subjective Date of service: 11/13/21 Principal diagnosis: ESRD Interval history: Patient seen lying in bed talking on cellphone. States he feels better. Objective - General Appearance General appearance: well-developed, appears stated age EENT: ATNC, PERRL, hearing intact Neck: no JVD, supple Respiratory: Present: Decreased Breath Sounds Cardiology: S1S2 Gastrointestinal: normoactive bowel sounds Integumentary: warm and dry Neurologic: alert and oriented x3 Musculoskeletal: other (No edema. Left AVF intact) - Lab 11/12/21 04:45 11/13/21 05:33 Most recent lab results Calcium 9.3 mg/dL (8.4-10.2) 11/13/21 05:33 Phosphorus 9.00 mg/dL (2.5-4.5) H 11/13/21 05:33 Medications & Allergies - Medications Allergies/Adverse Reactions: Allergies clonidine Allergy (Verified 11/03/21 14:04) Swelling codeine Allergy (Verified 11/03/21 14:04) Itching hydrocodone Allergy (Verified 11/03/21 14:04) Itching aspirin Adverse Reaction (Severe, Verified 11/03/21 14:04) Brain Bleeding Home Medications: Home Medications Medication Instructions Recorded Confirmed Last Taken Type B Complex 11/Folic/C/Biot/Zinc 1 each PO DAILY 08/15/16 11/12/21 11/03/21 History [Dialyvite with Zinc Tablet] Ergocalciferol (Vitamin D2) 1 tab PO 1XW 08/15/16 11/12/21 11/03/21 History [Vitamin D2] Lanthanum Carbonate [Fosrenol] 750 mg PO QDAC 09/05/16 11/12/21 11/03/21 History Doxazosin Mesylate [Cardura] 2 mg PO HS #30 tablet 09/07/16 11/12/21 11/03/21 Rx Folic Acid/Vit B Comp W-C [Renal 1 cap PO QDAY #30 capsule 09/07/16 11/12/21 11/03/21 Rx Caps] NIFEdipine XL [Procardia Xl] 60 mg PO Q12HR #60 tablet 09/07/16 11/12/21 11/03/21 Rx Pantoprazole [Protonix TAB] 40 mg PO QDAY #30 tablet 09/07/16 11/12/21 11/03/21 Rx carvediloL [Coreg] 25 mg PO BID #60 tablet 09/07/16 11/12/21 11/03/21 Rx hydrALAZINE [Apresoline TAB] 100 mg PO TID #90 tab 09/07/16 11/12/21 11/03/21 Rx traMADoL [Ultram 50 MG tab] 50 mg PO Q6HR PRN #20 tablet 09/07/16 11/12/21 11/04/21 Rx Gabapentin 300 mg PO 3XW 11/05/21 11/12/21 Unknown History Active Medications: Generic Name Dose Route Start Last Admin Trade Name Freq PRN Reason Stop Dose Admin Acetaminophen 650 mg 11/11/21 17:49 11/12/21 13:24 Acetaminophen 325 Mg Tab PO 650 mg Q4H PRN Administration Pain MILD(1-3)/Fever >100.5/GAXIOLA Carvedilol 25 mg 11/11/21 22:00 11/12/21 21:30 Carvedilol 25 Mg Tab PO 25 mg BID LOUISE Administration Doxazosin Mesylate 2 mg 11/11/21 22:00 11/12/21 21:31 Doxazosin 1 Mg Tab PO 2 mg QHS LOUISE Administration Gabapentin 300 mg 11/12/21 10:00 11/12/21 13:27 Gabapentin 300 Mg Cap PO Not Given 3XW LOUISE Heparin Sodium (Porcine) 5,000 unit 11/11/21 22:00 11/12/21 21:30 Heparin 5,000 Unit/1 Ml Vial SUB-Q 5,000 unit Q12HR LOUISE Administration Hydralazine HCl 100 mg 11/11/21 20:00 11/12/21 20:31 Hydralazine 100 Mg Tab PO 100 mg TID LOUISE Administration Lanthanum Carbonate 750 mg 11/12/21 07:30 11/12/21 08:06 Lanthanum Carbonate 500 Mg Tab PO 750 mg QDAC LOUISE Administration Morphine Sulfate 2 mg 11/11/21 18:02 Morphine 2 Mg/1 Ml Inj IV Q4H PRN Pain, Moderate (4-6) Multivit/Ca Carb/B Cmplx/FA/Prenat 1 cap 11/11/21 18:00 11/12/21 11:10 Folic Acid/Vit B Comp W-C 1 Mg (Renal Caps) PO 1 cap QDAY LOUISE Administration Nifedipine 60 mg 11/11/21 22:00 11/12/21 21:31 Nifedipine Xl 60 Mg Tab PO 60 mg Q12HR LOUISE Administration Ondansetron HCl 4 mg 11/11/21 17:49 Ondansetron 4 Mg/2 Ml Inj IV Q8H PRN Nausea And Vomiting Pantoprazole Sodium 40 mg 11/12/21 10:00 11/12/21 11:11 Pantoprazole 40 Mg Tab PO 40 mg QDAY LOUISE Administration Sodium Chloride 10 ml 11/11/21 22:00 11/12/21 21:32 Sodium Chloride 0.9% 10 Ml Flush Syringe IV 10 ml BID LOUISE Administration Sodium Chloride 10 ml 11/11/21 17:49 Sodium Chloride 0.9% 10 Ml Flush Syringe IV PRN PRN LINE FLUSH Tramadol HCl 50 mg 11/11/21 17:48 Tramadol 50 Mg Tab PO Q6HR PRN PAIN
[2021-11-13] MEDS: HEPARIN 5,000 UNIT/1 ML VIAL SUB-Q SCH ×2 (10:26→21:06)
[2021-11-13] MEDS: carvediloL 25 MG TAB PO SCH ×2 (10:26→21:04)
[2021-11-13] MEDS: NIFEdipine XL 60 MG TAB PO SCH ×2 (10:27→21:05)
[2021-11-13] MEDS: PANTOPRAZOLE 40 MG TAB PO SCH (10:29)
[2021-11-13] MEDS: FOLIC ACID/VIT B COMP W-C 1 MG (RENAL CAPS) PO SCH (11:30)
--- NOTE | 2021-11-13 12:08 | Magnetic Resonance Report ---
MR brain wo con INDICATION / CLINICAL INFORMATION: Acute encephalopathy, RT SIDED WEAKNESS. TECHNIQUE: Multiplanar, multisequence MR images of the brain were obtained. COMPARISON: CT head from November 03, 2021 FINDINGS: INTRACRANIAL: Postoperative changes from prior suboccipital craniotomy . There is a lobulated mixed c ystic and solid T2 hyperintense lesion seen along the right inferior cerebellum measuring up to appro ximately 3.2 cm and a small lesion along the left posterior lateral aspect of medulla and involving the cerebellum which contains a 2.2 cm cystic component extending into the region of the obex. No res tricted diffusion is present. There is mild prominence of the lateral ventricles, similar prior exam. Moderate sequela of chronic migraine vascular disease. No acute infarction. No acute hemorrhage. No extra-axial collection. No herniation. Major intracranial vascular flow voids are preserved. ORBITS: No significant abnormality of visualized orbits. SINUSES / MASTOIDS: There is left mastoid effusion. ADDITIONAL FINDINGS: None. IMPRESSION: 1. Postoperative changes with residual and/or recurrent tumor. Correlate with history and prior exams to determine stability and if there has been any significant change. Signer Name: Jamal Quinones MD Signed: 11/13/2021 12:01 PM Workstation Name: [id number]
[2021-11-13] MEDS: LANTHANUM CARBONATE 500 MG TAB PO SCH (17:28)
--- NOTE | 2021-11-13 19:49 | Progress Note ---
Assessment and Plan Assessment and plan: PT recommended acute rehab --Acute metabolic encephalopathy Differential diagnosis of uremia versus CVA MRI brain, Emergent hemodialysis MRI brain: postoperative changes with residual and/or recurrent tumor correlate with history and prior exams are determined stability if there has been any significant change Continue supportive care, follow neurology evaluation --History of multiple craniotomies; Patient Follows with [facility] --History of fall; Fall precautions PT recommended acute rehab DC planning per case management --left knee swelling and effusion[probably traumatic] X-ray knee no acute abnormality Physical therapy recommended acute rehab DC planning per case management - Hyperkalemia/resolved Emergent hemodialysis Nephrology following --ESRD (end stage renal disease) Hemodialysis per schedule Nephrology following Patient has established HD chair -- Hypertension Continue antihypertensives and adjust medications as necessary --Peripheral neuropathy On gabapentin, supportive care --GERD (gastroesophageal reflux disease) Proton pump inhibitors -- Anemia of chronic disease Epogen as per nephrology --Vitamin D deficiency Continue vitamin D -- DVT prophylaxis Subcu heparin renal dose Advance Directives: Yes (Full code) VTE prophylaxis?: Chemical Plan of care discussed with patient/family: Yes -- Advance care planning Disease education conducted, care plan discussed, diagnosis discussed, And discussed in detail patient's condition tests and reports treatment and discharge plan With the patient and the spouse at the bedside prognosis discussed, patient acknowledged understanding and agrees with care plan. +32 minutes. We will closely monitor the patient and adjust the management as needed Plan of care reviewed with the patient and his nurse Follow PT OT evaluation recommendation PT recommended acute rehab DC planning per case management History Interval history: I have seen and examined the patient at the bedside Based patient's chart and medications reviewed Patient complains of some pain in the knee Left knee x-ray no acute changes Vital signs noted Hospitalist Physical - Constitutional Vitals: Temp Pulse Resp BP Pulse Ox 98.2 F 58 L 18 152/60 97 11/13/21 17:00 11/13/21 17:00 11/13/21 17:00 11/13/21 17:00 11/13/21 17:00 General appearance: Present: no acute distress, well-nourished - EENT Eyes: Present: PERRL, EOM intact - Neck Neck: Present: supple, normal ROM - Respiratory Respiratory effort: normal Respiratory: bilateral: diminished, negative: rales, rhonchi, wheezing - Cardiovascular Rhythm: regular Heart Sounds: Present: S1 & S2 - Extremities Extremities: no ischemia, No edema, abnormal (Swelling left knee) - Abdominal General gastrointestinal: soft, non-tender, non-distended, normal bowel sounds - Integumentary Integumentary: Present: clear, warm - Psychiatric Psychiatric: appropriate mood/affect, cooperative - Neurologic Neurologic: moves all extremities Results - Labs CBC & Chem 7: 11/12/21 04:45 11/14/21 05:39 Labs: Laboratory Last Values WBC 9.9 K/mm3 (4.5-11.0) 11/12/21 04:45 RBC 3.40 M/mm3 (3.65-5.03) L 11/12/21 04:45 Hgb 11.0 gm/dl (11.8-15.2) L 11/12/21 04:45 Hct 34.3 % (35.5-45.6) L 11/12/21 04:45 MCV 101 fl (84-94) H 11/12/21 04:45 MCH 32 pg (28-32) 11/12/21 04:45 MCHC 32 % (32-34) 11/12/21 04:45 RDW 14.9 % (13.2-15.2) 11/12/21 04:45 Plt Count 179 K/mm3 (140-440) 11/12/21 04:45 Lymph % (Auto) 7.4 % (13.4-35.0) L 11/12/21 04:45 [place] % (Auto) 14.0 % (0.0-7.3) H 11/12/21 04:45 Eos % (Auto) 11.3 % (0.0-4.3) H 11/12/21 04:45 Baso % (Auto) 1.4 % (0.0-1.8) 11/12/21 04:45 Lymph # (Auto) 0.7 K/mm3 (1.2-5.4) L 11/12/21 04:45 [place] # (Auto) 1.4 K/mm3 (0.0-0.8) H 11/12/21 04:45 Eos # (Auto) 1.1 K/mm3 (0.0-0.4) H 11/12/21 04:45 Baso # (Auto) 0.1 K/mm3 (0.0-0.1) 11/12/21 04:45 Seg Neutrophils % 65.9 % (40.0-70.0) 11/12/21 04:45 Seg Neutrophils # 6.5 K/mm3 (1.8-7.7) 11/12/21 04:45 Sodium 136 mmol/L (137-145) L 11/13/21 05:33 Potassium 4.4 mmol/L (3.6-5.0) 11/13/21 05:33 Chloride 93.8 mmol/L (98-107) L 11/13/21 05:33 Carbon Dioxide 24 mmol/L (22-30) 11/13/21 05:33 Anion Gap 23 mmol/L 11/13/21 05:33 BUN 70 mg/dL (9-20) H 11/13/21 05:33 Creatinine 10.4 mg/dL (0.8-1.3) H 11/13/21 05:33 Estimated GFR 5 ml/min 11/13/21 05:33 BUN/Creatinine Ratio 7 % 11/13/21 05:33 Glucose 79 mg/dL (75-100) 11/13/21 05:33 Calcium 9.3 mg/dL (8.4-10.2) 11/13/21 05:33 Phosphorus 9.00 mg/dL (2.5-4.5) H 11/13/21 05:33 Total Bilirubin 0.40 mg/dL (0.1-1.2) 11/12/21 04:45 AST 17 units/L (5-40) 11/12/21 04:45 ALT 5 units/L (7-56) L 11/12/21 04:45 Alkaline Phosphatase 98 units/L (35-129) 11/12/21 04:45 Total Protein 7.1 g/dL (6.3-8.2) 11/12/21 04:45 Albumin 3.4 g/dL (3.9-5) L 11/12/21 04:45 Albumin/Globulin Ratio 0.9 % 11/12/21 04:45 Nasal Screen MRSA (PCR) Negative (Negative) 11/12/21 06:50 Ferro/IV: Voiding Method Toilet Active Medications - Current Medications Current Medications: Generic Name Dose Route Start Last Admin Trade Name Freq PRN Reason Stop Dose Admin Acetaminophen 650 mg 11/11/21 17:49 11/12/21 13:24 Acetaminophen 325 Mg Tab PO 650 mg Q4H PRN Administration Pain MILD(1-3)/Fever >100.5/GAXIOLA Carvedilol 25 mg 11/11/21 22:00 11/13/21 10:26 Carvedilol 25 Mg Tab PO Not Given BID [facility] Doxazosin Mesylate 2 mg 11/11/21 22:00 11/12/21 21:31 Doxazosin 1 Mg Tab PO 2 mg QHS LOUISE Administration Gabapentin 300 mg 11/14/21 12:00 Gabapentin 300 Mg Cap PO TuThSa [facility] Heparin Sodium (Porcine) 5,000 unit 11/11/21 22:00 11/13/21 10:26 Heparin 5,000 Unit/1 Ml Vial SUB-Q Not Given Q12HR [facility] Hydralazine HCl 100 mg 11/11/21 20:00 11/13/21 14:25 Hydralazine 100 Mg Tab PO Not Given TID [facility] Lanthanum Carbonate 750 mg 11/12/21 07:30 11/13/21 17:28 Lanthanum Carbonate 500 Mg Tab PO 750 mg QDAC [facility] Administration Morphine Sulfate 2 mg 11/11/21 18:02 Morphine 2 Mg/1 Ml Inj IV Q4H PRN Pain, Moderate (4-6) Multivit/Ca Carb/B Cmplx/FA/Prenat 1 cap 11/11/21 18:00 11/13/21 11:30 Folic Acid/Vit B Comp W-C 1 Mg (Renal Caps) PO 1 cap QDAY [facility] Administration Nifedipine 60 mg 11/11/21 22:00 11/13/21 10:27 Nifedipine Xl 60 Mg Tab PO Not Given Q12HR [facility] Ondansetron HCl 4 mg 11/11/21 17:49 Ondansetron 4 Mg/2 Ml Inj IV Q8H PRN Nausea And Vomiting Pantoprazole Sodium 40 mg 11/12/21 10:00 11/13/21 10:29 Pantoprazole 40 Mg Tab PO 40 mg QDAY LOUISE Administration Sodium Chloride 10 ml 11/11/21 22:00 11/13/21 18:31 Sodium Chloride 0.9% 10 Ml Flush Syringe IV 10 ml BID LOUISE Administration Sodium Chloride 10 ml 11/11/21 17:49 Sodium Chloride 0.9% 10 Ml Flush Syringe IV PRN PRN LINE FLUSH Tramadol HCl 50 mg 11/11/21 17:48 Tramadol 50 Mg Tab PO Q6HR PRN PAIN
[2021-11-13] MEDS: DOXAZOSIN 1 MG TAB PO SCH (21:03)
[2021-11-14 06:21] LABS: Calcium 9.5 mg/dL (8.4-10.2)
--- NOTE | 2021-11-14 08:32 | Progress Note ---
Assessment and Plan End Stage Renal Disease Hypertension S/P Hyperkalemia Anemia Plan: no indication for HD today Fluid restriction of 1 liter per day No need for Epogen as recent HGB was 11.0 Renally dose medications Obtain daily weights Monitor I/O's daily Assess dialysis needs daily Goes to [facility] under Dr. Quispe Subjective Date of service: 11/14/21 Principal diagnosis: ESRD Interval history: tolerated HD yesterday Objective - Vital Signs Vital signs: Vital Signs - 12hr 11/13/21 11/13/21 11/13/21 20:53 21:03 21:04 Temperature Pulse Rate 69 68 68 Respiratory Rate Blood Pressure 161/70 161/70 161/70 Blood Pressure [Right] O2 Sat by Pulse 96 Oximetry 11/13/21 11/14/21 11/14/21 22:00 00:49 06:51 Temperature 98.8 F 98.1 F Pulse Rate 67 66 Respiratory 12 12 Rate Blood Pressure 159/72 Blood Pressure 132/61 [Right] O2 Sat by Pulse 97 97 96 Oximetry - Lab 11/12/21 04:45 11/14/21 05:39 Most recent lab results Calcium 9.5 mg/dL (8.4-10.2) 11/14/21 05:39 Phosphorus 9.00 mg/dL (2.5-4.5) H 11/13/21 05:33 Medications & Allergies - Medications Allergies/Adverse Reactions: Allergies clonidine Allergy (Verified 11/03/21 14:04) Swelling codeine Allergy (Verified 11/03/21 14:04) Itching hydrocodone Allergy (Verified 11/03/21 14:04) Itching aspirin Adverse Reaction (Severe, Verified 11/03/21 14:04) Brain Bleeding Home Medications: Home Medications Medication Instructions Recorded Confirmed Last Taken Type B Complex 11/Folic/C/Biot/Zinc 1 each PO DAILY 08/15/16 11/12/21 11/03/21 History [Dialyvite with Zinc Tablet] Ergocalciferol (Vitamin D2) 1 tab PO 1XW 08/15/16 11/12/21 11/03/21 History [Vitamin D2] Lanthanum Carbonate [Fosrenol] 750 mg PO QDAC 09/05/16 11/12/21 11/03/21 History Doxazosin Mesylate [Cardura] 2 mg PO HS #30 tablet 09/07/16 11/12/21 11/03/21 Rx Folic Acid/Vit B Comp W-C [Renal 1 cap PO QDAY #30 capsule 09/07/16 11/12/21 11/03/21 Rx Caps] NIFEdipine XL [Procardia Xl] 60 mg PO Q12HR #60 tablet 09/07/16 11/12/21 11/03/21 Rx Pantoprazole [Protonix TAB] 40 mg PO QDAY #30 tablet 09/07/16 11/12/21 11/03/21 Rx carvediloL [Coreg] 25 mg PO BID #60 tablet 09/07/16 11/12/21 11/03/21 Rx hydrALAZINE [Apresoline TAB] 100 mg PO TID #90 tab 09/07/16 11/12/21 11/03/21 Rx traMADoL [Ultram 50 MG tab] 50 mg PO Q6HR PRN #20 tablet 09/07/16 11/12/21 11/04/21 Rx Gabapentin 300 mg PO 3XW 11/05/21 11/12/21 Unknown History Active Medications: Generic Name Dose Route Start Last Admin Trade Name Freq PRN Reason Stop Dose Admin Acetaminophen 650 mg 11/11/21 17:49 11/12/21 13:24 Acetaminophen 325 Mg Tab PO 650 mg Q4H PRN Administration Pain MILD(1-3)/Fever >100.5/GAXIOLA Carvedilol 25 mg 11/11/21 22:00 11/13/21 21:04 Carvedilol 25 Mg Tab PO 25 mg BID LOUISE Administration Doxazosin Mesylate 2 mg 11/11/21 22:00 11/13/21 21:03 Doxazosin 1 Mg Tab PO 2 mg QHS LOUISE Administration Gabapentin 300 mg 11/14/21 12:00 Gabapentin 300 Mg Cap PO TuThSa LOUISE Heparin Sodium (Porcine) 5,000 unit 11/11/21 22:00 11/13/21 21:06 Heparin 5,000 Unit/1 Ml Vial SUB-Q 5,000 unit Q12HR LOUISE Administration Hydralazine HCl 100 mg 11/11/21 20:00 11/13/21 21:03 Hydralazine 100 Mg Tab PO 100 mg TID LOUISE Administration Lanthanum Carbonate 750 mg 11/12/21 07:30 11/13/21 17:28 Lanthanum Carbonate 500 Mg Tab PO 750 mg QDAC LOUISE Administration Morphine Sulfate 2 mg 11/11/21 18:02 Morphine 2 Mg/1 Ml Inj IV Q4H PRN Pain, Moderate (4-6) Multivit/Ca Carb/B Cmplx/FA/Prenat 1 cap 11/11/21 18:00 11/13/21 11:30 Folic Acid/Vit B Comp W-C 1 Mg (Renal Caps) PO 1 cap QDAY LOUISE Administration Nifedipine 60 mg 11/11/21 22:00 11/13/21 21:05 Nifedipine Xl 60 Mg Tab PO 60 mg Q12HR LOUISE Administration Ondansetron HCl 4 mg 11/11/21 17:49 Ondansetron 4 Mg/2 Ml Inj IV Q8H PRN Nausea And Vomiting Pantoprazole Sodium 40 mg 11/12/21 10:00 11/13/21 10:29 Pantoprazole 40 Mg Tab PO 40 mg QDAY LOUISE Administration Sodium Chloride 10 ml 11/11/21 22:00 11/13/21 21:05 Sodium Chloride 0.9% 10 Ml Flush Syringe IV 10 ml BID LOUISE Administration Sodium Chloride 10 ml 11/11/21 17:49 Sodium Chloride 0.9% 10 Ml Flush Syringe IV PRN PRN LINE FLUSH Tramadol HCl 50 mg 11/11/21 17:48 Tramadol 50 Mg Tab PO Q6HR PRN PAIN
[2021-11-14] MEDS: NIFEdipine XL 60 MG TAB PO SCH ×2 (10:32→21:06)
[2021-11-14] MEDS: HEPARIN 5,000 UNIT/1 ML VIAL SUB-Q SCH ×2 (10:32→21:06)
[2021-11-14] MEDS: FOLIC ACID/VIT B COMP W-C 1 MG (RENAL CAPS) PO SCH (10:32)
[2021-11-14] MEDS: PANTOPRAZOLE 40 MG TAB PO SCH (10:33)
[2021-11-14] MEDS: carvediloL 25 MG TAB PO SCH ×2 (10:33→21:06)
[2021-11-14] MEDS: LANTHANUM CARBONATE 500 MG TAB PO SCH (10:37)
[2021-11-14] MEDS: hydrALAZINE 100 MG TAB PO SCH (10:38)
[2021-11-14] MEDS: GABAPENTIN 300 MG CAP PO SCH (11:01)
[2021-11-14] MEDS: hydrALAZINE 25 MG TAB PO SCH ×2 (14:18→21:06)
--- NOTE | 2021-11-14 16:05 | Consultation ---
History of Present Illness Consult date: 11/14/21 Reason for Consult: Encephalopathy History of present illness: 61-year-old male with history of hypertension, end-stage renal disease and GERD brought into the emergency department because of decreased responsiveness. Patient has been lethargic and decreased responsiveness for the last 24 hours. Missed 1 hemodialysis session on . The last hemodialysis session was on Saturday today to Saturday. No fever or chills. No cough. The patient reports improved ,was having left leg weakness There was no loss of conciouness. The patient passed out during the dialysis. Past History Past Medical History: ESRD, hypertension Past Surgical History: Other (HD Access placement) Social history: no significant social history Family history: no significant family history Medications and Allergies Allergies Allergy/AdvReac Type Severity Reaction Status Date / Time clonidine Allergy Swelling Verified 11/03/21 14:04 codeine Allergy Itching Verified 11/03/21 14:04 hydrocodone Allergy Itching Verified 11/03/21 14:04 aspirin AdvReac Severe Brain Verified 11/03/21 14:04 Bleeding Home Medications Medication Instructions Recorded Confirmed Last Taken Type B Complex 11/Folic/C/Biot/Zinc 1 each PO DAILY 08/15/16 11/12/21 11/03/21 History [Dialyvite with Zinc Tablet] Ergocalciferol (Vitamin D2) 1 tab PO 1XW 08/15/16 11/12/21 11/03/21 History [Vitamin D2] Lanthanum Carbonate [Fosrenol] 750 mg PO QDAC 09/05/16 11/12/21 11/03/21 History Doxazosin Mesylate [Cardura] 2 mg PO HS #30 tablet 09/07/16 11/12/21 11/03/21 Rx Folic Acid/Vit B Comp W-C [Renal 1 cap PO QDAY #30 capsule 09/07/16 11/12/21 11/03/21 Rx Caps] NIFEdipine XL [Procardia Xl] 60 mg PO Q12HR #60 tablet 09/07/16 11/12/21 11/03/21 Rx Pantoprazole [Protonix TAB] 40 mg PO QDAY #30 tablet 09/07/16 11/12/21 11/03/21 Rx carvediloL [Coreg] 25 mg PO BID #60 tablet 09/07/16 11/12/21 11/03/21 Rx hydrALAZINE [Apresoline TAB] 100 mg PO TID #90 tab 09/07/16 11/12/21 11/03/21 Rx traMADoL [Ultram 50 MG tab] 50 mg PO Q6HR PRN #20 tablet 09/07/16 11/12/21 11/04/21 Rx Gabapentin 300 mg PO 3XW 11/05/21 11/12/21 Unknown History Active Meds: Active Medications Acetaminophen (Acetaminophen 325 Mg Tab) 650 mg PO Q4H PRN PRN Reason: Pain MILD(1-3)/Fever >100.5/GAXIOLA Last Admin: 11/12/21 13:24 Dose: 650 mg Carvedilol (Carvedilol 25 Mg Tab) 25 mg PO BID [facility] Last Admin: 11/14/21 10:33 Dose: 25 mg Doxazosin Mesylate (Doxazosin 1 Mg Tab) 2 mg PO QHS [facility] Last Admin: 11/13/21 21:03 Dose: 2 mg Gabapentin (Gabapentin 300 Mg Cap) 300 mg PO TuThSa [facility] Last Admin: 11/14/21 11:01 Dose: 300 mg Heparin Sodium (Porcine) (Heparin 5,000 Unit/1 Ml Vial) 5,000 unit SUB-Q Q12HR [facility] Last Admin: 11/14/21 10:32 Dose: 5,000 unit Hydralazine HCl (Hydralazine 25 Mg Tab) 100 mg PO TID [facility] Last Admin: 11/14/21 14:18 Dose: 100 mg Lanthanum Carbonate (Lanthanum Carbonate 500 Mg Tab) 750 mg PO QDAC [facility] Last Admin: 11/14/21 10:37 Dose: 750 mg Morphine Sulfate (Morphine 2 Mg/1 Ml Inj) 2 mg IV Q4H PRN PRN Reason: Pain, Moderate (4-6) Multivit/Ca Carb/B Cmplx/FA/Prenat (Folic Acid/Vit B Comp W-C 1 Mg (Renal Caps)) 1 cap PO QDAY [facility] Last Admin: 11/14/21 10:32 Dose: 1 cap Nifedipine (Nifedipine Xl 60 Mg Tab) 60 mg PO Q12HR [facility] Last Admin: 11/14/21 10:32 Dose: 60 mg Ondansetron HCl (Ondansetron 4 Mg/2 Ml Inj) 4 mg IV Q8H PRN PRN Reason: Nausea And Vomiting Pantoprazole Sodium (Pantoprazole 40 Mg Tab) 40 mg PO QDAY [facility] Last Admin: 11/14/21 10:33 Dose: 40 mg Sodium Chloride (Sodium Chloride 0.9% 10 Ml Flush Syringe) 10 ml IV BID [facility] Last Admin: 11/14/21 10:33 Dose: 10 ml Sodium Chloride (Sodium Chloride 0.9% 10 Ml Flush Syringe) 10 ml IV PRN PRN PRN Reason: LINE FLUSH Tramadol HCl (Tramadol 50 Mg Tab) 50 mg PO Q6HR PRN PRN Reason: PAIN Physical Examination - Vital Signs Vital Signs: Vital Signs Pulse Resp Pulse Ox 63 14 99 11/11/21 11:45 11/11/21 11:45 11/11/21 11:45 - Physical Exam Narrative exam: The patient is alert , moves all 4 extremity . Results - Laboratory Findings CBC and BMP: 11/12/21 04:45 11/14/21 05:39 Abnormal Lab Findings: Abnormal Labs 11/11/21 11/11/21 11/12/21 12:28 12:28 04:45 WBC 13.3 H RBC 3.26 L 3.40 L Hgb 10.5 L 11.0 L Hct 33.0 L 34.3 L MCV 101 H 101 H RDW 15.3 H Lymph % (Auto) 3.8 L 7.4 L [place] % (Auto) 11.4 H 14.0 H Eos % (Auto) 11.3 H Lymph # (Auto) 0.5 L 0.7 L [place] # (Auto) 1.5 H 1.4 H Eos # (Auto) 1.1 H Seg Neutrophils % 82.2 H Seg Neutrophils # 11.0 H Sodium 134 L Potassium 6.4 H* D Chloride 93.6 L Carbon Dioxide 20 L D BUN 81 H Creatinine 12.0 H D Glucose 104 H Phosphorus ALT < 5 L Albumin 3.8 L 11/12/21 11/13/21 11/14/21 04:45 05:33 05:39 WBC RBC Hgb Hct MCV RDW Lymph % (Auto) [place] % (Auto) Eos % (Auto) Lymph # (Auto) [place] # (Auto) Eos # (Auto) Seg Neutrophils % Seg Neutrophils # Sodium 136 L Potassium Chloride 93.8 L 94.8 L Carbon Dioxide BUN 56 H 70 H 34 H Creatinine 8.8 H 10.4 H 5.9 H Glucose 56 L Phosphorus 9.00 H ALT 5 L Albumin 3.4 L Assessment and Plan 1. Possible Seizure needs further evaluation . 2. MRI Brain reviewed . 3. EEG in office in 4 weeks . 4. I will call the patient in the office and discuss further management 5. No new medication has been started . Dr. Isidro
--- NOTE | 2021-11-14 18:26 | Progress Note ---
Assessment and Plan Assessment and plan: PT recommended acute rehab --Acute metabolic encephalopathy Differential diagnosis of uremia versus CVA MRI brain, Emergent hemodialysis MRI brain: postoperative changes with residual and/or recurrent tumor correlate with history and prior exams are determined stability if there has been any significant change Continue supportive care, follow neurology evaluation --History of multiple craniotomies; Patient Follows with [facility] Neurology evaluation and recommendation noted appreciated --History of fall; Fall precautions PT recommended acute rehab DC planning per case management --left knee swelling and effusion[probably traumatic] X-ray knee no acute abnormality Physical therapy recommended acute rehab DC planning per case management - Hyperkalemia/resolved Emergent hemodialysis Nephrology following --ESRD (end stage renal disease) Hemodialysis per schedule Nephrology following Patient has established HD chair -- Hypertension Continue antihypertensives and adjust medications as necessary --Peripheral neuropathy On gabapentin, supportive care --GERD (gastroesophageal reflux disease) Proton pump inhibitors -- Anemia of chronic disease Epogen as per nephrology --Vitamin D deficiency Continue vitamin D -- DVT prophylaxis Subcu heparin renal dose Advance Directives: Yes (Full code) VTE prophylaxis?: Chemical Plan of care discussed with patient/family: Yes -- Advance care planning Disease education conducted, care plan discussed, diagnosis discussed, And discussed in detail patient's condition tests and reports treatment and discharge plan With the patient and the spouse at the bedside prognosis discussed, patient acknowledged understanding and agrees with care plan. +32 minutes. We will closely monitor the patient and adjust the management as needed PT recommended acute rehab DC planning per case management Possible discharge in 1 to 2 days if stable Plan of care reviewed with the patient and his nurse as well as the case management History Interval history: I have seen and examined the patient at the bedside today Patient's chart and medications reviewed Patient feels slightly better No new complaints Vital signs noted Hospitalist Physical - Constitutional Vitals: Temp Pulse Resp BP Pulse Ox 98.3 F 65 20 139/65 94 11/14/21 12:50 11/14/21 12:50 11/14/21 12:50 11/14/21 12:50 11/14/21 12:50 General appearance: Present: no acute distress, well-nourished - EENT Eyes: Present: PERRL, EOM intact - Neck Neck: Present: supple, normal ROM - Respiratory Respiratory effort: normal Respiratory: bilateral: diminished, negative: rales, rhonchi, wheezing - Cardiovascular Rhythm: regular Heart Sounds: Present: S1 & S2 - Extremities Extremities: no ischemia, No edema - Abdominal General gastrointestinal: soft, non-tender, non-distended, normal bowel sounds - Integumentary Integumentary: Present: clear, warm - Psychiatric Psychiatric: appropriate mood/affect, cooperative - Neurologic Neurologic: moves all extremities Results - Labs CBC & Chem 7: 11/12/21 04:45 11/14/21 05:39 Labs: Laboratory Last Values WBC 9.9 K/mm3 (4.5-11.0) 11/12/21 04:45 RBC 3.40 M/mm3 (3.65-5.03) L 11/12/21 04:45 Hgb 11.0 gm/dl (11.8-15.2) L 11/12/21 04:45 Hct 34.3 % (35.5-45.6) L 11/12/21 04:45 MCV 101 fl (84-94) H 11/12/21 04:45 MCH 32 pg (28-32) 11/12/21 04:45 MCHC 32 % (32-34) 11/12/21 04:45 RDW 14.9 % (13.2-15.2) 11/12/21 04:45 Plt Count 179 K/mm3 (140-440) 11/12/21 04:45 Lymph % (Auto) 7.4 % (13.4-35.0) L 11/12/21 04:45 [place] % (Auto) 14.0 % (0.0-7.3) H 11/12/21 04:45 Eos % (Auto) 11.3 % (0.0-4.3) H 11/12/21 04:45 Baso % (Auto) 1.4 % (0.0-1.8) 11/12/21 04:45 Lymph # (Auto) 0.7 K/mm3 (1.2-5.4) L 11/12/21 04:45 [place] # (Auto) 1.4 K/mm3 (0.0-0.8) H 11/12/21 04:45 Eos # (Auto) 1.1 K/mm3 (0.0-0.4) H 11/12/21 04:45 Baso # (Auto) 0.1 K/mm3 (0.0-0.1) 11/12/21 04:45 Seg Neutrophils % 65.9 % (40.0-70.0) 11/12/21 04:45 Seg Neutrophils # 6.5 K/mm3 (1.8-7.7) 11/12/21 04:45 Sodium 137 mmol/L (137-145) 11/14/21 05:39 Potassium 3.9 mmol/L (3.6-5.0) 11/14/21 05:39 Chloride 94.8 mmol/L (98-107) L 11/14/21 05:39 Carbon Dioxide 27 mmol/L (22-30) 11/14/21 05:39 Anion Gap 19 mmol/L 11/14/21 05:39 BUN 34 mg/dL (9-20) H 11/14/21 05:39 Creatinine 5.9 mg/dL (0.8-1.3) H 11/14/21 05:39 Estimated GFR 10 ml/min 11/14/21 05:39 BUN/Creatinine Ratio 6 % 11/14/21 05:39 Glucose 90 mg/dL (75-100) 11/14/21 05:39 Calcium 9.5 mg/dL (8.4-10.2) 11/14/21 05:39 Phosphorus 9.00 mg/dL (2.5-4.5) H 11/13/21 05:33 Total Bilirubin 0.40 mg/dL (0.1-1.2) 11/12/21 04:45 AST 17 units/L (5-40) 11/12/21 04:45 ALT 5 units/L (7-56) L 11/12/21 04:45 Alkaline Phosphatase 98 units/L (35-129) 11/12/21 04:45 Total Protein 7.1 g/dL (6.3-8.2) 11/12/21 04:45 Albumin 3.4 g/dL (3.9-5) L 11/12/21 04:45 Albumin/Globulin Ratio 0.9 % 11/12/21 04:45 Nasal Screen MRSA (PCR) Negative (Negative) 11/12/21 06:50 Ferro/IV: Voiding Method Toilet Active Medications - Current Medications Current Medications: Generic Name Dose Route Start Last Admin Trade Name Freq PRN Reason Stop Dose Admin Acetaminophen 650 mg 11/11/21 17:49 11/12/21 13:24 Acetaminophen 325 Mg Tab PO 650 mg Q4H PRN Administration Pain MILD(1-3)/Fever >100.5/GAXIOLA Carvedilol 25 mg 11/11/21 22:00 11/14/21 10:33 Carvedilol 25 Mg Tab PO 25 mg BID LOUISE Administration Doxazosin Mesylate 2 mg 11/11/21 22:00 11/13/21 21:03 Doxazosin 1 Mg Tab PO 2 mg QHS LOUISE Administration Gabapentin 300 mg 11/14/21 12:00 11/14/21 11:01 Gabapentin 300 Mg Cap PO 300 mg TuThSa LOUISE Administration Heparin Sodium (Porcine) 5,000 unit 11/11/21 22:00 11/14/21 10:32 Heparin 5,000 Unit/1 Ml Vial SUB-Q 5,000 unit Q12HR LOUISE Administration Hydralazine HCl 100 mg 11/14/21 14:00 11/14/21 14:18 Hydralazine 25 Mg Tab PO 100 mg TID LOUISE Administration Lanthanum Carbonate 750 mg 11/12/21 07:30 11/14/21 10:37 Lanthanum Carbonate 500 Mg Tab PO 750 mg QDAC LOUISE Administration Morphine Sulfate 2 mg 11/11/21 18:02 Morphine 2 Mg/1 Ml Inj IV Q4H PRN Pain, Moderate (4-6) Multivit/Ca Carb/B Cmplx/FA/Prenat 1 cap 11/11/21 18:00 11/14/21 10:32 Folic Acid/Vit B Comp W-C 1 Mg (Renal Caps) PO 1 cap QDAY LOUISE Administration Nifedipine 60 mg 11/11/21 22:00 11/14/21 10:32 Nifedipine Xl 60 Mg Tab PO 60 mg Q12HR LOUISE Administration Ondansetron HCl 4 mg 11/11/21 17:49 Ondansetron 4 Mg/2 Ml Inj IV Q8H PRN Nausea And Vomiting Pantoprazole Sodium 40 mg 11/12/21 10:00 11/14/21 10:33 Pantoprazole 40 Mg Tab PO 40 mg QDAY LOUISE Administration Sodium Chloride 10 ml 11/11/21 22:00 11/14/21 10:33 Sodium Chloride 0.9% 10 Ml Flush Syringe IV 10 ml BID LOUISE Administration Sodium Chloride 10 ml 11/11/21 17:49 Sodium Chloride 0.9% 10 Ml Flush Syringe IV PRN PRN LINE FLUSH Tramadol HCl 50 mg 11/11/21 17:48 Tramadol 50 Mg Tab PO Q6HR PRN PAIN
[2021-11-14] MEDS: DOXAZOSIN 1 MG TAB PO SCH (21:05)
[2021-11-15] MEDS: LANTHANUM CARBONATE 500 MG TAB PO SCH (09:17)
[2021-11-15] MEDS: HEPARIN 5,000 UNIT/1 ML VIAL SUB-Q SCH ×2 (09:18→21:36)
[2021-11-15] MEDS: carvediloL 25 MG TAB PO SCH ×2 (09:18→21:35)
[2021-11-15] MEDS: PANTOPRAZOLE 40 MG TAB PO SCH (09:18)
[2021-11-15] MEDS: FOLIC ACID/VIT B COMP W-C 1 MG (RENAL CAPS) PO SCH (09:18)
[2021-11-15] MEDS: hydrALAZINE 25 MG TAB PO SCH ×3 (09:18→20:00)
[2021-11-15] MEDS: NIFEdipine XL 60 MG TAB PO SCH ×2 (09:18→21:35)
[2021-11-15] MEDS ORDERED: SODIUM CHLORIDE 0.9% 100 ML IV PRN (10:39)
--- NOTE | 2021-11-15 10:48 | Progress Note ---
Assessment and Plan End Stage Renal Disease on HD Hypertension Acute Encephalopathy Hyperkalemia Anemia Hx of multiple craniotomies Plan: HD today for UF and clearance Assess need for HD on daily basis If plan is for pt to get discharged tomorrow, recommend HD prior to discharge since pt undergoes OP HD on TTS schedule Pt agreeable to HD again tomorrow in case needed prior to discharge Fluid restriction of 1 liter per day Monitor for need for Epogen Renally dose medications This pt undergoes OP HD at [facility] TTS under Dr. Quispe Renal plan reviewed by Dr Nelson Subjective Date of service: 11/15/21 Principal diagnosis: ESRD Interval history: Pt seen in HD unit, denies shortness of breath, no acute distress Objective - Vital Signs Vital signs: Vital Signs - 12hr 11/15/21 08:18 O2 Sat by Pulse 97 Oximetry - General Appearance General appearance: well-developed EENT: ATNC Neck: no JVD Respiratory: Present: Decreased Breath Sounds Cardiology: S1S2, other (ACCESS: Left AVF in use) Gastrointestinal: normoactive bowel sounds, no tenderness Integumentary: warm and dry Neurologic: alert and oriented x3 Musculoskeletal: other (trace edema to BLE) Psychiatric: cooperative - Lab 11/12/21 04:45 11/14/21 05:39 Most recent lab results Calcium 9.5 mg/dL (8.4-10.2) 11/14/21 05:39 Phosphorus 9.00 mg/dL (2.5-4.5) H 11/13/21 05:33 Medications & Allergies - Medications Allergies/Adverse Reactions: Allergies clonidine Allergy (Verified 11/03/21 14:04) Swelling codeine Allergy (Verified 11/03/21 14:04) Itching hydrocodone Allergy (Verified 11/03/21 14:04) Itching aspirin Adverse Reaction (Severe, Verified 11/03/21 14:04) Brain Bleeding Home Medications: Home Medications Medication Instructions Recorded Confirmed Last Taken Type B Complex 11/Folic/C/Biot/Zinc 1 each PO DAILY 08/15/16 11/12/21 11/03/21 History [Dialyvite with Zinc Tablet] Ergocalciferol (Vitamin D2) 1 tab PO 1XW 08/15/16 11/12/21 11/03/21 History [Vitamin D2] Lanthanum Carbonate [Fosrenol] 750 mg PO QDAC 09/05/16 11/12/21 11/03/21 History Doxazosin Mesylate [Cardura] 2 mg PO HS #30 tablet 09/07/16 11/12/21 11/03/21 Rx Folic Acid/Vit B Comp W-C [Renal 1 cap PO QDAY #30 capsule 09/07/16 11/12/21 11/03/21 Rx Caps] NIFEdipine XL [Procardia Xl] 60 mg PO Q12HR #60 tablet 09/07/16 11/12/21 11/03/21 Rx Pantoprazole [Protonix TAB] 40 mg PO QDAY #30 tablet 09/07/16 11/12/21 11/03/21 Rx carvediloL [Coreg] 25 mg PO BID #60 tablet 09/07/16 11/12/21 11/03/21 Rx hydrALAZINE [Apresoline TAB] 100 mg PO TID #90 tab 09/07/16 11/12/21 11/03/21 Rx traMADoL [Ultram 50 MG tab] 50 mg PO Q6HR PRN #20 tablet 09/07/16 11/12/21 11/04/21 Rx Gabapentin 300 mg PO 3XW 11/05/21 11/12/21 Unknown History Active Medications: Generic Name Dose Route Start Last Admin Trade Name Freq PRN Reason Stop Dose Admin Acetaminophen 650 mg 11/11/21 17:49 11/12/21 13:24 Acetaminophen 325 Mg Tab PO 650 mg Q4H PRN Administration Pain MILD(1-3)/Fever >100.5/GAXIOLA Carvedilol 25 mg 11/11/21 22:00 11/15/21 09:18 Carvedilol 25 Mg Tab PO 25 mg BID LOUISE Administration Doxazosin Mesylate 2 mg 11/11/21 22:00 11/14/21 21:05 Doxazosin 1 Mg Tab PO 2 mg QHS LOUISE Administration Gabapentin 300 mg 11/14/21 12:00 11/14/21 11:01 Gabapentin 300 Mg Cap PO 300 mg TuThSa LOUISE Administration Heparin Sodium (Porcine) 5,000 unit 11/11/21 22:00 11/15/21 09:18 Heparin 5,000 Unit/1 Ml Vial SUB-Q 5,000 unit Q12HR LOUISE Administration Hydralazine HCl 100 mg 11/14/21 14:00 11/15/21 09:18 Hydralazine 25 Mg Tab PO 100 mg TID LOUISE Administration Sodium Chloride 100 mls @ 999 mls/hr 11/15/21 10:39 Nacl 0.9% IV MILIND PRN Hypotension Lanthanum Carbonate 750 mg 11/12/21 07:30 11/15/21 09:17 Lanthanum Carbonate 500 Mg Tab PO 750 mg QDAC LOUISE Administration Morphine Sulfate 2 mg 11/11/21 18:02 Morphine 2 Mg/1 Ml Inj IV Q4H PRN Pain, Moderate (4-6) Multivit/Ca Carb/B Cmplx/FA/Prenat 1 cap 11/11/21 18:00 11/15/21 09:18 Folic Acid/Vit B Comp W-C 1 Mg (Renal Caps) PO 1 cap QDAY LOUISE Administration Nifedipine 60 mg 11/11/21 22:00 11/15/21 09:18 Nifedipine Xl 60 Mg Tab PO 60 mg Q12HR LOUISE Administration Ondansetron HCl 4 mg 11/11/21 17:49 Ondansetron 4 Mg/2 Ml Inj IV Q8H PRN Nausea And Vomiting Pantoprazole Sodium 40 mg 11/12/21 10:00 11/15/21 09:18 Pantoprazole 40 Mg Tab PO 40 mg QDAY LOUISE Administration Sodium Chloride 10 ml 11/11/21 22:00 11/15/21 09:18 Sodium Chloride 0.9% 10 Ml Flush Syringe IV 10 ml BID LOUISE Administration Sodium Chloride 10 ml 11/11/21 17:49 Sodium Chloride 0.9% 10 Ml Flush Syringe IV PRN PRN LINE FLUSH Tramadol HCl 50 mg 11/11/21 17:48 Tramadol 50 Mg Tab PO Q6HR PRN PAIN
--- NOTE | 2021-11-15 15:25 | Progress Note ---
Assessment and Plan Assessment and plan: PT recommended acute rehab --Acute metabolic encephalopathy Differential diagnosis of uremia versus CVA MRI brain, Emergent hemodialysis MRI brain: postoperative changes with residual and/or recurrent tumor correlate with history and prior exams are determined stability if there has been any significant change Continue supportive care, follow neurology evaluation --History of multiple craniotomies; Patient Follows with [facility] Neurology evaluation and recommendation noted appreciated --History of fall; Fall precautions PT recommended acute rehab DC planning per case management --left knee swelling and effusion[probably traumatic] X-ray knee no acute abnormality Physical therapy recommended acute rehab DC planning per case management - Hyperkalemia/resolved Emergent hemodialysis Nephrology following --ESRD (end stage renal disease) Hemodialysis per schedule Nephrology following Patient has established HD chair -- Hypertension Continue antihypertensives and adjust medications as necessary --Peripheral neuropathy On gabapentin, supportive care --GERD (gastroesophageal reflux disease) Proton pump inhibitors -- Anemia of chronic disease Epogen as per nephrology --Vitamin D deficiency Continue vitamin D -- DVT prophylaxis Subcu heparin renal dose DC planning ;per case management; PT recommended acute rehab Case management team contacting [facility] for acute rehab placement Advance Directives: Yes (Full code) VTE prophylaxis?: Chemical Plan of care discussed with patient/family: Yes -- Advance care planning Disease education conducted, care plan discussed, diagnosis discussed, And discussed in detail patient's condition tests and reports treatment and discharge plan With the patient and the spouse at the bedside prognosis discussed, patient acknowledged understanding and agrees with care plan. +32 minutes. We will closely monitor the patient and adjust the management as needed 11/16/2019, PT recommended acute rehab DC planning per case management Possible discharge in 1 to 2 days if stable Plan of care reviewed with the patient and his nurse as well as the case management History Interval history: Seen and examined the patient at the bedside Patient's chart and medications reviewed No new events reported by the nursing staff Patient is scheduled for dialysis today Vital signs noted Hospitalist Physical - Constitutional Vitals: Temp Pulse Resp BP Pulse Ox 98.5 F 63 19 156/74 99 11/15/21 14:40 11/15/21 14:40 11/15/21 14:40 11/15/21 14:40 11/15/21 14:40 General appearance: Present: no acute distress, well-nourished - EENT Eyes: Present: PERRL, EOM intact - Neck Neck: Present: supple, normal ROM - Respiratory Respiratory effort: normal Respiratory: bilateral: diminished, negative: rales, rhonchi, wheezing - Cardiovascular Rhythm: regular Heart Sounds: Present: S1 & S2 - Extremities Extremities: no ischemia, No edema - Abdominal General gastrointestinal: soft, non-tender, non-distended - Integumentary Integumentary: Present: clear, warm - Psychiatric Psychiatric: appropriate mood/affect, other (Confused at times) - Neurologic Neurologic: moves all extremities Results - Labs CBC & Chem 7: 11/12/21 04:45 11/14/21 05:39 Labs: Laboratory Last Values WBC 9.9 K/mm3 (4.5-11.0) 11/12/21 04:45 RBC 3.40 M/mm3 (3.65-5.03) L 11/12/21 04:45 Hgb 11.0 gm/dl (11.8-15.2) L 11/12/21 04:45 Hct 34.3 % (35.5-45.6) L 11/12/21 04:45 MCV 101 fl (84-94) H 11/12/21 04:45 MCH 32 pg (28-32) 11/12/21 04:45 MCHC 32 % (32-34) 11/12/21 04:45 RDW 14.9 % (13.2-15.2) 11/12/21 04:45 Plt Count 179 K/mm3 (140-440) 11/12/21 04:45 Lymph % (Auto) 7.4 % (13.4-35.0) L 11/12/21 04:45 [place] % (Auto) 14.0 % (0.0-7.3) H 11/12/21 04:45 Eos % (Auto) 11.3 % (0.0-4.3) H 11/12/21 04:45 Baso % (Auto) 1.4 % (0.0-1.8) 11/12/21 04:45 Lymph # (Auto) 0.7 K/mm3 (1.2-5.4) L 11/12/21 04:45 [place] # (Auto) 1.4 K/mm3 (0.0-0.8) H 11/12/21 04:45 Eos # (Auto) 1.1 K/mm3 (0.0-0.4) H 11/12/21 04:45 Baso # (Auto) 0.1 K/mm3 (0.0-0.1) 11/12/21 04:45 Seg Neutrophils % 65.9 % (40.0-70.0) 11/12/21 04:45 Seg Neutrophils # 6.5 K/mm3 (1.8-7.7) 11/12/21 04:45 Sodium 137 mmol/L (137-145) 11/14/21 05:39 Potassium 3.9 mmol/L (3.6-5.0) 11/14/21 05:39 Chloride 94.8 mmol/L (98-107) L 11/14/21 05:39 Carbon Dioxide 27 mmol/L (22-30) 11/14/21 05:39 Anion Gap 19 mmol/L 11/14/21 05:39 BUN 34 mg/dL (9-20) H 11/14/21 05:39 Creatinine 5.9 mg/dL (0.8-1.3) H 11/14/21 05:39 Estimated GFR 10 ml/min 11/14/21 05:39 BUN/Creatinine Ratio 6 % 11/14/21 05:39 Glucose 90 mg/dL (75-100) 11/14/21 05:39 Calcium 9.5 mg/dL (8.4-10.2) 11/14/21 05:39 Phosphorus 9.00 mg/dL (2.5-4.5) H 11/13/21 05:33 Total Bilirubin 0.40 mg/dL (0.1-1.2) 11/12/21 04:45 AST 17 units/L (5-40) 11/12/21 04:45 ALT 5 units/L (7-56) L 11/12/21 04:45 Alkaline Phosphatase 98 units/L (35-129) 11/12/21 04:45 Total Protein 7.1 g/dL (6.3-8.2) 11/12/21 04:45 Albumin 3.4 g/dL (3.9-5) L 11/12/21 04:45 Albumin/Globulin Ratio 0.9 % 11/12/21 04:45 Nasal Screen MRSA (PCR) Negative (Negative) 11/12/21 06:50 Ferro/IV: Voiding Method Toilet Active Medications - Current Medications Current Medications: Generic Name Dose Route Start Last Admin Trade Name Freq PRN Reason Stop Dose Admin Acetaminophen 650 mg 11/11/21 17:49 11/12/21 13:24 Acetaminophen 325 Mg Tab PO 650 mg Q4H PRN Administration Pain MILD(1-3)/Fever >100.5/GAXIOLA Carvedilol 25 mg 11/11/21 22:00 11/15/21 09:18 Carvedilol 25 Mg Tab PO 25 mg BID LOUISE Administration Doxazosin Mesylate 2 mg 11/11/21 22:00 11/14/21 21:05 Doxazosin 1 Mg Tab PO 2 mg QHS LOUISE Administration Gabapentin 300 mg 11/14/21 12:00 11/14/21 11:01 Gabapentin 300 Mg Cap PO 300 mg TuThSa LOUISE Administration Heparin Sodium (Porcine) 5,000 unit 11/11/21 22:00 11/15/21 09:18 Heparin 5,000 Unit/1 Ml Vial SUB-Q 5,000 unit Q12HR LOUISE Administration Hydralazine HCl 100 mg 11/14/21 14:00 11/15/21 09:18 Hydralazine 25 Mg Tab PO 100 mg TID LOUISE Administration Sodium Chloride 100 mls @ 999 mls/hr 11/15/21 10:39 Nacl 0.9% IV MILIND PRN Hypotension Lanthanum Carbonate 750 mg 11/12/21 07:30 11/15/21 09:17 Lanthanum Carbonate 500 Mg Tab PO 750 mg QDAC LOUISE Administration Morphine Sulfate 2 mg 11/11/21 18:02 Morphine 2 Mg/1 Ml Inj IV Q4H PRN Pain, Moderate (4-6) Multivit/Ca Carb/B Cmplx/FA/Prenat 1 cap 11/11/21 18:00 11/15/21 09:18 Folic Acid/Vit B Comp W-C 1 Mg (Renal Caps) PO 1 cap QDAY LOUISE Administration Nifedipine 60 mg 11/11/21 22:00 11/15/21 09:18 Nifedipine Xl 60 Mg Tab PO 60 mg Q12HR LOUISE Administration Ondansetron HCl 4 mg 11/11/21 17:49 Ondansetron 4 Mg/2 Ml Inj IV Q8H PRN Nausea And Vomiting Pantoprazole Sodium 40 mg 11/12/21 10:00 11/15/21 09:18 Pantoprazole 40 Mg Tab PO 40 mg QDAY LOUISE Administration Sodium Chloride 10 ml 11/11/21 22:00 11/15/21 09:18 Sodium Chloride 0.9% 10 Ml Flush Syringe IV 10 ml BID LOUISE Administration Sodium Chloride 10 ml 11/11/21 17:49 Sodium Chloride 0.9% 10 Ml Flush Syringe IV PRN PRN LINE FLUSH Tramadol HCl 50 mg 11/11/21 17:48 Tramadol 50 Mg Tab PO Q6HR PRN PAIN
[2021-11-15] MEDS: DOXAZOSIN 1 MG TAB PO SCH (21:35)
[2021-11-15] MEDS: traMADol 50 MG TAB PO PRN (21:43)
--- NOTE | 2021-11-16 09:25 | Progress Note ---
Assessment and Plan End Stage Renal Disease Hypertension S/P Hyperkalemia Anemia Plan: HD today for clearance and volume removal to restart TTS schedule Fluid restriction of 1 liter per day Renally dose medications Obtain daily weights Monitor I/O's daily Assess dialysis needs daily Goes to [facility] under Dr. Quispe Subjective Date of service: 11/16/21 Principal diagnosis: ESRD Interval history: denies acute issues, he is requesting to go back to his TTS schedule Objective - Vital Signs Vital signs: Vital Signs - 12hr 11/15/21 11/15/21 11/16/21 21:34 21:35 05:38 Temperature 98.0 F 98.8 F Pulse Rate 68 64 Respiratory 18 18 Rate Blood Pressure 143/69 143/69 154/72 O2 Sat by Pulse 97 99 Oximetry - General Appearance General appearance: well-developed, well-nourished EENT: ATNC, PERRL Neck: no JVD, no carotid bruit Respiratory: Present: Clear to Ascultation. Absent: Rales, Ronchi Cardiology: regular, S1S2 Gastrointestinal: normoactive bowel sounds, no tenderness, no distended Integumentary: no rash, warm and dry Neurologic: no focal deficit, no asterixis, alert and oriented x3 Musculoskeletal: other (no edema in BLE) Psychiatric: mood/affect appropriate, cooperative - Lab 11/12/21 04:45 11/14/21 05:39 Most recent lab results Calcium 9.5 mg/dL (8.4-10.2) 11/14/21 05:39 Phosphorus 9.00 mg/dL (2.5-4.5) H 11/13/21 05:33 Medications & Allergies - Medications Allergies/Adverse Reactions: Allergies clonidine Allergy (Verified 11/03/21 14:04) Swelling codeine Allergy (Verified 11/03/21 14:04) Itching hydrocodone Allergy (Verified 11/03/21 14:04) Itching aspirin Adverse Reaction (Severe, Verified 11/03/21 14:04) Brain Bleeding Home Medications: Home Medications Medication Instructions Recorded Confirmed Last Taken Type B Complex 11/Folic/C/Biot/Zinc 1 each PO DAILY 08/15/16 11/12/21 11/03/21 History [Dialyvite with Zinc Tablet] Ergocalciferol (Vitamin D2) 1 tab PO 1XW 08/15/16 11/12/21 11/03/21 History [Vitamin D2] Lanthanum Carbonate [Fosrenol] 750 mg PO QDAC 09/05/16 11/12/21 11/03/21 History Doxazosin Mesylate [Cardura] 2 mg PO HS #30 tablet 09/07/16 11/12/21 11/03/21 Rx Folic Acid/Vit B Comp W-C [Renal 1 cap PO QDAY #30 capsule 09/07/16 11/12/21 11/03/21 Rx Caps] NIFEdipine XL [Procardia Xl] 60 mg PO Q12HR #60 tablet 09/07/16 11/12/21 11/03/21 Rx Pantoprazole [Protonix TAB] 40 mg PO QDAY #30 tablet 09/07/16 11/12/21 11/03/21 Rx carvediloL [Coreg] 25 mg PO BID #60 tablet 09/07/16 11/12/21 11/03/21 Rx hydrALAZINE [Apresoline TAB] 100 mg PO TID #90 tab 09/07/16 11/12/21 11/03/21 Rx traMADoL [Ultram 50 MG tab] 50 mg PO Q6HR PRN #20 tablet 09/07/16 11/12/21 11/04/21 Rx Gabapentin 300 mg PO 3XW 11/05/21 11/12/21 Unknown History Active Medications: Generic Name Dose Route Start Last Admin Trade Name Freq PRN Reason Stop Dose Admin Acetaminophen 650 mg 11/11/21 17:49 11/12/21 13:24 Acetaminophen 325 Mg Tab PO 650 mg Q4H PRN Administration Pain MILD(1-3)/Fever >100.5/GAXIOLA Carvedilol 25 mg 11/11/21 22:00 11/15/21 21:35 Carvedilol 25 Mg Tab PO 25 mg BID LOUISE Administration Doxazosin Mesylate 2 mg 11/11/21 22:00 11/15/21 21:35 Doxazosin 1 Mg Tab PO 2 mg QHS LOUISE Administration Gabapentin 300 mg 11/14/21 12:00 11/14/21 11:01 Gabapentin 300 Mg Cap PO 300 mg TuThSa LOUISE Administration Heparin Sodium (Porcine) 5,000 unit 11/11/21 22:00 11/15/21 21:36 Heparin 5,000 Unit/1 Ml Vial SUB-Q 5,000 unit Q12HR LOUISE Administration Hydralazine HCl 100 mg 11/14/21 14:00 11/15/21 20:00 Hydralazine 25 Mg Tab PO Not Given TID LOUISE Sodium Chloride 100 mls @ 999 mls/hr 11/15/21 10:39 Nacl 0.9% IV MILIND PRN Hypotension Lanthanum Carbonate 750 mg 11/12/21 07:30 11/15/21 09:17 Lanthanum Carbonate 500 Mg Tab PO 750 mg QDAC LOUISE Administration Morphine Sulfate 2 mg 11/11/21 18:02 Morphine 2 Mg/1 Ml Inj IV Q4H PRN Pain, Moderate (4-6) Multivit/Ca Carb/B Cmplx/FA/Prenat 1 cap 11/11/21 18:00 11/15/21 09:18 Folic Acid/Vit B Comp W-C 1 Mg (Renal Caps) PO 1 cap QDAY LOUISE Administration Nifedipine 60 mg 11/11/21 22:00 11/15/21 21:35 Nifedipine Xl 60 Mg Tab PO 60 mg Q12HR LOUISE Administration Ondansetron HCl 4 mg 11/11/21 17:49 Ondansetron 4 Mg/2 Ml Inj IV Q8H PRN Nausea And Vomiting Pantoprazole Sodium 40 mg 11/12/21 10:00 11/15/21 09:18 Pantoprazole 40 Mg Tab PO 40 mg QDAY LOUISE Administration Sodium Chloride 10 ml 11/11/21 22:00 11/15/21 21:36 Sodium Chloride 0.9% 10 Ml Flush Syringe IV 10 ml BID LOUISE Administration Sodium Chloride 10 ml 11/11/21 17:49 Sodium Chloride 0.9% 10 Ml Flush Syringe IV PRN PRN LINE FLUSH Tramadol HCl 50 mg 11/11/21 17:48 11/15/21 21:43 Tramadol 50 Mg Tab PO 50 mg Q6HR PRN Administration PAIN
[2021-11-16] MEDS: HEPARIN 5,000 UNIT/1 ML VIAL SUB-Q SCH ×2 (10:03→23:26)
--- NOTE | 2021-11-16 10:32 | Progress Note ---
Assessment and Plan Assessment and plan: --Acute metabolic encephalopathy Differential diagnosis of uremia versus CVA MRI brain, Emergent hemodialysis MRI brain: postoperative changes with residual and/or recurrent tumor correlate with history and prior exams are determined stability if there has been any significant change Continue supportive care, follow neurology evaluation --History of multiple craniotomies; Patient Follows with [facility] Neurology evaluation and recommendation noted appreciated --History of fall; Fall precautions PT recommended acute rehab DC planning per case management --left knee swelling and effusion[probably traumatic] X-ray knee no acute abnormality Physical therapy recommended acute rehab DC planning per case management - Hyperkalemia/resolved Emergent hemodialysis Nephrology following --ESRD (end stage renal disease) Hemodialysis per schedule Nephrology following Patient has established HD chair -- Hypertension Continue antihypertensives and adjust medications as necessary --Peripheral neuropathy On gabapentin, supportive care --GERD (gastroesophageal reflux disease) Proton pump inhibitors -- Anemia of chronic disease Epogen as per nephrology --Vitamin D deficiency Continue vitamin D -- DVT prophylaxis Subcu heparin renal dose DC planning ;per case management; PT recommended acute rehab Case management team contacting NH for acute rehab placement Advance Directives: Yes (Full code) VTE prophylaxis?: Chemical Plan of care discussed with patient/family: Yes -- Advance care planning Disease education conducted, care plan discussed, diagnosis discussed, And discussed in detail patient's condition tests and reports treatment and discharge plan With the patient and the spouse at the bedside prognosis discussed, patient acknowledged understanding and agrees with care plan. +32 minutes. We will closely monitor the patient and adjust the management as needed Brief history and Hospital course; 61-year-old male patient with significant past medical history of brain tumor status post multiple craniotomies was admitted through emergency room with altered level of consciousness And history of recurrent falls, patient was evaluated by neurology, had CT scan of the head, MRI of the brain was done with no acute abnormalities, patient received physical therapy occupational therapy and supportive care, PT recommended acute rehab placement, case management is assisting with discharge planning. Patient is from [facility], and our inpatient rehab is also evaluating the patient. 11/16/2019, PT recommended acute rehab DC planning per case management 11/16/2021; PT has recommended acute rehab Case management assisting with discharge planning Patient is from [facility], Disposition; discharge to inpatient rehab when patient is accepted by rehab. DC planning per case management History Interval history: I have seen and examined the patient at the bedside Patient's spouse is in the room Patient is anxious to go home PT has recommended acute rehab Case management assisting with discharge planning Patient is from [facility] Patient is comfortable in his bed Vital signs reviewed Hospitalist Physical - Constitutional Vitals: Temp Pulse Resp BP Pulse Ox 98.8 F 64 18 154/72 99 11/16/21 05:38 11/16/21 05:38 11/16/21 05:38 11/16/21 05:38 11/16/21 05:38 General appearance: Present: no acute distress, well-nourished - EENT Eyes: Present: PERRL, EOM intact - Neck Neck: Present: supple, normal ROM - Respiratory Respiratory effort: normal Respiratory: bilateral: diminished, negative: rales, rhonchi, wheezing - Cardiovascular Rhythm: regular Heart Sounds: Present: S1 & S2 - Extremities Extremities: no ischemia, No edema - Abdominal General gastrointestinal: soft, non-tender, non-distended, normal bowel sounds - Integumentary Integumentary: Present: clear, warm - Psychiatric Psychiatric: appropriate mood/affect - Neurologic Neurologic: moves all extremities Results - Labs CBC & Chem 7: 11/12/21 04:45 11/14/21 05:39 Labs: Laboratory Last Values WBC 9.9 K/mm3 (4.5-11.0) 11/12/21 04:45 RBC 3.40 M/mm3 (3.65-5.03) L 11/12/21 04:45 Hgb 11.0 gm/dl (11.8-15.2) L 11/12/21 04:45 Hct 34.3 % (35.5-45.6) L 11/12/21 04:45 MCV 101 fl (84-94) H 11/12/21 04:45 MCH 32 pg (28-32) 11/12/21 04:45 MCHC 32 % (32-34) 11/12/21 04:45 RDW 14.9 % (13.2-15.2) 11/12/21 04:45 Plt Count 179 K/mm3 (140-440) 11/12/21 04:45 Lymph % (Auto) 7.4 % (13.4-35.0) L 11/12/21 04:45 Grady % (Auto) 14.0 % (0.0-7.3) H 11/12/21 04:45 Eos % (Auto) 11.3 % (0.0-4.3) H 11/12/21 04:45 Baso % (Auto) 1.4 % (0.0-1.8) 11/12/21 04:45 Lymph # (Auto) 0.7 K/mm3 (1.2-5.4) L 11/12/21 04:45 Grady # (Auto) 1.4 K/mm3 (0.0-0.8) H 11/12/21 04:45 Eos # (Auto) 1.1 K/mm3 (0.0-0.4) H 11/12/21 04:45 Baso # (Auto) 0.1 K/mm3 (0.0-0.1) 11/12/21 04:45 Seg Neutrophils % 65.9 % (40.0-70.0) 11/12/21 04:45 Seg Neutrophils # 6.5 K/mm3 (1.8-7.7) 11/12/21 04:45 Sodium 137 mmol/L (137-145) 11/14/21 05:39 Potassium 3.9 mmol/L (3.6-5.0) 11/14/21 05:39 Chloride 94.8 mmol/L (98-107) L 11/14/21 05:39 Carbon Dioxide 27 mmol/L (22-30) 11/14/21 05:39 Anion Gap 19 mmol/L 11/14/21 05:39 BUN 34 mg/dL (9-20) H 11/14/21 05:39 Creatinine 5.9 mg/dL (0.8-1.3) H 11/14/21 05:39 Estimated GFR 10 ml/min 11/14/21 05:39 BUN/Creatinine Ratio 6 % 11/14/21 05:39 Glucose 90 mg/dL (75-100) 11/14/21 05:39 Calcium 9.5 mg/dL (8.4-10.2) 11/14/21 05:39 Phosphorus 9.00 mg/dL (2.5-4.5) H 11/13/21 05:33 Total Bilirubin 0.40 mg/dL (0.1-1.2) 11/12/21 04:45 AST 17 units/L (5-40) 11/12/21 04:45 ALT 5 units/L (7-56) L 11/12/21 04:45 Alkaline Phosphatase 98 units/L (35-129) 11/12/21 04:45 Total Protein 7.1 g/dL (6.3-8.2) 11/12/21 04:45 Albumin 3.4 g/dL (3.9-5) L 11/12/21 04:45 Albumin/Globulin Ratio 0.9 % 11/12/21 04:45 Nasal Screen MRSA (PCR) Negative (Negative) 11/12/21 06:50 Ferro/IV: Voiding Method Toilet Active Medications - Current Medications Current Medications: Generic Name Dose Route Start Last Admin Trade Name Freq PRN Reason Stop Dose Admin Acetaminophen 650 mg 11/11/21 17:49 11/12/21 13:24 Acetaminophen 325 Mg Tab PO 650 mg Q4H PRN Administration Pain MILD(1-3)/Fever >100.5/GAXIOLA Carvedilol 25 mg 11/11/21 22:00 11/15/21 21:35 Carvedilol 25 Mg Tab PO 25 mg BID LOUISE Administration Doxazosin Mesylate 2 mg 11/11/21 22:00 11/15/21 21:35 Doxazosin 1 Mg Tab PO 2 mg QHS LOUISE Administration Gabapentin 300 mg 11/14/21 12:00 11/14/21 11:01 Gabapentin 300 Mg Cap PO 300 mg TuThSa LOUISE Administration Heparin Sodium (Porcine) 5,000 unit 11/11/21 22:00 11/16/21 10:03 Heparin 5,000 Unit/1 Ml Vial SUB-Q 5,000 unit Q12HR LOUISE Administration Hydralazine HCl 100 mg 11/14/21 14:00 11/15/21 20:00 Hydralazine 25 Mg Tab PO Not Given TID LOUISE Sodium Chloride 100 mls @ 999 mls/hr 11/15/21 10:39 Nacl 0.9% IV MILIND PRN Hypotension Lanthanum Carbonate 750 mg 11/12/21 07:30 11/15/21 09:17 Lanthanum Carbonate 500 Mg Tab PO 750 mg QDAC LOUISE Administration Morphine Sulfate 2 mg 11/11/21 18:02 Morphine 2 Mg/1 Ml Inj IV Q4H PRN Pain, Moderate (4-6) Multivit/Ca Carb/B Cmplx/FA/Prenat 1 cap 11/11/21 18:00 11/15/21 09:18 Folic Acid/Vit B Comp W-C 1 Mg (Renal Caps) PO 1 cap QDAY LOUISE Administration Nifedipine 60 mg 11/11/21 22:00 11/15/21 21:35 Nifedipine Xl 60 Mg Tab PO 60 mg Q12HR LOUISE Administration Ondansetron HCl 4 mg 11/11/21 17:49 Ondansetron 4 Mg/2 Ml Inj IV Q8H PRN Nausea And Vomiting Pantoprazole Sodium 40 mg 11/12/21 10:00 11/15/21 09:18 Pantoprazole 40 Mg Tab PO 40 mg QDAY LOUISE Administration Sodium Chloride 10 ml 11/11/21 22:00 11/15/21 21:36 Sodium Chloride 0.9% 10 Ml Flush Syringe IV 10 ml BID LOUISE Administration Sodium Chloride 10 ml 11/11/21 17:49 Sodium Chloride 0.9% 10 Ml Flush Syringe IV PRN PRN LINE FLUSH Tramadol HCl 50 mg 11/11/21 17:48 11/15/21 21:43 Tramadol 50 Mg Tab PO 50 mg Q6HR PRN Administration PAIN
[2021-11-16] MEDS: LANTHANUM CARBONATE 500 MG TAB PO SCH (10:37)
[2021-11-16] MEDS: carvediloL 25 MG TAB PO SCH ×2 (10:38→23:25)
[2021-11-16] MEDS: NIFEdipine XL 60 MG TAB PO SCH ×2 (10:38→23:25)
[2021-11-16] MEDS: FOLIC ACID/VIT B COMP W-C 1 MG (RENAL CAPS) PO SCH (10:38)
[2021-11-16] MEDS: hydrALAZINE 25 MG TAB PO SCH ×3 (10:39→23:34)
[2021-11-16] MEDS: PANTOPRAZOLE 40 MG TAB PO SCH (10:39)
[2021-11-16] MEDS: GABAPENTIN 300 MG CAP PO SCH (18:20)
[2021-11-16] MEDS: DOXAZOSIN 1 MG TAB PO SCH (23:26)
[2021-11-17] MEDS: traMADol 50 MG TAB PO PRN (00:24)
[2021-11-17 05:30] LABS: Calcium 9.8 mg/dL (8.4-10.2)
[2021-11-17] MEDS: LANTHANUM CARBONATE 500 MG TAB PO SCH (08:49)
[2021-11-17] MEDS: HEPARIN 5,000 UNIT/1 ML VIAL SUB-Q SCH (09:04)
[2021-11-17] MEDS: PANTOPRAZOLE 40 MG TAB PO SCH (09:05)
[2021-11-17] MEDS: FOLIC ACID/VIT B COMP W-C 1 MG (RENAL CAPS) PO SCH (09:05)
[2021-11-17] MEDS: hydrALAZINE 25 MG TAB PO SCH ×2 (09:07→15:59)
[2021-11-17] MEDS: carvediloL 25 MG TAB PO SCH (09:08)
[2021-11-17] MEDS: NIFEdipine XL 60 MG TAB PO SCH (09:08)
--- NOTE | 2021-11-17 09:19 | Progress Note ---
Assessment and Plan End Stage Renal Disease Hypertension S/P Hyperkalemia Anemia Plan: no indication for HD today Fluid restriction of 1 liter per day Renally dose medications Obtain daily weights Monitor I/O's daily Assess dialysis needs daily Goes to [facility] under Dr. Quispe Subjective Date of service: 11/17/21 Principal diagnosis: ESRD Interval history: no overnight events Objective - Vital Signs Vital signs: Vital Signs - 12hr 11/16/21 11/16/21 11/16/21 22:00 22:34 23:25 Temperature 99.1 F Pulse Rate 66 66 Respiratory 17 18 Rate Blood Pressure 152/68 152/68 O2 Sat by Pulse 97 98 Oximetry 11/16/21 11/16/21 11/17/21 23:26 23:34 05:31 Temperature 97.4 F L Pulse Rate 66 66 60 Respiratory 18 Rate Blood Pressure 152/68 152/66 140/75 O2 Sat by Pulse 100 Oximetry 11/17/21 11/17/21 09:07 09:08 Temperature Pulse Rate 62 62 Respiratory Rate Blood Pressure 117/58 117/58 O2 Sat by Pulse Oximetry - Lab 11/12/21 04:45 11/17/21 04:50 Most recent lab results Calcium 9.8 mg/dL (8.4-10.2) 11/17/21 04:50 Phosphorus 9.00 mg/dL (2.5-4.5) H 11/13/21 05:33 Medications & Allergies - Medications Allergies/Adverse Reactions: Allergies clonidine Allergy (Verified 11/03/21 14:04) Swelling codeine Allergy (Verified 11/03/21 14:04) Itching hydrocodone Allergy (Verified 11/03/21 14:04) Itching aspirin Adverse Reaction (Severe, Verified 11/03/21 14:04) Brain Bleeding Home Medications: Home Medications Medication Instructions Recorded Confirmed Last Taken Type B Complex 11/Folic/C/Biot/Zinc 1 each PO DAILY 08/15/16 11/12/21 11/03/21 History [Dialyvite with Zinc Tablet] Ergocalciferol (Vitamin D2) 1 tab PO 1XW 08/15/16 11/12/21 11/03/21 History [Vitamin D2] Lanthanum Carbonate [Fosrenol] 750 mg PO QDAC 09/05/16 11/12/21 11/03/21 History Doxazosin Mesylate [Cardura] 2 mg PO HS #30 tablet 09/07/16 11/12/21 11/03/21 Rx Folic Acid/Vit B Comp W-C [Renal 1 cap PO QDAY #30 capsule 09/07/16 11/12/21 11/03/21 Rx Caps] NIFEdipine XL [Procardia Xl] 60 mg PO Q12HR #60 tablet 09/07/16 11/12/21 11/03/21 Rx Pantoprazole [Protonix TAB] 40 mg PO QDAY #30 tablet 09/07/16 11/12/21 11/03/21 Rx carvediloL [Coreg] 25 mg PO BID #60 tablet 09/07/16 11/12/21 11/03/21 Rx hydrALAZINE [Apresoline TAB] 100 mg PO TID #90 tab 09/07/16 11/12/21 11/03/21 Rx traMADoL [Ultram 50 MG tab] 50 mg PO Q6HR PRN #20 tablet 09/07/16 11/12/21 11/04/21 Rx Gabapentin 300 mg PO 3XW 11/05/21 11/12/21 Unknown History Active Medications: Generic Name Dose Route Start Last Admin Trade Name Freq PRN Reason Stop Dose Admin Acetaminophen 650 mg 11/11/21 17:49 11/12/21 13:24 Acetaminophen 325 Mg Tab PO 650 mg Q4H PRN Administration Pain MILD(1-3)/Fever >100.5/GAXIOLA Carvedilol 25 mg 11/11/21 22:00 11/17/21 09:08 Carvedilol 25 Mg Tab PO 25 mg BID LOUISE Administration Doxazosin Mesylate 2 mg 11/11/21 22:00 11/16/21 23:26 Doxazosin 1 Mg Tab PO 2 mg QHS LOUISE Administration Gabapentin 300 mg 11/14/21 12:00 11/16/21 18:20 Gabapentin 300 Mg Cap PO 300 mg TuThSa LOUISE Administration Heparin Sodium (Porcine) 5,000 unit 11/11/21 22:00 11/17/21 09:04 Heparin 5,000 Unit/1 Ml Vial SUB-Q 5,000 unit Q12HR LOUISE Administration Hydralazine HCl 100 mg 11/14/21 14:00 11/17/21 09:07 Hydralazine 25 Mg Tab PO 100 mg TID LOUISE Administration Sodium Chloride 100 mls @ 999 mls/hr 11/15/21 10:39 Nacl 0.9% IV MILNID PRN Hypotension Lanthanum Carbonate 750 mg 11/12/21 07:30 11/17/21 08:49 Lanthanum Carbonate 500 Mg Tab PO 750 mg QDAC LOUISE Administration Morphine Sulfate 2 mg 11/11/21 18:02 Morphine 2 Mg/1 Ml Inj IV Q4H PRN Pain, Moderate (4-6) Multivit/Ca Carb/B Cmplx/FA/Prenat 1 cap 11/11/21 18:00 11/17/21 09:05 Folic Acid/Vit B Comp W-C 1 Mg (Renal Caps) PO 1 cap QDAY LOUISE Administration Nifedipine 60 mg 11/11/21 22:00 11/17/21 09:08 Nifedipine Xl 60 Mg Tab PO Not Given Q12HR LOUISE Ondansetron HCl 4 mg 11/11/21 17:49 Ondansetron 4 Mg/2 Ml Inj IV Q8H PRN Nausea And Vomiting Pantoprazole Sodium 40 mg 11/12/21 10:00 11/17/21 09:05 Pantoprazole 40 Mg Tab PO 40 mg QDAY LOUISE Administration Sodium Chloride 10 ml 11/11/21 22:00 11/17/21 09:08 Sodium Chloride 0.9% 10 Ml Flush Syringe IV 10 ml BID LOUISE Administration Sodium Chloride 10 ml 11/11/21 17:49 Sodium Chloride 0.9% 10 Ml Flush Syringe IV PRN PRN LINE FLUSH Tramadol HCl 50 mg 11/11/21 17:48 11/17/21 00:24 Tramadol 50 Mg Tab PO 50 mg Q6HR PRN Administration PAIN
[2021-11-17 16:01] VITALS: BP 147/72
--- NOTE | 2021-11-17 16:12 | Discharge Summary ---
Providers - Providers Date of Admission: 11/11/21 17:49 Date of discharge: 11/17/21 Attending physician: SHAHIDA LOVE 11/11/21 20:34 Consult to Physician [CONS] Stat Comment: Consulting Provider: SHARI WALTER Physician Instructions: Reason For Exam: Emergent dialysis 11/12/21 07:51 Consult to Physician [CONS] Routine Comment: Consulting Provider: AIDA MOJICA Physician Instructions: Reason For Exam: Acute metabolic encephalopathy 11/12/21 17:48 Occupational Therapy Evaluate and Treat [CONS] Routine Comment: Reason For Exam: History of fall, evaluate and treat, DC needs Physical Therapy Evaluation and Treat [CONS] Routine Comment: Reason For Exam: h/o fall/unsteady gait/evaluate & treat/DC needs Primary care physician: SIRENA ROOT Hospitalization Condition: Stable Hospital course: Brief history and Hospital course; 61-year-old male patient with significant past medical history of brain tumor status post multiple craniotomies was admitted through emergency room with altered level of consciousness And history of recurrent falls, patient was evaluated by neurology, had CT scan of the head, MRI of the brain was done with no acute abnormalities, patient received physical therapy occupational therapy and supportive care, PT recommended acute rehab placement, case management is assisting with discharge planning. Patient is from [facility], and our inpatient rehab is also evaluating the patient. 11/16/2019, PT recommended acute rehab DC planning per case management 11/16/2021; PT has recommended acute rehab Case management assisting with discharge planning Patient is from [facility], 11/17/2021 patient admitting improved willing to go home Alert and oriented Disposition; discharge to inpatient rehab when patient is accepted by rehab. DC planning per case management History Interval history: I have seen and examined the patient at the bedside Patient's spouse is in the room Patient is anxious to go home PT has recommended acute rehab Case management assisting with discharge planning Patient is from [facility] Patient is comfortable in his bed Vital signs reviewed Assessment and Plan Assessment and plan: --Acute metabolic encephalopathy Improved Improved MRI brain: postoperative changes with residual and/or recurrent tumor correlate with history and prior exams are determined stability if there has been any significant change Continue supportive care, follow neurology evaluation --History of multiple craniotomies; Patient Follows with [facility] Neurology evaluation and recommendation noted appreciated --History of fall; Fall precautions PT recommended acute rehab DC planning per case management --left knee swelling and effusion[probably traumatic] X-ray knee no acute abnormality Physical therapy recommended acute rehab DC planning per case management - Hyperkalemia/resolved Improved --ESRD (end stage renal disease) Hemodialysis per schedule Nephrology following Patient has established HD chair -- Hypertension Continue antihypertensives and adjust medications as necessary --Peripheral neuropathy On gabapentin, supportive care --GERD (gastroesophageal reflux disease) Proton pump inhibitors -- Anemia of chronic disease Epogen as per nephrology --Vitamin D deficiency Continue vitamin D -- DVT prophylaxis Subcu heparin renal dose DC planning ;per case management; PT recommended acute rehab Case management team contacting [facility] for acute rehab placement Advance Directives: Yes (Full code) VTE prophylaxis?: Chemical Plan of care discussed with patient/family: Yes -- Advance care planning Disease education conducted, care plan discussed, diagnosis discussed, And discussed in detail patient's condition tests and reports treatment and discharge plan With the patient and the spouse at the bedside prognosis discussed, patient acknowledged understanding and agrees with care plan. +32 minutes. We will closely monitor the patient and adjust the management as needed Disposition: 01 HOME / SELF CARE / HOMELESS Final Discharge Diagnosis (Prints w/discharge instructions): Acute metabolic encephalopathy. End-stage renal disease on hemodialysis. Hypertension. Hyperkalemia. Multiple craniotomies secondary to brain tumor. Peripheral neuropathy. GERD - Discharge Diagnoses (1) Acute metabolic encephalopathy Status: Acute (2) Hyperkalemia Status: Acute (3) ESRD (end stage renal disease) Status: Chronic (4) Hypertension Status: Chronic Qualifiers: Hypertension type: primary hypertension Qualified Code(s): I10 - Essential (primary) hypertension (5) Peripheral neuropathy Status: Chronic Qualifiers: Peripheral neuropathy type: polyneuropathy, unspecified Qualified Code(s): G62.9 - Polyneuropathy, unspecified (6) GERD (gastroesophageal reflux disease) Status: Chronic Qualifiers: Esophagitis presence: without esophagitis Qualified Code(s): K21.9 - Gastro-esophageal reflux disease without esophagitis (7) Anemia Status: Chronic Qualifiers: Anemia type: unspecified type Qualified Code(s): D64.9 - Anemia, unspecified (8) Vitamin D deficiency Status: Chronic (9) DVT prophylaxis Status: Acute (10) Advance care planning Status: Acute Core Measure Documentation - Palliative Care Palliative Care/ Comfort Measures: Not Applicable - Core Measures Any of the following diagnoses?: none Exam - Constitutional Vitals: Temp Pulse Resp BP Pulse Ox 97.4 F L 66 18 147/72 98 11/17/21 05:31 11/17/21 15:59 11/17/21 05:31 11/17/21 15:59 11/17/21 10:00 General appearance: Present: no acute distress, well-nourished - EENT Eyes: Present: PERRL ENT: hearing intact, clear oral mucosa - Neck Neck: Present: supple, normal ROM - Respiratory Respiratory effort: normal Respiratory: bilateral: CTA - Cardiovascular Heart rate: 78 Rhythm: regular Heart Sounds: Present: S1 & S2. Absent: rub, click - Extremities Extremities: pulses symmetrical, No edema Peripheral Pulses: within normal limits - Abdominal General gastrointestinal: Present: soft, non-tender, non-distended, normal bowel sounds Male genitourinary: Present: normal - Integumentary Integumentary: Present: clear, warm, dry - Musculoskeletal Musculoskeletal: gait normal, strength equal bilaterally - Psychiatric Psychiatric: appropriate mood/affect, intact judgment & insight - Neurologic Neurologic: CNII-XII intact, moves all extremities Plan Activity: no restrictions Diet: renal Follow up with: SIRENA ROOT MD [Primary Care Provider] - 7 Days
[2021-11-17] MEDS ORDERED: LANTHANUM CARBONATE 500 MG TAB PO SCH (16:30)
== END 2021-11-17 22:14 | disposition home or self-care (01) | DRG 640 ==
LOC: ED 11:24 → 3A 17:49
PROVIDERS: ADMIT Internal Medicine; ATTEND Internal Medicine
PROC: 5A1D70Z Performance of Urinary Filtration, Intermittent, Less than 6 Hours Per Day (ICD-10-PCS; principal; 2021-11-11)
PROC: 5A1D70Z Performance of Urinary Filtration, Intermittent, Less than 6 Hours Per Day (ICD-10-PCS; 2021-11-12)
PROC: 5A1D70Z Performance of Urinary Filtration, Intermittent, Less than 6 Hours Per Day (ICD-10-PCS; 2021-11-13)
PROC: 5A1D70Z Performance of Urinary Filtration, Intermittent, Less than 6 Hours Per Day (ICD-10-PCS; 2021-11-15)
PROC: 5A1D70Z Performance of Urinary Filtration, Intermittent, Less than 6 Hours Per Day (ICD-10-PCS; 2021-11-16)
DX: E87.5 Hyperkalemia (principal); G93.41 Metabolic encephalopathy; N18.6 End stage renal disease; I12.0 Hypertensive chronic kidney disease with stage 5 chronic kidney disease or end stage renal disease; K21.9 Gastro-esophageal reflux disease without esophagitis; G62.9 Polyneuropathy, unspecified; E55.9 Vitamin D deficiency, unspecified; M25.462 Effusion, left knee; D63.8 Anemia in other chronic diseases classified elsewhere; Z88.6 Allergy status to analgesic agent; Z88.8 Allergy status to other drugs, medicaments and biological substances; Z90.49 Acquired absence of other specified parts of digestive tract; Z87.891 Personal history of nicotine dependence
CPT/HCPCS: 36415; 70551; 80048; 80053; 84100; 84132; 85025; 87641; 93005; G0378; J3490; Q9967; J0610; J1644; J1815

== ENCOUNTER 2021-11-23 11:07 | Emergency (ER) | payer OTHER ==
--- NOTE | 2021-11-23 11:50 | Emergency Department Report ---
ED Syncope HPI - General Chief Complaint: Syncope Stated Complaint: SYNCOPY Time Seen by Provider: 11/23/21 11:25 Source: EMS, RN notes reviewed Exam Limitations: no limitations - History of Present Illness Initial Comments: 61-year-old male with multiple medical comorbidities brought in by EMS for syncope. EMS personnel not readily available to provide further HPI to this pro vider. Per nurse Espino's report, EMS informed her that the patient syncopized during dialysis. Patient states he was feeling well prior to dialysis and states "I just remember afterwards I felt foggy." Patient reports he was 30 minutes into dialysis. He typically undergoes hemodialysis Saturday and last completed a full session of hemodialysis 2 days ago. He denies any active symptoms at this time including chest pain shortness of breath difficulty breathing or palpitations. He does complain of mild mid abdominal pain. He is anuric. Per EMS vitals, patient had blood glucose of 113, pulse 62, sat 98%, blood pressure 108/62, and respiratory rate 20. - Related Data Allergies/Adverse Reactions: Allergies clonidine Allergy (Verified 11/23/21 11:17) Swelling codeine Allergy (Verified 11/23/21 11:17) Itching hydrocodone Allergy (Verified 11/23/21 11:17) Itching aspirin Adverse Reaction (Severe, Verified 11/23/21 11:17) Brain Bleeding Home Medications: Ambulatory Orders B Complex 11/Folic/C/Biot/Zinc [Dialyvite with Zinc Tablet] 1 each PO DAILY 08/15/16 Ergocalciferol (Vitamin D2) [Vitamin D2] 1 tab PO 1XW 08/15/16 Doxazosin Mesylate [Cardura] 2 mg PO HS #30 tablet 09/07/16 Folic Acid/Vit B Comp W-C [Renal Caps] 1 cap PO QDAY 30 Days #30 capsule 11/17/21 Gabapentin 300 mg PO QDAY #20 cap 11/17/21 Lanthanum Carbonate [Fosrenol] 750 mg PO QDAC 30 Days #90 11/17/21 NIFEdipine XL [Procardia Xl] 60 mg PO Q12HR 30 Days #60 tablet 11/17/21 Pantoprazole [Protonix TAB] 40 mg PO QDAY 30 Days #30 tablet 11/17/21 carvediloL [Coreg] 25 mg PO BID #60 tablet 07/22/22 hydrALAZINE [Apresoline TAB] 100 mg PO TID 30 Days #90 tab 11/17/21 traMADoL [Ultram 50 MG tab] 50 mg PO BID PRN #20 tablet 11/17/21 Sennosides 17.2 mg PO QHS 14 Days #28 11/23/21 ED Review of Systems ROS: Stated complaint: SYNCOPY Other details as noted in HPI Comment: All other systems reviewed and negative Constitutional: no symptoms reported Eyes: denies: eye pain, eye discharge, vision change ENT: denies: ear pain, throat pain, dental pain, hearing loss, epistaxis Respiratory: denies: see HPI, cough, orthopnea, shortness of breath, SOB with exertion, SOB at rest, wheezing Cardiovascular: denies: chest pain, palpitations, dyspnea on exertion, orthopnea, edema, syncope, paroxysmal nocturnal dyspnea Endocrine: denies: excessive sweating, flushing, intolerance to cold, intolerance to heat, increased hunger, increased thirst, increased urine, unexplained weight gain, unexplained weight loss Gastrointestinal: abdominal pain. denies: nausea, constipation, hematemesis, melena Genitourinary: denies: urgency, dysuria, frequency, hematuria, discharge Musculoskeletal: denies: back pain, joint swelling, arthralgia Skin: denies: rash, lesions, change in color, change in hair/nails, pruritus Neurological: other (syncope). denies: headache, weakness Psychiatric: denies: anxiety, depression, auditory hallucinations, visual hallucinations, homicidal thoughts Hematological/Lymphatic: denies: easy bleeding, easy bruising, swollen glands ED Past Medical Hx - Past Medical History Previous Medical History?: Yes Hx Hypertension: Yes Hx CVA: No Hx Congestive Heart Failure: No Hx Diabetes: No Hx Renal Disease: Yes (HD) Hx Seizures: No Hx Asthma: No Hx COPD: No Hx Tuberculosis: No Hx HIV: No Additional medical history: VAN-HIPPEL SYNDROME (AUTOIMMUNE), PANCREATIC CYSTS, BRAIN TUMORS - Surgical History Hx Pacemaker: No Hx Cholecystectomy: Yes Hx Appendectomy: Yes Additional Surgical History: 3 BRAIN SURGERIES, NEPHRECTOMY B/L, SPLENECTOMY, - Social History Smoking Status: Never Smoker - Medications Home Medications: Home Medications Medication Instructions Recorded Confirmed Last Taken Type B Complex 11/Folic/C/Biot/Zinc 1 each PO DAILY 08/15/16 11/12/21 11/03/21 History [Dialyvite with Zinc Tablet] Ergocalciferol (Vitamin D2) 1 tab PO 1XW 08/15/16 11/12/21 11/03/21 History [Vitamin D2] Doxazosin Mesylate [Cardura] 2 mg PO HS #30 tablet 09/07/16 11/12/21 11/03/21 Rx Folic Acid/Vit B Comp W-C [Renal 1 cap PO QDAY 30 Days #30 capsule 11/17/21 Unknown Rx Caps] Gabapentin 300 mg PO QDAY #20 cap 11/17/21 Unknown Rx Lanthanum Carbonate [Fosrenol] 750 mg PO QDAC 30 Days #90 11/17/21 Unknown Rx NIFEdipine XL [Procardia Xl] 60 mg PO Q12HR 30 Days #60 tablet 11/17/21 Unknown Rx Pantoprazole [Protonix TAB] 40 mg PO QDAY 30 Days #30 tablet 11/17/21 Unknown Rx carvediloL [Coreg] 25 mg PO BID #60 tablet 11/17/21 Unknown Rx hydrALAZINE [Apresoline TAB] 100 mg PO TID 30 Days #90 tab 11/17/21 Unknown Rx traMADoL [Ultram 50 MG tab] 50 mg PO BID PRN #20 tablet 11/17/21 Unknown Rx Sennosides 17.2 mg PO QHS 14 Days #28 11/23/21 Unknown Rx ED Physical Exam - General Limitations: No Limitations, Physical Limitation General appearance: alert, in no apparent distress - Head Head exam: Present: atraumatic, normocephalic, normal inspection - Eye Eye exam: Present: normal appearance, PERRL, EOMI Pupils: Present: normal accommodation - ENT ENT exam: Present: normal exam, normal orophraynx, mucous membranes moist, normal external ear exam - Neck Neck exam: Present: normal inspection, tenderness, full ROM, other (no jvd, no carotid bruits) - Respiratory Respiratory exam: Present: rales. Absent: normal lung sounds bilaterally, respiratory distress, wheezes, rhonchi, stridor, chest wall tenderness, ac cessory muscle use, decreased breath sounds, prolonged expiratory - Cardiovascular Cardiovascular Exam: Present: regular rate, normal rhythm, normal heart sounds. Absent: bradycardia, tachycardia, irregular rhythm, systolic murmur, diastolic murmur, rubs, gallop, clicks, JVD, S3, S4, other - GI/Abdominal GI/Abdominal exam: Present: soft, normal bowel sounds. Absent: distended, tenderness, guarding, rebound, rigid, diminished bowel sounds, hyperactive bowel sounds, hypoactive bowel sounds, organomegaly, mass, bruit, pulsatile mass, hernia, other - Extremities Exam Extremities exam: Present: normal inspection, full ROM, normal capillary refill. Absent: tenderness, pedal edema, joint swelling, calf tenderness, other - Back Exam Back exam: Present: normal inspection, full ROM. Absent: tenderness, CVA tenderness (R), CVA tenderness (L), muscle spasm, paraspinal tenderness, vertebral tenderness - Neurological Exam Neurological exam: Present: alert, oriented X3, CN II-XII intact, normal gait, motor sensory deficit, reflexes normal - Skin Skin exam: Present: warm, dry, intact ED Course Vital Signs 11/23/21 11/23/21 11/23/21 11:13 11:52 13:36 Temperature 98.1 F 98.0 F Pulse Rate 76 64 74 Respiratory 16 14 14 Rate Blood Pressure 135/70 Blood Pressure 160/76 169/75 [Left] O2 Sat by Pulse 98 100 99 Oximetry 11/23/21 15:06 Temperature Pulse Rate 63 Respiratory 13 Rate Blood Pressure Blood Pressure 169/77 [Left] O2 Sat by Pulse 100 Oximetry - Reevaluation(s) Reevaluation #1: 11/23/21 11:52 pt is comfortable and well appearing; nad Reevaluation #2: 11/23/21 16:44 pt reassessed; he is talking to his ; he is extremely comfortable and patient is well-appearing. Vital signs stable. Denies any recurrent syncopal episodes while here and denies any involvement of any new concerning symptoms. Labs and diagnostic imaging results reviewed, specifically diagnostic imaging results concerning cyst in pancreas, pulmonary nodules, and constipation. Patient will be written for Apruve. Advised to follow-up with his primary care doctor concerning further evaluation of the pancreatic cyst and pulmonary nodules. Patient verbalized understanding. - Consultations Consultation #1: 11/23/21 16:45 I telephoned the reading radiologist, Dr. Navarrete. He reports that per review of the patient's CT going back from 2013, he had pancreatic cyst at that time but those that are present now are increased. He states he cannot ascertain whether or not the pulmonary nodules were present on the CT from 2013 given that "the patient did not get scanned as far as those areas in his lung so it is hard to know whether not they were there." ED Medical Decision Making - Lab Data Result diagrams: 11/23/21 11:47 11/23/21 11:47 - EKG Data -: EKG Interpreted by Me EKG shows normal: sinus rhythm Rate: normal - EKG Data When compared to previous EKG there are: no significant change Interpretation: no acute changes, other (incomplete RBBB) - Medical Decision Making 61-year-old male with multiple medical comorbidities brought in by EMS for evaluation of syncope during hemodialysis. Vitals stable. Patient is well- appearing. Troponin levels are chronically elevated and not changed from the p t's baseline. Patient's chart reviewed and previous admission for syncope during hemodialysis occurred this month, reviewed as well. No further emergent work- up warranted at this time. Patient stable for discharge to home. Critical care attestation.: If time is entered above; I have spent that time in minutes in the direct care of this critically ill patient, excluding procedure time. ED Disposition Clinical Impression: Syncope, Constipation, Pancreatic cyst, Pulmonary nodules Disposition: HOME / SELF CARE / HOMELESS Is pt being admited?: No Does the pt Need Aspirin: No Condition: Stable Instructions: Syncope (ED), Chronic Constipation, Syncope, Goym-ru-Vtva Additional Instructions: Your CAT scan shows today that you were constipated, you have cysts in your pancreas, and you have nodules in your lungs. It is recommended by the radiologist that you have repeat CAT scan or a PET scan done in 3 months for reevaluation of your lung nodules. You will also need further evaluation of the cyst that have been present in your pancreas since 2013. Please address these issues with your primary care doctor and request that your primary care doctor schedule further imaging and work-up for these issues. Take Senokot 2 tablets at night to help alleviate constipation. Be sure to eat foods high in fiber and continue to take MiraLAX. Follow-up with your primary care doctor within 1-2 business days for reassessment and to discuss your further episodes of syncope that have been occurring during dialysis. This is very important. Return to the nearest emergency department as soon as possible if you develop recurrent syncope or loss of consciousness, vomiting, dizziness, difficulty talking walking or word finding, shortness of breath that is worsened from your baseline, inability tolerate liquids or solids, any fever of 100.4 Fahrenheit or higher, or if any other new worrisome symptoms develop. Prescriptions: Sennosides 17.2 mg PO QHS 14 Days #28 Referrals: SIRENA ROOT MD [Primary Care Provider] - 3-5 Days
--- NOTE | 2021-11-23 12:07 | XRay Report ---
CHEST 1 VIEW 11/23/2021 10:49 AM INDICATION / CLINICAL INFORMATION: syncope during dialysis. COMPARISON: One view of the chest from 11/05/2021. FINDINGS: SUPPORT DEVICES: None. HEART / MEDIASTINUM: Stable. LUNGS / PLEURA: No new significant pulmonary abnormality. Mild bibasilar interstitial opacities are u nchanged. No significant pleural effusion. No pneumothorax. ADDITIONAL FINDINGS: No significant additional findings. IMPRESSION: 1. No acute abnormality of the chest. No significant interval changes. Signer Name: Min Navarrete MD Signed: 11/23/2021 12:03 PM Workstation Name: [id number]
[2021-11-23 12:40] LABS: Basophils # (Auto) 0.2 K/mm3 (0.0-0.1); Basophils % (Auto) 1.3 % (0.0-1.8); Eosinophils % (Auto) 8.7 % (0.0-4.3); Hematocrit 34.6 % (35.5-45.6); Hemoglobin 10.9 gm/dl (11.8-15.2); Lymphocytes # (Auto) 0.9 K/mm3 (1.2-5.4); Lymphocytes % (Auto) 7.8 % (13.4-35.0); Mean Corpuscular HGB Conc 31 % (32-34); Mean Corpuscular Volume 100 fl (84-94); Monocytes # (Auto) 1.2 K/mm3 (0.0-0.8); Monocytes % (Auto) 10.1 % (0.0-7.3); Platelet Count 165 K/mm3 (140-440); Red Blood Count 3.47 M/mm3 (3.65-5.03); Red Cell Distribution Width 15.4 % (13.2-15.2)
[2021-11-23 12:58] LABS: Albumin 3.9 g/dL (3.9-5); Calcium 9.7 mg/dL (8.4-10.2)
[2021-11-23 15:08] VITALS: BP 169/77
[2021-11-23 15:14] LABS: Chol/HDL Ratio 3.82 %
--- NOTE | 2021-11-23 16:00 | Cat Scan Report ---
CT ABDOMEN AND PELVIS WITHOUT CONTRAST INDICATION / CLINICAL INFORMATION: Left mid abdominal pain. History of constipation. TECHNIQUE: Axial CT images were obtained through the abdomen and pelvis without IV contrast. All CT scans at [facility] location are performed using CT dose reduction for ALARA by means of automated exposure control. COMPARISON: CT abdomen and pelvis without contrast from 06/11/2013. FINDINGS: LOWER CHEST: Intralobular septal thickening is noted bilaterally. A solid noncalcified nodule is seen superiorly/laterally in the right lower lobe measuring up to 5 mm. Another solid noncalcified nodule is seen posteriorly and medially along the left upper lobe on image 8 of series 3 measuring 1.2 x 0. 6 cm. There is mild dependent bilateral atelectasis. The heart is moderately enlarged without signifi cant pericardial effusion. There is severe calcification of the mitral valve with severe coronary chetna cification and moderate ossification of the thoracic aorta. LIVER: No significant abnormality. GALLBLADDER: Surgically absent. BILE DUCTS: Pneumobilia is noted with expected positioning of a metallic common bile duct stent. No a cute findings. PANCREAS: Extensive hypodense lesions are present throughout the pancreas that correlate with the pre viously seen numerous probable cystic lesions. Overall, these lesions have enlarged with a representa tive pancreatic tail lesion on image 25 of series 3 measuring 3.5 x 2.8 cm. Calcifications are presen t throughout the pancreas. No other significant abnormality. SPLEEN: A very small spleen is again seen without acute findings. ADRENALS: No significant abnormality. RIGHT KIDNEY/URETER: Absent without a significant abnormality noted along the right renal bed. LEFT KIDNEY/URETER: Absent without a significant abnormality noted along the left renal bed. STOMACH/SMALL BOWEL: No significant abnormality. COLON: A large amount of stool is seen along the colon without other acute findings. APPENDIX: No significant abnormality. PERITONEUM: No free fluid. No free air. No fluid collection. LYMPH NODES: No significant adenopathy. VASCULATURE: There is moderate generalized atherosclerosis without other significant abnormalities. URINARY BLADDER: Collapsed without a distinct acute abnormality. REPRODUCTIVE ORGANS: No significant abnormality. ADDITIONAL FINDINGS: None. BONES: No acute findings. Generalized increased sclerosis of the bones is likely related to end-stage renal disease. IMPRESSION: 1. CT evidence of constipation without other acute findings to explain the patient's abdominal pain. 2. Interval worsening of diffuse likely cystic lesions throughout the pancreas. 3. Incidental bilateral pulmonary nodules as above with a dominant nodule seen in the left upper lobe measuring 1.2 x 0.6 cm. Single incidental pulmonary nodule(s) in the left upper lobe measuring 12 x 6 mm with solid characteristics. Recommendation according to Fleischner Society 2017 Guidelines: Low Risk or High Risk Patient: Consider CT at 3 months, PET/CT, or tissue sampling. Please correlate with previously performed CT imaging of the chest to determine the stability of thes e nodules. If these nodules are new or larger, further evaluation with a PET/CT would be helpful. 4. Additional findings as above. Signer Name: Min Navarrete MD Signed: 11/23/2021 3:55 PM Workstation Name: [id number]
--- NOTE | 2021-11-24 11:16 | Electrocardiograph Report ---
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
== END 2021-11-23 17:41 | disposition home or self-care (01) ==
LOC: ED 11:07
DX: R55 Syncope and collapse (principal); K59.00 Constipation, unspecified; K86.2 Cyst of pancreas; R91.1 Solitary pulmonary nodule; I10 Essential (primary) hypertension
CPT/HCPCS: 36415; 71045; 74176; 80053; 80061; 84484; 85025; 93005; 99285

== ENCOUNTER 2021-11-26 13:31 | Emergency (ER) | payer OTHER ==
[2021-11-26 13:56] VITALS: BP 151/63
[2021-11-26] MEDS ORDERED: MORPHINE 4 MG/1 ML INJ IM ONE ×2 (14:50→18:34)
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
== END 2021-11-26 18:57 | disposition home or self-care (01) ==
LOC: ED 13:31
DX: M54.2 Cervicalgia (principal); M54.50 Low back pain, unspecified; I10 Essential (primary) hypertension; N28.9 Disorder of kidney and ureter, unspecified; Z90.49 Acquired absence of other specified parts of digestive tract; Z87.891 Personal history of nicotine dependence; Z91.09 Other allergy status, other than to drugs and biological substances; Z79.899 Other long term (current) drug therapy; V89.2XXA Person injured in unspecified motor-vehicle accident, traffic, initial encounter; Y93.89 Activity, other specified; Y92.89 Other specified places as the place of occurrence of the external cause; Y99.8 Other external cause status
CPT/HCPCS: 72125; 72128; 72131; 96372; 99283; J2270

== ENCOUNTER 2021-12-09 12:52 | Inpatient (IN) | payer OTHER ==
[2021-12-09] MEDS ORDERED: METOCLOPRAMIDE 10 MG/2 ML INJ IV ONE (13:49)
[2021-12-09] MEDS ORDERED: HYDROmorphone 0.5 MG/0.5 ML INJ IV ONE (13:49)
[2021-12-09] MEDS ORDERED: PIPERACIL/TAZOBACTA 4.5/NS 100 4.5 GM/100 ML VIAL IV ONE (13:58)
--- NOTE | 2021-12-09 14:28 | Emergency Department Report ---
ED General Adult HPI - General Chief complaint: Pain General Stated complaint: My head is hurting me, my abdomen is hurting me Time Seen by Provider: 12/09/21 13:33 Source: patient, EMS ( EMS documentation not available at time of chart dictation ), RN notes reviewed, old records reviewed Mode of arrival: Stretcher Limitations: Physical Limitation - History of Present Illness Initial comments: The patient was evaluated in the emergency department for symptoms described in the history of present illness. He/she was evaluated in the context of the [facility] [place] COVID-19 pandemic, which necessitated consideration that the patient might be at risk for infection with the virus that causes COVID-19. Institutional protocols and algorithms that pertain to the evaluation of patients at risk for COVID-19 are in a state of rapid change based on information released by regulatory bodies including the CDC and federal and state organizations. These policies and algorithms were followed during the patient's care in the emergency department. Please note that these policies, procedures and recommendations changed on a rapid basis. Nephrology: Dr. Quispe Past medical history: End-stage renal disease on hemodialysis, Saturday, , Saturday, brain tumor, status post multiple resections, fall, hypertension, peripheral neuropathy, GERD, anemia of chronic disease, and vitamin deficiency. Patient also reports multiple abdominal surgeries, including an appendectomy, and cholecystectomy. [facility] The patient is a 61-year-old gentleman who was sent from hemodialysis. The patient complains of diffuse abdominal pain and headache. The headache is described as generalized. Headache is not described as sudden or thunderclap in nature. The headache is not described as the worst headache of life. Patient makes no endorsement of loss of vision. The patient denies chest pain. The patient also complains of significant diffuse abdominal pain. The abdominal pain is sharp and increases with palpation, and certain positions. It decreases with rest and other positions. Patient reports she is able to take morphine or Dilaudid for pain. The patient denies testicular pain. The patient denies urinary symptoms. The patient does not produce urine. The patient indicates to myself that he is not having acutely worsened extremity complaints. -: Gradual, hour(s) Location: head, abdomen Severity scale (0 -10): 0 - Related Data Home Medications Medication Instructions Recorded Confirmed Last Taken B Complex 11/Folic/C/Biot/Zinc 1 each PO DAILY 08/15/16 12/09/21 11/03/21 [Dialyvite with Zinc Tablet] Ergocalciferol (Vitamin D2) 1 tab PO 1XW 08/15/16 12/09/21 11/03/21 [Vitamin D2] Previous Rx's Medication Instructions Recorded Last Taken Type Doxazosin Mesylate [Cardura] 2 mg PO HS #30 tablet 09/07/16 11/03/21 Rx Folic Acid/Vit B Comp W-C [Renal 1 cap PO QDAY 30 Days #30 capsule 11/17/21 Unknown Rx Caps] Lanthanum Carbonate [Fosrenol] 750 mg PO QDAC 30 Days #90 11/17/21 Unknown Rx NIFEdipine XL [Procardia Xl] 60 mg PO Q12HR 30 Days #60 tablet 11/17/21 Unknown Rx Pantoprazole [Protonix TAB] 40 mg PO QDAY 30 Days #30 tablet 11/17/21 Unknown Rx carvediloL [Coreg] 25 mg PO BID #60 tablet 11/17/21 Unknown Rx hydrALAZINE [Apresoline TAB] 100 mg PO TID 30 Days #90 tab 11/17/21 Unknown Rx Sennosides 17.2 mg PO QHS 14 Days #28 11/23/21 Unknown Rx Methyl Salicylate/Menth/Camph 1 each TP BID #12 patch 11/26/21 Unknown Rx [Salonpas 3.1%-6.0%-10.0% Patch] methOCARBAMOL [Robaxin TAB] 750 mg PO Q8H PRN #21 11/26/21 Unknown Rx traMADoL [Ultram 50 MG tab] 50 mg PO BID PRN #20 tablet 11/26/21 Unknown Rx Allergies Allergy/AdvReac Type Severity Reaction Status Date / Time clonidine Allergy Swelling Verified 11/23/21 11:17 codeine Allergy Itching Verified 11/23/21 11:17 hydrocodone Allergy Itching Verified 11/23/21 11:17 aspirin AdvReac Severe Brain Verified 11/23/21 11:17 Bleeding ED Review of Systems ROS: Stated complaint: BILAT LEG PAIN Other details as noted in HPI Constitutional: malaise, weakness Eyes: denies: eye discharge, vision change ENT: denies: epistaxis Respiratory: denies: cough Cardiovascular: denies: chest pain Gastrointestinal: abdominal pain. denies: hematemesis, melena, hematochezia Genitourinary: denies: urgency, dysuria, testicular pain Neurological: headache, weakness Psychiatric: anxiety Hematological/Lymphatic: denies: easy bleeding ED Past Medical Hx - Past Medical History Hx Hypertension: Yes Hx CVA: No Hx Congestive Heart Failure: No Hx Diabetes: No Hx Renal Disease: Yes (HD) Hx Seizures: No Hx Asthma: No Hx COPD: No Hx Tuberculosis: No Hx HIV: No Additional medical history: VAN-HIPPEL SYNDROME (AUTOIMMUNE), PANCREATIC CYSTS, BRAIN TUMORS - Surgical History Hx Pacemaker: No Hx Cholecystectomy: Yes Hx Appendectomy: Yes Additional Surgical History: 3 BRAIN SURGERIES, NEPHRECTOMY B/L, SPLENECTOMY, - Social History Smoking Status: Never Smoker Substance Use Type: None - Medications Home Medications: Home Medications Medication Instructions Recorded Confirmed Last Taken Type B Complex 11/Folic/C/Biot/Zinc 1 each PO DAILY 08/15/16 12/09/21 11/03/21 History [Dialyvite with Zinc Tablet] Ergocalciferol (Vitamin D2) 1 tab PO 1XW 08/15/16 12/09/21 11/03/21 History [Vitamin D2] Doxazosin Mesylate [Cardura] 2 mg PO HS #30 tablet 09/07/16 12/09/21 11/03/21 Rx Folic Acid/Vit B Comp W-C [Renal 1 cap PO QDAY 30 Days #30 capsule 11/17/21 12/09/21 Unknown Rx Caps] Lanthanum Carbonate [Fosrenol] 750 mg PO QDAC 30 Days #90 11/17/21 12/09/21 Unknown Rx NIFEdipine XL [Procardia Xl] 60 mg PO Q12HR 30 Days #60 tablet 11/17/21 12/09/21 Unknown Rx Pantoprazole [Protonix TAB] 40 mg PO QDAY 30 Days #30 tablet 11/17/21 12/09/21 Unknown Rx carvediloL [Coreg] 25 mg PO BID #60 tablet 11/17/21 12/09/21 Unknown Rx hydrALAZINE [Apresoline TAB] 100 mg PO TID 30 Days #90 tab 11/17/21 12/09/21 Unknown Rx Sennosides 17.2 mg PO QHS 14 Days #28 11/23/21 12/09/21 Unknown Rx Methyl Salicylate/Menth/Camph 1 each TP BID #12 patch 11/26/21 12/09/21 Unknown Rx [Salonpas 3.1%-6.0%-10.0% Patch] methOCARBAMOL [Robaxin TAB] 750 mg PO Q8H PRN #21 11/26/21 12/09/21 Unknown Rx traMADoL [Ultram 50 MG tab] 50 mg PO BID PRN #20 tablet 11/26/21 12/09/21 Unknown Rx ED Physical Exam - General Limitations: Physical Limitation General appearance: alert, anxious, in distress, obese - Head Head exam: Present: atraumatic, normocephalic - Eye Eye exam: Present: normal appearance, EOMI. Absent: nystagmus - ENT ENT exam: Present: normal exam, normal orophraynx, mucous membranes moist, normal external ear exam - Neck Neck exam: Present: normal inspection, full ROM. Absent: tenderness, meningismus - Respiratory Respiratory exam: Present: normal lung sounds bilaterally. Absent: respiratory distress, wheezes, rales, rhonchi, stridor, decreased breath sounds - Cardiovascular Cardiovascular Exam: Present: regular rate, normal rhythm, normal heart sounds. Absent: bradycardia, tachycardia, irregular rhythm, systolic murmur, diastolic murmur, rubs, gallop - GI/Abdominal GI/Abdominal exam: Present: soft, tenderness. Absent: distended, rebound, rigid, pulsatile mass - Rectal Rectal exam: Present: deferred - Extremities Exam Extremities exam: Present: full ROM, pedal edema, other (2+ pulses noted in the bilateral upper and lower extremities. There is no palpable cord. negative Homans sign. Muscular compartments are soft. The pelvis is stable.). Absent: normal inspection (Left upper extremity fistula noted, with appropriate thrill. There is no redness, pus or streaking), calf tenderness - Back Exam Back exam: Present: normal inspection. Absent: tenderness, CVA tenderness (R), CVA tenderness (L), paraspinal tenderness, vertebral tenderness - Neurological Exam Neurological exam: Present: alert, oriented X3, other (No facial droop. Tongue midline. Extraocular movements intact bilaterally. Facial sensation intact to light touch in V1, V2, V3 distribution bilaterally. 5 and a 5 strength in 4 extremities. Sensation intact to light touch in 4 extremities.). Absent: motor sensory deficit - Psychiatric Psychiatric exam: Present: anxious - Skin Skin exam: Present: warm, dry, intact, normal color. Absent: rash ED Course Vital Signs 12/09/21 12/09/21 12/09/21 13:09 13:52 13:57 Temperature 100.3 F H Pulse Rate 73 66 Respiratory 18 18 Rate Blood Pressure Blood Pressure 206/90 190/64 [Left] O2 Sat by Pulse 92 95 94 Oximetry 12/09/21 12/09/21 12/09/21 14:00 14:16 14:30 Temperature Pulse Rate 66 65 Respiratory 11 L 15 Rate Blood Pressure 190/64 184/69 Blood Pressure [Left] O2 Sat by Pulse 99 97 98 Oximetry 12/09/21 12/09/21 12/09/21 14:46 15:00 15:16 Temperature Pulse Rate 66 65 63 Respiratory 9 L Rate Blood Pressure 123/102 185/70 184/80 Blood Pressure [Left] O2 Sat by Pulse 97 95 Oximetry 12/09/21 12/09/21 12/09/21 15:42 15:48 16:00 Temperature Pulse Rate 62 64 63 Respiratory 18 11 L Rate Blood Pressure 185/70 184/69 Blood Pressure 185/72 [Left] O2 Sat by Pulse 95 95 94 Oximetry 12/09/21 12/09/21 12/09/21 16:15 16:30 16:45 Temperature 100.3 F H Pulse Rate 62 63 61 Respiratory 14 Rate Blood Pressure 178/71 182/73 173/76 Blood Pressure [Left] O2 Sat by Pulse 94 91 95 Oximetry 12/09/21 12/09/21 12/09/21 17:00 17:01 17:15 Temperature Pulse Rate 60 60 57 L Respiratory Rate Blood Pressure 187/73 187/73 191/74 Blood Pressure [Left] O2 Sat by Pulse 95 94 Oximetry 12/09/21 12/09/21 12/09/21 17:30 17:31 17:45 Temperature Pulse Rate 56 L 57 L 57 L Respiratory Rate Blood Pressure 182/72 180/77 169/69 Blood Pressure [Left] O2 Sat by Pulse 97 94 Oximetry 12/09/21 12/09/21 12/09/21 18:00 18:01 18:15 Temperature Pulse Rate 56 L 55 L 55 L Respiratory Rate Blood Pressure 164/66 173/66 180/69 Blood Pressure [Left] O2 Sat by Pulse 97 95 Oximetry 12/09/21 12/09/21 12/09/21 18:30 18:31 18:45 Temperature Pulse Rate 52 L 56 L 54 L Respiratory 7 L 7 L Rate Blood Pressure 180/64 192/74 175/68 Blood Pressure [Left] O2 Sat by Pulse 98 95 Oximetry 12/09/21 12/09/21 12/09/21 19:01 19:02 19:15 Temperature Pulse Rate 53 L 53 L 53 L Respiratory 7 L 6 L Rate Blood Pressure 171/66 171/66 182/69 Blood Pressure [Left] O2 Sat by Pulse 99 95 Oximetry 12/09/21 12/09/21 12/09/21 19:32 19:34 19:55 Temperature 100.3 F H Pulse Rate 56 L 58 L 59 L Respiratory 14 Rate Blood Pressure 170/55 179/76 189/77 Blood Pressure [Left] O2 Sat by Pulse Oximetry - Reevaluation(s) Reevaluation #1: 12/09/21 14:24 Differential diagnosis, include but not limited to: Migraine headache, tension headache, cluster headache, intracranial lesion, headache secondary to fever, obstruction, colitis, diverticulitis, perforation Assessment and plan: 61-year-old gentleman, with diffuse abdominal pain, low- grade fever. He has a nonfocal motor neurologic examination has a GCS of 15. He is clinically sober at this time. He is able to tolerate hydromorphone for pain. 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 Given diffuse abdominal pain, with low-grade temperature, obtain blood cultures, lactic acid, treat empirically with Zosyn. 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 We will obtain appropriate laboratory studies, CT scan of the brain, CT scan of the abdomen pelvis. We will discussed with our nephrology group on-call. Recommend admission to the medical service for acute abdominal pain, hypertensive urgency, reassess after initial diagnostics have resulted. I di scussed this plan of care with the patient and significant other at the bedside. They are agreeable to the plan of care 12/09/21 16:05 Dr Kacey Serrano to admit to [facility] 12/09/21 16:11 Discussed the patient's history, physical, laboratory studies and imaging studies and clinical impression with nephrology on-call, Dr. Arsalan Qureshi He is in agreement with the plan of care, and he will follow in consultation. He will arrange for hemodialysis. Request that dialysis nurse be contacted to arrange for hemodialysis while here in the emergency room. Nursing team was informed of this. In addition, we are awaiting CT scan abdomen pelvis results 12/09/21 16:54 CT scan abdomen pelvis reviewed and appreciated. Given abdominal pain, chest x- ray findings, fever and leukocytosis, we will cover empirically for pneumonia, and expand coverage to levofloxacin. External rectal examination performed, there is minimal fluctuance, without redness, pus, streaking or tenderness. The patient does not endorse any si gnificant rectal pain, he does not endorse any significant dyschezia. Clinically, I favor nonthrombosed external hemorrhoids, I do not suspect perianal abscesses at this time However, we did discuss with general surgeon on-call, Dr. Tafoya. Discussed history, physical, laboratory studies and imaging studies and clinical impression. He will follow in consultation. - EJ/Peripheral Line Arm R Time Out Performed: Yes Indications: nurses unable to establis Skin Cleansed in Sterile Fashion: Yes Size: 20 Dressing Placed: Tegaderm Patient Tolerated Procedure: well ED Medical Decision Making - Lab Data Result diagrams: 12/09/21 14:16 12/09/21 14:16 Vital Signs 12/09/21 12/09/21 13:09 13:57 Temperature 100.3 F H Pulse Rate 73 66 Respiratory 18 18 Rate Blood Pressure 206/90 190/64 [Left] O2 Sat by Pulse 92 94 Oximetry - Radiology Data Radiology results: report reviewed, image reviewed CHEST 1 VIEW INDICATION / CLINICAL INFORMATION: Hypertension, end-stage renal disease, hypoxia. COMPARISON: 11/23/2021 FINDINGS: SUPPORT DEVICES: None. HEART / MEDIASTINUM: Stable mild cardiomegaly. LUNGS / PLEURA: Diffuse bilateral interstitial pulmonary opacities are present with appearance most suggestive for pulmonary edema. I do not see significant pleural effusion or focal consolidation. No pneumothorax. ADDITIONAL FINDINGS: No significant additional findings. IMPRESSION: 1. Moderate interstitial pulmonary edema. Signer Name: Katlin Mcknight MD Signed: 12/09/2021 1:56 PM Workstation Name: [id number] CT head/brain wo con INDICATION: acute headache. TECHNIQUE: All CT scans at this location are performed using CT dose reduction for ALARA by means of automated exposure control. COMPARISON: Previous head CT on 11/03/2021 and brain MRI on 11/13/2021 FINDINGS: There are stable postsurgical changes from suboccipital craniotomy with a stable residual hypoattenuating mass in the right cerebellar hemisphere. Postoperative encephalomalacia is unchanged. There is no acute hemorrhage, brain edema, or hydrocephalus. There is no adverse mass effect. The included paranasal sinuses and mastoid air cells are clear. The orbits appear unremarkable. IMPRESSION: 1. No acute findings. 2. Stable postoperative changes and appearance of the posterior fossa compared with brain MRI on 11/13/2021. Signer Name: Fernando Ramos MD Signed: 12/09/2021 2:46 PM Workstation Name: [id number] CTA ABDOMEN AND PELVIS WITHOUT AND WITH CONTRAST INDICATION / CLINICAL INFORMATION: acute abd pain. TECHNIQUE: Axial CT images were obtained through the abdomen and pelvis before and after after injection of 100 cc Omnipaque 350 IV contrast. 3 plane MIP / 3D reconstructions were produced. All CT scans at this location are performed using CT dose reduction for ALARA by means of automated exposure control. COMPARISON: 11/23/2021 FINDINGS: AORTA: Mild atherosclerotic disease. RENAL ARTERIES: Moderate atherosclerotic disease. CELIAC ARTERY: Mild atherosclerotic disease. SUPERIOR MESENTERIC ARTERY: No significant abnormality. INFERIOR MESENTERIC ARTERY: No significant abnormality. RIGHT ILIAC ARTERIES: Mild atherosclerotic disease. LEFT ILIAC ARTERIES: Mild atherosclerotic disease. ADDITIONAL FINDINGS: Within the right lower lobe there is a prominent nodular density measuring approximately 2.4 x 1.9 cm. Additionally, there are scattered groundglass opacities throughout the bilateral lung bases, right greater than left. There is cardiomegaly. Status post common bile duct stent placement. There is expected pneumatosis. There is periportal e trish. There is heterogeneous attenuation of the liver suggesting diffuse hepatic disease. The pancreas is largely replaced by numerous cysts. Scattered macrocalcifications. Status post splenectomy versus autoinfarction. Status post bilateral nephrectomy. Along the left perianal region there are 2 hy poattenuating lesions measuring approximately 2.1 x 1.5 and 2.3 x 1.7 cm. SKELETAL: Redemonstrated findings of renal osteodystrophy. IMPRESSION: 1. Atherosclerotic disease as above. 2. There is a nodular density within the right lower lobe. Neoplastic process not excluded and PET CT is recommended for further evaluation. 3. Scattered groundglass opacities within the bilateral, right greater than left lower lobes which can be seen with atypical infectious process. 4. There are 2 soft tissue lesions along the left perianal region. erianal abscesses should be considered in the appropriate c linical setting. 5. Additional findings as above. Signer Name: Martin Euceda Cricket, Signed: 12/09/2021 3:35 PM Workstation Name: [id number] Critical care attestation.: If time is entered above; I have spent that time in minutes in the direct care of this critically ill patient, excluding procedure time. ED Disposition Clinical Impression: Acute abdominal pain, Acute headache, ESRD on dialysis, ESRD (end stage renal disease), Fever, Hypertension Disposition: 09 ADMITTED INPATIENT Is pt being admited?: Yes Does the pt Need Aspirin: No Condition: Serious
--- NOTE | 2021-12-09 15:00 | XRay Report ---
CHEST 1 VIEW INDICATION / CLINICAL INFORMATION: Hypertension, end-stage renal disease, hypoxia. COMPARISON: 11/23/2021 FINDINGS: SUPPORT DEVICES: None. HEART / MEDIASTINUM: Stable mild cardiomegaly. LUNGS / PLEURA: Diffuse bilateral interstitial pulmonary opacities are present with appearance most s uggestive for pulmonary edema. I do not see significant pleural effusion or focal consolidation. No p neumothorax. ADDITIONAL FINDINGS: No significant additional findings. IMPRESSION: 1. Moderate interstitial pulmonary edema. Signer Name: Katlin Mcknight MD Signed: 12/09/2021 2:56 PM Workstation Name: [id number]
[2021-12-09] MEDS ORDERED: hydrALAZINE 20 MG/1 ML INJ IV ONE (15:03)
[2021-12-09 15:17] LABS: Basophils # (Auto) 0.2 K/mm3 (0.0-0.1); Basophils % (Auto) 1.1 % (0.0-1.8); Eosinophils # (Auto) 0.3 K/mm3 (0.0-0.4); Eosinophils % (Auto) 1.5 % (0.0-4.3); Hemoglobin 9.4 gm/dl (11.8-15.2); Lymphocytes # (Auto) 0.5 K/mm3 (1.2-5.4); Lymphocytes % (Auto) 3.1 % (13.4-35.0); Mean Corpuscular HGB Conc 31 % (32-34); Mean Corpuscular Volume 102 fl (84-94); Monocytes # (Auto) 1.9 K/mm3 (0.0-0.8); Platelet Count 205 K/mm3 (140-440); Red Blood Count 2.95 M/mm3 (3.65-5.03); Red Cell Distribution Width 15.3 % (13.2-15.2)
[2021-12-09 15:25] LABS: INR 1.05 (0.87-1.13)
[2021-12-09 15:29] LABS: Albumin 3.3 g/dL (3.9-5); Blood Urea Nitrogen 27 mg/dL (9-20); Calcium 8.6 mg/dL (8.4-10.2); Hemolysis Index 16
[2021-12-09 15:30] LABS: Alanine Aminotransferase < 5 units/L (7-56); BUN/Creatinine Ratio 5
--- NOTE | 2021-12-09 15:50 | Cat Scan Report ---
CT head/brain wo con INDICATION: acute headache. TECHNIQUE: All CT scans at this location are performed using CT dose reduction for ALARA by means of automated e xposure control. COMPARISON: Previous head CT on 11/03/2021 and brain MRI on 11/13/2021 FINDINGS: There are stable postsurgical changes from suboccipital craniotomy with a stable residual hypoattenua ting mass in the right cerebellar hemisphere. Postoperative encephalomalacia is unchanged. There is n o acute hemorrhage, brain edema, or hydrocephalus. There is no adverse mass effect. The included paranasal sinuses and mastoid air cells are clear. The orbits appear unremarkable. IMPRESSION: 1. No acute findings. 2. Stable postoperative changes and appearance of the posterior fossa compared with brain MRI on 11/13. Signer Name: Fernando Ramos MD Signed: 12/09/2021 3:46 PM Workstation Name: [id number]
[2021-12-09] MEDS ORDERED: HYDROmorphone 0.5 MG/0.5 ML INJ IV PRN (16:05)
[2021-12-09] MEDS ORDERED: MORPHINE 2 MG/1 ML INJ IV PRN (16:05)
[2021-12-09] MEDS ORDERED: ACETAMINOPHEN 325 MG TAB PO PRN (16:05)
[2021-12-09] MEDS ORDERED: ONDANSETRON 4 MG/2 ML INJ IV PRN (16:05)
--- NOTE | 2021-12-09 16:39 | Cat Scan Report ---
CTA ABDOMEN AND PELVIS WITHOUT AND WITH CONTRAST INDICATION / CLINICAL INFORMATION: acute abd pain. TECHNIQUE: Axial CT images were obtained through the abdomen and pelvis before and after after inject ion of 100 cc Omnipaque 350 IV contrast. 3 plane MIP / 3D reconstructions were produced. All CT scans at this location are performed using CT dose reduction for ALARA by means of automated exposure cont rol. COMPARISON: 11/23/2021 FINDINGS: AORTA: Mild atherosclerotic disease. RENAL ARTERIES: Moderate atherosclerotic disease. CELIAC ARTERY: Mild atherosclerotic disease. SUPERIOR MESENTERIC ARTERY: No significant abnormality. INFERIOR MESENTERIC ARTERY: No significant abnormality. RIGHT ILIAC ARTERIES: Mild atherosclerotic disease. LEFT ILIAC ARTERIES: Mild atherosclerotic disease. ADDITIONAL FINDINGS: Within the right lower lobe there is a prominent nodular density measuring appro ximately 2.4 x 1.9 cm. Additionally, there are scattered groundglass opacities throughout the bilater al lung bases, right greater than left. There is cardiomegaly. Status post common bile duct stent earnestine cement. There is expected pneumatosis. There is periportal edema. There is heterogeneous attenuation of the liver suggesting diffuse hepatic disease. The pancreas is largely replaced by numerous cysts. Scattered macrocalcifications. Status post splenectomy versus autoinfarction. Status post bilateral n ephrectomy. Along the left perianal region there are 2 hypoattenuating lesions measuring approximatel y 2.1 x 1.5 and 2.3 x 1.7 cm. SKELETAL: Redemonstrated findings of renal osteodystrophy. IMPRESSION: 1. Atherosclerotic disease as above. 2. There is a nodular density within the right lower lobe. Neoplastic process not excluded and PET CT is recommended for further evaluation. 3. Scattered groundglass opacities within the bilateral, right greater than left lower lobes which ca n be seen with atypical infectious process. 4. There are 2 soft tissue lesions along the left perianal region. erianal abscesses should be consid ered in the appropriate clinical setting. 5. Additional findings as above. Signer Name: Martin Harley DO Signed: 12/09/2021 4:35 PM Workstation Name: [id number]
[2021-12-09 18:14] LABS: Hepatitis B Surface Antigen Non-Reactive (Negative); Hepatitis C Virus Antibody Non-Reactive (NonReactive)
--- NOTE | 2021-12-09 21:21 | Consultation ---
History of Present Illness Consult date: 12/09/21 Reason for consult: abdominal pain - History of present illness History of present illness: 61 yo male who, after HD, was sent to the ED for c/o diffuse, crampy abdominal pain. No N/V/D/C. Pt denies perianal pain. Past History Past Surgical History: appendectomy, cholecystectomy (splenectomy) Medications and Allergies Allergies Allergy/AdvReac Type Severity Reaction Status Date / Time clonidine Allergy Swelling Verified 11/23/21 11:17 codeine Allergy Itching Verified 11/23/21 11:17 hydrocodone Allergy Itching Verified 11/23/21 11:17 aspirin AdvReac Severe Brain Verified 11/23/21 11:17 Bleeding Home Medications Medication Instructions Recorded Confirmed Last Taken Type B Complex 11/Folic/C/Biot/Zinc 1 each PO DAILY 08/15/16 12/09/21 11/03/21 History [Dialyvite with Zinc Tablet] Ergocalciferol (Vitamin D2) 1 tab PO 1XW 08/15/16 12/09/21 11/03/21 History [Vitamin D2] Doxazosin Mesylate [Cardura] 2 mg PO HS #30 tablet 09/07/16 12/09/21 11/03/21 Rx Folic Acid/Vit B Comp W-C [Renal 1 cap PO QDAY 30 Days #30 capsule 11/17/21 12/09/21 Unknown Rx Caps] Lanthanum Carbonate [Fosrenol] 750 mg PO QDAC 30 Days #90 11/17/21 12/09/21 Unknown Rx NIFEdipine XL [Procardia Xl] 60 mg PO Q12HR 30 Days #60 tablet 11/17/21 12/09/21 Unknown Rx Pantoprazole [Protonix TAB] 40 mg PO QDAY 30 Days #30 tablet 11/17/21 12/09/21 Unknown Rx carvediloL [Coreg] 25 mg PO BID #60 tablet 11/17/21 12/09/21 Unknown Rx hydrALAZINE [Apresoline TAB] 100 mg PO TID 30 Days #90 tab 11/17/21 12/09/21 Unknown Rx Sennosides 17.2 mg PO QHS 14 Days #28 11/23/21 12/09/21 Unknown Rx Methyl Salicylate/Menth/Camph 1 each TP BID #12 patch 11/26/21 12/09/21 Unknown Rx [Salonpas 3.1%-6.0%-10.0% Patch] methOCARBAMOL [Robaxin TAB] 750 mg PO Q8H PRN #21 11/26/21 12/09/21 Unknown Rx traMADoL [Ultram 50 MG tab] 50 mg PO BID PRN #20 tablet 11/26/21 12/09/21 Unknown Rx Active Meds: Active Medications Acetaminophen (Acetaminophen 325 Mg Tab) 650 mg PO Q4H PRN PRN Reason: Pain MILD(1-3)/Fever >100.5/[place]XI[place] Ondansetron HCl (Ondansetron 4 Mg/2 Ml Inj) 4 mg IV Q8H PRN PRN Reason: Nausea And Vomiting Sodium Chloride (Sodium Chloride 0.9% 10 Ml Flush Syringe) 10 ml IV BID LOUISE Sodium Chloride (Sodium Chloride 0.9% 10 Ml Flush Syringe) 10 ml IV PRN PRN PRN Reason: LINE FLUSH Review of Systems All systems: negative (none) Exam Vital Signs Temp Pulse Resp BP Pulse Ox 100.3 F H 73 18 206/90 92 12/09/21 13:09 12/09/21 13:09 12/09/21 13:09 12/09/21 13:09 12/09/21 13:09 - General physical appearance Positive: well developed, well nourished, no distress - Eyes Positive: PERRL, normal occular movement - ENT Positive: normal pinna, normal nares, normal mucosa, no hearing loss, no congestion - Neck Positive: no masses, no bruits, trachea midline, no venous distension - Respiratory Positive: normal expansion, normal respiratory effort, clear to auscultation - Cardiovascular Rhythm: regular Heart Sounds: Present: S1 & S2. Absent: rub, click - Extremities Extremities: no ischemia, pulses symmetrical, No edema - Breasts Breasts: normal, no mass, no skin changes - Abdomen Abdomen: Present: soft, tender (Mildly TTP in the RUQ.), bowel sounds normal. Absent: distended, rebound, guarding Hernia: none - Genitourinary Male Genitourinary: normal Female Genitourinary: normal - Rectum Hemorrhoids: mild (2 cm NT thrombosed hemorrhoid on the left) - Integumentary no rash, no growths, no abnormal pigmentation - Neurologic Neurologic: alert and oriented to time, place and person, motor strength and sensation are grossly intact - Musculoskeletal normal gait, normal posture - Psychiatric Psychiatric: appropriate mood/affect, intact judgment & insight Results - Labs 12/09/21 14:16 12/09/21 14:16 Abnormal lab results 12/09/21 12/09/21 Range/Units 14:16 14:16 WBC 17.6 H (4.5-11.0) K/mm3 RBC 2.95 L (3.65-5.03) M/mm3 Hgb 9.4 L (11.8-15.2) gm/dl Hct 30.0 L (35.5-45.6) % MCV 102 H (84-94) fl MCHC 31 L (32-34) % RDW 15.3 H (13.2-15.2) % Lymph % (Auto) 3.1 L (13.4-35.0) % [place] % (Auto) 11.0 H (0.0-7.3) % Lymph # (Auto) 0.5 L (1.2-5.4) K/mm3 [place] # (Auto) 1.9 H (0.0-0.8) K/mm3 Baso # (Auto) 0.2 H (0.0-0.1) K/mm3 Seg Neutrophils % 83.3 H (40.0-70.0) % Seg Neutrophils # 14.6 H (1.8-7.7) K/mm3 Chloride 96.4 L (98-107) mmol/L BUN 27 H (9-20) mg/dL Creatinine 5.3 H (0.8-1.3) mg/dL ALT < 5 L (7-56) units/L Albumin 3.3 L (3.9-5) g/dL Diabetes panel 12/09/21 Range/Units 14:16 Sodium 140 (137-145) mmol/L Potassium 3.8 (3.6-5.0) mmol/L Chloride 96.4 L (98-107) mmol/L Carbon Dioxide 30 (22-30) mmol/L BUN 27 H (9-20) mg/dL Creatinine 5.3 H (0.8-1.3) mg/dL Glucose 95 (75-100) mg/dL Calcium 8.6 (8.4-10.2) mg/dL AST 19 (5-40) units/L ALT < 5 L (7-56) units/L Alkaline Phosphatase 97 (35-129) units/L Total Protein 6.7 (6.3-8.2) g/dL Albumin 3.3 L (3.9-5) g/dL Calcium panel 12/09/21 Range/Units 14:16 Calcium 8.6 (8.4-10.2) mg/dL Albumin 3.3 L (3.9-5) g/dL Pituitary panel 12/09/21 Range/Units 14:16 Sodium 140 (137-145) mmol/L Potassium 3.8 (3.6-5.0) mmol/L Chloride 96.4 L (98-107) mmol/L Carbon Dioxide 30 (22-30) mmol/L BUN 27 H (9-20) mg/dL Creatinine 5.3 H (0.8-1.3) mg/dL Glucose 95 (75-100) mg/dL Calcium 8.6 (8.4-10.2) mg/dL Adrenal panel 12/09/21 Range/Units 14:16 Sodium 140 (137-145) mmol/L Potassium 3.8 (3.6-5.0) mmol/L Chloride 96.4 L (98-107) mmol/L Carbon Dioxide 30 (22-30) mmol/L BUN 27 H (9-20) mg/dL Creatinine 5.3 H (0.8-1.3) mg/dL Glucose 95 (75-100) mg/dL Calcium 8.6 (8.4-10.2) mg/dL Total Bilirubin 0.50 (0.1-1.2) mg/dL AST 19 (5-40) units/L ALT < 5 L (7-56) units/L Alkaline Phosphatase 97 (35-129) units/L Total Protein 6.7 (6.3-8.2) g/dL Albumin 3.3 L (3.9-5) g/dL - Imaging CT scan - abdomen: report reviewed CT scan - pelvis: report reviewed Assessment and Plan - Patient Problems (1) Acute abdominal pain Current Visit: Yes Status: Acute Plan to address problem: 1) NPO 2) IVF 3) CBC and CMP in the am
[2021-12-09] MEDS ORDERED: hydrALAZINE 20 MG/1 ML INJ IV PRN (23:13)
[2021-12-09] MEDS: hydrALAZINE 25 MG TAB PO PRN (23:52)
[2021-12-09] MEDS: traMADol 50 MG TAB PO PRN (23:52)
--- NOTE | 2021-12-10 00:28 | History and Physical Report ---
History of Present Illness Date of examination: 12/09/21 Date of admission: 12/09/21 18:29 Chief complaint: Abdominal pain since a.m. History of present illness: 61-year-old male with history of end-stage renal disease, hypertension and GERD comes in for diffuse abdominal pain and headache. Abdominal pain is about 6-8 on a scale of 1-10. Intermittent in nature. No nausea or vomiting. No fever or chills. Also has headache diffuse and persistent. Pain is about 6 on a scale of 1-10. No history of migraines in the past. No history of tension headaches in the past. No fever or chills. - Past Medical History --Htn --Renal Disease: Yes (HD --Additional medical history: VAN-HIPPEL SYNDROME (AUTOIMMUNE), PANCREATIC CYSTS, BRAIN TUMORS - Surgical History --Cholecystectomy: Yes --Appendectomy: Yes --Additional Surgical History: 3 BRAIN SURGERIES, NEPHRECTOMY B/L, SPLENECTOMY, - Social History --Smoking Status: Never Smoker --Substance Use Type: None - Family history --Htn - Medications Home Medications: Home Medications Medication Instructions Recorded Confirmed Last Taken Type B Complex 11/Folic/C/Biot/Zinc 1 each PO DAILY 08/15/16 12/09/21 11/03/21 History [Dialyvite with Zinc Tablet] Ergocalciferol (Vitamin D2) 1 tab PO 1XW 08/15/16 12/09/21 11/03/21 History [Vitamin D2] Doxazosin Mesylate [Cardura] 2 mg PO HS #30 tablet 09/07/16 12/09/21 11/03/21 Rx Folic Acid/Vit B Comp W-C [Renal 1 cap PO QDAY 30 Days #30 capsule 11/17/21 12/09/21 Unknown Rx Caps] Lanthanum Carbonate [Fosrenol] 750 mg PO QDAC 30 Days #90 11/17/21 12/09/21 Unknown Rx NIFEdipine XL [Procardia Xl] 60 mg PO Q12HR 30 Days #60 tablet 11/17/21 12/09/21 Unknown Rx Pantoprazole [Protonix TAB] 40 mg PO QDAY 30 Days #30 tablet 11/17/21 12/09/21 Unknown Rx carvediloL [Coreg] 25 mg PO BID #60 tablet 11/17/21 12/09/21 Unknown Rx hydrALAZINE [Apresoline TAB] 100 mg PO TID 30 Days #90 tab 11/17/21 12/09/21 Unknown Rx Sennosides 17.2 mg PO QHS 14 Days #28 11/23/21 12/09/21 Unknown Rx Methyl Salicylate/Menth/Camph 1 each TP BID #12 patch 11/26/21 12/09/21 Unknown Rx [Salonpas 3.1%-6.0%-10.0% Patch] methOCARBAMOL [Robaxin TAB] 750 mg PO Q8H PRN #21 11/26/21 12/09/21 Unknown Rx traMADoL [Ultram 50 MG tab] 50 mg PO BID PRN #20 tablet 11/26/21 12/09/21 Unknown Rx Review of Systems ROS: Stated complaint: BILAT LEG PAIN Other details as noted in HPI Constitutional: malaise, weakness Eyes: denies: eye discharge, vision change ENT: denies: epistaxis Respiratory: denies: cough Cardiovascular: denies: chest pain Gastrointestinal: abdominal pain. denies: hematemesis, melena, hematochezia Genitourinary: denies: urgency, dysuria, testicular pain Neurological: headache, weakness Psychiatric: anxiety Hematological/Lymphatic: denies: easy bleeding Past History Past Surgical History: appendectomy, cholecystectomy (splenectomy) Medications and Allergies Allergies Allergy/AdvReac Type Severity Reaction Status Date / Time clonidine Allergy Swelling Verified 11/23/21 11:17 codeine Allergy Itching Verified 11/23/21 11:17 hydrocodone Allergy Itching Verified 11/23/21 11:17 aspirin AdvReac Severe Brain Verified 11/23/21 11:17 Bleeding Home Medications Medication Instructions Recorded Confirmed Last Taken Type Folic Acid/Vit B Comp W-C [Renal 1 cap PO QDAY 30 Days #30 capsule 11/17/21 12/09/21 Unknown Rx Caps] Lanthanum Carbonate [Fosrenol] 750 mg PO QDAC 30 Days #90 11/17/21 12/09/21 Unknown Rx NIFEdipine XL [Procardia Xl] 60 mg PO Q12HR 30 Days #60 tablet 11/17/21 12/09/21 Unknown Rx Pantoprazole [Protonix TAB] 40 mg PO QDAY 30 Days #30 tablet 11/17/21 12/09/21 Unknown Rx carvediloL [Coreg] 25 mg PO BID #60 tablet 11/17/21 12/09/21 Unknown Rx hydrALAZINE [Apresoline TAB] 100 mg PO TID 30 Days #90 tab 11/17/21 12/09/21 Unknown Rx Sennosides 17.2 mg PO QHS 14 Days #28 11/23/21 12/09/21 Unknown Rx traMADoL [Ultram 50 MG tab] 50 mg PO BID PRN #20 tablet 11/26/21 12/09/21 Unknown Rx Active Meds: Active Medications Acetaminophen (Acetaminophen 325 Mg Tab) 650 mg PO Q4H PRN PRN Reason: Pain MILD(1-3)/Fever >100.5/[place] Hydralazine HCl (Hydralazine 25 Mg Tab) 12.5 mg PO Q6H PRN PRN Reason: Hypertension Last Admin: 12/09/21 23:52 Dose: 12.5 mg Ondansetron HCl (Ondansetron 4 Mg/2 Ml Inj) 4 mg IV Q8H PRN PRN Reason: Nausea And Vomiting Sodium Chloride (Sodium Chloride 0.9% 10 Ml Flush Syringe) 10 ml IV BID LOUISE Sodium Chloride (Sodium Chloride 0.9% 10 Ml Flush Syringe) 10 ml IV PRN PRN PRN Reason: LINE FLUSH Tramadol HCl (Tramadol 50 Mg Tab) 50 mg PO Q12H PRN PRN Reason: Pain, Moderate (4-6) Last Admin: 12/09/21 23:52 Dose: 50 mg Exam - Constitutional Vitals: Temp Pulse Resp BP Pulse Ox 98.0 F 60 15 175/89 98 12/09/21 20:20 12/09/21 22:00 12/09/21 22:00 12/09/21 22:00 12/09/21 22:00 General appearance: Present: no acute distress, well-nourished - EENT Eyes: Present: PERRL ENT: hearing intact, clear oral mucosa - Neck Neck: Present: supple, normal ROM - Respiratory Respiratory effort: normal Respiratory: bilateral: CTA - Cardiovascular Heart rate: 78 Rhythm: regular Heart Sounds: Present: S1 & S2. Absent: rub, click - Extremities Extremities: pulses symmetrical, No edema Peripheral Pulses: within normal limits - Abdominal General gastrointestinal: Present: soft, tender, non-distended, normal bowel sounds Male genitourinary: Present: normal - Integumentary Integumentary: Present: clear, warm, dry - Musculoskeletal Musculoskeletal: gait normal, strength equal bilaterally - Psychiatric Psychiatric: appropriate mood/affect, intact judgment & insight - Neurologic Neurologic: CNII-XII intact, moves all extremities Results - Labs CBC & Chem 7: 12/09/21 14:16 12/09/21 14:16 Labs: Laboratory Last Values WBC 17.6 K/mm3 (4.5-11.0) H 12/09/21 14:16 RBC 2.95 M/mm3 (3.65-5.03) L 12/09/21 14:16 Hgb 9.4 gm/dl (11.8-15.2) L 12/09/21 14:16 Hct 30.0 % (35.5-45.6) L 12/09/21 14:16 MCV 102 fl (84-94) H 12/09/21 14:16 MCH 32 pg (28-32) 12/09/21 14:16 MCHC 31 % (32-34) L 12/09/21 14:16 RDW 15.3 % (13.2-15.2) H 12/09/21 14:16 Plt Count 205 K/mm3 (140-440) 12/09/21 14:16 Lymph % (Auto) 3.1 % (13.4-35.0) L 12/09/21 14:16 [place] % (Auto) 11.0 % (0.0-7.3) H 12/09/21 14:16 Eos % (Auto) 1.5 % (0.0-4.3) 12/09/21 14:16 Baso % (Auto) 1.1 % (0.0-1.8) 12/09/21 14:16 Lymph # (Auto) 0.5 K/mm3 (1.2-5.4) L 12/09/21 14:16 [place] # (Auto) 1.9 K/mm3 (0.0-0.8) H 12/09/21 14:16 Eos # (Auto) 0.3 K/mm3 (0.0-0.4) 12/09/21 14:16 Baso # (Auto) 0.2 K/mm3 (0.0-0.1) H 12/09/21 14:16 Seg Neutrophils % 83.3 % (40.0-70.0) H 12/09/21 14:16 Seg Neutrophils # 14.6 K/mm3 (1.8-7.7) H 12/09/21 14:16 PT 14.9 Sec. (12.2-14.9) 12/09/21 14:16 INR 1.05 (0.87-1.13) 12/09/21 14:16 Sodium 140 mmol/L (137-145) 12/09/21 14:16 Potassium 3.8 mmol/L (3.6-5.0) 12/09/21 14:16 Chloride 96.4 mmol/L (98-107) L 12/09/21 14:16 Carbon Dioxide 30 mmol/L (22-30) 12/09/21 14:16 Anion Gap 17 mmol/L 12/09/21 14:16 BUN 27 mg/dL (9-20) H 12/09/21 14:16 Creatinine 5.3 mg/dL (0.8-1.3) H 12/09/21 14:16 Estimated GFR 11 ml/min 12/09/21 14:16 BUN/Creatinine Ratio 5 % 12/09/21 14:16 Glucose 95 mg/dL (75-100) 12/09/21 14:16 Lactic Acid 1.00 mmol/L (0.7-2.0) 12/09/21 14:16 Calcium 8.6 mg/dL (8.4-10.2) 12/09/21 14:16 Magnesium 2.00 mg/dL (1.7-2.3) 12/09/21 14:16 Total Bilirubin 0.50 mg/dL (0.1-1.2) 12/09/21 14:16 AST 19 units/L (5-40) 12/09/21 14:16 ALT < 5 units/L (7-56) L 12/09/21 14:16 Alkaline Phosphatase 97 units/L (35-129) 12/09/21 14:16 Total Creatine Kinase 71 units/L (55-170) 12/09/21 14:16 Total Protein 6.7 g/dL (6.3-8.2) 12/09/21 14:16 Albumin 3.3 g/dL (3.9-5) L 12/09/21 14:16 Albumin/Globulin Ratio 1.0 % 12/09/21 14:16 Lipase 14 units/L (13-60) 12/09/21 14:16 Hepatitis A IgM Ab Non-reactive (NonReactive) 12/09/21 17:00 Hep Bs Antigen Non-reactive (Negative) 12/09/21 17:00 Hep B Core IgM Ab Non-reactive (NonReactive) 12/09/21 17:00 Hepatitis C Antibody Non-reactive (NonReactive) 12/09/21 17:00 Microbiology: Microbiology 12/09/21 14:16 Peripheral/Venous Blood Culture - Preliminary Culture in Progress 12/09/21 14:16 Peripheral/Venous Blood Culture - Preliminary Culture in Progress - Imaging and Cardiology Imaging and Cardiology: Abdominal CAT scan and pelvis CAT scan Nodular density within the right lobe. Neoplastic process not excluded and prepped CT is recommended for further evaluation Scattered groundglass opacities within the bilateral right greater than the left lower lobe which can be seen with atypical infection. There is 2 soft tissue lesions along the left perianal region next perianal abscess usually considered in the appropriate clinical setting. Ferro/IV: Voiding Method Urinal Assessment and Plan Advance Directives: Yes (Full code) VTE prophylaxis?: Chemical Plan of care discussed with patient/family: Yes - Patient Problems (1) Bilateral pneumonia Current Visit: Yes Status: Acute Plan to address problem: IV antibiotics initiated IV Decadron given Rule out COVID (2) Acute abdominal pain Current Visit: Yes Status: Acute Plan to address problem: Surgery consult requested No small bowel OBSTRUCTION Clear liquid diet (3) Right lower lobe pulmonary nodule Current Visit: Yes Status: Acute Plan to address problem: Patient to be informed of ordered and to get follow-up with the pulmonary PET scan as well. Referral to be given through pulmonary (4) ESRD (end stage renal disease) Current Visit: Yes Status: Chronic Plan to address problem: Continue hemodialysis (5) DVT prophylaxis Current Visit: Yes Status: Acute Plan to address problem: On anticoagulation and GI prophylaxis (6) Advance care planning Current Visit: Yes Status: Acute Plan to address problem: Disease education conducted, care plan discussed, diagnosis discussed and prognosis discussed. Patient acknowledged understanding with care plan. +30 minutes.
[2021-12-10] MEDS ORDERED: ACETAMINOPHEN 325 MG TAB PO PRN (00:37)
[2021-12-10] MEDS ORDERED: MORPHINE 2 MG/1 ML INJ IV PRN (00:37)
[2021-12-10] MEDS ORDERED: METOCLOPRAMIDE 10 MG/2 ML INJ IV PRN ×2 (00:37→01:16)
[2021-12-10] MEDS ORDERED: IPRATROPIUM/ALBUTEROL SULFATE 3 ML AMPUL.NEB IH PRN (00:40)
[2021-12-10] MEDS ORDERED: FAMOTIDINE 20 MG/2 ML INJ IV SCH (01:00)
[2021-12-10] MEDS ORDERED: ALBUTEROL 2.5 MG/3 ML NEBU IH PRN (01:19)
[2021-12-10] MEDS: carvediloL 25 MG TAB PO SCH ×3 (05:58→21:47)
[2021-12-10] MEDS: dexAMETHasone 4 MG/ML VIAL IV SCH (06:14)
[2021-12-10] MEDS: cefTRIAXone/NS 2 GM/100 ML 2 GM/100 ML BAG IV SCH (06:14)
[2021-12-10] MEDS: AZITHROMYCIN/NS 500 MG/250 ML 500 MG/250 ML BAG IV SCH (06:24)
[2021-12-10] MEDS: hydrALAZINE 100 MG TAB PO SCH ×3 (10:42→21:48)
[2021-12-10] MEDS: PANTOPRAZOLE 40 MG TAB PO SCH (10:42)
[2021-12-10] MEDS: NIFEdipine XL 60 MG TAB PO SCH ×2 (10:42→21:48)
--- NOTE | 2021-12-10 11:47 | Consultation ---
History of Present Illness - Reason for Consult Consult date: 12/10/21 end stage renal disease - History of Present Illness RFC: ESRD on HD HPI: 61 year old M admitted with belly pain and headache. Pt denies N/V, fever or chills. He pain is intermitted. He is on HD outpatient for ESRD with Dr Quispe. ROS: As in HPI otherwise 12 point review of systems -ve - Past Medical History --Htn --Renal Disease: Yes (HD --Additional medical history: VAN-HIPPEL SYNDROME (AUTOIMMUNE), PANCREATIC CYSTS, BRAIN TUMORS - Surgical History --Cholecystectomy: Yes --Appendectomy: Yes --Additional Surgical History: 3 BRAIN SURGERIES, NEPHRECTOMY B/L, SPLENECTOMY, - Social History --Smoking Status: Never Smoker --Substance Use Type: None - Family history --Htn Past History Past Surgical History: appendectomy, cholecystectomy (splenectomy) Medications and Allergies Allergies Allergy/AdvReac Type Severity Reaction Status Date / Time clonidine Allergy Swelling Verified 11/23/21 11:17 codeine Allergy Itching Verified 11/23/21 11:17 hydrocodone Allergy Itching Verified 11/23/21 11:17 aspirin AdvReac Severe Brain Verified 11/23/21 11:17 Bleeding Home Medications Medication Instructions Recorded Confirmed Last Taken Type Folic Acid/Vit B Comp W-C [Renal 1 cap PO QDAY 30 Days #30 capsule 11/17/21 12/09/21 Unknown Rx Caps] Lanthanum Carbonate [Fosrenol] 750 mg PO QDAC 30 Days #90 11/17/21 12/09/21 Unknown Rx NIFEdipine XL [Procardia Xl] 60 mg PO Q12HR 30 Days #60 tablet 11/17/21 12/09/21 Unknown Rx Pantoprazole [Protonix TAB] 40 mg PO QDAY 30 Days #30 tablet 11/17/21 12/09/21 Unknown Rx carvediloL [Coreg] 25 mg PO BID #60 tablet 11/17/21 12/09/21 Unknown Rx hydrALAZINE [Apresoline TAB] 100 mg PO TID 30 Days #90 tab 11/17/21 12/09/21 Unknown Rx Sennosides 17.2 mg PO QHS 14 Days #28 11/23/21 12/09/21 Unknown Rx traMADoL [Ultram 50 MG tab] 50 mg PO BID PRN #20 tablet 11/26/21 12/09/21 Unknown Rx Active Meds: Active Medications Acetaminophen (Acetaminophen 325 Mg Tab) 650 mg PO Q4H PRN PRN Reason: Pain MILD(1-3)/Fever >100.5/[place] Albuterol (Albuterol 2.5 Mg/3 Ml Nebu) 2.5 mg IH Q3HRT PRN PRN Reason: Wheezing Carvedilol (Carvedilol 25 Mg Tab) 25 mg PO BID [facility] Last Admin: 12/10/21 10:42 Dose: 25 mg Dexamethasone (Dexamethasone 4 Mg/Ml Vial) 8 mg IV Q24H [facility] Last Admin: 12/10/21 06:14 Dose: 8 mg Hydralazine HCl (Hydralazine 25 Mg Tab) 12.5 mg PO Q6H PRN PRN Reason: Hypertension Last Admin: 12/09/21 23:52 Dose: 12.5 mg Hydralazine HCl (Hydralazine 100 Mg Tab) 100 mg PO TID [facility] Last Admin: 12/10/21 10:42 Dose: 100 mg Azithromycin (Zithromax/Ns) 500 mg in 250 mls @ 250 mls/hr IV Q24H [facility] Last Admin: 12/10/21 06:24 Dose: 250 mls/hr Ceftriaxone Sodium (Rocephin/Ns 2 Gm/100 Ml) 2 gm in 100 mls @ 200 mls/hr IV Q24H [facility]; Protocol Last Admin: 12/10/21 06:14 Dose: 200 mls/hr Metoclopramide HCl (Metoclopramide 10 Mg/2 Ml Inj) 5 mg IV Q6H PRN PRN Reason: Nausea And Vomiting Morphine Sulfate (Morphine 2 Mg/1 Ml Inj) 2 mg IV Q4H PRN PRN Reason: Pain, Moderate (4-6) Nifedipine (Nifedipine Xl 60 Mg Tab) 60 mg PO Q12HR [facility] Last Admin: 12/10/21 10:42 Dose: 60 mg Ondansetron HCl (Ondansetron 4 Mg/2 Ml Inj) 4 mg IV Q8H PRN PRN Reason: Nausea And Vomiting Pantoprazole Sodium (Pantoprazole 40 Mg Tab) 40 mg PO QDAY [facility] Last Admin: 12/10/21 10:42 Dose: 40 mg Sodium Chloride (Sodium Chloride 0.9% 10 Ml Flush Syringe) 10 ml IV BID [facility] Last Admin: 12/10/21 10:42 Dose: 10 ml Sodium Chloride (Sodium Chloride 0.9% 10 Ml Flush Syringe) 10 ml IV PRN PRN PRN Reason: LINE FLUSH Tramadol HCl (Tramadol 50 Mg Tab) 50 mg PO Q12H PRN PRN Reason: Pain, Moderate (4-6) Last Admin: 12/09/21 23:52 Dose: 50 mg Exam - Vital Signs Vital signs: Vital Signs Temp Pulse Resp BP Pulse Ox 100.3 F H 73 18 206/90 92 12/09/21 13:09 12/09/21 13:09 12/09/21 13:09 12/09/21 13:09 12/09/21 13:09 - Physical Exam Narrative exam: General appearance: Present: no acute distress, well-nourished - EENT Eyes: Present: PERRL ENT: hearing intact, clear oral mucosa - Neck Neck: Present: supple, normal ROM - Respiratory Respiratory effort: normal Respiratory: bilateral: CTA - Cardiovascular Heart rate: 78 Rhythm: regular Heart Sounds: Present: S1 & S2. Absent: rub, click - Extremities Extremities: pulses symmetrical, No edema Peripheral Pulses: within normal limits - Abdominal General gastrointestinal: Present: soft, tender, non-distended, normal bowel sounds Male genitourinary: Present: normal - Integumentary Integumentary: Present: clear, warm, dry - Musculoskeletal Musculoskeletal: gait normal, strength equal bilaterally - Psychiatric Psychiatric: appropriate mood/affect, intact judgment & insight - Neurologic Neurologic: CNII-XII intact, moves all extremities Results - Lab Results 12/10/21 04:00 12/10/21 04:00 Most recent lab results Calcium 8.6 mg/dL (8.4-10.2) 12/09/21 14:16 Magnesium 2.00 mg/dL (1.7-2.3) 12/09/21 14:16 Assessment and Plan (1) Bilateral pneumonia (2) Acute abdominal pain (3) Right lower lobe pulmonary nodule (4) ESRD (end stage renal disease) -Pt agrees to and consented for dialysis while inpatient -s/p HD yesterday, No HD today, HD tomorrow -Renally dose all meds -Monitor Hg for epogen need
[2021-12-10] MEDS: hydrALAZINE 25 MG TAB PO PRN (12:13)
[2021-12-10 12:45] LABS: Albumin 3.7 g/dL (3.9-5); Calcium 9.8 mg/dL (8.4-10.2)
[2021-12-10 12:47] LABS: Hematocrit 31.8 % (35.5-45.6); Hemoglobin 10.3 gm/dl (11.8-15.2); Mean Corpuscular HGB Conc 33 % (32-34); Mean Corpuscular Volume 100 fl (84-94); Platelet Count 236 K/mm3 (140-440); Red Blood Count 3.17 M/mm3 (3.65-5.03); Red Cell Distribution Width 15.5 % (13.2-15.2)
--- NOTE | 2021-12-10 14:45 | Electrocardiograph Report ---
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
--- NOTE | 2021-12-10 14:55 | Progress Note ---
Assessment and Plan - Patient Problems (1) Acute abdominal pain Current Visit: Yes Status: Acute Plan to address problem: 1) Improved 2) Renal diet Subjective Date of service: 12/10/21 Patient Reports: Positive: no new complaints, feels better, pain is less, tolerating liquids well, flatus, bowel movement. Negative: diarrhea, nausea, vomiting Objective Vital Signs - 12hr 12/10/21 12/10/21 12/10/21 03:00 03:10 03:20 Temperature Pulse Rate 80 48 L 51 L Respiratory 25 H 17 15 Rate Blood Pressure 120/50 101/61 103/59 O2 Sat by Pulse 100 96 96 Oximetry 12/10/21 12/10/21 12/10/21 03:34 03:40 05:12 Temperature Pulse Rate 51 L 48 L 51 L Respiratory 15 14 10 L Rate Blood Pressure 103/59 103/59 103/59 O2 Sat by Pulse 98 99 Oximetry 12/10/21 12/10/21 12/10/21 05:20 05:30 05:40 Temperature Pulse Rate 48 L 49 L 49 L Respiratory 15 13 12 Rate Blood Pressure 138/47 115/73 124/66 O2 Sat by Pulse 96 99 98 Oximetry 12/10/21 12/10/21 12/10/21 05:50 06:00 06:56 Temperature Pulse Rate 65 52 L Respiratory 13 12 Rate Blood Pressure 124/66 122/70 115/73 O2 Sat by Pulse 100 99 Oximetry 12/10/21 12/10/21 12/10/21 07:00 07:21 07:54 Temperature 97.5 F L Pulse Rate 62 Respiratory Rate Blood Pressure 115/73 115/73 177/80 O2 Sat by Pulse 96 Oximetry 12/10/21 12/10/21 12/10/21 08:02 11:21 12:00 Temperature 98.2 F Pulse Rate 62 61 Respiratory Rate Blood Pressure 115/73 193/81 O2 Sat by Pulse 97 98 Oximetry - Abdomen PM_46_EXABD1 4, PM_46_EXABD1 6, PM_46_EXABD1 8 Hernia: none - Labs 12/10/21 04:00 12/10/21 04:00 Diabetes panel 12/09/21 12/10/21 Range/Units 14:16 04:00 Sodium 140 137 (137-145) mmol/L Potassium 3.8 4.5 (3.6-5.0) mmol/L Chloride 96.4 L 92.8 L (98-107) mmol/L Carbon Dioxide 30 29 (22-30) mmol/L BUN 27 H 20 (9-20) mg/dL Creatinine 5.3 H 4.3 H (0.8-1.3) mg/dL Glucose 95 103 H (75-100) mg/dL Calcium 8.6 9.8 (8.4-10.2) mg/dL AST 19 19 (5-40) units/L ALT < 5 L 5 L (7-56) units/L Alkaline Phosphatase 97 107 (35-129) units/L Total Protein 6.7 6.9 (6.3-8.2) g/dL Albumin 3.3 L 3.7 L (3.9-5) g/dL Calcium panel 12/09/21 12/10/21 Range/Units 14:16 04:00 Calcium 8.6 9.8 (8.4-10.2) mg/dL Albumin 3.3 L 3.7 L (3.9-5) g/dL Pituitary panel 12/09/21 12/10/21 Range/Units 14:16 04:00 Sodium 140 137 (137-145) mmol/L Potassium 3.8 4.5 (3.6-5.0) mmol/L Chloride 96.4 L 92.8 L (98-107) mmol/L Carbon Dioxide 30 29 (22-30) mmol/L BUN 27 H 20 (9-20) mg/dL Creatinine 5.3 H 4.3 H (0.8-1.3) mg/dL Glucose 95 103 H (75-100) mg/dL Calcium 8.6 9.8 (8.4-10.2) mg/dL Adrenal panel 12/09/21 12/10/21 Range/Units 14:16 04:00 Sodium 140 137 (137-145) mmol/L Potassium 3.8 4.5 (3.6-5.0) mmol/L Chloride 96.4 L 92.8 L (98-107) mmol/L Carbon Dioxide 30 29 (22-30) mmol/L BUN 27 H 20 (9-20) mg/dL Creatinine 5.3 H 4.3 H (0.8-1.3) mg/dL Glucose 95 103 H (75-100) mg/dL Calcium 8.6 9.8 (8.4-10.2) mg/dL Total Bilirubin 0.50 0.40 (0.1-1.2) mg/dL AST 19 19 (5-40) units/L ALT < 5 L 5 L (7-56) units/L Alkaline Phosphatase 97 107 (35-129) units/L Total Protein 6.7 6.9 (6.3-8.2) g/dL Albumin 3.3 L 3.7 L (3.9-5) g/dL
[2021-12-10] MEDS: traMADol 50 MG TAB PO PRN (15:56)
[2021-12-10 18:58] LABS: Total Cells Counted 100
[2021-12-10 18:59] LABS: Band Neutrophils # (Manual) 0.1 K/mm3; Basophils % (Manual) 0 % (0.0-1.8); Eosinophils % (Manual) 0 % (0.0-4.3); Platelet Estimate Consistent w Auto
--- NOTE | 2021-12-10 21:40 | Progress Note ---
Assessment and Plan - Patient Problems (1) ESRD (end stage renal disease) Current Visit: Yes Status: Chronic Plan to address problem: Dialysis as per renal team, strict I's/O, monitor urine output every shift, daily weight, afterload reduction, blood pressure control, avoid nephrotoxic agents. Renal diet. (2) Fluid overload Current Visit: Yes Status: Acute Qualifiers: Hypervolemia type: unspecified Qualified Code(s): E87.70 - Fluid overload, unspecified Plan to address problem: Dialysis as per renal team, strict I's/O, monitor fluid balance, monitor urine output every shift. (3) Right lower lobe pulmonary nodule Current Visit: Yes Status: Acute Plan to address problem: Outpatient pulmonary follow-up. Repeat CT scan as per pulmonary team recommendations. (4) DVT prophylaxis Current Visit: Yes Status: Acute Plan to address problem: SCD to bilateral lower extremities while in bed (5) Advance care planning Current Visit: Yes Status: Acute Plan to address problem: Disease education done, care plan discussed, diagnoses discussed, prognosis discussed, patient is full code. +30 minutes. (6) Preventative health care Current Visit: Yes Status: Acute Plan to address problem: Patient counseled regarding compliance with outpatient dialysis, compliance with medication, patient instructed to follow-up with primary care physician for all age and risk factor appropriate screening test. Patient instructed to follow-up with pulmonology regarding right lung nodule which is suspicious for malignancy. Patient will require biopsy and possible repeat CT scan as per pulmonology team recommendation. History Interval history: 61 YO Male with ESRD complicated by Fluid Overload, and Pulmonary Edema, and found to have incidental finding of right lower lobe lung nodule suspicious for malignancy. Patient acknowledges shortness of breath today. Patient acknowledges bilateral lower extremity edema. No reported nursing events. Patient denies pain. Patient reports desire to change from [facility] dialysis due to [facility] hemodialysis. Case management team notified. Hospitalist Physical - Constitutional Vitals: Temp Pulse Resp BP Pulse Ox 98.3 F 57 L 20 140/53 92 12/10/21 20:30 12/10/21 20:30 12/10/21 20:30 12/10/21 20:30 12/10/21 20:30 General appearance: Present: no acute distress, well-nourished - EENT Eyes: Present: PERRL ENT: hearing intact - Neck Neck: Present: supple - Respiratory Respiratory effort: normal Respiratory: bilateral: diminished - Cardiovascular Rhythm: regular Heart Sounds: Present: S1 & S2 - Extremities Extremities: no ischemia Extremity abnormal: edema Peripheral Pulses: within normal limits - Abdominal General gastrointestinal: soft, non-tender, non-distended - Integumentary Integumentary: Present: clear, dry - Psychiatric Psychiatric: cooperative - Neurologic Neurologic: CNII-XII intact Results - Labs CBC & Chem 7: 12/10/21 04:00 12/10/21 04:00 Labs: Laboratory Last Values WBC 8.3 K/mm3 (4.5-11.0) 12/10/21 04:00 RBC 3.17 M/mm3 (3.65-5.03) L 12/10/21 04:00 Hgb 10.3 gm/dl (11.8-15.2) L 12/10/21 04:00 Hct 31.8 % (35.5-45.6) L 12/10/21 04:00 MCV 100 fl (84-94) H 12/10/21 04:00 MCH 33 pg (28-32) H 12/10/21 04:00 MCHC 33 % (32-34) 12/10/21 04:00 RDW 15.5 % (13.2-15.2) H 12/10/21 04:00 Plt Count 236 K/mm3 (140-440) 12/10/21 04:00 Lymph % (Auto) 3.1 % (13.4-35.0) L 12/09/21 14:16 Hawkins % (Auto) 11.0 % (0.0-7.3) H 12/09/21 14:16 Eos % (Auto) 1.5 % (0.0-4.3) 12/09/21 14:16 Baso % (Auto) 1.1 % (0.0-1.8) 12/09/21 14:16 Lymph # (Auto) 0.5 K/mm3 (1.2-5.4) L 12/09/21 14:16 Hawkins # (Auto) 1.9 K/mm3 (0.0-0.8) H 12/09/21 14:16 Eos # (Auto) 0.3 K/mm3 (0.0-0.4) 12/09/21 14:16 Baso # (Auto) 0.2 K/mm3 (0.0-0.1) H 12/09/21 14:16 Add Manual Diff Complete 12/10/21 04:00 Total Counted 100 12/10/21 04:00 Seg Neutrophils % [employer] 12/10/21 04:00 Seg Neuts % (Manual) 93.0 % (40.0-70.0) H 12/10/21 04:00 Band Neutrophils % 1.0 % 12/10/21 04:00 Lymphocytes % (Manual) 5.0 % (13.4-35.0) L 12/10/21 04:00 Reactive Lymphs % (Man) 0 % 12/10/21 04:00 Monocytes % (Manual) 1.0 % (0.0-7.3) 12/10/21 04:00 Eosinophils % (Manual) 0 % (0.0-4.3) 12/10/21 04:00 Basophils % (Manual) 0 % (0.0-1.8) 12/10/21 04:00 Metamyelocytes % 0 % 12/10/21 04:00 Myelocytes % 0 % 12/10/21 04:00 Promyelocytes % 0 % 12/10/21 04:00 Blast Cells % 0 % 12/10/21 04:00 Nucleated RBC % Not Reportable 12/10/21 04:00 Seg Neutrophils # 14.6 K/mm3 (1.8-7.7) H 12/09/21 14:16 Seg Neutrophils # Man 7.7 K/mm3 (1.8-7.7) 12/10/21 04:00 Band Neutrophils # 0.1 K/mm3 12/10/21 04:00 Lymphocytes # (Manual) 0.4 K/mm3 (1.2-5.4) L 12/10/21 04:00 Abs React Lymphs (Man) 0.0 K/mm3 12/10/21 04:00 Monocytes # (Manual) 0.1 K/mm3 (0.0-0.8) 12/10/21 04:00 Eosinophils # (Manual) 0.0 K/mm3 (0.0-0.4) 12/10/21 04:00 Basophils # (Manual) 0.0 K/mm3 (0.0-0.1) 12/10/21 04:00 Metamyelocytes # 0.0 K/mm3 12/10/21 04:00 Myelocytes # 0.0 K/mm3 12/10/21 04:00 Promyelocytes # 0.0 K/mm3 12/10/21 04:00 Blast Cells # 0.0 K/mm3 12/10/21 04:00 WBC Morphology Not Reportable 12/10/21 04:00 Hypersegmented Neuts Not Reportable 12/10/21 04:00 Hyposegmented Neuts Not Reportable 12/10/21 04:00 Hypogranular Neuts Not Reportable 12/10/21 04:00 Smudge Cells Not Reportable 12/10/21 04:00 Toxic Granulation Not Reportable 12/10/21 04:00 Toxic Vacuolation Not Reportable 12/10/21 04:00 Dohle Bodies Not Reportable 12/10/21 04:00 Pelger-Huet Anomaly Not Reportable 12/10/21 04:00 Marialuisa Rods Not Reportable 12/10/21 04:00 Platelet Estimate Consistent w auto 12/10/21 04:00 Clumped Platelets Not Reportable 12/10/21 04:00 Plt Clumps, EDTA Not Reportable 12/10/21 04:00 Large Platelets Not Reportable 12/10/21 04:00 Giant Platelets Not Reportable 12/10/21 04:00 Platelet Satelliting Not Reportable 12/10/21 04:00 Plt Morphology Comment Not Reportable 12/10/21 04:00 RBC Morphology Not Reportable 12/10/21 04:00 Dimorphic RBCs Not Reportable 12/10/21 04:00 Polychromasia Not Reportable 12/10/21 04:00 Hypochromasia Not Reportable 12/10/21 04:00 Poikilocytosis Not Reportable 12/10/21 04:00 Anisocytosis Not Reportable 12/10/21 04:00 Microcytosis Not Reportable 12/10/21 04:00 Macrocytosis Not Reportable 12/10/21 04:00 Spherocytes Not Reportable 12/10/21 04:00 Pappenheimer Bodies Not Reportable 12/10/21 04:00 Sickle Cells Not Reportable 12/10/21 04:00 Target Cells Not Reportable 12/10/21 04:00 Tear Drop Cells Not Reportable 12/10/21 04:00 Ovalocytes Not Reportable 12/10/21 04:00 Helmet Cells Not Reportable 12/10/21 04:00 [place] Bodies Not Reportable 12/10/21 04:00 [place] Rings Not Reportable 12/10/21 04:00 Jerry Cells Not Reportable 12/10/21 04:00 Bite Cells Not Reportable 12/10/21 04:00 Crenated Cell Not Reportable 12/10/21 04:00 Elliptocytes Not Reportable 12/10/21 04:00 Acanthocytes (Spur) Not Reportable 12/10/21 04:00 Rouleaux Not Reportable 12/10/21 04:00 Hemoglobin C Crystals Not Reportable 12/10/21 04:00 Schistocytes Not Reportable 12/10/21 04:00 Malaria parasites Not Reportable 12/10/21 04:00 Damir Bodies Not Reportable 12/10/21 04:00 Hem Pathologist Commnt No 12/10/21 04:00 PT 14.9 Sec. (12.2-14.9) 12/09/21 14:16 INR 1.05 (0.87-1.13) 12/09/21 14:16 Sodium 137 mmol/L (137-145) 12/10/21 04:00 Potassium 4.5 mmol/L (3.6-5.0) 12/10/21 04:00 Chloride 92.8 mmol/L (98-107) L 12/10/21 04:00 Carbon Dioxide 29 mmol/L (22-30) 12/10/21 04:00 Anion Gap 20 mmol/L 12/10/21 04:00 BUN 20 mg/dL (9-20) 12/10/21 04:00 Creatinine 4.3 mg/dL (0.8-1.3) H 12/10/21 04:00 Estimated GFR 14 ml/min 12/10/21 04:00 BUN/Creatinine Ratio 5 % 12/10/21 04:00 Glucose 103 mg/dL (75-100) H 12/10/21 04:00 Lactic Acid 1.00 mmol/L (0.7-2.0) 12/09/21 14:16 Calcium 9.8 mg/dL (8.4-10.2) 12/10/21 04:00 Magnesium 2.00 mg/dL (1.7-2.3) 12/09/21 14:16 Total Bilirubin 0.40 mg/dL (0.1-1.2) 12/10/21 04:00 AST 19 units/L (5-40) 12/10/21 04:00 ALT 5 units/L (7-56) L 12/10/21 04:00 Alkaline Phosphatase 107 units/L (35-129) 12/10/21 04:00 Total Creatine Kinase 71 units/L (55-170) 12/09/21 14:16 Total Protein 6.9 g/dL (6.3-8.2) 12/10/21 04:00 Albumin 3.7 g/dL (3.9-5) L 12/10/21 04:00 Albumin/Globulin Ratio 1.2 % 12/10/21 04:00 Lipase 14 units/L (13-60) 12/09/21 14:16 SARS-CoV-2 (PCR) Negative (Negative) 12/10/21 11:32 Hepatitis A IgM Ab Non-reactive (NonReactive) 12/09/21 17:00 Hep Bs Antigen Non-reactive (Negative) 12/09/21 17:00 Hep B Core IgM Ab Non-reactive (NonReactive) 12/09/21 17:00 Hepatitis C Antibody Non-reactive (NonReactive) 12/09/21 17:00 Microbiology: Microbiology 12/09/21 14:16 Peripheral/Venous Blood Culture - Preliminary NO GROWTH AFTER 24 HOURS 12/09/21 14:16 Peripheral/Venous Blood Culture - Preliminary NO GROWTH AFTER 24 HOURS Ferro/IV: Voiding Method Urinal Active Medications - Current Medications Current Medications: Generic Name Dose Route Start Last Admin Trade Name Freq PRN Reason Stop Dose Admin Acetaminophen 650 mg 12/10/21 00:37 Acetaminophen 325 Mg Tab PO Q4H PRN Pain MILD(1-3)/Fever >100.5/GAXIOLA Albuterol 2.5 mg 12/10/21 01:19 Albuterol 2.5 Mg/3 Ml Nebu IH Q3HRT PRN Wheezing Carvedilol 25 mg 12/10/21 01:00 12/10/21 10:42 Carvedilol 25 Mg Tab PO 25 mg BID LOUISE Administration Dexamethasone 8 mg 12/10/21 01:00 12/10/21 06:14 Dexamethasone 4 Mg/Ml Vial IV 8 mg Q24H LOUISE Administration Hydralazine HCl 12.5 mg 12/09/21 23:43 12/10/21 12:13 Hydralazine 25 Mg Tab PO 12.5 mg Q6H PRN Administration Hypertension Hydralazine HCl 100 mg 12/10/21 08:00 12/10/21 13:53 Hydralazine 100 Mg Tab PO 100 mg TID LOUISE Administration Azithromycin 500 mg in 250 mls @ 250 mls/hr 12/10/21 01:00 12/10/21 06:24 Zithromax/Ns IV 250 mls/hr Q24H LOUISE Administration Ceftriaxone Sodium 2 gm in 100 mls @ 200 mls/hr 12/10/21 02:00 12/10/21 06:14 Rocephin/Ns 2 Gm/100 Ml IV 200 mls/hr Q24H LOUISE Administration Protocol Metoclopramide HCl 5 mg 12/10/21 01:16 Metoclopramide 10 Mg/2 Ml Inj IV Q6H PRN Nausea And Vomiting Morphine Sulfate 2 mg 12/10/21 00:37 Morphine 2 Mg/1 Ml Inj IV Q4H PRN Pain, Moderate (4-6) Nifedipine 60 mg 12/10/21 10:00 12/10/21 10:42 Nifedipine Xl 60 Mg Tab PO 60 mg Q12HR LOUISE Administration Ondansetron HCl 4 mg 12/10/21 00:37 Ondansetron 4 Mg/2 Ml Inj IV Q8H PRN Nausea And Vomiting Pantoprazole Sodium 40 mg 12/10/21 10:00 12/10/21 10:42 Pantoprazole 40 Mg Tab PO 40 mg QDAY LOUISE Administration Sodium Chloride 10 ml 12/10/21 10:00 12/10/21 10:42 Sodium Chloride 0.9% 10 Ml Flush Syringe IV 10 ml BID LOUISE Administration Sodium Chloride 10 ml 12/10/21 00:37 Sodium Chloride 0.9% 10 Ml Flush Syringe IV PRN PRN LINE FLUSH Tramadol HCl 50 mg 12/09/21 23:14 12/10/21 15:56 Tramadol 50 Mg Tab PO 50 mg Q12H PRN Administration Pain, Moderate (4-6)
[2021-12-11] MEDS: dexAMETHasone 4 MG/ML VIAL IV SCH (05:22)
[2021-12-11] MEDS: AZITHROMYCIN/NS 500 MG/250 ML 500 MG/250 ML BAG IV SCH (05:24)
[2021-12-11] MEDS: cefTRIAXone/NS 2 GM/100 ML 2 GM/100 ML BAG IV SCH (06:45)
[2021-12-11] MEDS: PANTOPRAZOLE 40 MG TAB PO SCH (08:08)
[2021-12-11] MEDS: hydrALAZINE 100 MG TAB PO SCH ×3 (08:09→20:46)
[2021-12-11] MEDS: NIFEdipine XL 60 MG TAB PO SCH ×2 (09:44→21:02)
[2021-12-11] MEDS: carvediloL 25 MG TAB PO SCH ×2 (09:47→21:02)
--- NOTE | 2021-12-11 11:23 | Progress Note ---
Assessment and Plan Assessment: ESRD (end stage renal disease) Bilateral pneumonia Acute abdominal pain Right lower lobe pulmonary nodule Plan: -Hemodialysis today for UF and clearance and hemodialysis tomorrow -Fluid restriction of 1 liter per day -Renally dose all medications -Obtain daily weights -Renal diet -Assess dialysis needs daily -Patient states he does not want to return to his current dialysis clinic and requests to be switched to a non-[facility] dialysis clinic -Placed consult to case management for outpatient HD placement to [facility] -Plan of care reviewed by Dr. Nelson Subjective Date of service: 12/11/21 Principal diagnosis: ESRD Interval history: Patient seen lying in bed. States he would like to switch hemodialysis clinics. States he does not want to return to his previous [facility] clinic due to having too much hospitalizations and states he does not want to go to a [facility]. Objective - Vital Signs Vital signs: Vital Signs - 12hr 12/10/21 12/11/21 12/11/21 23:23 05:19 07:53 Temperature 98.2 F 97.6 F 97.9 F Pulse Rate 58 L 55 L Respiratory 18 12 18 Rate Blood Pressure 150/60 149/64 Blood Pressure 147/61 150/60 [Left] O2 Sat by Pulse 95 98 Oximetry 12/11/21 12/11/21 09:47 10:00 Temperature Pulse Rate 52 L 52 L Respiratory Rate Blood Pressure Blood Pressure [Left] O2 Sat by Pulse 98 Oximetry - General Appearance General appearance: well-developed, appears stated age EENT: ATNC, PERRL, hearing intact, vision intact Neck: no JVD, supple Respiratory: Present: Decreased Breath Sounds Cardiology: S1S2 Gastrointestinal: normoactive bowel sounds Integumentary: warm and dry Neurologic: alert and oriented x3 Musculoskeletal: joint swelling, other (1-2+ edema to BLE) - Lab 12/10/21 04:00 12/10/21 04:00 Most recent lab results Calcium 9.8 mg/dL (8.4-10.2) 12/10/21 04:00 Magnesium 2.00 mg/dL (1.7-2.3) 12/09/21 14:16 Medications & Allergies - Medications Allergies/Adverse Reactions: Allergies clonidine Allergy (Verified 11/23/21 11:17) Swelling codeine Allergy (Verified 11/23/21 11:17) Itching hydrocodone Allergy (Verified 11/23/21 11:17) Itching aspirin Adverse Reaction (Severe, Verified 11/23/21 11:17) Brain Bleeding Home Medications: Home Medications Medication Instructions Recorded Confirmed Last Taken Type Folic Acid/Vit B Comp W-C [Renal 1 cap PO QDAY 30 Days #30 capsule 11/17/21 12/09/21 Unknown Rx Caps] Lanthanum Carbonate [Fosrenol] 750 mg PO QDAC 30 Days #90 11/17/21 12/09/21 Unknown Rx NIFEdipine XL [Procardia Xl] 60 mg PO Q12HR 30 Days #60 tablet 11/17/21 12/09/21 Unknown Rx Pantoprazole [Protonix TAB] 40 mg PO QDAY 30 Days #30 tablet 11/17/21 12/09/21 Unknown Rx carvediloL [Coreg] 25 mg PO BID #60 tablet 11/17/21 12/09/21 Unknown Rx hydrALAZINE [Apresoline TAB] 100 mg PO TID 30 Days #90 tab 11/17/21 12/09/21 Unknown Rx Sennosides 17.2 mg PO QHS 14 Days #28 11/23/21 12/09/21 Unknown Rx traMADoL [Ultram 50 MG tab] 50 mg PO BID PRN #20 tablet 11/26/21 12/09/21 Unknown Rx Active Medications: Generic Name Dose Route Start Last Admin Trade Name Freq PRN Reason Stop Dose Admin Acetaminophen 650 mg 12/10/21 00:37 Acetaminophen 325 Mg Tab PO Q4H PRN Pain MILD(1-3)/Fever >100.5/GAXIOLA Albuterol 2.5 mg 12/10/21 01:19 Albuterol 2.5 Mg/3 Ml Nebu IH Q3HRT PRN Wheezing Azithromycin 500 mg 12/12/21 10:00 Azithromycin 250 Mg Tab PO 12/14/21 10:01 QDAY [facility] Protocol Carvedilol 25 mg 12/10/21 01:00 12/11/21 09:47 Carvedilol 25 Mg Tab PO Not Given BID [facility] Hydralazine HCl 12.5 mg 12/09/21 23:43 12/10/21 12:13 Hydralazine 25 Mg Tab PO 12.5 mg Q6H PRN Administration SBP >/=160; DBP >/=100 Hydralazine HCl 100 mg 12/10/21 08:00 12/11/21 08:09 Hydralazine 100 Mg Tab PO 100 mg TID LOUISE Administration Ceftriaxone Sodium 2 gm in 100 mls @ 200 mls/hr 12/10/21 02:00 12/11/21 06:45 Rocephin/Ns 2 Gm/100 Ml IV 12/14/21 06:29 200 mls/hr Q24H LOUSIE Administration Protocol Metoclopramide HCl 5 mg 12/10/21 01:16 Metoclopramide 10 Mg/2 Ml Inj IV Q6H PRN Nausea And Vomiting Morphine Sulfate 2 mg 12/10/21 00:37 Morphine 2 Mg/1 Ml Inj IV Q4H PRN Pain, Moderate (4-6) Nifedipine 60 mg 12/10/21 10:00 12/11/21 09:44 Nifedipine Xl 60 Mg Tab PO 60 mg Q12HR LOUISE Administration Ondansetron HCl 4 mg 12/10/21 00:37 Ondansetron 4 Mg/2 Ml Inj IV Q8H PRN Nausea And Vomiting Pantoprazole Sodium 40 mg 12/12/21 07:30 Pantoprazole 40 Mg Tab PO DAILY@0730 LOUISE Sodium Chloride 10 ml 12/10/21 10:00 12/11/21 09:44 Sodium Chloride 0.9% 10 Ml Flush Syringe IV 10 ml BID LOUISE Administration Sodium Chloride 10 ml 12/10/21 00:37 Sodium Chloride 0.9% 10 Ml Flush Syringe IV PRN PRN LINE FLUSH Tramadol HCl 50 mg 12/09/21 23:14 12/10/21 15:56 Tramadol 50 Mg Tab PO 50 mg Q12H PRN Administration Pain, Moderate (4-6)
--- NOTE | 2021-12-11 12:54 | Progress Note ---
Assessment and Plan - Patient Problems (1) ESRD (end stage renal disease) Current Visit: Yes Status: Chronic Plan to address problem: Dialysis as per renal team, strict I's/O, monitor urine output every shift, daily weight, afterload reduction, blood pressure control, avoid nephrotoxic agents. Renal diet. Dialysis today and repeat dialysis in a.m. as per renal team. Discharge planning in a.m. after dialysis session completed (2) Fluid overload Current Visit: Yes Status: Acute Qualifiers: Hypervolemia type: unspecified Qualified Code(s): E87.70 - Fluid overload, unspecified Plan to address problem: Dialysis as per renal team, strict I's/O, monitor fluid balance, monitor urine output every shift. (3) Right lower lobe pulmonary nodule Current Visit: Yes Status: Acute Plan to address problem: Outpatient pulmonary follow-up. Repeat CT scan as per pulmonary team recommendations. (4) DVT prophylaxis Current Visit: Yes Status: Acute Plan to address problem: SCD to bilateral lower extremities while in bed (5) Advance care planning Current Visit: Yes Status: Acute Plan to address problem: Disease education done, care plan discussed, diagnoses discussed, prognosis discussed, patient is full code. +30 minutes. (6) Preventative health care Current Visit: Yes Status: Acute Plan to address problem: Patient counseled regarding compliance with outpatient dialysis, compliance with medication, patient instructed to follow-up with primary care physician for all age and risk factor appropriate screening test. Patient instructed to follow-up with pulmonology regarding right lung nodule which is suspicious for malignancy. Patient will require biopsy and possible repeat CT scan as per pulmonology team recommendation. History Interval history: 61 YO Male HD#3 with ESRD complicated by Fluid Overload, and Pulmonary Edema, and found to have incidental finding of right lower lobe lung nodule suspicious for malignancy. Patient acknowledges persistent shortness of breath today. Patient acknowledges bilateral lower extremity edema. No reported nursing event s. Patient denies pain. Patient to undergo hemodialysis today and repeat dialysis tomorrow as per renal team recommendations.. Hospitalist Physical - Constitutional Vitals: Temp Pulse Resp BP Pulse Ox 97.9 F 55 L 18 136/56 95 12/11/21 11:21 12/11/21 11:21 12/11/21 11:21 12/11/21 11:21 12/11/21 11:21 General appearance: Present: no acute distress, well-nourished - EENT Eyes: Present: PERRL ENT: hearing intact - Neck Neck: Present: supple - Respiratory Respiratory effort: normal Respiratory: bilateral: diminished - Cardiovascular Rhythm: regular Heart Sounds: Present: S1 & S2 - Extremities Extremities: no ischemia Extremity abnormal: edema Peripheral Pulses: within normal limits - Abdominal General gastrointestinal: soft, non-tender, non-distended - Integumentary Integumentary: Present: clear, dry - Psychiatric Psychiatric: cooperative - Neurologic Neurologic: CNII-XII intact Results - Labs CBC & Chem 7: 12/10/21 04:00 12/10/21 04:00 Labs: Laboratory Last Values WBC 8.3 K/mm3 (4.5-11.0) 12/10/21 04:00 RBC 3.17 M/mm3 (3.65-5.03) L 12/10/21 04:00 Hgb 10.3 gm/dl (11.8-15.2) L 12/10/21 04:00 Hct 31.8 % (35.5-45.6) L 12/10/21 04:00 MCV 100 fl (84-94) H 12/10/21 04:00 MCH 33 pg (28-32) H 12/10/21 04:00 MCHC 33 % (32-34) 12/10/21 04:00 RDW 15.5 % (13.2-15.2) H 12/10/21 04:00 Plt Count 236 K/mm3 (140-440) 12/10/21 04:00 Lymph % (Auto) 3.1 % (13.4-35.0) L 12/09/21 14:16 [place] % (Auto) 11.0 % (0.0-7.3) H 12/09/21 14:16 Eos % (Auto) 1.5 % (0.0-4.3) 12/09/21 14:16 Baso % (Auto) 1.1 % (0.0-1.8) 12/09/21 14:16 Lymph # (Auto) 0.5 K/mm3 (1.2-5.4) L 12/09/21 14:16 [place] # (Auto) 1.9 K/mm3 (0.0-0.8) H 12/09/21 14:16 Eos # (Auto) 0.3 K/mm3 (0.0-0.4) 12/09/21 14:16 Baso # (Auto) 0.2 K/mm3 (0.0-0.1) H 12/09/21 14:16 Add Manual Diff Complete 12/10/21 04:00 Total Counted 100 12/10/21 04:00 Seg Neutrophils % Ob/Gyn Physician 12/10/21 04:00 Seg Neuts % (Manual) 93.0 % (40.0-70.0) H 12/10/21 04:00 Band Neutrophils % 1.0 % 12/10/21 04:00 Lymphocytes % (Manual) 5.0 % (13.4-35.0) L 12/10/21 04:00 Reactive Lymphs % (Man) 0 % 12/10/21 04:00 Monocytes % (Manual) 1.0 % (0.0-7.3) 12/10/21 04:00 Eosinophils % (Manual) 0 % (0.0-4.3) 12/10/21 04:00 Basophils % (Manual) 0 % (0.0-1.8) 12/10/21 04:00 Metamyelocytes % 0 % 12/10/21 04:00 Myelocytes % 0 % 12/10/21 04:00 Promyelocytes % 0 % 12/10/21 04:00 Blast Cells % 0 % 12/10/21 04:00 Nucleated RBC % Not Reportable 12/10/21 04:00 Seg Neutrophils # 14.6 K/mm3 (1.8-7.7) H 12/09/21 14:16 Seg Neutrophils # Man 7.7 K/mm3 (1.8-7.7) 12/10/21 04:00 Band Neutrophils # 0.1 K/mm3 12/10/21 04:00 Lymphocytes # (Manual) 0.4 K/mm3 (1.2-5.4) L 12/10/21 04:00 Abs React Lymphs (Man) 0.0 K/mm3 12/10/21 04:00 Monocytes # (Manual) 0.1 K/mm3 (0.0-0.8) 12/10/21 04:00 Eosinophils # (Manual) 0.0 K/mm3 (0.0-0.4) 12/10/21 04:00 Basophils # (Manual) 0.0 K/mm3 (0.0-0.1) 12/10/21 04:00 Metamyelocytes # 0.0 K/mm3 12/10/21 04:00 Myelocytes # 0.0 K/mm3 12/10/21 04:00 Promyelocytes # 0.0 K/mm3 12/10/21 04:00 Blast Cells # 0.0 K/mm3 12/10/21 04:00 WBC Morphology Not Reportable 12/10/21 04:00 Hypersegmented Neuts Not Reportable 12/10/21 04:00 Hyposegmented Neuts Not Reportable 12/10/21 04:00 Hypogranular Neuts Not Reportable 12/10/21 04:00 Smudge Cells Not Reportable 12/10/21 04:00 Toxic Granulation Not Reportable 12/10/21 04:00 Toxic Vacuolation Not Reportable 12/10/21 04:00 Dohle Bodies Not Reportable 12/10/21 04:00 Pelger-Huet Anomaly Not Reportable 12/10/21 04:00 Marialuisa Rods Not Reportable 12/10/21 04:00 Platelet Estimate Consistent w auto 12/10/21 04:00 Clumped Platelets Not Reportable 12/10/21 04:00 Plt Clumps, EDTA Not Reportable 12/10/21 04:00 Large Platelets Not Reportable 12/10/21 04:00 Giant Platelets Not Reportable 12/10/21 04:00 Platelet Satelliting Not Reportable 12/10/21 04:00 Plt Morphology Comment Not Reportable 12/10/21 04:00 RBC Morphology Not Reportable 12/10/21 04:00 Dimorphic RBCs Not Reportable 12/10/21 04:00 Polychromasia Not Reportable 12/10/21 04:00 Hypochromasia Not Reportable 12/10/21 04:00 Poikilocytosis Not Reportable 12/10/21 04:00 Anisocytosis Not Reportable 12/10/21 04:00 Microcytosis Not Reportable 12/10/21 04:00 Macrocytosis Not Reportable 12/10/21 04:00 Spherocytes Not Reportable 12/10/21 04:00 Pappenheimer Bodies Not Reportable 12/10/21 04:00 Sickle Cells Not Reportable 12/10/21 04:00 Target Cells Not Reportable 12/10/21 04:00 Tear Drop Cells Not Reportable 12/10/21 04:00 Ovalocytes Not Reportable 12/10/21 04:00 Helmet Cells Not Reportable 12/10/21 04:00 [place] Bodies Not Reportable 12/10/21 04:00 [place] Rings Not Reportable 12/10/21 04:00 Jerry Cells Not Reportable 12/10/21 04:00 Bite Cells Not Reportable 12/10/21 04:00 Crenated Cell Not Reportable 12/10/21 04:00 Elliptocytes Not Reportable 12/10/21 04:00 Acanthocytes (Spur) Not Reportable 12/10/21 04:00 Rouleaux Not Reportable 12/10/21 04:00 Hemoglobin C Crystals Not Reportable 12/10/21 04:00 Schistocytes Not Reportable 12/10/21 04:00 Malaria parasites Not Reportable 12/10/21 04:00 Damir Bodies Not Reportable 12/10/21 04:00 Hem Pathologist Commnt No 12/10/21 04:00 PT 14.9 Sec. (12.2-14.9) 12/09/21 14:16 INR 1.05 (0.87-1.13) 12/09/21 14:16 Sodium 137 mmol/L (137-145) 12/10/21 04:00 Potassium 4.5 mmol/L (3.6-5.0) 12/10/21 04:00 Chloride 92.8 mmol/L (98-107) L 12/10/21 04:00 Carbon Dioxide 29 mmol/L (22-30) 12/10/21 04:00 Anion Gap 20 mmol/L 12/10/21 04:00 BUN 20 mg/dL (9-20) 12/10/21 04:00 Creatinine 4.3 mg/dL (0.8-1.3) H 12/10/21 04:00 Estimated GFR 14 ml/min 12/10/21 04:00 BUN/Creatinine Ratio 5 % 12/10/21 04:00 Glucose 103 mg/dL (75-100) H 12/10/21 04:00 Lactic Acid 1.00 mmol/L (0.7-2.0) 12/09/21 14:16 Calcium 9.8 mg/dL (8.4-10.2) 12/10/21 04:00 Magnesium 2.00 mg/dL (1.7-2.3) 12/09/21 14:16 Total Bilirubin 0.40 mg/dL (0.1-1.2) 12/10/21 04:00 AST 19 units/L (5-40) 12/10/21 04:00 ALT 5 units/L (7-56) L 12/10/21 04:00 Alkaline Phosphatase 107 units/L (35-129) 12/10/21 04:00 Total Creatine Kinase 71 units/L (55-170) 12/09/21 14:16 Total Protein 6.9 g/dL (6.3-8.2) 12/10/21 04:00 Albumin 3.7 g/dL (3.9-5) L 12/10/21 04:00 Albumin/Globulin Ratio 1.2 % 12/10/21 04:00 Lipase 14 units/L (13-60) 12/09/21 14:16 SARS-CoV-2 (PCR) Negative (Negative) 12/10/21 11:32 Hepatitis A IgM Ab Non-reactive (NonReactive) 12/09/21 17:00 Hep Bs Antigen Non-reactive (Negative) 12/09/21 17:00 Hep B Core IgM Ab Non-reactive (NonReactive) 12/09/21 17:00 Hepatitis C Antibody Non-reactive (NonReactive) 12/09/21 17:00 Microbiology: Microbiology 12/09/21 14:16 Peripheral/Venous Blood Culture - Preliminary NO GROWTH AFTER 24 HOURS 12/09/21 14:16 Peripheral/Venous Blood Culture - Preliminary NO GROWTH AFTER 24 HOURS Ferro/IV: Voiding Method Urinal Active Medications - Current Medications Current Medications: Generic Name Dose Route Start Last Admin Trade Name Freq PRN Reason Stop Dose Admin Acetaminophen 650 mg 12/10/21 00:37 Acetaminophen 325 Mg Tab PO Q4H PRN Pain MILD(1-3)/Fever >100.5/GAXIOLA Albuterol 2.5 mg 12/10/21 01:19 Albuterol 2.5 Mg/3 Ml Nebu IH Q3HRT PRN Wheezing Azithromycin 500 mg 12/12/21 10:00 Azithromycin 250 Mg Tab PO 12/14/21 10:01 QDAY LOUISE Protocol Carvedilol 25 mg 12/10/21 01:00 12/11/21 09:47 Carvedilol 25 Mg Tab PO Not Given BID LOUISE Hydralazine HCl 12.5 mg 12/09/21 23:43 12/10/21 12:13 Hydralazine 25 Mg Tab PO 12.5 mg Q6H PRN Administration SBP >/=160; DBP >/=100 Hydralazine HCl 100 mg 12/10/21 08:00 12/11/21 08:09 Hydralazine 100 Mg Tab PO 100 mg TID LOUISE Administration Ceftriaxone Sodium 2 gm in 100 mls @ 200 mls/hr 12/10/21 02:00 12/11/21 06:45 Rocephin/Ns 2 Gm/100 Ml IV 12/14/21 06:29 200 mls/hr Q24H LOUISE Administration Protocol Metoclopramide HCl 5 mg 12/10/21 01:16 Metoclopramide 10 Mg/2 Ml Inj IV Q6H PRN Nausea And Vomiting Morphine Sulfate 2 mg 12/10/21 00:37 Morphine 2 Mg/1 Ml Inj IV Q4H PRN Pain, Moderate (4-6) Nifedipine 60 mg 12/10/21 10:00 12/11/21 09:44 Nifedipine Xl 60 Mg Tab PO 60 mg Q12HR LOUISE Administration Ondansetron HCl 4 mg 12/10/21 00:37 Ondansetron 4 Mg/2 Ml Inj IV Q8H PRN Nausea And Vomiting Pantoprazole Sodium 40 mg 12/12/21 07:30 Pantoprazole 40 Mg Tab PO DAILY@0730 LOUISE Sodium Chloride 10 ml 12/10/21 10:00 12/11/21 09:44 Sodium Chloride 0.9% 10 Ml Flush Syringe IV 10 ml BID LOUISE Administration Sodium Chloride 10 ml 12/10/21 00:37 Sodium Chloride 0.9% 10 Ml Flush Syringe IV PRN PRN LINE FLUSH Tramadol HCl 50 mg 12/09/21 23:14 12/10/21 15:56 Tramadol 50 Mg Tab PO 50 mg Q12H PRN Administration Pain, Moderate (4-6)
--- NOTE | 2021-12-11 13:26 | Progress Note ---
Assessment and Plan - Patient Problems (1) Acute abdominal pain Current Visit: Yes Status: Acute Plan to address problem: 1) Improving. Nothing further to add. Subjective Date of service: 12/11/21 Patient Reports: Positive: no new complaints, feels better, pain is less Objective Vital Signs - 12hr 12/11/21 12/11/21 12/11/21 05:19 07:53 09:47 Temperature 97.6 F 97.9 F Pulse Rate 55 L 52 L Respiratory 12 18 Rate Blood Pressure 150/60 149/64 Blood Pressure 150/60 [Left] O2 Sat by Pulse 98 Oximetry 12/11/21 12/11/21 10:00 11:21 Temperature 97.9 F Pulse Rate 52 L 55 L Respiratory 18 Rate Blood Pressure 136/56 Blood Pressure [Left] O2 Sat by Pulse 98 95 Oximetry - Abdomen [id number] 4, PM_46_[id number] 6, [id number]_[id number] 8 Hernia: none - Labs 12/10/21 04:00 12/10/21 04:00
[2021-12-11] MEDS: traMADol 50 MG TAB PO PRN (16:59)
[2021-12-12 05:01] LABS: Calcium 9.5 mg/dL (8.4-10.2)
[2021-12-12] MEDS: hydrALAZINE 25 MG TAB PO PRN ×2 (06:00→17:05)
[2021-12-12] MEDS: cefTRIAXone/NS 2 GM/100 ML 2 GM/100 ML BAG IV SCH (06:00)
--- NOTE | 2021-12-12 09:51 | Progress Note ---
Assessment and Plan ESRD (end stage renal disease) Bilateral pneumonia Acute abdominal pain Right lower lobe pulmonary nodule Plan: -no indication for HD today -Renally dose all medications -Obtain daily weights -Renal diet -Assess dialysis needs daily -Patient states he does not want to return to his current dialysis clinic and r equests to be switched to a non-[facility] dialysis clinic -Placed consult to case management for outpatient HD placement to [facility] Subjective Date of service: 12/12/21 Principal diagnosis: ESRD Interval history: Tolerated HD yesterday Objective - Vital Signs Vital signs: Vital Signs - 12hr 12/11/21 12/12/21 12/12/21 22:00 05:44 08:05 Temperature 98.1 F 97.9 F Pulse Rate 60 56 L Respiratory 14 16 Rate Blood Pressure 184/78 179/77 O2 Sat by Pulse 98 96 97 Oximetry 12/12/21 08:13 Temperature Pulse Rate Respiratory Rate Blood Pressure O2 Sat by Pulse 99 Oximetry - Lab 12/10/21 04:00 12/12/21 04:04 Most recent lab results Calcium 9.5 mg/dL (8.4-10.2) 12/12/21 04:04 Phosphorus 4.00 mg/dL (2.5-4.5) 12/12/21 04:04 Magnesium 2.00 mg/dL (1.7-2.3) 12/09/21 14:16 Medications & Allergies - Medications Allergies/Adverse Reactions: Allergies clonidine Allergy (Verified 11/23/21 11:17) Swelling codeine Allergy (Verified 11/23/21 11:17) Itching hydrocodone Allergy (Verified 11/23/21 11:17) Itching aspirin Adverse Reaction (Severe, Verified 11/23/21 11:17) Brain Bleeding Home Medications: Home Medications Medication Instructions Recorded Confirmed Last Taken Type Folic Acid/Vit B Comp W-C [Renal 1 cap PO QDAY 30 Days #30 capsule 11/17/21 12/09/21 Unknown Rx Caps] Lanthanum Carbonate [Fosrenol] 750 mg PO QDAC 30 Days #90 11/17/21 12/09/21 Unknown Rx NIFEdipine XL [Procardia Xl] 60 mg PO Q12HR 30 Days #60 tablet 11/17/21 12/09/21 Unknown Rx Pantoprazole [Protonix TAB] 40 mg PO QDAY 30 Days #30 tablet 11/17/21 12/09/21 Unknown Rx carvediloL [Coreg] 25 mg PO BID #60 tablet 11/17/21 12/09/21 Unknown Rx hydrALAZINE [Apresoline TAB] 100 mg PO TID 30 Days #90 tab 11/17/21 12/09/21 Unknown Rx Sennosides 17.2 mg PO QHS 14 Days #28 11/23/21 12/09/21 Unknown Rx traMADoL [Ultram 50 MG tab] 50 mg PO BID PRN #20 tablet 11/26/21 12/09/21 Unknown Rx Gabapentin 300 mg PO 3XW 12/11/21 12/11/21 2 Weeks Ago History ~11/27/21 Active Medications: Generic Name Dose Route Start Last Admin Trade Name Freq PRN Reason Stop Dose Admin Acetaminophen 650 mg 12/10/21 00:37 Acetaminophen 325 Mg Tab PO Q4H PRN Pain MILD(1-3)/Fever >100.5/GAXIOLA Albuterol 2.5 mg 12/10/21 01:19 Albuterol 2.5 Mg/3 Ml Nebu IH Q3HRT PRN Wheezing Azithromycin 500 mg 12/12/21 10:00 Azithromycin 250 Mg Tab PO 12/14/21 10:01 QDAY [facility] Protocol Carvedilol 25 mg 12/10/21 01:00 12/11/21 21:02 Carvedilol 25 Mg Tab PO Not Given BID LOUISE Hydralazine HCl 12.5 mg 12/09/21 23:43 12/12/21 06:00 Hydralazine 25 Mg Tab PO 12.5 mg Q6H PRN Administration SBP >/=160; DBP >/=100 Hydralazine HCl 100 mg 12/10/21 08:00 12/11/21 20:46 Hydralazine 100 Mg Tab PO 100 mg TID LOUISE Administration Ceftriaxone Sodium 2 gm in 100 mls @ 200 mls/hr 12/10/21 02:00 12/12/21 06:00 Rocephin/Ns 2 Gm/100 Ml IV 12/14/21 06:29 200 mls/hr Q24H LOUISE Administration Protocol Metoclopramide HCl 5 mg 12/10/21 01:16 Metoclopramide 10 Mg/2 Ml Inj IV Q6H PRN Nausea And Vomiting Morphine Sulfate 2 mg 12/10/21 00:37 12/11/21 20:46 Morphine 2 Mg/1 Ml Inj IV 2 mg Q4H PRN Administration Pain, Moderate (4-6) Nifedipine 60 mg 12/10/21 10:00 12/11/21 21:02 Nifedipine Xl 60 Mg Tab PO 60 mg Q12HR LOUISE Administration Ondansetron HCl 4 mg 12/10/21 00:37 Ondansetron 4 Mg/2 Ml Inj IV Q8H PRN Nausea And Vomiting Pantoprazole Sodium 40 mg 12/12/21 07:30 Pantoprazole 40 Mg Tab PO DAILY@0730 LOUISE Sodium Chloride 10 ml 12/10/21 10:00 12/11/21 21:03 Sodium Chloride 0.9% 10 Ml Flush Syringe IV 10 ml BID LOUISE Administration Sodium Chloride 10 ml 12/10/21 00:37 Sodium Chloride 0.9% 10 Ml Flush Syringe IV PRN PRN LINE FLUSH Tramadol HCl 50 mg 12/09/21 23:14 12/11/21 16:59 Tramadol 50 Mg Tab PO 50 mg Q12H PRN Administration Pain, Moderate (4-6)
[2021-12-12] MEDS: NIFEdipine XL 60 MG TAB PO SCH (11:00)
[2021-12-12] MEDS ORDERED: NIFEdipine XL 60 MG TAB PO SCH (11:07)
--- NOTE | 2021-12-12 11:08 | Progress Note ---
Assessment and Plan Assessment and plan: ESRD Bilateral pneumonia Abdominal pain Right lower lobe pulmonary nodule 12/12/2021. Nephrology reports no indication for hemodialysis today. We will continue to renally dose all medications. Patient states he does not want to return to his current dialysis clinic and requests to be switched to a non- [facility] dialysis clinic. Nephrology placed consult to case management for outpatient HD placement to [facility] History Interval history: No new issues overnight Hospitalist Physical - Constitutional Vitals: Temp Pulse Resp BP Pulse Ox 97.9 F 53 L 16 190/88 99 12/12/21 08:05 12/12/21 11:00 12/12/21 08:05 12/12/21 11:00 12/12/21 08:13 General appearance: Present: no acute distress, well-nourished - EENT Eyes: Present: PERRL, EOM intact ENT: hearing intact, clear oral mucosa, dentition normal - Neck Neck: Present: supple, normal ROM - Respiratory Respiratory effort: normal Respiratory: bilateral: CTA - Cardiovascular Rhythm: regular Heart Sounds: Present: S1 & S2. Absent: gallop, rub - Extremities Extremities: no ischemia, No edema, Full ROM - Abdominal General gastrointestinal: soft, non-tender, non-distended, normal bowel sounds - Integumentary Integumentary: Present: clear, warm, dry - Neurologic Neurologic: CNII-XII intact, moves all extremities Results - Labs CBC & Chem 7: 12/10/21 04:00 12/12/21 04:04 Labs: Laboratory Last Values WBC 8.3 K/mm3 (4.5-11.0) 12/10/21 04:00 RBC 3.17 M/mm3 (3.65-5.03) L 12/10/21 04:00 Hgb 10.3 gm/dl (11.8-15.2) L 12/10/21 04:00 Hct 31.8 % (35.5-45.6) L 12/10/21 04:00 MCV 100 fl (84-94) H 12/10/21 04:00 MCH 33 pg (28-32) H 12/10/21 04:00 MCHC 33 % (32-34) 12/10/21 04:00 RDW 15.5 % (13.2-15.2) H 12/10/21 04:00 Plt Count 236 K/mm3 (140-440) 12/10/21 04:00 Lymph % (Auto) 3.1 % (13.4-35.0) L 12/09/21 14:16 [place] % (Auto) 11.0 % (0.0-7.3) H 12/09/21 14:16 Eos % (Auto) 1.5 % (0.0-4.3) 12/09/21 14:16 Baso % (Auto) 1.1 % (0.0-1.8) 12/09/21 14:16 Lymph # (Auto) 0.5 K/mm3 (1.2-5.4) L 12/09/21 14:16 [place] # (Auto) 1.9 K/mm3 (0.0-0.8) H 12/09/21 14:16 Eos # (Auto) 0.3 K/mm3 (0.0-0.4) 12/09/21 14:16 Baso # (Auto) 0.2 K/mm3 (0.0-0.1) H 12/09/21 14:16 Add Manual Diff Complete 12/10/21 04:00 Total Counted 100 12/10/21 04:00 Seg Neutrophils % Third Mate 12/10/21 04:00 Seg Neuts % (Manual) 93.0 % (40.0-70.0) H 12/10/21 04:00 Band Neutrophils % 1.0 % 12/10/21 04:00 Lymphocytes % (Manual) 5.0 % (13.4-35.0) L 12/10/21 04:00 Reactive Lymphs % (Man) 0 % 12/10/21 04:00 Monocytes % (Manual) 1.0 % (0.0-7.3) 12/10/21 04:00 Eosinophils % (Manual) 0 % (0.0-4.3) 12/10/21 04:00 Basophils % (Manual) 0 % (0.0-1.8) 12/10/21 04:00 Metamyelocytes % 0 % 12/10/21 04:00 Myelocytes % 0 % 12/10/21 04:00 Promyelocytes % 0 % 12/10/21 04:00 Blast Cells % 0 % 12/10/21 04:00 Nucleated RBC % Not Reportable 12/10/21 04:00 Seg Neutrophils # 14.6 K/mm3 (1.8-7.7) H 12/09/21 14:16 Seg Neutrophils # Man 7.7 K/mm3 (1.8-7.7) 12/10/21 04:00 Band Neutrophils # 0.1 K/mm3 12/10/21 04:00 Lymphocytes # (Manual) 0.4 K/mm3 (1.2-5.4) L 12/10/21 04:00 Abs React Lymphs (Man) 0.0 K/mm3 12/10/21 04:00 Monocytes # (Manual) 0.1 K/mm3 (0.0-0.8) 12/10/21 04:00 Eosinophils # (Manual) 0.0 K/mm3 (0.0-0.4) 12/10/21 04:00 Basophils # (Manual) 0.0 K/mm3 (0.0-0.1) 12/10/21 04:00 Metamyelocytes # 0.0 K/mm3 12/10/21 04:00 Myelocytes # 0.0 K/mm3 12/10/21 04:00 Promyelocytes # 0.0 K/mm3 12/10/21 04:00 Blast Cells # 0.0 K/mm3 12/10/21 04:00 WBC Morphology Not Reportable 12/10/21 04:00 Hypersegmented Neuts Not Reportable 12/10/21 04:00 Hyposegmented Neuts Not Reportable 12/10/21 04:00 Hypogranular Neuts Not Reportable 12/10/21 04:00 Smudge Cells Not Reportable 12/10/21 04:00 Toxic Granulation Not Reportable 12/10/21 04:00 Toxic Vacuolation Not Reportable 12/10/21 04:00 Dohle Bodies Not Reportable 12/10/21 04:00 Pelger-Huet Anomaly Not Reportable 12/10/21 04:00 Marialuisa Rods Not Reportable 12/10/21 04:00 Platelet Estimate Consistent w auto 12/10/21 04:00 Clumped Platelets Not Reportable 12/10/21 04:00 Plt Clumps, EDTA Not Reportable 12/10/21 04:00 Large Platelets Not Reportable 12/10/21 04:00 Giant Platelets Not Reportable 12/10/21 04:00 Platelet Satelliting Not Reportable 12/10/21 04:00 Plt Morphology Comment Not Reportable 12/10/21 04:00 RBC Morphology Not Reportable 12/10/21 04:00 Dimorphic RBCs Not Reportable 12/10/21 04:00 Polychromasia Not Reportable 12/10/21 04:00 Hypochromasia Not Reportable 12/10/21 04:00 Poikilocytosis Not Reportable 12/10/21 04:00 Anisocytosis Not Reportable 12/10/21 04:00 Microcytosis Not Reportable 12/10/21 04:00 Macrocytosis Not Reportable 12/10/21 04:00 Spherocytes Not Reportable 12/10/21 04:00 Pappenheimer Bodies Not Reportable 12/10/21 04:00 Sickle Cells Not Reportable 12/10/21 04:00 Target Cells Not Reportable 12/10/21 04:00 Tear Drop Cells Not Reportable 12/10/21 04:00 Ovalocytes Not Reportable 12/10/21 04:00 Helmet Cells Not Reportable 12/10/21 04:00 Wong-Erma Bodies Not Reportable 12/10/21 04:00 [place] Rings Not Reportable 12/10/21 04:00 [place] Cells Not Reportable 12/10/21 04:00 Bite Cells Not Reportable 12/10/21 04:00 Crenated Cell Not Reportable 12/10/21 04:00 Elliptocytes Not Reportable 12/10/21 04:00 Acanthocytes (Spur) Not Reportable 12/10/21 04:00 Rouleaux Not Reportable 12/10/21 04:00 Hemoglobin C Crystals Not Reportable 12/10/21 04:00 Schistocytes Not Reportable 12/10/21 04:00 Malaria parasites Not Reportable 12/10/21 04:00 Damir Bodies Not Reportable 12/10/21 04:00 Hem Pathologist Commnt No 12/10/21 04:00 PT 14.9 Sec. (12.2-14.9) 12/09/21 14:16 INR 1.05 (0.87-1.13) 12/09/21 14:16 Sodium 140 mmol/L (137-145) 12/12/21 04:04 Potassium 4.0 mmol/L (3.6-5.0) 12/12/21 04:04 Chloride 98.5 mmol/L (98-107) 12/12/21 04:04 Carbon Dioxide 28 mmol/L (22-30) 12/12/21 04:04 Anion Gap 18 mmol/L 12/12/21 04:04 BUN 16 mg/dL (9-20) 12/12/21 04:04 Creatinine 4.3 mg/dL (0.8-1.3) H 12/12/21 04:04 Estimated GFR 14 ml/min 12/12/21 04:04 BUN/Creatinine Ratio 4 % 12/12/21 04:04 Glucose 79 mg/dL (75-100) 12/12/21 04:04 Lactic Acid 1.00 mmol/L (0.7-2.0) 12/09/21 14:16 Calcium 9.5 mg/dL (8.4-10.2) 12/12/21 04:04 Phosphorus 4.00 mg/dL (2.5-4.5) 12/12/21 04:04 Magnesium 2.00 mg/dL (1.7-2.3) 12/09/21 14:16 Total Bilirubin 0.40 mg/dL (0.1-1.2) 12/10/21 04:00 AST 19 units/L (5-40) 12/10/21 04:00 ALT 5 units/L (7-56) L 12/10/21 04:00 Alkaline Phosphatase 107 units/L (35-129) 12/10/21 04:00 Total Creatine Kinase 71 units/L (55-170) 12/09/21 14:16 Total Protein 6.9 g/dL (6.3-8.2) 12/10/21 04:00 Albumin 3.7 g/dL (3.9-5) L 12/10/21 04:00 Albumin/Globulin Ratio 1.2 % 12/10/21 04:00 Lipase 14 units/L (13-60) 12/09/21 14:16 SARS-CoV-2 (PCR) Negative (Negative) 12/10/21 11:32 Hepatitis A IgM Ab Non-reactive (NonReactive) 12/09/21 17:00 Hep Bs Antigen Non-reactive (Negative) 12/09/21 17:00 Hep B Core IgM Ab Non-reactive (NonReactive) 12/09/21 17:00 Hepatitis C Antibody Non-reactive (NonReactive) 12/09/21 17:00 Microbiology: Microbiology 12/09/21 14:16 Peripheral/Venous Blood Culture - Preliminary NO GROWTH AFTER 48 HOURS 12/09/21 14:16 Peripheral/Venous Blood Culture - Preliminary NO GROWTH AFTER 48 HOURS Ferro/IV: Voiding Method Urinal Active Medications - Current Medications Current Medications: Generic Name Dose Route Start Last Admin Trade Name Freq PRN Reason Stop Dose Admin Acetaminophen 650 mg 12/10/21 00:37 Acetaminophen 325 Mg Tab PO Q4H PRN Pain MILD(1-3)/Fever >100.5/GAXIOLA Albuterol 2.5 mg 12/10/21 01:19 Albuterol 2.5 Mg/3 Ml Nebu IH Q3HRT PRN Wheezing Azithromycin 500 mg 12/12/21 10:00 Azithromycin 250 Mg Tab PO 12/14/21 10:01 [facility]DAY [facility] Protocol Carvedilol 25 mg 12/10/21 01:00 12/11/21 21:02 Carvedilol 25 Mg Tab PO Not Given BID [facility] Hydralazine HCl 12.5 mg 12/09/21 23:43 12/12/21 06:00 Hydralazine 25 Mg Tab PO 12.5 mg Q6H PRN Administration SBP >/=160; DBP >/=100 Hydralazine HCl 100 mg 12/10/21 08:00 12/11/21 20:46 Hydralazine 100 Mg Tab PO 100 mg TID LOUISE Administration Ceftriaxone Sodium 2 gm in 100 mls @ 200 mls/hr 12/10/21 02:00 12/12/21 06:00 Rocephin/Ns 2 Gm/100 Ml IV 12/14/21 06:29 200 mls/hr Q24H LOUISE Administration Protocol Metoclopramide HCl 5 mg 12/10/21 01:16 Metoclopramide 10 Mg/2 Ml Inj IV Q6H PRN Nausea And Vomiting Morphine Sulfate 2 mg 12/10/21 00:37 12/11/21 20:46 Morphine 2 Mg/1 Ml Inj IV 2 mg Q4H PRN Administration Pain, Moderate (4-6) Nifedipine 60 mg 12/10/21 10:00 12/11/21 21:02 Nifedipine Xl 60 Mg Tab PO 60 mg Q12HR LOUISE Administration Ondansetron HCl 4 mg 12/10/21 00:37 Ondansetron 4 Mg/2 Ml Inj IV Q8H PRN Nausea And Vomiting Pantoprazole Sodium 40 mg 12/12/21 07:30 Pantoprazole 40 Mg Tab PO DAILY@0730 LOUISE Sodium Chloride 10 ml 12/10/21 10:00 12/11/21 21:03 Sodium Chloride 0.9% 10 Ml Flush Syringe IV 10 ml BID LOUISE Administration Sodium Chloride 10 ml 12/10/21 00:37 Sodium Chloride 0.9% 10 Ml Flush Syringe IV PRN PRN LINE FLUSH Tramadol HCl 50 mg 12/09/21 23:14 12/11/21 16:59 Tramadol 50 Mg Tab PO 50 mg Q12H PRN Administration Pain, Moderate (4-6)
[2021-12-12] MEDS: carvediloL 25 MG TAB PO SCH ×2 (11:12→21:04)
[2021-12-12] MEDS: hydrALAZINE 100 MG TAB PO SCH ×3 (11:36→21:04)
[2021-12-12] MEDS: PANTOPRAZOLE 40 MG TAB PO SCH (13:31)
[2021-12-12] MEDS: AZITHROMYCIN 250 MG TAB PO SCH (13:31)
[2021-12-12] MEDS: NIFEdipine XL 90 MG TAB PO SCH (21:05)
[2021-12-13 06:24] LABS: Hematocrit 33.2 % (35.5-45.6); Hemoglobin 10.7 gm/dl (11.8-15.2); Mean Corpuscular HGB Conc 32 % (32-34); Mean Corpuscular Volume 102 fl (84-94); Platelet Count 236 K/mm3 (140-440); Red Blood Count 3.27 M/mm3 (3.65-5.03); Red Cell Distribution Width 15.8 % (13.2-15.2)
[2021-12-13 06:36] LABS: Calcium 9.3 mg/dL (8.4-10.2)
[2021-12-13] MEDS: cefTRIAXone/NS 2 GM/100 ML 2 GM/100 ML BAG IV SCH (06:58)
[2021-12-13] MEDS: PANTOPRAZOLE 40 MG TAB PO SCH (09:08)
[2021-12-13] MEDS: hydrALAZINE 100 MG TAB PO SCH ×3 (09:09→21:45)
[2021-12-13] MEDS: NIFEdipine XL 90 MG TAB PO SCH ×2 (09:09→21:44)
[2021-12-13] MEDS: AZITHROMYCIN 250 MG TAB PO SCH (09:09)
[2021-12-13] MEDS: carvediloL 25 MG TAB PO SCH ×2 (09:09→21:44)
[2021-12-13 09:55] LABS: Basophils % (Manual) 0 % (0.0-1.8); Myelocytes # (Manual) 0.1 K/mm3; Total Cells Counted 100
[2021-12-13 09:56] LABS: Platelet Estimate Consistent w Auto; RBC Morphology Normal
--- NOTE | 2021-12-13 10:16 | Progress Note ---
Assessment and Plan Assessment and plan: ESRD Bilateral pneumonia, probable gram negative Abdominal pain Right lower lobe pulmonary nodule 12/12/2021. Nephrology reports no indication for hemodialysis today. We will continue to renally dose all medications. Patient states he does not want to return to his current dialysis clinic and requests to be switched to a non- [facility] dialysis clinic. Nephrology placed consult to case management for outpatient HD placement to [facility] 12/13/2021. Continue hemodialysis per nephrology recommendations. Abdominal pain resolved and surgery signed off. Anticipate discharge in a.m. patient will need outpatient follow-up of right pulmonary nodule with PET scan. History Interval history: No new issues overnight Hospitalist Physical - Constitutional Vitals: Temp Pulse Resp BP Pulse Ox 98.0 F 55 L 18 158/67 99 12/13/21 07:36 12/13/21 09:57 12/13/21 09:57 12/13/21 07:36 12/13/21 09:57 General appearance: Present: no acute distress, well-nourished - EENT Eyes: Present: PERRL, EOM intact ENT: hearing intact, clear oral mucosa, dentition normal - Neck Neck: Present: supple, normal ROM - Respiratory Respiratory effort: normal Respiratory: bilateral: CTA - Cardiovascular Rhythm: regular Heart Sounds: Present: S1 & S2. Absent: gallop, rub - Extremities Extremities: no ischemia, No edema, Full ROM - Abdominal General gastrointestinal: soft, non-tender, non-distended, normal bowel sounds - Integumentary Integumentary: Present: clear, warm, dry - Neurologic Neurologic: CNII-XII intact, moves all extremities Results - Labs CBC & Chem 7: 12/13/21 06:03 12/13/21 06:03 Labs: Laboratory Last Values WBC 7.6 K/mm3 (4.5-11.0) 12/13/21 06:03 RBC 3.27 M/mm3 (3.65-5.03) L 12/13/21 06:03 Hgb 10.7 gm/dl (11.8-15.2) L 12/13/21 06:03 Hct 33.2 % (35.5-45.6) L 12/13/21 06:03 MCV 102 fl (84-94) H 12/13/21 06:03 MCH 33 pg (28-32) H 12/13/21 06:03 MCHC 32 % (32-34) 12/13/21 06:03 RDW 15.8 % (13.2-15.2) H 12/13/21 06:03 Plt Count 236 K/mm3 (140-440) 12/13/21 06:03 Lymph % (Auto) 3.1 % (13.4-35.0) L 12/09/21 14:16 [place] % (Auto) 11.0 % (0.0-7.3) H 12/09/21 14:16 Eos % (Auto) 1.5 % (0.0-4.3) 12/09/21 14:16 Baso % (Auto) 1.1 % (0.0-1.8) 12/09/21 14:16 Lymph # (Auto) 0.5 K/mm3 (1.2-5.4) L 12/09/21 14:16 [place] # (Auto) 1.9 K/mm3 (0.0-0.8) H 12/09/21 14:16 Eos # (Auto) 0.3 K/mm3 (0.0-0.4) 12/09/21 14:16 Baso # (Auto) 0.2 K/mm3 (0.0-0.1) H 12/09/21 14:16 Add Manual Diff Complete 12/13/21 06:03 Total Counted 100 12/13/21 06:03 Seg Neutrophils % [employer]ume Design [employer] 12/10/21 04:00 Seg Neuts % (Manual) 63.0 % (40.0-70.0) 12/13/21 06:03 Band Neutrophils % 0 % 12/13/21 06:03 Lymphocytes % (Manual) 22.0 % (13.4-35.0) 12/13/21 06:03 Reactive Lymphs % (Man) 0 % 12/13/21 06:03 Monocytes % (Manual) 10.0 % (0.0-7.3) H 12/13/21 06:03 Eosinophils % (Manual) 4.0 % (0.0-4.3) 12/13/21 06:03 Basophils % (Manual) 0 % (0.0-1.8) 12/13/21 06:03 Metamyelocytes % 0 % 12/13/21 06:03 Myelocytes % 1.0 % 12/13/21 06:03 Promyelocytes % 0 % 12/13/21 06:03 Blast Cells % 0 % 12/13/21 06:03 Nucleated RBC % Not Reportable 12/13/21 06:03 Seg Neutrophils # 14.6 K/mm3 (1.8-7.7) H 12/09/21 14:16 Seg Neutrophils # Man 4.8 K/mm3 (1.8-7.7) 12/13/21 06:03 Band Neutrophils # 0.0 K/mm3 12/13/21 06:03 Lymphocytes # (Manual) 1.7 K/mm3 (1.2-5.4) 12/13/21 06:03 Abs React Lymphs (Man) 0.0 K/mm3 12/13/21 06:03 Monocytes # (Manual) 0.8 K/mm3 (0.0-0.8) 12/13/21 06:03 Eosinophils # (Manual) 0.3 K/mm3 (0.0-0.4) 12/13/21 06:03 Basophils # (Manual) 0.0 K/mm3 (0.0-0.1) 12/13/21 06:03 Metamyelocytes # 0.0 K/mm3 12/13/21 06:03 Myelocytes # 0.1 K/mm3 12/13/21 06:03 Promyelocytes # 0.0 K/mm3 12/13/21 06:03 Blast Cells # 0.0 K/mm3 12/13/21 06:03 WBC Morphology Not Reportable 12/13/21 06:03 Hypersegmented Neuts Not Reportable 12/13/21 06:03 Hyposegmented Neuts Not Reportable 12/13/21 06:03 Hypogranular Neuts Not Reportable 12/13/21 06:03 Smudge Cells Not Reportable 12/13/21 06:03 Toxic Granulation Not Reportable 12/13/21 06:03 Toxic Vacuolation Not Reportable 12/13/21 06:03 Dohle Bodies Not Reportable 12/13/21 06:03 Pelger-Huet Anomaly Not Reportable 12/13/21 06:03 Marialuisa Rods Not Reportable 12/13/21 06:03 Platelet Estimate Consistent w auto 12/13/21 06:03 Clumped Platelets Not Reportable 12/13/21 06:03 Plt Clumps, EDTA Not Reportable 12/13/21 06:03 Large Platelets Not Reportable 12/13/21 06:03 Giant Platelets Not Reportable 12/13/21 06:03 Platelet Satelliting Not Reportable 12/13/21 06:03 Plt Morphology Comment Not Reportable 12/13/21 06:03 RBC Morphology Normal 12/13/21 06:03 Dimorphic RBCs Not Reportable 12/13/21 06:03 Polychromasia Not Reportable 12/13/21 06:03 Hypochromasia Not Reportable 12/13/21 06:03 Poikilocytosis Not Reportable 12/13/21 06:03 Anisocytosis Not Reportable 12/13/21 06:03 Microcytosis Not Reportable 12/13/21 06:03 Macrocytosis Not Reportable 12/13/21 06:03 Spherocytes Not Reportable 12/13/21 06:03 Pappenheimer Bodies Not Reportable 12/13/21 06:03 Sickle Cells Not Reportable 12/13/21 06:03 Target Cells Not Reportable 12/13/21 06:03 Tear Drop Cells Not Reportable 12/13/21 06:03 Ovalocytes Not Reportable 12/13/21 06:03 Helmet Cells Not Reportable 12/13/21 06:03 Wong-[place] Bodies Not Reportable 12/13/21 06:03 [place] Rings Not Reportable 12/13/21 06:03 [place] Cells Not Reportable 12/13/21 06:03 Bite Cells Not Reportable 12/13/21 06:03 Crenated Cell Not Reportable 12/13/21 06:03 Elliptocytes Not Reportable 12/13/21 06:03 Acanthocytes (Spur) Not Reportable 12/13/21 06:03 Rouleaux Not Reportable 12/13/21 06:03 Hemoglobin C Crystals Not Reportable 12/13/21 06:03 Schistocytes Not Reportable 12/13/21 06:03 Malaria parasites Not Reportable 12/13/21 06:03 Damir Bodies Not Reportable 12/13/21 06:03 Hem Pathologist Commnt No 12/13/21 06:03 PT 14.9 Sec. (12.2-14.9) 12/09/21 14:16 INR 1.05 (0.87-1.13) 12/09/21 14:16 Sodium 138 mmol/L (137-145) 12/13/21 06:03 Potassium 3.4 mmol/L (3.6-5.0) L 12/13/21 06:03 Chloride 98.2 mmol/L (98-107) 12/13/21 06:03 Carbon Dioxide 32 mmol/L (22-30) H 12/13/21 06:03 Anion Gap 11 mmol/L 12/13/21 06:03 BUN 12 mg/dL (9-20) 12/13/21 06:03 Creatinine 3.7 mg/dL (0.8-1.3) H 12/13/21 06:03 Estimated GFR 17 ml/min 12/13/21 06:03 BUN/Creatinine Ratio 3 % 12/13/21 06:03 Glucose 111 mg/dL (75-100) H 12/13/21 06:03 Lactic Acid 1.00 mmol/L (0.7-2.0) 12/09/21 14:16 Calcium 9.3 mg/dL (8.4-10.2) 12/13/21 06:03 Phosphorus 4.00 mg/dL (2.5-4.5) 12/12/21 04:04 Magnesium 2.00 mg/dL (1.7-2.3) 12/09/21 14:16 Total Bilirubin 0.40 mg/dL (0.1-1.2) 12/10/21 04:00 AST 19 units/L (5-40) 12/10/21 04:00 ALT 5 units/L (7-56) L 12/10/21 04:00 Alkaline Phosphatase 107 units/L (35-129) 12/10/21 04:00 Total Creatine Kinase 71 units/L (55-170) 12/09/21 14:16 Total Protein 6.9 g/dL (6.3-8.2) 12/10/21 04:00 Albumin 3.7 g/dL (3.9-5) L 12/10/21 04:00 Albumin/Globulin Ratio 1.2 % 12/10/21 04:00 Lipase 14 units/L (13-60) 12/09/21 14:16 SARS-CoV-2 (PCR) Negative (Negative) 12/10/21 11:32 Hepatitis A IgM Ab Non-reactive (NonReactive) 12/09/21 17:00 Hep Bs Antigen Non-reactive (Negative) 12/09/21 17:00 Hep B Core IgM Ab Non-reactive (NonReactive) 12/09/21 17:00 Hepatitis C Antibody Non-reactive (NonReactive) 12/09/21 17:00 Microbiology: Microbiology 12/09/21 14:16 Peripheral/Venous Blood Culture - Preliminary NO GROWTH AFTER 72 HOURS 12/09/21 14:16 Peripheral/Venous Blood Culture - Preliminary NO GROWTH AFTER 72 HOURS Ferro/IV: Voiding Method Urinal Active Medications - Current Medications Current Medications: Generic Name Dose Route Start Last Admin Trade Name Freq PRN Reason Stop Dose Admin Acetaminophen 650 mg 12/10/21 00:37 Acetaminophen 325 Mg Tab PO Q4H PRN Pain MILD(1-3)/Fever >100.5/GAXIOLA Albuterol 2.5 mg 12/10/21 01:19 Albuterol 2.5 Mg/3 Ml Nebu IH Q3HRT PRN Wheezing Azithromycin 500 mg 12/12/21 10:00 12/13/21 09:09 Azithromycin 250 Mg Tab PO 12/14/21 10:01 500 mg QDAY LOUISE Administration Protocol Carvedilol 25 mg 12/10/21 01:00 12/13/21 09:09 Carvedilol 25 Mg Tab PO 25 mg BID LOUISE Administration Hydralazine HCl 12.5 mg 12/09/21 23:43 12/12/21 17:05 Hydralazine 25 Mg Tab PO 12.5 mg Q6H PRN Administration SBP >/=160; DBP >/=100 Hydralazine HCl 100 mg 12/10/21 08:00 12/13/21 09:09 Hydralazine 100 Mg Tab PO 100 mg TID LOUISE Administration Ceftriaxone Sodium 2 gm in 100 mls @ 200 mls/hr 12/10/21 02:00 12/13/21 06:58 Rocephin/Ns 2 Gm/100 Ml IV 12/14/21 06:29 200 mls/hr Q24H LOUISE Administration Protocol Metoclopramide HCl 5 mg 12/10/21 01:16 Metoclopramide 10 Mg/2 Ml Inj IV Q6H PRN Nausea And Vomiting Morphine Sulfate 2 mg 12/10/21 00:37 12/11/21 20:46 Morphine 2 Mg/1 Ml Inj IV 2 mg Q4H PRN Administration Pain, Moderate (4-6) Nifedipine 90 mg 12/12/21 22:00 12/13/21 09:09 Nifedipine Xl 90 Mg Tab PO 90 mg Q12HR LOUISE Administration Ondansetron HCl 4 mg 12/10/21 00:37 Ondansetron 4 Mg/2 Ml Inj IV Q8H PRN Nausea And Vomiting Pantoprazole Sodium 40 mg 12/12/21 07:30 12/13/21 09:08 Pantoprazole 40 Mg Tab PO 40 mg DAILY@0730 LOUISE Administration Sodium Chloride 10 ml 12/10/21 10:00 12/13/21 09:09 Sodium Chloride 0.9% 10 Ml Flush Syringe IV 10 ml BID LOUISE Administration Sodium Chloride 10 ml 12/10/21 00:37 Sodium Chloride 0.9% 10 Ml Flush Syringe IV PRN PRN LINE FLUSH Tramadol HCl 50 mg 12/09/21 23:14 12/11/21 16:59 Tramadol 50 Mg Tab PO 50 mg Q12H PRN Administration Pain, Moderate (4-6)
[2021-12-13] MEDS: ONDANSETRON 4 MG/2 ML INJ IV PRN (12:31)
--- NOTE | 2021-12-13 12:55 | Progress Note ---
Assessment and Plan Assessment: ESRD (end stage renal disease) Bilateral pneumonia Acute abdominal pain Right lower lobe pulmonary nodule Plan: -Hemodialysis tomorrow for UF and clearance -Fluid restriction of 1 liter per day -Renal diet -Renally dose all medications -Obtain daily weights -Monitor I/O's daily -Assess dialysis needs daily -Patient states he does not want to return to his current dialysis clinic and requests to be switched to a non[facility] -Placed consult to case management for outpatient HD placement to [facility], awaiting [place] authorization -Plan of care reviewed by Dr. Nelson Subjective Date of service: 12/13/21 Principal diagnosis: ESRD Interval history: Patient seen lying in bed. Awake and alert. States feels better but stomach feels queasy. States eating crackers and drinking jered trey to ease stomach symptoms. Objective - Vital Signs Vital signs: Vital Signs - 12hr 12/13/21 12/13/21 12/13/21 03:34 07:30 07:36 Temperature 97.9 F 98.0 F Pulse Rate 61 55 L 56 L Pulse Rate [ From Monitor] Respiratory 18 12 Rate Blood Pressure 177/78 158/67 O2 Sat by Pulse 98 97 Oximetry 12/13/21 12/13/21 12/13/21 07:53 09:57 11:33 Temperature 97.9 F Pulse Rate 56 L Pulse Rate [ 55 L From Monitor] Respiratory 18 12 Rate Blood Pressure 137/62 O2 Sat by Pulse 99 99 97 Oximetry 12/13/21 11:34 Temperature Pulse Rate 56 L Pulse Rate [ From Monitor] Respiratory Rate Blood Pressure O2 Sat by Pulse 99 Oximetry - General Appearance General appearance: well-developed, appears stated age EENT: ATNC, PERRL, hearing intact, vision intact Neck: no JVD, supple Respiratory: Present: Decreased Breath Sounds Cardiology: S1S2 Gastrointestinal: normoactive bowel sounds Integumentary: warm and dry Neurologic: alert and oriented x3 Musculoskeletal: other (trace edema, much better today) - Lab 12/13/21 06:03 12/13/21 06:03 Most recent lab results Calcium 9.3 mg/dL (8.4-10.2) 12/13/21 06:03 Phosphorus 4.00 mg/dL (2.5-4.5) 12/12/21 04:04 Magnesium 2.00 mg/dL (1.7-2.3) 12/09/21 14:16 Medications & Allergies - Medications Allergies/Adverse Reactions: Allergies clonidine Allergy (Verified 11/23/21 11:17) Swelling codeine Allergy (Verified 11/23/21 11:17) Itching hydrocodone Allergy (Verified 11/23/21 11:17) Itching aspirin Adverse Reaction (Severe, Verified 11/23/21 11:17) Brain Bleeding Home Medications: Home Medications Medication Instructions Recorded Confirmed Last Taken Type Folic Acid/Vit B Comp W-C [Renal 1 cap PO QDAY 30 Days #30 capsule 11/17/21 Unknown Rx Caps] Lanthanum Carbonate [Fosrenol] 750 mg PO QDAC 30 Days #90 11/17/21 12/09/21 Unknown Rx NIFEdipine XL [Procardia Xl] 60 mg PO Q12HR 30 Days #60 tablet 11/17/21 12/09/21 Unknown Rx Pantoprazole [Protonix TAB] 40 mg PO QDAY 30 Days #30 tablet 11/17/21 12/09/21 Unknown Rx carvediloL [Coreg] 25 mg PO BID #60 tablet 11/17/21 12/09/21 Unknown Rx hydrALAZINE [Apresoline TAB] 100 mg PO TID 30 Days #90 tab 11/17/21 12/09/21 Unknown Rx Sennosides 17.2 mg PO QHS 14 Days #28 11/23/21 12/09/21 Unknown Rx traMADoL [Ultram 50 MG tab] 50 mg PO BID PRN #20 tablet 11/26/21 12/09/21 Unknown Rx Gabapentin 300 mg PO 3XW 12/11/21 12/11/21 2 Weeks Ago History ~11/27/21 Active Medications: Generic Name Dose Route Start Last Admin Trade Name Freq PRN Reason Stop Dose Admin Acetaminophen 650 mg 12/10/21 00:37 Acetaminophen 325 Mg Tab PO Q4H PRN Pain MILD(1-3)/Fever >100.5/GAXIOLA Albuterol 2.5 mg 12/10/21 01:19 Albuterol 2.5 Mg/3 Ml Nebu IH Q3HRT PRN Wheezing Azithromycin 500 mg 12/12/21 10:00 12/13/21 09:09 Azithromycin 250 Mg Tab PO 12/14/21 10:01 500 mg QDAY LOUISE Administration Protocol Carvedilol 25 mg 12/10/21 01:00 12/13/21 09:09 Carvedilol 25 Mg Tab PO 25 mg BID LOUISE Administration Hydralazine HCl 12.5 mg 12/09/21 23:43 12/12/21 17:05 Hydralazine 25 Mg Tab PO 12.5 mg Q6H PRN Administration SBP >/=160; DBP >/=100 Hydralazine HCl 100 mg 12/10/21 08:00 12/13/21 09:09 Hydralazine 100 Mg Tab PO 100 mg TID LOUISE Administration Ceftriaxone Sodium 2 gm in 100 mls @ 200 mls/hr 12/10/21 02:00 12/13/21 06:58 Rocephin/Ns 2 Gm/100 Ml IV 12/14/21 06:29 200 mls/hr Q24H LOUISE Administration Protocol Metoclopramide HCl 5 mg 12/10/21 01:16 Metoclopramide 10 Mg/2 Ml Inj IV Q6H PRN Nausea And Vomiting Morphine Sulfate 2 mg 12/10/21 00:37 12/11/21 20:46 Morphine 2 Mg/1 Ml Inj IV 2 mg Q4H PRN Administration Pain, Moderate (4-6) Nifedipine 90 mg 12/12/21 22:00 12/13/21 09:09 Nifedipine Xl 90 Mg Tab PO 90 mg Q12HR LOUISE Administration Ondansetron HCl 4 mg 12/10/21 00:37 12/13/21 12:31 Ondansetron 4 Mg/2 Ml Inj IV 4 mg Q8H PRN Administration Nausea And Vomiting Pantoprazole Sodium 40 mg 12/12/21 07:30 12/13/21 09:08 Pantoprazole 40 Mg Tab PO 40 mg DAILY@0730 LOUISE Administration Sodium Chloride 10 ml 12/10/21 10:00 12/13/21 09:09 Sodium Chloride 0.9% 10 Ml Flush Syringe IV 10 ml BID LOUISE Administration Sodium Chloride 10 ml 12/10/21 00:37 Sodium Chloride 0.9% 10 Ml Flush Syringe IV PRN PRN LINE FLUSH Tramadol HCl 50 mg 12/09/21 23:14 12/11/21 16:59 Tramadol 50 Mg Tab PO 50 mg Q12H PRN Administration Pain, Moderate (4-6)
[2021-12-13] MEDS: traMADol 50 MG TAB PO PRN (20:18)
[2021-12-14] MEDS: hydrALAZINE 25 MG TAB PO PRN (04:18)
[2021-12-14 05:01] LABS: Calcium 9.6 mg/dL (8.4-10.2)
[2021-12-14] MEDS: cefTRIAXone/NS 2 GM/100 ML 2 GM/100 ML BAG IV SCH (06:19)
[2021-12-14] MEDS: hydrALAZINE 100 MG TAB PO SCH ×2 (07:50→12:59)
[2021-12-14] MEDS: ONDANSETRON 4 MG/2 ML INJ IV PRN (07:50)
[2021-12-14] MEDS: PANTOPRAZOLE 40 MG TAB PO SCH (07:50)
--- NOTE | 2021-12-14 08:52 | Discharge Summary ---
Providers - Providers Date of Admission: 12/09/21 18:29 Date of discharge: 12/14/21 Attending physician: JOHNATHON VELA 12/09/21 13:46 Consult to Physician [CONS] Stat Comment: Consulting Provider: ZENY WAGNER Physician Instructions: Reason For Exam: esrd 12/09/21 16:47 Consult to Physician [CONS] Urgent Comment: Consulting Provider: ARTUR JAIMES Physician Instructions: Reason For Exam: acute abd pain 12/11/21 11:42 Consult to Case Management [CONS] Routine Services Needed at Discharge: Other Notified:: cm notified Comment:: Outpatient hemodialysis placement to [facility] Primary care physician: ISSAC TAYLOR Hospitalization Reason for admission: ESRD Condition: Serious Hospital course: 61-year-old male who was initially admitted through the emergency department with complaints of abdominal pain and headache. CT scan of the abdomen and pelvis revealed nodular density with the right lower lobe and scattered groundglass opacities within the bilateral right greater than left lower lobes which was felt to be secondary to pneumonia. Patient was treated with IV antibiotics for the pneumonia. Patient had resolution of symptoms and did not have any hypoxia. Patient also had 2 soft tissue lesions in the perianal region. Surgery was consulted and reported that the patient denied any perianal pain and felt that there was no need for any intervention. Surgery also felt that acute abdominal pain was not warranted for any surgical intervention as well. CT scan was essentially negative. Nephrology saw the patient in consultation with regards to ESRD and patient underwent appropriate hemodialysis. The patient had fluid restriction of 1 L/day, renal diet, medications renally dosed, and dialysis per nephrology recommendations. Patient stated he does not want to return to his current dialysis clinic and requests to be switched to a non-[facility] dialysis clinic. Placed consult to case management for outpatient HD placement to [facility], awaiting [facility] authorization. Patient is felt to have received maximal hospital benefit and will be discharged home. Patient is instructed to follow-up as an outpatient for possible PET scan or repeat CT scan for right lung nodule. Also follow-up placed for pulmonary. Dedicated discharge time 32 minutes Disposition: HOME / SELF CARE / HOMELESS Final Discharge Diagnosis (Prints w/discharge instructions): ESRD, bilateral pneumonia, abdominal pain, right lower lobe pulmonary nodule Core Measure Documentation - Palliative Care Palliative Care/ Comfort Measures: Not Applicable - Core Measures Any of the following diagnoses?: none Exam - Constitutional Vitals: Temp Pulse Resp BP Pulse Ox 97.4 F L 55 L 18 180/76 99 12/14/21 03:59 12/14/21 08:03 12/14/21 08:03 12/14/21 04:00 12/14/21 08:03 General appearance: Present: no acute distress, well-nourished - EENT Eyes: Present: PERRL ENT: hearing intact, clear oral mucosa - Neck Neck: Present: supple, normal ROM - Respiratory Respiratory effort: normal Respiratory: bilateral: CTA - Cardiovascular Heart Sounds: Present: S1 & S2. Absent: rub, click - Extremities Extremities: pulses symmetrical, No edema Peripheral Pulses: within normal limits - Abdominal General gastrointestinal: Present: soft, non-tender, non-distended, normal bowel sounds Male genitourinary: Present: normal - Integumentary Integumentary: Present: clear, warm, dry - Musculoskeletal Musculoskeletal: gait normal, strength equal bilaterally - Psychiatric Psychiatric: appropriate mood/affect, intact judgment & insight - Neurologic Neurologic: CNII-XII intact, moves all extremities Plan Activity: advance as tolerated Weight Bearing Status: Weight Bear as Tolerated Diet: regular Additional Instructions: Patient is instructed to follow-up as an outpatient for possible PET scan or repeat CT scan for right lung nodule. Also follow-up placed for pulmonary. Follow up with: ISSAC TAYLOR MD [Primary Care Provider] - 7 Days AUBRIE ZABALA MD [Staff Physician] - 7 Days ZENY WAGNER MD [Staff Physician] - 7 Days Prescriptions: carvediloL [Coreg] 25 mg PO BID #60 tablet Lanthanum Carbonate [Fosrenol] 750 mg PO QDAC 30 Days #90 Gabapentin 300 mg PO 3XW #90 cap NIFEdipine XL [Procardia Xl] 60 mg PO Q12HR 30 Days #60 tablet Pantoprazole [Protonix TAB] 40 mg PO QDAY 30 Days #30 tablet Folic Acid/Vit B Comp W-C [Renal Caps] 1 cap PO QDAY 30 Days #30 capsule Sennosides 17.2 mg PO QHS 14 Days #28
--- NOTE | 2021-12-14 09:25 | Progress Note ---
Assessment and Plan ESRD (end stage renal disease) Bilateral pneumonia Acute abdominal pain Right lower lobe pulmonary nodule Plan: -Hemodialysis today for UF and clearance -Fluid restriction of 1 liter per day -Renal diet -Renally dose all medications -Obtain daily weights -Monitor I/O's daily -Assess dialysis needs daily -patient is ready for discharge from renal standpoint after outpatient dialysis is finalized Subjective Date of service: 12/14/21 Principal diagnosis: ESRD Interval history: no overnight events Objective - Vital Signs Vital signs: Vital Signs - 12hr 12/13/21 12/14/21 12/14/21 23:29 03:59 04:00 Temperature 97.5 F L 97.4 F L Pulse Rate 59 L 59 L Pulse Rate [ From Monitor] Respiratory 18 18 Rate Blood Pressure 166/72 184/77 Blood Pressure 180/76 [Left] O2 Sat by Pulse 98 97 97 Oximetry 12/14/21 12/14/21 08:03 08:33 Temperature 97.6 F Pulse Rate 62 Pulse Rate [ 55 L From Monitor] Respiratory 18 11 L Rate Blood Pressure 166/79 Blood Pressure [Left] O2 Sat by Pulse 99 97 Oximetry - Lab 12/13/21 06:03 12/14/21 03:56 Most recent lab results Calcium 9.6 mg/dL (8.4-10.2) 12/14/21 03:56 Phosphorus 4.00 mg/dL (2.5-4.5) 12/12/21 04:04 Magnesium 2.00 mg/dL (1.7-2.3) 12/09/21 14:16 Medications & Allergies - Medications Allergies/Adverse Reactions: Allergies clonidine Allergy (Verified 11/23/21 11:17) Swelling codeine Allergy (Verified 11/23/21 11:17) Itching hydrocodone Allergy (Verified 11/23/21 11:17) Itching aspirin Adverse Reaction (Severe, Verified 11/23/21 11:17) Brain Bleeding Home Medications: Home Medications Medication Instructions Recorded Confirmed Last Taken Type Folic Acid/Vit B Comp W-C [Renal 1 cap PO QDAY 30 Days #30 capsule 11/17/21 12/09/21 Unknown Rx Caps] Lanthanum Carbonate [Fosrenol] 750 mg PO QDAC 30 Days #90 11/17/21 12/09/21 Unknown Rx NIFEdipine XL [Procardia Xl] 60 mg PO Q12HR 30 Days #60 tablet 11/17/21 12/09/21 Unknown Rx Pantoprazole [Protonix TAB] 40 mg PO QDAY 30 Days #30 tablet 11/17/21 12/09/21 Unknown Rx carvediloL [Coreg] 25 mg PO BID #60 tablet 11/17/21 12/09/21 Unknown Rx hydrALAZINE [Apresoline TAB] 100 mg PO TID 30 Days #90 tab 11/17/21 12/09/21 Unknown Rx Sennosides 17.2 mg PO QHS 14 Days #28 11/23/21 12/09/21 Unknown Rx traMADoL [Ultram 50 MG tab] 50 mg PO BID PRN #20 tablet 11/26/21 12/09/21 Un known Rx Gabapentin 300 mg PO 3XW 12/11/21 12/11/21 2 Weeks Ago History ~11/27/21 Active Medications: Generic Name Dose Route Start Last Admin Trade Name Freq PRN Reason Stop Dose Admin Acetaminophen 650 mg 12/10/21 00:37 Acetaminophen 325 Mg Tab PO Q4H PRN Pain MILD(1-3)/Fever >100.5/GAXIOLA Albuterol 2.5 mg 12/10/21 01:19 Albuterol 2.5 Mg/3 Ml Nebu IH Q3HRT PRN Wheezing Azithromycin 500 mg 12/12/21 10:00 12/13/21 09:09 Azithromycin 250 Mg Tab PO 12/14/21 10:01 500 mg QDAY LOUISE Administration Protocol Carvedilol 25 mg 12/10/21 01:00 12/13/21 21:44 Carvedilol 25 Mg Tab PO 25 mg BID LOUISE Administration Hydralazine HCl 12.5 mg 12/09/21 23:43 12/14/21 04:18 Hydralazine 25 Mg Tab PO 12.5 mg Q6H PRN Administration SBP >/=160; DBP >/=100 Hydralazine HCl 100 mg 12/10/21 08:00 12/14/21 07:50 Hydralazine 100 Mg Tab PO 100 mg TID LOUISE Administration Metoclopramide HCl 5 mg 12/10/21 01:16 Metoclopramide 10 Mg/2 Ml Inj IV Q6H PRN Nausea And Vomiting Morphine Sulfate 2 mg 12/10/21 00:37 12/11/21 20:46 Morphine 2 Mg/1 Ml Inj IV 2 mg Q4H PRN Administration Pain, Moderate (4-6) Nifedipine 90 mg 12/12/21 22:00 12/13/21 21:44 Nifedipine Xl 90 Mg Tab PO 90 mg Q12HR LOUISE Administration Ondansetron HCl 4 mg 12/10/21 00:37 12/14/21 07:50 Ondansetron 4 Mg/2 Ml Inj IV 4 mg Q8H PRN Administration Nausea And Vomiting Pantoprazole Sodium 40 mg 12/12/21 07:30 12/14/21 07:50 Pantoprazole 40 Mg Tab PO 40 mg DAILY@0730 LOUISE Administration Sodium Chloride 10 ml 12/10/21 10:00 12/14/21 04:19 Sodium Chloride 0.9% 10 Ml Flush Syringe IV 10 ml BID LOUISE Administration Sodium Chloride 10 ml 12/10/21 00:37 Sodium Chloride 0.9% 10 Ml Flush Syringe IV PRN PRN LINE FLUSH Tramadol HCl 50 mg 12/09/21 23:14 12/13/21 20:18 Tramadol 50 Mg Tab PO 50 mg Q12H PRN Administration Pain, Moderate (4-6)
[2021-12-14 12:20] VITALS: BP 148/74
[2021-12-14] MEDS ORDERED: GABAPENTIN 300 MG CAP PO NR (12:40)
[2021-12-14] MEDS: NIFEdipine XL 90 MG TAB PO SCH (12:59)
[2021-12-14] MEDS: carvediloL 25 MG TAB PO SCH (12:59)
[2021-12-14] MEDS ORDERED: AZITHROMYCIN 250 MG TAB PO NR (13:00)
[2021-12-14] MEDS: AZITHROMYCIN 250 MG TAB PO SCH (13:16)
== END 2021-12-14 16:50 | disposition home or self-care (01) | DRG 193 ==
LOC: ED 12:52 → 4A 18:29 → OBSVTOIN 18:29
PROVIDERS: ADMIT Internal Medicine; ATTEND Hospitalist
PROC: 5A1D70Z Performance of Urinary Filtration, Intermittent, Less than 6 Hours Per Day (ICD-10-PCS; principal; 2021-12-09)
PROC: 5A1D70Z Performance of Urinary Filtration, Intermittent, Less than 6 Hours Per Day (ICD-10-PCS; 2021-12-11)
PROC: 5A1D70Z Performance of Urinary Filtration, Intermittent, Less than 6 Hours Per Day (ICD-10-PCS; 2021-12-12)
PROC: 5A1D70Z Performance of Urinary Filtration, Intermittent, Less than 6 Hours Per Day (ICD-10-PCS; 2021-12-14)
DX: J18.9 Pneumonia, unspecified organism (principal); N18.6 End stage renal disease; I12.0 Hypertensive chronic kidney disease with stage 5 chronic kidney disease or end stage renal disease; R91.1 Solitary pulmonary nodule; Z20.822 Contact with and (suspected) exposure to COVID-19; E87.70 Fluid overload, unspecified; K21.9 Gastro-esophageal reflux disease without esophagitis; G62.9 Polyneuropathy, unspecified; Z90.49 Acquired absence of other specified parts of digestive tract; Z90.5 Acquired absence of kidney; Z88.6 Allergy status to analgesic agent; Z88.8 Allergy status to other drugs, medicaments and biological substances; Z90.81 Acquired absence of spleen; Z82.49 Family history of ischemic heart disease and other diseases of the circulatory system
CPT/HCPCS: 36415; 70450; 71045; 74174; 80048; 80053; 80074; 82140; 82550; 83690; 83735; 84100; 85007; 85025; 85610; 87040; 93005; 94640; 94760; G0378; J0360; J0456; J0696; J1100; J1170; J1956; J2270; J2405; J2543; J2765; Q9967; U0003